=== PATIENT | female | born 1995 | race Caucasian/White ===

== ENCOUNTER 2023-09-16 08:25 | Emergency (ER) | payer SELFPAY ==
[2023-09-16] MEDS ORDERED: ONDANSETRON 4 MG/2 ML VIAL ONE (08:34)
[2023-09-16 08:48] LABS: Absolute Eosinophils 0.1 K/uL (0-0.5); Absolute Lymphocytes (CBC) 1.1 K/uL (0.7-4.9); Absolute Monocytes 0.2 K/uL (0.1-1.3); Absolute Neutrophil 4.1 K/uL (1.8-8.0); Basophils % 0.8 % (0-1.3); Eosinophils % 0.9 % (0-4.4); Hematocrit 38.6 % (36.0-45.0); Hemoglobin 13.4 g/dL (12.0-15.0); Lymphocytes % 20.6 % (15.3-44.8); MCH 29.6 pg (27.0-35.0); MCHC 34.7 g/dL (32.0-36.0); MCV 85.3 fL (80-100); MPV 9.8 fL (7.6-11.3); Monocytes % 4.1 % (3.3-12.3); Neutrophils % 73.6 % (41.7-73.7); Platelets 157 thou/uL (152-406); RBC Red Blood Cell Count 4.53 M/uL (3.86-4.86)
[2023-09-16 08:50] LABS: PT Prothrombin Time 11.9 SECONDS (9.5-12.5); PTT, Activated Partial Thromb 31.3 SECONDS (24.3-36.9); Protime INR 1.08
[2023-09-16 09:13] LABS: ALT/SGPT 19 U/L (13-56); AST/SGOT 14 U/L (15-37); Albumin 3.7 g/dL (3.4-5.0); Albumin/Globulin Ratio 0.9 (1.1-1.8); Alkaline Phosphatase 93 U/L (45-117); Anion Gap 11.9 mEq/L (5.0-15.0); BUN Blood Urea Nitrogen 14 mg/dL (7-18); Bicarbonate 21 mEq/L (21-32); Bilirubin Direct 0.2 mg/dL (0-0.2); Bilirubin Indirect, Calculated 0.6 mg/dL (0.2-0.8); Bilirubin Total 0.8 mg/dL (0.2-1.0); Globulin 4.1 g/dL (2.3-3.5); Glomerular Filtration Rate 94 ml/min (=/>90); Glucose Level 137 mg/dL (74-106); NT PRO-BNP 220 pg/mL (<125); Potassium 2.9 mEq/L (3.5-5.1); Protein, Total 7.8 g/dL (6.4-8.2); Sodium Level 140 mEq/L (136-145); Troponin High Sensitivity 6.7 pg/mL (<58.9)
--- NOTE | 2023-09-16 09:20 | EDPHYS ---
Physician Documentation [facility] Name: Yeny Kc Age: 28 yrs Sex: Female : 1995 Arrival Date: 09/16/2023 Time: 08: Bed 2 Private MD: ED Physician Lambert Jaeger HPI: 09/15 08:45 This 28 yrs old Female presents to ER via EMS with complaints of Nausea/Vomiting. sp3 08:45 28-year-old female with no stated past medical history presents via EMS for chief sp3 complaint vomiting, abdominal pain and anxiety. EMS arrived to find patient vomiting with a heart rate in the 30s. A total of two 0.5 mg doses of atropine were given to bring heart rate up into the 80s. Patient denies chest pain, prior bradycardia, syncope, near syncope, dizziness, or any other signs or symptoms on ROS at this time. When asked about she states that she "might be ". When asked about drug use, she does state that she vapes synthetic THC with delta 8. She denies any other illicit drug use. Review of systems otherwise negative for fever, URI symptoms, known sick contacts, travel history, prolonged mobilization back pain, lower abdominal pain, [employer]ER symptoms, symptoms, contusions, abuse, or any other signs or symptoms on ROS at this time.. Historical: - Allergies: 08:29 No Known Allergies; bp - Home Meds: 08:29 None [Active]; bp - PMHx: 08:29 None; bp - Immunization history:: Adult Immunizations up to date. - Infectious Disease History:: Denies. - Social history:: Smoking status: unknown. ROS: 08:47 Constitutional: Negative for fever, chills, and weight loss, Eyes: Negative for injury, sp3 pain, redness, and discharge, ENT: Negative for injury, pain, and discharge, Neck: Negative for injury, pain, and swelling, Respiratory: Negative for shortness of breath, cough, wheezing, and pleuritic chest pain, Back: Negative for injury and pain, MS/Extremity: Negative for injury and deformity, Skin: Negative for injury, rash, and discoloration, Neuro: Negative for headache, weakness, numbness, tingling, and seizure, Psych: Negative for depression, anxiety, suicide ideation, homicidal ideation, and hallucinations, Allergy/Immunology: Negative for hives, rash, and allergies, Endocrine: Negative for neck swelling, polydipsia, polyuria, polyphagia, and marked weight changes, 08:47 All other systems are negative, Exam: 08:47 Constitutional: This is a well developed, well nourished patient who is awake, alert, sp3 and in no acute distress. Head/Face: Normocephalic, atraumatic. Eyes: Pupils equal round and reactive to light, extra-ocular motions intact. Lids and lashes normal. Conjunctiva and sclera are non-icteric and not injected. Cornea within normal limits. Periorbital areas with no swelling, redness, or edema. Neck: Trachea midline, no thyromegaly or masses palpated, and no cervical lymphadenopathy. Supple, full range of motion without nuchal rigidity, or vertebral point tenderness. No Meningismus. Chest/axilla: Normal chest wall appearance and motion. Nontender with no deformity. No lesions are appreciated. Cardiovascular: Regular rate and rhythm with a normal S1 and S2. No gallops, murmurs, or rubs. Normal PMI, no JVD. No pulse deficits. Respiratory: Lungs have equal breath sounds bilaterally, clear to auscultation and percussion. No rales, rhonchi or wheezes noted. No increased work of breathing, no retractions or nasal flaring. Back: No spinal tenderness. No costovertebral tenderness. Full range of motion. Skin: Warm, dry with normal turgor. Normal color with no rashes, no lesions, and no evidence of cellulitis. MS/ Extremity: Pulses equal, no cyanosis. Neurovascular intact. Full, normal range of motion. Neuro: Awake and alert, GCS 15, oriented to person, place, time, and situation. Cranial nerves II-XII grossly intact. Motor strength 5/5 in all extremities. Sensory grossly intact. Cerebellar exam normal. Normal gait. 08:47 Abdomen/GI: Mild epigastric pain noted without peritoneal signs, rebound or guarding., 08:47 Psych: Patient with anxiety and nervousness. She denies SI, HI or psychosis.. 08:51 ECG was reviewed by the Attending Physician. EKG demonstrates normal sinus rhythm at 74 sp3 bpm with normal intervals, normal QRS normal axis nonspecific ST/changes without evidence of acute ischemia. Vital Signs: 08:26 BP 146 / 90; Pulse 85; Resp 24; Temp 97.5; Pulse Ox 100% ; bp 08:35 BP 147 / 62; Pulse 86; Resp 16; Pulse Ox 99% on R/A; db 09:20 db 09:20 PATIENT REFUSED REPEAT VITALS UPON EXITING ER db MDM: 08:26 Patient medically screened. sp3 08:48 Data reviewed: vital signs, nurses notes, EMS record, lab test result(s), EKG, sp3 radiologic studies. ED course: 28-year-old female with vomiting, epigastric pain and anxiety. Believe patient's bradycardia was likely due to vagal syndrome and not a primary cardiac etiology. However patient does look pale and we will obtain full workup including laboratory values, ABG, troponin, core temperature, EKG, CT scan of the abdomen pelvis, urine drug screen, urinalysis, hCG, talk screen, and general observation. Her vital signs are currently normal and stable. Ondansetron IV as needed for nausea. Disposition pending workup and patient course.. 09:18 ED course: Patient extremely anxious and wanting to leave AGAINST MEDICAL ADVICE. I sp3 explained to her that possibly including , disability, pain and suffering in a body of other potential challenges. I have urged her to stay however she states that she "wants to go home and take a bath because that the only thing that makes her feel better". Her heart rate remains normal and her vital signs are normal and she is alert and oriented and of sound mind. At this time we will discharge her as an AMA. I am not comfortable with an informed discharge given her presenting symptoms.. 09/15 08:27 Order name: Acetaminophen 3 09/15 08:27 Order name: Basic Metabolic Panel 09/15 08:27 Order name: CBC with Diff 09/15 08:27 Order name: ETOH Level 09/15 08:27 Order name: Hepatic Function 09/15 08:27 Order name: PT-INR 09/15 08:27 Order name: Test, Urine 09/15 08:27 Order name: Ptt, Activated 09/15 08:27 Order name: Salicylate 09/15 08:27 Order name: Urinalysis w/ reflexes sp09/15 08:27 Order name: Urine Drug Screen 09/15 08:27 Order name: BNP 3 09/15 08:27 Order name: ABG 3 09/15 08:27 Order name: Troponin High Sensitivity 3 09/15 08:28 Order name: Lactate w/ 2H reflex if indic. 3 09/15 08:27 Order name: EKG; Complete Time: 08:28 3 09/15 08:27 Order name: EKG - Nurse/Tech; Complete Time: 08:57 3 09/15 08:27 Order name: IV Saline Lock; Complete Time: 08:31 3 09/15 08:27 Order name: Labs collected and sent; Complete Time: 08:57 3 09/15 08:27 Order name: Suicide Screening ([place]); Complete Time: 08:30 3 09/15 08:27 Order name: Rectal Temp; Complete Time: 08:30 3 09/15 08:28 Order name: Monitor; Complete Time: 08:31 3 09/15 08:28 Order name: Pulse Ox Monitoring; Complete Time: 08:31 3 09/15 08:28 Order name: NPO; Complete Time: 08:31 sp3 Administered Medications: 08:35 Drug: Ondansetron IVP 4 mg IVP once; over 2 minutes Route: IVP; Site: left antecubital; db 09:20 Follow up: Response: No adverse reaction db Disposition Summary: 09/16/23 09:20 Left Against Medical Advice Notes: Location: Home sp3 Problem: new sp3 Symptoms: have worsened sp3 Condition: Stable sp3 Diagnosis - Vomiting, abdominal pain, anxiety, resolved bradycardia, AGAINST MEDICAL ADVICE sp3 Followup: sp3 - With: Private Physician - When: Upon discharge from the Emergency Department - Reason: Continuance of care Signatures: Dispatcher [employer] EDMS lA Mccullough RN RN bp Lambert Jaeger MD MD sp3 Kyara Ko RN RN db Corrections: (The following items were deleted from the chart) 08:28 08:28 ACETAMINOPHEN+C.LAB.BRZ ordered. EDMS EDMS 08:28 08:28 BASIC METABOLIC PANEL+C.LAB.BRZ ordered. EDMS EDMS 08:28 08:28 CBC+H.LAB.BRZ ordered. EDMS EDMS 08:28 08:28 ETHANOL+C.LAB.BRZ ordered. EDMS EDMS 08: 08:28 HEPATIC FUNCTION+C.LAB.BRZ ordered. EDMS EDMS 08: 08:28 PROTIME (+INR)+COAG.LAB.BRZ ordered. EDMS EDMS : 08:28 Test, Urine+UC.LAB.BRZ ordered. EDMS EDMS 08: 08:28 PTT, ACTIVATED+COAG.LAB.BRZ ordered. EDMS EDMS : 08:28 SALICYLATE+C.LAB.BRZ ordered. EDMS EDMS 08: 08:28 Urinalysis+U.LAB.BRZ ordered. EDMS EDMS 08: 08:28 URINE DRUG SCREEN+UC.LAB.BRZ ordered. EDMS EDMS : 08:28 PROBNP+C.LAB.BRZ ordered. EDMS EDMS : 08:28 Troponin High Sensitivity+C.LAB.BRZ ordered. EDMS EDMS
--- NOTE | 2023-09-16 09:20 | ER ---
Nurse's Notes [facility] Name: Yeny Kc Age: 28 yrs Sex: Female : 1995 Arrival Date: 09/16/2023 Time: 08:25 Bed 2 Private MD: Diagnosis: Vomiting, abdominal pain, anxiety, resolved bradycardia, AGAINST MEDICAL ADVICE Presentation: 09/15 08:26 Chief complaint: EMS states: EMS CALLED FOR NAUSEA AND VOMITING, EMS AOSTF PT NAKED AND bp ANXIOUS, BRADYCARDIC AND HYPERVENTILATING. PD ON SCENE. Coronavirus screen: At this time, the client does not indicate any symptoms associated with coronavirus-19. Ebola Screen: No symptoms or risks identified at this time. Initial Sepsis Screen: Does the patient meet any 2 criteria? No. Patient's initial sepsis screen is negative. Does the patient have a suspected source of infection? No. Patient's initial sepsis screen is negative. Risk Assessment: Do you want to hurt yourself or someone else? Patient reports no desire to harm self or others. Onset of symptoms was September 16, 2023 at 08:00. Care prior to arrival: Medication(s) given: 1 MG ATROPINE, 4MG ZOFRAN, 2OO ML NS IV initiated. 20 GA, in the right antecubital area. 08:26 Method Of Arrival: EMS: [facility] bp 08:26 Acuity: EDWARDO 3 bp Triage Assessment: 08:29 General: Appears distressed, unkempt, Behavior is agitated, anxious, uncooperative. bp Pain: Denies pain. GI: Reports nausea, vomiting. Historical: - Allergies: 08:29 No Known Allergies; bp - Home Meds: 08:29 None [Active]; bp - PMHx: 08:29 None; bp - Immunization history:: Adult Immunizations up to date. - Infectious Disease History:: Denies. - Social history:: Smoking status: unknown. Screenin:20 [facility] ED Fall Risk Assessment (Adult) History of falling in the last 3 months, db including since admission No falls in past 3 months (0 pts) Confusion or Disorientation No (0 pts) Intoxicated or Sedated No (0 pts) Impaired Gait No (0 pts) Mobility Assist Device Used No (0 pt) Altered Elimination No (0 pt) Score/Fall Risk Level 0 - 2 = Low Risk Oriented to surroundings, Maintained a safe environment. Abuse screen: Denies threats or abuse. Denies injuries from another. Nutritional screening: No deficits noted. Tuberculosis screening: No symptoms or risk factors identified. Assessment: 08:35 Reassessment: PT REFUSING ABG. STATES I JUST WANT TO GO HOME AND USE A HEATING PAD AND db TAKE A SHOWER. 09:15 Reassessment: PATIENT SITTING ON GROUND OUT SIDE OF ROOM STATES WANTS TO LEAVE. PT ON db PHONE WITH SPOUSE STATES SPOUSE IS GOING TO BE OUT FRONT AND WILL PICK PT UP. PATIENT REMOVED 1 IV ACCESS PER SELF. CATHETER INTACT. ASKED PT TO GET UP OFF FLOOR IN SIT IN CHAIR. NOTIFIED DR. JAEGER. 09:20 Reassessment: PATIENT SIGNED AMA FORM. NOTIFIED JYOTSNA NATHAN. PATIENT AMBULATORY WITH db STEADY GATE OUT OF ED. BILATERAL IVS REMOVED AND BANDAGE APPLIED. 09:20 Reassessment: Patient appears in no apparent distress at this time. Patient and/or db family updated on plan of care and expected duration. Pain level reassessed. Patient is alert, oriented x 3, equal unlabored respirations, skin warm/dry/pink. Vital Signs: 08:26 BP 146 / 90; Pulse 85; Resp 24; Temp 97.5; Pulse Ox 100% ; bp 08:35 BP 147 / 62; Pulse 86; Resp 16; Pulse Ox 99% on R/A; db 09:20 db 09:20 PATIENT REFUSED REPEAT VITALS UPON EXITING ER ED Course: 08:25 Patient arrived in ED. bp 08:26 Lambert Jaeger MD is Attending Physician. sp3 08:29 Triage completed. bp 08:29 Arm band placed on. bp 08:30 Al Mccullough, RN is Primary Nurse. bp 08:39 Lactate w/ 2H reflex if indic. Sent. bc6 08:39 Initial lab(s) drawn, by me, sent to lab. Inserted saline lock: 20 gauge in left bc6 antecubital area, using aseptic technique. Blood collected. 09:20 Patient has correct armband on for positive identification. Bed in low position. Call db light in reach. Side rails up X 1. Client placed on continuous cardiac and pulse oximetry monitoring. NIBP monitoring applied. electronic device monitor on. Pulse ox on. NIBP on. Warm blanket given. Pillow given. 09:20 No provider procedures requiring assistance completed. db 09:20 IV discontinued, intact, bleeding controlled, No redness/swelling at site. db Administered Medications: 08:35 Drug: Ondansetron IVP 4 mg IVP once; over 2 minutes Route: IVP; Site: left antecubital; db 09:20 Follow up: Response: No adverse reaction db Medication: 09:20 VIS not applicable for this client. db Outcome: :20 AMA AMA form signed db 09:20 Condition: stable 09:20 Instructed on AMA AND TO RETURN IF SYMPTOMS PERSIST OR WORSEN 09:26 Patient left the ED. db Signatures: Al Mccullough, RN RN bp Lambert Jaeger MD MD sp3 Kyara Ko RN RN db Vicki Hernandez bc6
[2023-09-16 09:54] VITALS: BP 147/62; TEMP 97.5; O2SAT 99
--- NOTE | 2023-09-20 13:12 | EKG ---
Test Date: 2023-09-16 Test Time: 08:47:21 Stitch Burnisher: RICHARD MEASUREMENT RESULTS: Intervals: Rate: 74 TN: 168 QRSD: 90 QT: 432 QTc: 479 Wayne: P: 39 TN: 168 QRS: -10 T: 36 INTERPRETIVE STATEMENTS: Sinus rhythm with occasional premature ventricular complexes Possible Left atrial enlargement Low voltage QRS Cannot rule out Anterior infarct, age undetermined Abnormal ECG No previous ECG available for comparison Electronically Signed On 09-20-23 13:00:21 CDT by Dmitriy James
== END 2023-09-16 09:26 | disposition left against medical advice (07) ==
LOC: ER 08:25
DX: R11.2 Nausea with vomiting, unspecified (principal); R10.30 Lower abdominal pain, unspecified; F41.9 Anxiety disorder, unspecified
CPT/HCPCS: 36415; 80048; 80076; 80143; 80179; 82077; 83605; 83880; 84484; 85025; 85610; 85730; 93005; J2405

== ENCOUNTER 2025-02-18 13:05 | Emergency (ER) | payer OTHER ==
--- OUTSIDE RECORDS SUMMARY | 2025-02-18 13:12 | XMS REPORT | Continuity of Care Document ---
Author Name Unknown Address [address] [facility]. [address] [place] [address] [facility] Address [address] [facility] [address] [place] [address] Care Team Providers Care Thermograph Operator Name Role Phone PCP, PATIENT DOES NOT HAVE A Primary Care Physic riley Unavailable KATARINA FITCH Attending Clinician Unavailable MD MARIVEL Attending Clinician GILES Cortes Attending Clinician Betty Parra Attending Clinician MARLI Fiore Attending Clinician Dung Barbosa MD, Marli Nolasco Attending Clinician Yosi Marroquin Attending Clinician UnavailStephanie Thomas Attending Clinician UnavailKristie Mott Attending Clinician Matthew Lopez RN, Melinda Attending Clinician Johnab le Only, Gal Adult Uc Test Attending Clinician Shamir Ronquillo Attending Clinician [phone] Yosi Marroquin Admitting Clinician MARLI Bernard Admitting Clinician Dung e Payers Payer Name Policy Type Policy Number Effective Date Expirati on Date Source [facility] ABY MONAHAN COPAY FOCUS 9 [id number] 2024 00:00:00 [facility] [id number] 2018 00:00:00 Problems Condition Name Condition Details Condition Category Status Onset Date Resolution Date Last Treatment Date Treating Clinician Comments Source No known active problems No known active problems Disease [facility] Allergies, Adverse Reactions, Alerts Allergy Name Allergy Type Status Severity Reaction(s) Onset Date Inactive Date Treating Clinician Comments Source No Known Allergie s DA Active U 06-12 00:00: 00 [facility] No Known Allergie s DA Active U 06-12 00:00: 00 [facility] No Known Allergie s DA Active U 2018-05 0-24 00:00: 00 [facility] No Known Allergie s DA Active U 2018-05 0-24 00:00: 00 [facility] No Known Allergie s DA Active U 2017-05 0-19 00:00: 00 [facility] No Known Allergie s DA Active U 5-29 00:00: 00 [facility] NO KNOWN ALLERGIE S Drug Class Active [facility] Social History Social Habit Start Date Stop Date Quantity Comments Source Sexual orientation Tosin Howell - External History of tobacco use Passive smoker Radha calderon - External ASSERTION Possible Radha Howell - External Tobacco use and exposure 2024-03-20 00:00:00 2024-03-20 00:00:00 User of smokeless tobacco Radha Howell - External Alcoholic beverage intake 2024-03-20 00:00:00 2024-03-20 00:00:00 Ex-drinker (finding) Radha Howell - External History of Social function 2024-03-20 00:00:00 2024-03-20 00:00:00 Radha Lynda - External Tobacco Comment 2024-03-20 00:00:00 2024-03-20 00:00:00 mason Garcia Setanyaanna - External Sex 2023-12-11 09:45:21 2023-12-11 09:45:21 Female (finding) Radha Kingsteven - External Sex assigned at 1995 00:00:00 1995 00:00:00 Radha Kingsteven - External Smoking Status Start Date Stop Date Source Tobacco smoking consumption unknown [facility] Smokes tobacco daily 2024-03-20 00:00:00 Radha Lynda - External Medications Ordered Medication Name Filled Medication Name Start Date Stop Date Current Medication? Ordering Clinician Indication Dosage Frequency Signature (SIG) Comments Components Source Omeprazole 20 MG oral Delayed Release Capsule 01-24 00:00: 00 Yes 20mg QD Take 1 capsule (20 mg total) by mouth daily. Radha Lynda - Externa l ketorolac (TORADOL) injection 30 mg 09-15 23:30: 00 09-15 23:11 :00 No 30mg 30 mg, Slow IV Push, ONCE, 1 dose, [facility] Wed09/16/23 at 1830[facility] (ISOVUE 370-500 mL) injection 85 mL 09-15 22:45: 00 09-15 22:45 :00 No [id number] 85mL 85 mL, Intravenou s, ONCE, 1 dose, On Wed09/16/23 at 1745, Routine [facility] morpHINE (4 mg/mL) injection 4 mg 09-15 21:45: 00 09-15 23:04 :00 No 4mg 4 mg, Slow IV Push, ONCE, 1 dose, On Wed09/16/23 at 1645, [facility] NaCl 0.9% (NS) bolus infusion 1,000 mL 09-15 20:45: 00 09-15 21:26 :00 No 1000mL at 999 mL/hr, 1,000 mL, IV Infusion, ONCE, 1 dose, On Opal 09/16/23 at 1545, [facility] famotidine (PEPCID (PF)) injection 20 mg 09-15 20:00: 00 09-15 20:16 :00 No 20mg 20 mg, Slow IV Push, ONCE, 1 dose, On Opal 09/16/23 at 1500, [facility] ondansetron (ZOFRAN (PF)) injection 8 mg 09-15 20:00: 00 09-15 20:15 :00 No 8mg 8 mg, Slow IV Push, ONCE, 1 dose, On Opal 09/16/23 at 1500, [facility] Sucralfate 1 g oral Tablet 09-15 00:00: 00 Yes 1g Take 1 tablet (1 g total) by mouth before meals and at bedtime. Radha turcios traMADoL 50 mg tablet 09-15 00:00: 00 Yes [id number] 50mg Take 1 tablet by mouth every 6 (six) hours as needed (pain). Indication s: acute pain [facility] ondansetron 4 mg tablet 09-15 00:00: 00 Yes [id number] 1 or 2 tablets every 8 hours as needed for nausea [facility] busPIRone 10 mg tablet 09-15 00:00: 00 09-30 04:59 :00 No [id number] 10mg Take 1 tablet by mouth in the morning and 1 tablet in the evening. Do all this for 14 days. [facility] cefdinir 300 mg capsule 09-15 00:00: 00 09-21 04:59 :00 No [id number] 300mg Take 1 capsule by mouth every 12 (twelve) hours for 5 days. [facility] traMADol 50 mg tablet 2018-05 00:00: 00 Yes [id number] 50mg Take 1 tablet by mouth every 6 (six) hours as needed for Pain (scale 4-6). [facility] Immunizations Ordered Immunization Name Filled Immunization Name Date Status Comments Source Rho (d) Immune Globulin 2023-09-16 14:49:00 Completed [facility] Rho (d) Immune Globulin 2018-07-17 00:00:00 Completed [facility] Rho (d) Immune Globulin 2018-07-17 00:00:00 Completed [facility] Vital Signs Vital Name Observation Time Observation Value Comments S ource Systolic blood pressure 2024-03-20 15:04:00 160 mm[Hg] Radha Seybo ld - External Diastolic blood pressure 2024-03-20 15:04:00 79 mm[Hg] Radha Seybo ld - External Heart rate 2024-03-20 15:04:00 64 /min Shree y Seybold - External Body temperature 2024-03-20 15:04:00 36.83 Sue Radha Seybold - External Respiratory rate 2024-03-20 15:04:00 18 /min Radha Kingybold - External Body height 2024-03-20 15:04:00 152.4 cm Mayra ey Seybold - External Body weight 2024-03-20 15:04:00 85.276 kg Mayra ey Seybold - External BMI 2024-03-20 15:04:00 36.72 kg/m2 Mayra ey Seybold - External Oxygen saturation in Arterial blood by Pulse oximetry 2024-03-20 15:04:00 99 /min Radha Kingybo ld - External Systolic blood pressure 2023-09-16 23:30:00 122 mm[Hg] [facility] Diastolic blood pressure 2023-09-16 23:30:00 58 mm[Hg] [facility] Heart rate 2023-09-16 23:30:00 39 /min [facility] Body temperature 2023-09-16 23:30:00 36.67 Sue [facility] Respiratory rate 2023-09-16 23:30:00 17 /min [facility] Oxygen saturation in Arterial blood by Pulse oximetry 2023-09-16 23:30:00 100 /min [facility] Body height 2023-09-16 19:46:00 152.4 cm [facility] Body weight 2023-09-16 19:46:00 95.255 kg [facility] BMI 2023-09-16 19:46:00 41.01 kg/m2 [facility] Procedures Procedure Date / Time Performed Performing Clinicia n Source CT ABDOMEN PELVIS W CONTRAST 2023-09-16 21:52:00 Marli Barbosa [facility] URINALYSIS 2023-09-16 21:25:00 [facility] 2023-09-16 20:09:00 Marli Barbosa [facility] TEST, SERUM 2023-09-16 20:09:00 Jalen Barbosa [facility] COMP. METABOLIC PANEL ([id number]) 2023-09-16 20:09:00 Marli Barbosa [facility] CBC WITH DIFF 2023-09-16 20:09:00 [id number] 2021-09-18 00:00:00 MAXBA [facility] [id number] 2021-09-18 00:00:00 MAXBA [facility] [id number] 2021-09-18 00:00:00 MAXBA [facility] [id number] 2021-09-17 00:00:00 [facility] [id number] 2020-06-12 00:00:00 [facility] [id number] 2020-06-12 00:00:00 [facility] Encounters Start Date/Time End Date/Time Encounter Type Admission Type Attending Clinicians Care Facility Care Department Encounter ID Source 2021-08-16 12:18:00 Outpatient [facility] [id number] [facility] 2025-03-02 13:15:00 2025-03-02 13:15:00 Outpatient KATARINA FITCH [id number] [facility] 2025-02-28 14:15:00 2025-02-28 14:15:00 Outpatient KATARINA FITCH [id number] [facility] 2025-02-16 13:15:00 2025-02-16 13:15:00 Outpatient LITTLEMAGDA VOGELChristopher GARCIA [id number] [facility] 2025-02-14 00:00:00 2025-02-14 00:00:00 Outpatient MD RADHA HUNT [id number] [facility] 2025-02-13 00:00:00 2025-02-13 00:00:00 Outpatient LITTLE, KATARINA GARCIA [id number] [facility] 2025-02-13 00:00:00 2025-02-13 00:00:00 Outpatient LITTLE, KATARINA GARCIA [id number] [facility] 2025-02-12 15:15:00 2025-02-12 15:15:00 Outpatient RADHA GARCIA [id number] [facility] 2024-12-20 14:00:00 2024-12-20 14:00:00 Outpatient GILES GALVAN [id number] [facility] 2024-04-04 11:30:00 2024-04-04 11:30:00 Outpatient RADHA GARCIA [id number] [facility] 2024-04-04 00:00:00 2024-04-04 00:00:00 Outpatient LITTLE KATARINA GARCIA [id number] [facility] 2024-03-29 14:30:00 2024-03-29 14:30:00 Outpatient RADHA GARCIA [id number] [facility] 2024-03-20 10:15:00 2024-03-20 10:15:00 Outpatient LITTLE, KATARINA GARCIA [id number] [facility] 2024-01-24 12:58:00 2024-01-24 16:43:00 Emergency EM Betty Arteaga [facility] JESSICA [id number] [facility] 2023-09-16 14:49:00 2023-09-16 18:45:00 Emergency X MARLI BARBOSA [facility] [id number] [facility] 2023-09-16 14:49:00 2023-09-16 18:45:00 Emergency Marli Barbosa [facility] [id number] [facility] 2021-09-17 20:19:00 2021-09-21 12:19:00 Inpatient EL Yosi Marroquin [facility]ACL OBPP [id number] 83 [facility] 2021-09-10 20:28:00 2021-09-10 22:50:00 Emergency EM Yosi Marroquin [facility]AC[facility] SHADI [id number] [facility] 2021-08-26 21:00:00 2021-08-27 10:50:00 Inpatient EM Yosi Marroquin [facility]AC[facility] LD [id number] [facility] 2021-08-21 19:47:00 2021-08-21 20:45:00 Outpatient EM Yosi Marroquin [facility] OBOP [id number] [facility] 2021-08-20 19:06:00 2021-08-20 22:15:00 Emergency EM Stephanie Bazzi [facility]ACL SHADI [id number] 76 [facility] 2021-08-14 21:37:00 2021-08-14 22:47:00 Emergency EM Ti PriscillaKristie wills HCACL SHADI [id number] [facility] 2021-01-20 00:00:00 2021-01-20 00:00:00 Telephone Melinda Lopez [facility] 1..[id number] [facility] 2021-01-19 14:54:40 2021-01-19 15:09:40 Laboratory Only Only, Gal Adult Uc Test Shamir Rodrigues R [facility] [place] [id number] [facility] 2020-06-12 09:06:00 2020-06-17 05:22:11 Inpatient Kristie Boston [facility]ACL SHADI [id number] [facility] 2020-06-18 06:00:00 2020-06-12 12:56:44 Inpatient Yosi Marroquin [facility]L OUTD [id number] 74 [facility] 2020-03-24 00:09:00 2020-04-23 06:20:42 Inpatient Yosi Connolly [facility]ACL IVF [id number] [facility] 2020-03-18 11:22:00 2020-03-25 22:37:34 Inpatient Yosi Connolly [facility]ACL IVF [id number] [facility] Results Test Description Test Time Test Comments Results Result Co mments Source HEPATIC FUNCTION [id number] 14:12:00* Test Item Value Reference Range Interpretation Comme nts TOTAL PROTEIN (test code = PROT) 9.0 g/dL 6.4-8.2 H ALBUMIN (test code = ALB) 4.50 g/dL 3.4-5.0 N BILIRUBIN TOTAL (test code = BILT) 0.90 mg/dL 0.0-1.0 N BILIRUBIN DIRECT (test code = BILD) 0.30 MG/DL 0.1-0.3 N BILIRUBIN INDIRECT (test cod e = BILIND) 0.60 MG/DL SGOT/AST (test code = AST) 39 IUnit/L 8-34 H SGPT/ALT (test code = ALT) 41 IUnit/L 10-49 N ALKALINE PHOSPHATASE TOTAL ( test code = ALKP) 99 IUnit/L 20-125 N [id number] 14:12:00* Test Item Value Reference Range Interpretation Comme nts LIPASE (test code = LIP) 35 U/L 13-57 N UA RFLX MICR CULT IF [id number] 14:12:00* Test Item Value Reference Range Interpretation Comme nts UA COLOR (test code = COLU) LYRIC YEL/STRAW A UA APPEARANCE (test code = APPU) SL CLOUDY CLEAR UA GLUCOSE DIPSTICK (test co de = DGLUU) NEGATIVE NEGATIVE UA BILIRUBIN DIPSTICK (test code = BILU) NEGATIVE NEGATIVE UA KETONE DIPSTICK (test cod e = KETU) 1+ NEGATIVE A UA SPECIFIC GRAVITY (test co de = SGU) 1.033 1.005-1.030 H UA BLOOD DIPSTICK (test code = SHERYL) 3+ NEGATIVE A UA PH DIPSTICK (test code = CALIN) 5.0 5.0-7.0 N UA PROTEIN DIPSTICK (test co de = PROU) 2+ NEGATIVE A UA UROBILINIOGEN DIPSTICK (t est code = URO) 0.2 mg/dL 0.2-1.0 UA NITRITE DIPSTICK (test co de = KRYSTAL) NEGATIVE NEGATIVE UA LEUKOCYTE ESTERASE DIPSTI CK (test code = LEUU) TRACE NEGATIVE A UA WBC (test code = WBCU) 10-20 WBC/HPF 0-3 A UA RBC (test code = RBCU) 21-50 RBC/HPF 0-3 UA WBC NO REFLEX (test code = WBCUCL) 10-20 WBC/HPF 0-3 A UA BACTERIA (test code = BACU) 2+ /HPF NONE SEEN A UA SQUAMOUS CELLS (test code = SQU) 0-5 /HPF NONE SEEN UA CALCIUM OXALATE CRYSTALS (test code = CAOXU) 1+ /HPF NONE SEEN A UA MUCUS (test code = MUCU) 4+ /LPF NONE SEEN A UA YEAST (BUDDING) (test cod e = YEASTUBD) 1+ /HPF NONE A Indication for culture: Suprapubic PainSpecimen Description: CLEAN CATCHHCG SERUM [id number] 14:03:00* Test Item Value Reference Range Interpretation Comme nts HCG SERUM QUAL (test code = HCGQL) SERUM NEGATIVE NEGATIVE CBC W/AUTO [id number] 13:56:00* Test Item Value Reference Range Interpretation Comme nts WHITE BLOOD CELL (test code = WBC) 9.5 x10 3/uL 4.5-11.0 RED BLOOD CELL (test code = RBC) 5.37 x10 6/uL 3.54-5.02 H HEMOGLOBIN (test code = HGB) 15.7 g/dL 11.0-15.0 H HEMATOCRIT (test code = HCT) 45.8 % 33.0-45.0 H MEAN CELL VOLUME (test code = MCV) 85.3 fL 81.0-99.0 N MEAN CELL HGB (test code = MCH) 29.2 pg 27.0-33.0 N MEAN CELL HGB CONCETRATION (test code = MCHC) 34.3 g/dL 33.0-37.0 N RED CELL DISTRIBUTION WIDTH CV (test code = RDW) 12.8 % 11.5-14.5 N RED CELL DISTRIBUTION WIDTH SD (test code = RDW-SD) 39.0 fL 37.0-54.0 N PLATELET COUNT (test code = PLT) 247 x10 3/uL 150-400 N MEAN PLATELET VOLUME (test c ode = MPV) 11.5 fL 7.0-9.0 H NEUTROPHIL % (test code = NT%) 74.7 % 56.0-77.0 N IMMATURE GRANULOCYTE % (test code = IG%) 0.2 % 0.0-2.0 N LYMPHOCYTE % (test code = LY%) 18.0 % 14.0-32.0 N MONOCYTE % (test code = MO%) 6.2 % 4.8-9.0 N EOSINOPHIL % (test code = EO%) 0.2 % 0.3-3.7 L BASOPHIL % (test code = BA%) 0.7 % 0.0-2.0 N NUCLEATED RBC % (test code = NRBC%) 0.0 % 0-0 N NEUTROPHIL # (test code = NT#) 7.09 x10 3/uL 2.0-7.6 N IMMATURE GRANULOCYTE # (test code = IG#) 0.02 x10 3/uL 0.00-0.03 N LYMPHOCYTE # (test code = LY#) 1.71 x10 3/uL 1.0-3.8 N MONOCYTE # (test code = MO#) 0.59 x10 3/uL 0.1-0.8 N EOSINOPHIL # (test code = EO#) 0.02 x10 3/uL 0.0-0.2 N BASOPHIL # (test code = BA#) 0.07 x10 3/uL 0.0-0.2 N NUCLEATED RBC # (test code = NRBC#) 0.00 x10 3/uL 0.0-0.[address] ABDOMEN PELVIS W [id number] 22:59:33Ordering Physician: MARLI BARBOSA Clinical indication: Acute nonlocalized abdominal pain. Bilateral upperabdominal pain. Comparison: None. Technique: CT abdomen and pelvis with intravenous contrast. Thisexamination was performed according to ALARA principles. Technical quality: Adequate Findings: The liver and spleen are both mildly enlarged and otherwise unremarkable.The patient is status post cholecystectomy. The pancreas and adrenal glandsare unremarkable. There is a small hiatal hernia. Evaluation of the stomachis limited due to lack of distention. However, there appears to bedisproportionate mural thickening of the gastric antrum and there is mildadjacent fat stranding, best seen onsagittal reconstructions, suspiciousfor gastritis. Small bilateral intrarenal calculi are present. No ureteralcalculi are evident and there is no hydronephrosis. An IUD appears normally positioned. The urinary bladder is decompressed andgrossly unremarkable. There is no evidence of colitis or diverticulitis. Anormal appendix is identified. There is no bowel distention. There is nofree intraperitoneal fluid or free intraperitoneal air. The included lungbases are clear. No acute bony abnormalities are evident.[facility], [id number] 21:46:01* Test Item Value Reference Range Interpretation Comme nts PREG SERUM (test code = 9763466360) Negative ANGELA (test code = ANGELA) Less than 10 IU/L. ?If low titer or ectopic is suspected, resubmit specimen in 48-72 hours. [facility]. METABOLIC PANEL ([id number])2023-09-16 20:37:03* Test Item Value Reference Range Interpretation Comme nts NA (test code = 5671335765) 138 mmol/L 135-145 K (test code = 6138307700) 3.2 mmol/L 3.5-5.0 L CL (test code = 1348337523) 107 mmol/L 98-108 CO2 TOTAL (test code = 3519885016) 21 mmol/L 23-31 L AGAP (test code = 5069261266) 10 2-16 BUN (test code = 9058571206) 13 mg/dL 7-23 GLUCOSE (test code = 4253788388) 118 mg/dL 70-110 H CREATININE (test code = 2160-0) 0.74 mg/dL 0.50-1.04 TOTAL BILI (test code = 3844760293) 0.8 mg/dL 0.1-1.1 CALCIUM (test code = 3234814122) 9.2 mg/dL 8.6-10.6 T PROTEIN (test code = 1242894039) 7.6 g/dL 6.3-8.2 ALBUMIN (test code = 6006049844) 4.5 g/dL 3.5-5.0 ALK PHOS (test code = 1535155707) 94 U/L 34-122 ALTv (test code = 1742-6) 16 U/L 5-35 AST(SGOT) (test code = 9396448470) 25 U/L 13-40 eGFR (test code = 62475-7) 111.8 mL/min/1.73m2 CKD-EPI eGFR (2020). Assuming creatinine has been stable day-to-day for at least three months, the eGFR indicates Category G1 (>= 90 mL/min/1.73 m2) Lab Interpretation (test code = 62914-3) Abnormal [facility] 20:36:42* Test Item Value Reference Range Interpretation Comme nts LIPASE (test code = 3237375566) 32 U/L 0-220 Lab Interpretation (test cod e = 47521-5) Normal [facility] WITH [id number] 20:23:21* Test Item Value Reference Range Interpretation Comme nts WBC (test code = 6690-2) 6.99 4.30-11.10 RBC (test code = 789-8) 4.31 3.93-5.25 HGB (test code = 718-7) 12.9 g/dL 11.6-15.0 HCT (test code = 4544-3) 37.0 % 35.7-45.2 MCV (test code = 787-2) 85.8 fL 80.6-95.5 MCH (test code = 785-6) 29.9 pg 25.9-32.8 MCHC (test code = 786-4) 34.9 g/dL 31.6-35.1 RDW-SD (test code = 62647-6) 39.8 fL 39.0-49.9 RDW-CV (test code = 788-0) 12.8 % 12.0-15.5 PLT (test code = 777-3) 151 166-358 L MPV (test code = 89687-7) 11.7 fL 9.5-12.9 NRBC/100 WBC (test code = 4776312177) 0.0 0.0-10.0 NRBC x10^3 (test code = 1977904581) See_Comment [Automated messa ge] The system which generated this result transmitted reference range: 10*3/?L. The reference range was not used to interpret this result as normal/abnormal. GRAN MAT (NEUT) % (test code = 770-8) 86.8 % IMM GRAN % (test code = 1654887952) 0.30 % LYMPH % (test code = 736-9) 10.2 % MONO % (test code = 5905-5) 2.4 % EOS % (test code = 713-8) 0.0 % BASO % (test code = 706-2) 0.3 % GRAN MAT x10^3(ANC) (test code = 3052791849) 6.07 10*3/uL 1.88-7.09 IMM GRAN x10^3 (test code = 9338857681) 0.00-0.06 LYMPH x10^3 (test code = 731-0) 0.71 10*3/uL 1.32-3.29 L MONO x10^3 (test code = 742-7) 0.17 10*3/uL 0.33-0.92 L EOS x10^3 (test code = 711-2) 0.03-0.39 L BASO x10^3 (test code = 704-7) 0.01-0.07 Lab Interpretation (test code = 79005-3) [facility]:10[facility]00* Test Item Value Reference Range Interpretation Comme nts SURGICAL (test code = SR) R UN DATE: 09/24/21 [place] - LAB PAGE 1 RUN TIME: 1110 Specimen Inquiry RUN USER: INTERFACE P ATIENT: YENY TEMPLETON LOC: SHANICE U #: [id number] AGE/SX: ROOM: [facility] RE09/17/21REG DR: Yosi Marroquin MD : 93 BED: 1 DIS: 09/21/21 STATUS: DIS IN TLOC: SPEC #: [id number] RECD: 09/19/21 STATUS: BRIAN SHAH #: [id number] MARIELLA: 09/18/21- SUBM DR: Yosi Marroquin MD ENTERED: 09/19/21 SP TYPE: SURGICAL OTHR DR: ORDERED: [id number], ANATOMIC SPEC PROCEDURES: 11528 (09/19/21) TISSUES: A. PLACENTA, THIRD TRIMESTER (28 + WEEKS) FINAL DIAGNOSIS Placenta, delivery:Chorionic villi of appropriate gestational age.Unremarkable three-vessel cord.No significant acute inflammation seen.Weight: 410 g, appropriate for gestational age. GROSS DESCRIPTION The specimen received in formalin in a container labeled the patient's name and designatedplacenta consists of a carver placenta that measures 14.5 x 14 x 4 cm. After removingthe membranes and umbilical cord the placenta weighs 410 g. The umbilical cordmeasures 32 cm in length and up to 1 cm in diameter. The cut surface shows 3 vessels. Thefetal membranes are slightly dusky. The placental disc is serially sectioned. No masslesions are identified. Crm Coordinator sections are submitted. Cassette A contains theumbilical cord and membranes. Cassette B and cassette C contain the placental disc. Technical component performed at [address], [place] [address] Unless gross only, the diagnosis is based upon microscopic examination.Immunohistochemistr y: This test was developed and its performance characteristicsdetermined by this laboratory. It has not been approved nor does it need approvalby the [place] FDA. Appropriate positive and negative controls are reviewed and judgedto be acceptable. This laboratory is certified under the Clinical Laboratory ImprovementAmendments (CLIA-88) as qualified to perform high complexity clinical laboratory testing. MICROSCOPIC DESCRIPTION A microscopic examination was performed. --------- Signed SIGNATURE ON FILE DeirdreReynold Pradip 09/24/21 1110 END OF REPORT CORD ARTERIAL BLOOD [id number] 09:57:00* Test Item Value Reference Range Interpretation Comme nts CORD BLOOD PH (test code = PH/C) 7.30 7.18-7.38 N CORD BLOOD PCO2 (test code = PCO2/C) 48 mmHg 32-66 N CORD BLOOD PO2 (test code = PO2/C) 22 mmHg 6-30 N CORD BLOOD HCO3 (test code = HCO3/C) 23 mmol/L 17-27 N BASE EXCESS CORD (test code = MEGHA/C) -3.0 mmol/L -8.0-0.0 N O2 SATURATION (test code = O2S/C) 31 % 72-77 L CBC W/AUTO [id number] 07:59:00* Test Item Value Reference Range Interpretation Comme nts WHITE BLOOD CELL (test code = WBC) 6.3 x10 3/uL 4.5-11.0 N RED BLOOD CELL (test code = RBC) 3.02 x10 6/uL 3.54-5.02 L HEMOGLOBIN (test code = HGB) 8.4 g/dL 11.0-15.0 L HEMATOCRIT (test code = HCT) 27.2 % 33.0-45.0 L MEAN CELL VOLUME (test code = MCV) 90.1 fL 81.0-99.0 N MEAN CELL HGB (test code = MCH) 27.8 pg 27.0-33.0 N MEAN CELL HGB CONCETRATION (test code = MCHC) 30.9 g/dL 33.0-37.0 L RED CELL DISTRIBUTION WIDTH CV (test code = RDW) 15.5 % 11.5-14.5 H RED CELL DISTRIBUTION WIDTH SD (test code = RDW-SD) 50.6 fL 37.0-54.0 N PLATELET COUNT (test code = PLT) 81 x10 3/uL 150-400 L MEAN PLATELET VOLUME (test c ode = MPV) 12.2 fL 7.0-9.0 H NEUTROPHIL % (test code = NT%) 71.5 % 56.0-77.0 N IMMATURE GRANULOCYTE % (test code = IG%) 0.5 % 0.0-2.0 N LYMPHOCYTE % (test code = LY%) 18.6 % 14.0-32.0 N MONOCYTE % (test code = MO%) 7.5 % 4.8-9.0 N EOSINOPHIL % (test code = EO%) 1.4 % 0.3-3.7 N BASOPHIL % (test code = BA%) 0.5 % 0.0-2.0 N NUCLEATED RBC % (test code = NRBC%) 0.0 % 0-0 N NEUTROPHIL # (test code = NT#) 4.50 x10 3/uL 2.0-7.6 N IMMATURE GRANULOCYTE # (test code = IG#) 0.03 x10 3/uL 0.00-0.03 N LYMPHOCYTE # (test code = LY#) 1.17 x10 3/uL 1.0-3.8 N MONOCYTE # (test code = MO#) 0.47 x10 3/uL 0.1-0.8 N EOSINOPHIL # (test code = EO#) 0.09 x10 3/uL 0.0-0.2 N BASOPHIL # (test code = BA#) 0.03 x10 3/uL 0.0-0.2 N NUCLEATED RBC # (test code = NRBC#) 0.00 x10 3/uL 0.0-0.1 N MANUAL DIFF REQUIRED (test c ode = MDIFF) NO CORD VENOUS BLOOD [id number] 19:05:00* Test Item Value Reference Range Interpretation Comme nts CORD VENOUS PH (test code = PHCV) 7.36 7.25-7.45 N CORD VENOUS PCO2 (test code = PCO2CV) 35 mmHg 27-49 N CORD VENOUS PO2 (test code = PO2CV) 38 mmHg 17-41 N CORD VENOUS HCO3 (test code = HCO3CV) 20.1 MMOL/L 12-28 N CORD VENOUS BASE EXCESS (eliana t code = BEXCV) -5.3 mmol/L -8.0-0.00 N CORD VENOUS 02 SAT (test cod e = O2SCV) 71 % CORD ARTERIAL BLOOD [id number] 19:05:00* Test Item Value Reference Range Interpretation Comme nts CORD BLOOD PH (test code = PH/C) 7.30 7.18-7.38 N CORD BLOOD PCO2 (test code = PCO2/C) 48 mmHg 32-66 N CORD BLOOD PO2 (test code = PO2/C) 22 mmHg 6-30 N CORD BLOOD HCO3 (test code = HCO3/C) 23 mmol/L 17-27 N BASE EXCESS CORD (test code = MEGHA/C) -3.0 mmol/L -8.0-0.0 N O2 SATURATION (test code = O2S/C) 31 % 72-77 L CBC W/AUTO [id number] 16:36:00* Test Item Value Reference Range Interpretation Comme nts WHITE BLOOD CELL (test code = WBC) 7.4 x10 3/uL 4.5-11.0 N RED BLOOD CELL (test code = RBC) 3.60 x10 6/uL 3.54-5.02 N HEMOGLOBIN (test code = HGB) 9.9 g/dL 11.0-15.0 L HEMATOCRIT (test code = HCT) 32.1 % 33.0-45.0 L MEAN CELL VOLUME (test code = MCV) 89.2 fL 81.0-99.0 N MEAN CELL HGB (test code = MCH) 27.5 pg 27.0-33.0 N MEAN CELL HGB CONCETRATION (test code = MCHC) 30.8 g/dL 33.0-37.0 L RED CELL DISTRIBUTION WIDTH CV (test code = RDW) 15.5 % 11.5-14.5 H RED CELL DISTRIBUTION WIDTH SD (test code = RDW-SD) 50.7 fL 37.0-54.0 N PLATELET COUNT (test code = PLT) 91 x10 3/uL 150-400 L IMMATURE PLATELET FRACTION (test code = IPF) 8.5 % 0.9-11.2 N MEAN PLATELET VOLUME (test c ode = MPV) 11.5 fL 7.0-9.0 H NEUTROPHIL % (test code = NT%) 75.8 % 56.0-77.0 N IMMATURE GRANULOCYTE % (test code = IG%) 0.4 % 0.0-2.0 N LYMPHOCYTE % (test code = LY%) 16.7 % 14.0-32.0 N MONOCYTE % (test code = MO%) 5.5 % 4.8-9.0 N EOSINOPHIL % (test code = EO%) 1.2 % 0.3-3.7 N BASOPHIL % (test code = BA%) 0.4 % 0.0-2.0 N NUCLEATED RBC % (test code = NRBC%) 0.0 % 0-0 N NEUTROPHIL # (test code = NT#) 5.63 x10 3/uL 2.0-7.6 N IMMATURE GRANULOCYTE # (test code = IG#) 0.03 x10 3/uL 0.00-0.03 N LYMPHOCYTE # (test code = LY#) 1.24 x10 3/uL 1.0-3.8 N MONOCYTE # (test code = MO#) 0.41 x10 3/uL 0.1-0.8 N EOSINOPHIL # (test code = EO#) 0.09 x10 3/uL 0.0-0.2 N BASOPHIL # (test code = BA#) 0.03 x10 3/uL 0.0-0.2 N NUCLEATED RBC # (test code = NRBC#) 0.00 x10 3/uL 0.0-0.1 N MANUAL DIFF REQUIRED (test c ode = MDIFF) NO RAPID PLASMA [id number] 10:42:00* Test Item Value Reference Range Interpretation Comme nts RAPID PLASMA REAGIN (test co de = RPR) NONREACTIVE NONREACTIVE AG HEPATITIS B [id number] 10:42:00* Test Item Value Reference Range Interpretation Comme nts AG HEPATITIS B SURFACE (test code = HBSAG) NON REACTIVE INDEX NonReactive AB HIV 1 10:42:00* Test Item Value Reference Range Interpretation Comme nts AB HIV 1 2 (test code = [id number]) Nonreactive Nonreactive CBC W/AUTO [id number] 21:44:00* Test Item Value Reference Range Interpretation Comme nts WHITE BLOOD CELL (test code = WBC) 6.7 x10 3/uL 4.5-11.0 N RED BLOOD CELL (test code = RBC) 3.56 x10 6/uL 3.54-5.02 N HEMOGLOBIN (test code = HGB) 9.8 g/dL 11.0-15.0 L HEMATOCRIT (test code = HCT) 31.4 % 33.0-45.0 L MEAN CELL VOLUME (test code = MCV) 88.2 fL 81.0-99.0 N MEAN CELL HGB (test code = MCH) 27.5 pg 27.0-33.0 N MEAN CELL HGB CONCETRATION (test code = MCHC) 31.2 g/dL 33.0-37.0 L RED CELL DISTRIBUTION WIDTH CV (test code = RDW) 15.7 % 11.5-14.5 H RED CELL DISTRIBUTION WIDTH SD (test code = RDW-SD) 50.7 fL 37.0-54.0 N PLATELET COUNT (test code = PLT) 94 x10 3/uL 150-400 L MEAN PLATELET VOLUME (test c ode = MPV) 12.1 fL 7.0-9.0 H NEUTROPHIL % (test code = NT%) 70.3 % 56.0-77.0 N IMMATURE GRANULOCYTE % (test code = IG%) 0.3 % 0.0-2.0 N LYMPHOCYTE % (test code = LY%) 20.9 % 14.0-32.0 N MONOCYTE % (test code = MO%) 5.9 % 4.8-9.0 N EOSINOPHIL % (test code = EO%) 2.1 % 0.3-3.7 N BASOPHIL % (test code = BA%) 0.5 % 0.0-2.0 N NUCLEATED RBC % (test code = NRBC%) 0.0 % 0-0 N NEUTROPHIL # (test code = NT#) 4.69 x10 3/uL 2.0-7.6 N IMMATURE GRANULOCYTE # (test code = IG#) 0.02 x10 3/uL 0.00-0.03 N LYMPHOCYTE # (test code = LY#) 1.39 x10 3/uL 1.0-3.8 N MONOCYTE # (test code = MO#) 0.39 x10 3/uL 0.1-0.8 N EOSINOPHIL # (test code = EO#) 0.14 x10 3/uL 0.0-0.2 N BASOPHIL # (test code = BA#) 0.03 x10 3/uL 0.0-0.2 N NUCLEATED RBC # (test code = NRBC#) 0.00 x10 3/uL 0.0-0.1 N MANUAL DIFF REQUIRED (test c ode = MDIFF) NO PLT [id number] 21:44:00* Test Item Value Reference Range Interpretation Comme nts PLATELET ESTIMATE (test code = PLTEST) 92-115 THOUSAND ADEQUATE COVID 19 Asymptomatic IH [id number] 21:15:00* Test Item Value Reference Range Interpretation Comme nts COVID 19 Asymptomatic IH AG (test code = COVNONPUIAG) Negative Negative A negative resul t is presumptive and should be confirmedwith an FDA authorized molecular assay, if necessary forpatient management.A positive result does not rule out co-infections withother pathogens.This test detects both viable (live) and non-viable,SARS-CoV, and SARS-CoV-2. Test performance depends on theamount of virus (antigen) in the sample.This test has not been FDA cleared or approved; the test hasbeen authorized by FDA under an Emergency Use Authorization(EUA) for use by laboratories certified under the CLIA thatmeet the requirements to perform moderate, high or waivedcomplexity tests. CBC W/AUTO [id number] 22:03:00* Test Item Value Reference Range Interpretation Comme nts WHITE BLOOD CELL (test code = WBC) 5.6 x10 3/uL 4.5-11.0 N RED BLOOD CELL (test code = RBC) 3.22 x10 6/uL 3.54-5.02 L HEMOGLOBIN (test code = HGB) 9.1 g/dL 11.0-15.0 L HEMATOCRIT (test code = HCT) 29.1 % 33.0-45.0 L MEAN CELL VOLUME (test code = MCV) 90.4 fL 81.0-99.0 N MEAN CELL HGB (test code = MCH) 28.3 pg 27.0-33.0 N MEAN CELL HGB CONCETRATION (test code = MCHC) 31.3 g/dL 33.0-37.0 L RED CELL DISTRIBUTION WIDTH CV (test code = RDW) 15.9 % 11.5-14.5 H RED CELL DISTRIBUTION WIDTH SD (test code = RDW-SD) 53.0 fL 37.0-54.0 N PLATELET COUNT (test code = PLT) 99 x10 3/uL 150-400 L MEAN PLATELET VOLUME (test c ode = MPV) 12.3 fL 7.0-9.0 H NEUTROPHIL % (test code = NT%) 69.0 % 56.0-77.0 N IMMATURE GRANULOCYTE % (test code = IG%) 0.5 % 0.0-2.0 N LYMPHOCYTE % (test code = LY%) 21.5 % 14.0-32.0 N MONOCYTE % (test code = MO%) 6.5 % 4.8-9.0 N EOSINOPHIL % (test code = EO%) 2.0 % 0.3-3.7 N BASOPHIL % (test code = BA%) 0.5 % 0.0-2.0 N NUCLEATED RBC % (test code = NRBC%) 0.0 % 0-0 N NEUTROPHIL # (test code = NT#) 3.84 x10 3/uL 2.0-7.6 N IMMATURE GRANULOCYTE # (test code = IG#) 0.03 x10 3/uL 0.00-0.03 N LYMPHOCYTE # (test code = LY#) 1.20 x10 3/uL 1.0-3.8 N MONOCYTE # (test code = MO#) 0.36 x10 3/uL 0.1-0.8 N EOSINOPHIL # (test code = EO#) 0.11 x10 3/uL 0.0-0.2 N BASOPHIL # (test code = BA#) 0.03 x10 3/uL 0.0-0.2 N NUCLEATED RBC # (test code = NRBC#) 0.00 x10 3/uL 0.0-0.1 N MANUAL DIFF REQUIRED (test c ode = MDIFF) NO PLT [id number] 22:03:00* Test Item Value Reference Range Interpretation Comme nts PLATELET ESTIMATE (test code = PLTEST) 88-110 THOUSAND ADEQUATE PLATELET MORPHOLOGY (test code = PLTMORPH) NORMAL URINALYSIS [id number] 21:47:00* Test Item Value Reference Range Interpretation Comme nts UA COLOR (test code = COLU) YELLOW YEL/STRAW UA APPEARANCE (test code = APPU) SL CLOUDY CLEAR UA GLUCOSE DIPSTICK (test co de = DGLUU) NEGATIVE NEGATIVE UA BILIRUBIN DIPSTICK (test code = BILU) NEGATIVE NEGATIVE UA KETONE DIPSTICK (test cod e = KETU) TRACE NEGATIVE A UA SPECIFIC GRAVITY (test co de = SGU) 1.027 1.005-1.030 N UA BLOOD DIPSTICK (test code = SHERYL) 3+ NEGATIVE A UA PH DIPSTICK (test code = CALIN) 5.0 5.0-7.0 N UA PROTEIN DIPSTICK (test co de = PROU) 1+ NEGATIVE A UA UROBILINIOGEN DIPSTICK (t est code = URO) 2.0 mg/dL 0.2-1.0 A UA NITRITE DIPSTICK (test co de = KRYSTAL) NEGATIVE NEGATIVE UA LEUKOCYTE ESTERASE DIPSTI CK (test code = LEUU) NEGATIVE NEGATIVE UA RBC (test code = RBCU) >50 RBC/HPF 0-3 A UA WBC NO REFLEX (test code = WBCUCL) 0-3 WBC/HPF 0-3 UA BACTERIA (test code = BACU) TRACE /HPF NONE SEEN UA SQUAMOUS CELLS (test code = SQU) 0-5 /HPF NONE SEEN UA MUCUS (test code = MUCU) 4+ /LPF NONE SEEN A CBC W/AUTO [id number] 12:40:00* Test Item Value Reference Range Interpretation Comme nts WHITE BLOOD CELL (test code = WBC) 4.8 x10 3/uL 4.5-11.0 N RED BLOOD CELL (test code = RBC) 3.23 x10 6/uL 3.54-5.02 L HEMOGLOBIN (test code = HGB) 9.2 g/dL 11.0-15.0 L HEMATOCRIT (test code = HCT) 28.5 % 33.0-45.0 L MEAN CELL VOLUME (test code = MCV) 88.2 fL 81.0-99.0 N MEAN CELL HGB (test code = MCH) 28.5 pg 27.0-33.0 N MEAN CELL HGB CONCETRATION (test code = MCHC) 32.3 g/dL 33.0-37.0 L RED CELL DISTRIBUTION WIDTH CV (test code = RDW) 15.0 % 11.5-14.5 H RED CELL DISTRIBUTION WIDTH SD (test code = RDW-SD) 48.5 fL 37.0-54.0 N PLATELET COUNT (test code = PLT) 85 x10 3/uL 150-400 L IMMATURE PLATELET FRACTION (test code = IPF) 10.3 % 0.9-11.2 N MEAN PLATELET VOLUME (test c ode = MPV) 11.5 fL 7.0-9.0 H NEUTROPHIL % (test code = NT%) 82.8 % 56.0-77.0 H IMMATURE GRANULOCYTE % (test code = IG%) 1.7 % 0.0-2.0 N LYMPHOCYTE % (test code = LY%) 6.5 % 14.0-32.0 L MONOCYTE % (test code = MO%) 8.2 % 4.8-9.0 N EOSINOPHIL % (test code = EO%) 0.4 % 0.3-3.7 N BASOPHIL % (test code = BA%) 0.4 % 0.0-2.0 N NUCLEATED RBC % (test code = NRBC%) 0.0 % 0-0 N NEUTROPHIL # (test code = NT#) 3.94 x10 3/uL 2.0-7.6 N IMMATURE GRANULOCYTE # (test code = IG#) 0.08 x10 3/uL 0.00-0.03 H LYMPHOCYTE # (test code = LY#) 0.31 x10 3/uL 1.0-3.8 L MONOCYTE # (test code = MO#) 0.39 x10 3/uL 0.1-0.8 N EOSINOPHIL # (test code = EO#) 0.02 x10 3/uL 0.0-0.2 N BASOPHIL # (test code = BA#) 0.02 x10 3/uL 0.0-0.2 N NUCLEATED RBC # (test code = NRBC#) 0.00 x10 3/uL 0.0-0.1 N MANUAL DIFF REQUIRED (test c ode = MDIFF) NO PLT [id number] 12:40:00* Test Item Value Reference Range Interpretation Comme nts PLATELET ESTIMATE (test code = PLTEST) 88-110 THOUSAND ADEQUATE COMPREHENSIVE METABOLIC [id number] 05:47:00* Test Item Value Reference Range Interpretation Comme nts SODIUM (test code = NA) 136 mEq/L 134-147 N POTASSIUM (test code = K) 3.4 mEq/L 3.4-5.0 N CHLORIDE (test code = CL) 106 mEq/L 100-108 N CARBON DIOXIDE (test code = CO2) 22 mEq/l 21-33 N ANION GAP (test code = GAP) 11 0-20 N GLUCOSE (test code = GLU) 95 mg/dL 70-110 N BLOOD UREA NITROGEN (test code = BUN) < 5 mg/dL 7-18 L GLOMERULAR FILTRATION RATE (test code = GFR) 190.1 110-120 H Units of measure = ml/min/1.73 m2 CREATININE (test code = CREAT) 0.4 mg/dL 0.6-1.3 L TOTAL PROTEIN (test code = PROT) 6.0 g/dL 6.4-8.2 L ALBUMIN (test code = ALB) 2.70 g/dL 3.4-5.0 L CALCIUM (test code = CA) 8.3 mg/dL 8.0-10.5 N BILIRUBIN TOTAL (test code = BILT) 0.60 mg/dL 0.0-1.0 SGOT/AST (test code = AST) 15 IUnit/L 15-37 N SGPT/ALT (test code = ALT) 13 IUnit/L 30-65 L ALKALINE PHOSPHATASE TOTAL (test code = ALKP) 114 IUnit/L 20-125 N [id number] 05:47:00* Test Item Value Reference Range Interpretation Comme [facility] MAGNESIUM (test code = MAG) 1.45 mg/dL 1.80-2.40 L TROP-I HIGH [id number] 22:47:00* Test Item Value Reference Range Interpretation Comme [facility] TROP-I HIGH SENSITIVITY (test code = TROPIHS) 5 ng/L 0-34 N CAUTION: Units o f the current test methodology (ng/L) differfrom the prior test methodology (ng/mL) by a factor of 1000. 99th Percentile Upper Reference Limit (URL): Females: 34 ng/LMales: 54 ng/L In order to distinguish acute elevations of high sensitivitytroponin from other clinical conditions, the FourthUniversal Definition of Myocardial Infarction stressesclinical assessment and the demonstration of a rise and/orfall in serial troponin results above the URL. These results were obtained using Siemens [employer]ell[employer]odle IM TnIHreagent. Results from different methodologies should not becompared to one another as quantitative results and URLs mayvary by method. TROP-I HIGH [id number] 20:44:00* Test Item Value Reference Range Interpretation Comme [facility] TROP-I HIGH SENSITIVITY (test code = TROPIHS) 5 ng/L 0-34 N CAUTION: Units o f the current test methodology (ng/L) differfrom the prior test methodology (ng/mL) by a factor of 1000. 99th Percentile Upper Reference Limit (URL): Females: 34 ng/LMales: 54 ng/L In order to distinguish acute elevations of high sensitivitytroponin from other clinical conditions, the FourthUniversal Definition of Myocardial Infarction stressesclinical assessment and the demonstration of a rise and/orfall in serial troponin results above the URL. These results were obtained using Siemens [employer] IM TnIHreagent. Results from different methodologies should not becompared to one another as quantitative results and URLs mayvary by method. LACTIC [id number] 18:40:00* Test Item Value Reference Range Interpretation Comme nts LACTIC ACID (test code = LACT) 0.5 mmol/L 0.4-1.9 N POC ARTERIAL BLOOD [id number] 18:29:00* Test Item Value Reference Range Interpretation Comme nts POC ARTERIAL BLOOD GAS PH (t est code = POCPHA) 7.406 7.35-7.45 N POC ARTERIAL BLOOD GAS PCO2 (test code = RVIBOO7V) 33.8 mmHg 35.0-45 L POC TCO2 ARTERIAL (test code = POCTCO2) 22.3 POC ARTERIAL BLOOD GAS PO2 ( test code = HDNDM7K) 201.2 mmHg 80-100.0 HH POC HCO3 ARTERIAL (test code = HJFPCJ3U) 21.2 MMOL/L 22.0-26.0 L POC BASE EXCESS (test code = POCBEA) -3.5 MMOL/L -4.0-4.0 N POC O2 SATURATION (test code = POCO2S) 99.7 % 90-100 N FIO2 (test code = FIO2A) 100 % PaO2/FiO2 (test code = [id number]) 201.20 mm/Hg ABG DELIVERY (test code = HERMELINDO) [facility] (test code = [facility]A) R Radial CHRYSTAL'S TEST (test code = ALLENS) Positive COVID 19 Asymptomatic IH [id number] 17:58:00* Test Item Value Reference Range Interpretation Comme nts COVID 19 Asymptomatic IH AG (test code = COVNONPUIAG) Negative Negative A negative resul t is presumptive and should be confirmedwith an FDA authorized molecular assay, if necessary forpatient management.A positive result does not rule out co-infections withother pathogens.This test detects both viable (live) and non-viable,SARS-CoV, and SARS-CoV-2. Test performance depends on theamount of virus (antigen) in the sample.This test has not been FDA cleared or approved; the test hasbeen authorized by FDA under an Emergency Use Authorization(EUA) for use by laboratories certified under the CLIA thatmeet the requirements to perform moderate, high or waivedcomplexity tests. COMPREHENSIVE METABOLIC [id number] 17:50:00* Test Item Value Reference Range Interpretation Comme nts SODIUM (test code = NA) 136 mEq/L 134-147 N POTASSIUM (test code = K) 3.5 mEq/L 3.4-5.0 N CHLORIDE (test code = CL) 106 mEq/L 100-108 N CARBON DIOXIDE (test code = CO2) 22 mEq/l 21-33 N ANION GAP (test code = GAP) 12 0-20 N GLUCOSE (test code = GLU) 93 mg/dL 70-110 N BLOOD UREA NITROGEN (test code = BUN) < 5 mg/dL 7-18 L GLOMERULAR FILTRATION RATE (test code = GFR) 190.1 110-120 H Units of measure = ml/min/1.73 m2 CREATININE (test code = CREAT) 0.4 mg/dL 0.6-1.3 L TOTAL PROTEIN (test code = PROT) 6.1 g/dL 6.4-8.2 L ALBUMIN (test code = ALB) 2.70 g/dL 3.4-5.0 L CALCIUM (test code = CA) 8.0 mg/dL 8.0-10.5 N BILIRUBIN TOTAL (test code = BILT) 0.90 mg/dL 0.0-1.0 N SGOT/AST (test code = AST) 10 IUnit/L 15-37 L SGPT/ALT (test code = ALT) 9 IUnit/L 30-65 L ALKALINE PHOSPHATASE TOTAL (test code = ALKP) 113 IUnit/L 20-125 N [id number] 17:50:00* Test Item Value Reference Range Interpretation Comme nts LIPASE (test code = LIP) 21 U/L 13-57 N TROP-I HIGH [id number] 17:50:00* Test Item Value Reference Range Interpretation Comme nts TROP-I HIGH SENSITIVITY (test code = TROPIHS) 6 ng/L 0-34 N CAUTION: Units o f the current test methodology (ng/L) differfrom the prior test methodology (ng/mL) by a factor of 1000. 99th Percentile Upper Reference Limit (URL): Females: 34 ng/LMales: 54 ng/L In order to distinguish acute elevations of high sensitivitytroponin from other clinical conditions, the FourthUniversal Definition of Myocardial Infarction stressesclinical assessment and the demonstration of a rise and/orfall in serial troponin results above the URL. These results were obtained using [employer] IM TnIHreagent. Results from different methodologies should not becompared to one another as quantitative results and URLs mayvary by method. PROTHROMBIN [id number] 17:41:00* Test Item Value Reference Range Interpretation Comme nts PROTHROMBIN TIME PATIENT (test code = PTP) 12.3 SECONDS 9.3-12.9 N INTERNATIONAL NORMAL RATIO (test code = INR) 1.1 0.8-1.2 N TARGET INR BY INDICATION Indication INR1. Prophylaxis of venous thrombosis 2.0 - 3.0 (orthopedic surgery), Prophylaxis of venous thrombosis (other than high-risk surgery), Treatment of Deep Vein Thrombosis/Pulmonary Embolism, Prevention of systemic embolism - Tissue heart valves, Acute Myocardial Infarction (to prevent systemic embolism), Valvular heart disease, Atrial Fibrillation, Bileaflet mechanical valve in aortic position.2. Mechanical prosthetic valves (high risk), 2.5 - 3.5 Presence of Lupus Anticoagulant or Antiphospholipid Antibodies, Prevention of systemic embolism - Acute Myocardial Infarction (to prevent recurrent infarct). THROMBOPLASTIN TIME [id number] 17:41:00* Test Item Value Reference Range Interpretation Comme nts THROMBOPLASTIN TIME PARTIAL (test code = PTT) 27.0 Seconds 25.0-39.5 N Therapeutic Rang e: 50.4 - 88.3 Seconds Effective 09/06/2018 CBC W/AUTO [id number] 17:32:00* Test Item Value Reference Range Interpretation Comme nts WHITE BLOOD CELL (test code = WBC) 8.0 x10 3/uL 4.5-11.0 N RED BLOOD CELL (test code = RBC) 3.37 x10 6/uL 3.54-5.02 L HEMOGLOBIN (test code = HGB) 9.5 g/dL 11.0-15.0 L HEMATOCRIT (test code = HCT) 30.2 % 33.0-45.0 L MEAN CELL VOLUME (test code = MCV) 89.6 fL 81.0-99.0 N MEAN CELL HGB (test code = MCH) 28.2 pg 27.0-33.0 N MEAN CELL HGB CONCETRATION (test code = MCHC) 31.5 g/dL 33.0-37.0 L RED CELL DISTRIBUTION WIDTH CV (test code = RDW) 14.9 % 11.5-14.5 H RED CELL DISTRIBUTION WIDTH SD (test code = RDW-SD) 48.6 fL 37.0-54.0 N PLATELET COUNT (test code = PLT) 92 x10 3/uL 150-400 L IMMATURE PLATELET FRACTION (test code = IPF) 10.3 % 0.9-11.2 N MEAN PLATELET VOLUME (test c ode = MPV) 12.1 fL 7.0-9.0 H NEUTROPHIL % (test code = NT%) 88.2 % 56.0-77.0 H IMMATURE GRANULOCYTE % (test code = IG%) 0.9 % 0.0-2.0 N LYMPHOCYTE % (test code = LY%) 4.3 % 14.0-32.0 L MONOCYTE % (test code = MO%) 5.8 % 4.8-9.0 N EOSINOPHIL % (test code = EO%) 0.5 % 0.3-3.7 N BASOPHIL % (test code = BA%) 0.3 % 0.0-2.0 N NUCLEATED RBC % (test code = NRBC%) 0.0 % 0-0 N NEUTROPHIL # (test code = NT#) 7.07 x10 3/uL 2.0-7.6 N IMMATURE GRANULOCYTE # (test code = IG#) 0.07 x10 3/uL 0.00-0.03 H LYMPHOCYTE # (test code = LY#) 0.34 x10 3/uL 1.0-3.8 L MONOCYTE # (test code = MO#) 0.46 x10 3/uL 0.1-0.8 N EOSINOPHIL # (test code = EO#) 0.04 x10 3/uL 0.0-0.2 N BASOPHIL # (test code = BA#) 0.02 x10 3/uL 0.0-0.2 N NUCLEATED RBC # (test code = NRBC#) 0.00 x10 3/uL 0.0-0.1 N MANUAL DIFF REQUIRED (test c ode = MDIFF) NO COMPREHENSIVE METABOLIC [id number] 15:30:00* Test Item Value Reference Range Interpretation Comme nts SODIUM (test code = NA) 137 mEq/L 134-147 N POTASSIUM (test code = K) 3.6 mEq/L 3.4-5.0 N CHLORIDE (test code = CL) 107 mEq/L 100-108 N CARBON DIOXIDE (test code = CO2) 21 mEq/l 21-33 N ANION GAP (test code = GAP) 13 0-20 N GLUCOSE (test code = GLU) 85 mg/dL 70-110 N BLOOD UREA NITROGEN (test code = BUN) < 5 mg/dL 7-18 L GLOMERULAR FILTRATION RATE (test code = GFR) 190.1 110-120 H Units of measure = ml/min/1.73 m2 CREATININE (test code = CREAT) 0.4 mg/dL 0.6-1.3 L TOTAL PROTEIN (test code = PROT) 6.5 g/dL 6.4-8.2 N ALBUMIN (test code = ALB) 2.90 g/dL 3.4-5.0 L CALCIUM (test code = CA) 8.1 mg/dL 8.0-10.5 N BILIRUBIN TOTAL (test code = BILT) 0.90 mg/dL 0.0-1.0 N SGOT/AST (test code = AST) 11 IUnit/L 15-37 L SGPT/ALT (test code = ALT) 9 IUnit/L 30-65 L ALKALINE PHOSPHATASE TOTAL (test code = ALKP) 119 IUnit/L 20-125 N URIC [id number] 15:30:00* Test Item Value Reference Range Interpretation Comme nts URIC ACID (test code = URIC) 2.9 mg/dL 2.6-7.2 N LACTIC DEHYDROGENASE(LDH)2021-08-26 15:30:00* Test Item Value Reference Range Interpretation Comme nts LACTIC DEHYDROGENASE(LDH) (t est code = LDH) 163 IUnits/L 84-246 N [id number] 15:30:00* Test Item Value Reference Range Interpretation Comme nts FIBRONECTIN (test code = FFN) NEGATIVE NEGATIVE URINALYSIS [id number] 15:11:00* Test Item Value Reference Range Interpretation Comme nts UA COLOR (test code = COLU) YELLOW YEL/STRAW UA APPEARANCE (test code = APPU) CLEAR CLEAR UA GLUCOSE DIPSTICK (test co de = DGLUU) NEGATIVE NEGATIVE UA BILIRUBIN DIPSTICK (test code = BILU) NEGATIVE NEGATIVE UA KETONE DIPSTICK (test cod e = KETU) 2+ NEGATIVE A UA SPECIFIC GRAVITY (test co de = SGU) 1.021 1.005-1.030 N UA BLOOD DIPSTICK (test code = SHERYL) 1+ NEGATIVE A UA PH DIPSTICK (test code = CALIN) 7.0 5.0-7.0 N UA PROTEIN DIPSTICK (test co de = PROU) NEGATIVE NEGATIVE UA UROBILINIOGEN DIPSTICK (test code = URO) 2.0 mg/dL 0.2-1.0 A UA NITRITE DIPSTICK (test co de = KRYSTAL) NEGATIVE NEGATIVE UA LEUKOCYTE ESTERASE DIPSTI CK (test code = LEUU) NEGATIVE NEGATIVE UA RBC (test code = RBCU) >50 RBC/HPF 0-3 A UA WBC NO REFLEX (test code = WBCUCL) 0-3 WBC/HPF 0-3 UA BACTERIA (test code = BACU) NONE SEEN /HPF NONE SEEN UA SQUAMOUS CELLS (test code = SQU) 0-5 /HPF NONE SEEN UA MUCUS (test code = MUCU) TRACE /LPF NONE SEEN UR PROTEIN/CREATININE [id number] 15:11:00* Test Item Value Reference Range Interpretation Comme nts UR PROTEIN RANDOM (test code = PROTU) 30 mg/dL UR CREATININE RANDOM (test code = CREATU) 97.1 mg/dL The Reference Ra nge and Method Performance specificationshave not been established for this fluid. The test resultshould be correlated into the clinical context forinterpretation. PROTEIN/CREATININE RATIO (test code = P/CRATIO) 0.31 CBC W/AUTO [id number] 15:09:00* Test Item Value Reference Range Interpretation Comme nts WHITE BLOOD CELL (test code = WBC) 7.6 x10 3/uL 4.5-11.0 N RED BLOOD CELL (test code = RBC) 3.51 x10 6/uL 3.54-5.02 L HEMOGLOBIN (test code = HGB) 10.1 g/dL 11.0-15.0 L HEMATOCRIT (test code = HCT) 31.1 % 33.0-45.0 L MEAN CELL VOLUME (test code = MCV) 88.6 fL 81.0-99.0 N MEAN CELL HGB (test code = MCH) 28.8 pg 27.0-33.0 N MEAN CELL HGB CONCETRATION (test code = MCHC) 32.5 g/dL 33.0-37.0 L RED CELL DISTRIBUTION WIDTH CV (test code = RDW) 14.6 % 11.5-14.5 H RED CELL DISTRIBUTION WIDTH SD (test code = RDW-SD) 47.0 fL 37.0-54.0 N PLATELET COUNT (test code = PLT) 82 x10 3/uL 150-400 L MEAN PLATELET VOLUME (test c ode = MPV) 11.8 fL 7.0-9.0 H NEUTROPHIL % (test code = NT%) 88.0 % 56.0-77.0 H IMMATURE GRANULOCYTE % (test code = IG%) 0.8 % 0.0-2.0 N LYMPHOCYTE % (test code = LY%) 4.7 % 14.0-32.0 L MONOCYTE % (test code = MO%) 5.4 % 4.8-9.0 N EOSINOPHIL % (test code = EO%) 0.7 % 0.3-3.7 N BASOPHIL % (test code = BA%) 0.4 % 0.0-2.0 N NUCLEATED RBC % (test code = NRBC%) 0.0 % 0-0 N NEUTROPHIL # (test code = NT#) 6.71 x10 3/uL 2.0-7.6 N IMMATURE GRANULOCYTE # (test code = IG#) 0.06 x10 3/uL 0.00-0.03 H LYMPHOCYTE # (test code = LY#) 0.36 x10 3/uL 1.0-3.8 L MONOCYTE # (test code = MO#) 0.41 x10 3/uL 0.1-0.8 N EOSINOPHIL # (test code = EO#) 0.05 x10 3/uL 0.0-0.2 N BASOPHIL # (test code = BA#) 0.03 x10 3/uL 0.0-0.2 N NUCLEATED RBC # (test code = NRBC#) 0.00 x10 3/uL 0.0-0.1 N MANUAL DIFF REQUIRED (test c ode = MDIFF) NO - CTA CHEST FOR [id number] 00:00:00 [facility] : 1995 Sex: F Name: YENY TEMPLETON [facility] : 1995 Age/S: 26 / F [address] [place] [address] BlvdUnit #: [id number] Loc: [place] [address] Phys: Kristie Boston MD Acct: [id number] Dis Date: Status: REG ER PHONE #: [phone] Exam Date: 08/26/2021 173 FAX #: [phone] Reason: SOB fever EXAMS: CPT CODE: [id number] [place] [id number] PROCEDURE INFORMATION: Exam: CTA Chest With Contrast Exam date and time: 08/26/2021 5:41 PM Age: 26 years old Clinical indication: Other: SOB fever TECHNIQUE: Imaging protocol: Computed tomographic angiography of the chest with contrast. 3D rendering (Not supervised by radiologist): MIP and/or 3D reconstructed images were created by the technol ogist. Radiation optimization: All CT scans at this facility use at least one of these dose optimization techniques: automated exposure control; mA and/or kV adjustment per patient size (includes targeted exams where dose is matched to clinical indication); or iterative reconstruction. Contrast material: ISOVUE 300; Contrast volume: 100 ml; Contrast route: INTRAVENOUS (IV) COMPARISON: CR XR [id number] 08/26/2021 4:36 PM FINDINGS: PULMONARY ARTERIES: The pulmonary arteries appear to enhance normally. No pulmonary artery filling defects are detected to suggest acute pulmonary embolism. MEDIASTINUM: The thoracic aorta enhances normally without evidence of aneurysm or dissection. There is no CT evidence of a mediastinal mass or enlarged mediastinal lymph nodes. The soft tissue in the anterior superior mediastinum has the appearance of thymus. Subcentimeter lymph nodes are present in the mediastinum and both kemi. A small hiatal hernia is present in the lower mediastinum. The heart is enlarged. PLEURAL SPACES: No acute pleural space abnormalities are detected. It is noted that the posterior costophrenic angles are excluded. LUNGS: Tree in bud opacities are identified in the left lower lobe. The right lung appears clear. Noncalcified nodules with diameters of 6 mm (series 9, image 72) and 3-4 mm (series 9, image 63) are identified in the left lower lobe. UPPER ABDOMEN: The spleen is incompletely imaged however is enlarged with an AP diameter of 17 cm. ADDITIONAL FINDINGS: None. IMPRESSION: 1. No CT evidence of acute pulmonary embolism. 2. A tree in bud pattern is identified in theleft lower lobe that is likely infectious/inflammatory in etiology and could indicate bronchopneumonia or bronchiolitis. 3. Splenomegaly. PAGE 1 Signed Report (CONTINUED) Name: YENY TEMPLETON [facility] : 1995 Age/S: 26 / F [address] [place] [address] Unit #: [id number] Loc: [place] [address] Phys: Kristie Boston MD Acct: [id number] Dis Date: Status: REG ER PHONE #: [phone] Exam Date: 08/26/2021 1737 FAX #: [phone] Reason: SOB fever EXAMS: CPT CODE: [id number] [id number] (Continued) 4. Two small noncalcified nodules are incidentally detected in the left lower lobe. If the patient does not have known cancer, follow up should be based on clinical information because of the low risk of cancer in this age group. (Reference: Ron) References:Ron Morel, et al. Guidelines for Management of Incidental Pulmonary Nodules Detected on CT Images:From the Fleischner Society 2017. Radiology. 2017;284(1):228-243. SL:131 at 1831 Reported and signed by: Noe Hardy M.D. CC: Technologist:Josiah Marshall, RT(R)(CT) CTDI: DLP: Trnscb Date/Time: 08/26/2021 (1830) Marli Orig Print D/T: S: 08/26/2021 (1831) PAGE 2 Signed Report- XR CHEST 1 [id number] 00:00:00 [facility] : 1995 Sex: F [place]: St: REG -- Name: YENY TEMPLETON [facility] : 1995 Age/S: 26/F [address] [place] [address] Unit#: [id number] Loc: [place] [address] Phys: Kristie Boston MD Acct: [id number] Dis Date: Status: REG ER PHONE #: [phone] Exam Date: 08/26/2021 1700 FAX #: [phone] Reason: SOB, cough EXAMS: CPT CODE: [id number] XR CHEST 1 V 30731 PROCEDURE INFORMATION: Exam: XR Chest Exam date and time: 08/26/2021 4:36 PM Age: 26 years old Clinical indication: Other: SOB, cough TECHNIQUE: Imaging protocol: XR of the chest. Views: 1 view. COMPARISON: RF XR ERCP 03/14/2018 7:41 AM FINDINGS:Lungs: Moderate decreased lung volumes. No consolidation. Pleural spaces: Unremarkable. No pleural effusion. No pneumothorax. Heart/Mediastinum: Cardiac silhouette size shows enlargement. Vasculatureis unremarkable. Bones/joints: Unremarkable. IMPRESSION: No acute cardiopulmonary findings. at 7507 Reported and signed by: Ever Nielson M.D. CC: Technologist: RT Jessie(Lexy) Trnscrd Date/Time/By: 08/26/2021 (591) : By: [email or web address] Orig Print D/T: S: 08/26/2021 (9274) PAGE 1 Signed Report CBC W/AUTO [id number] 21:24:00* Test Item Value Reference Range Interpretation Comme nts WHITE BLOOD CELL (test code = WBC) 7.0 x10 3/uL 4.5-11.0 RED BLOOD CELL (test code = RBC) 3.43 x10 6/uL 3.54-5.02 L HEMOGLOBIN (test code = HGB) 9.8 g/dL 11.0-15.0 L HEMATOCRIT (test code = HCT) 30.8 % 33.0-45.0 L MEAN CELL VOLUME (test code = MCV) 89.8 fL 81.0-99.0 N MEAN CELL HGB (test code = MCH) 28.6 pg 27.0-33.0 N MEAN CELL HGB CONCETRATION (test code = MCHC) 31.8 g/dL 33.0-37.0 L RED CELL DISTRIBUTION WIDTH CV (test code = RDW) 14.6 % 11.5-14.5 H RED CELL DISTRIBUTION WIDTH SD (test code = RDW-SD) 47.7 fL 37.0-54.0 N PLATELET COUNT (test code = PLT) 88 x10 3/uL 150-400 L MEAN PLATELET VOLUME (test c ode = MPV) 12.2 fL 7.0-9.0 H NEUTROPHIL % (test code = NT%) 71.0 % 56.0-77.0 N IMMATURE GRANULOCYTE % (test code = IG%) 0.4 % 0.0-2.0 N LYMPHOCYTE % (test code = LY%) 18.5 % 14.0-32.0 N MONOCYTE % (test code = MO%) 6.2 % 4.8-9.0 N EOSINOPHIL % (test code = EO%) 3.6 % 0.3-3.7 N BASOPHIL % (test code = BA%) 0.3 % 0.0-2.0 N NUCLEATED RBC % (test code = NRBC%) 0.0 % 0-0 N NEUTROPHIL # (test code = NT#) 4.97 x10 3/uL 2.0-7.6 N IMMATURE GRANULOCYTE # (test code = IG#) 0.03 x10 3/uL 0.00-0.03 N LYMPHOCYTE # (test code = LY#) 1.29 x10 3/uL 1.0-3.8 N MONOCYTE # (test code = MO#) 0.43 x10 3/uL 0.1-0.8 N EOSINOPHIL # (test code = EO#) 0.25 x10 3/uL 0.0-0.2 H BASOPHIL # (test code = BA#) 0.02 x10 3/uL 0.0-0.2 N NUCLEATED RBC # (test code = NRBC#) 0.00 x10 3/uL 0.0-0.1 N MANUAL DIFF REQUIRED (test c ode = MDIFF) NO PLT [id number] 21:24:00* Test Item Value Reference Range Interpretation Comme nts PLATELET ESTIMATE (test code = PLTEST) 116-145 THOUSAND ADEQUATE PLATELET MORPHOLOGY (test code = PLTMORPH) LARGE PLATELETS SOME LARGE AND FEW GIANT PLTS SEEN [id number] 21:23:00* Test Item Value Reference Range Interpretation Comme nts FIBRONECTIN (test code = FFN) NEGATIVE NEGATIVE URINALYSIS [id number] 21:17:00* Test Item Value Reference Range Interpretation Comme nts UA COLOR (test code = COLU) YELLOW YEL/STRAW UA APPEARANCE (test code = APPU) SL CLOUDY CLEAR UA GLUCOSE DIPSTICK (test co de = DGLUU) NEGATIVE NEGATIVE UA BILIRUBIN DIPSTICK (test code = BILU) NEGATIVE NEGATIVE UA KETONE DIPSTICK (test cod e = KETU) NEGATIVE NEGATIVE UA SPECIFIC GRAVITY (test co de = SGU) 1.020 1.005-1.030 N UA BLOOD DIPSTICK (test code = SHERYL) 1+ NEGATIVE A UA PH DIPSTICK (test code = CALIN) 6.0 5.0-7.0 N UA PROTEIN DIPSTICK (test co de = PROU) NEGATIVE NEGATIVE UA UROBILINIOGEN DIPSTICK (t est code = URO) 0.2 mg/dL 0.2-1.0 UA NITRITE DIPSTICK (test co de = KRYSTAL) NEGATIVE NEGATIVE UA LEUKOCYTE ESTERASE DIPSTI CK (test code = LEUU) NEGATIVE NEGATIVE UA RBC (test code = RBCU) 21-50 RBC/HPF 0-3 UA WBC NO REFLEX (test code = WBCUCL) 0-3 WBC/HPF 0-3 UA BACTERIA (test code = BACU) TRACE /HPF NONE SEEN UA SQUAMOUS CELLS (test code = SQU) 0-5 /HPF NONE SEEN UA TRANSITIONAL CELLS (test code = TRANU) 1+ /HPF NONE SEEN A UA CALCIUM OXALATE CRYSTALS (test code = CAOXU) 2+ /HPF NONE SEEN A UA HYALINE CAST (test code = HYALU) 0-2 /LPF NONE SEEN UA MUCUS (test code = MUCU) 2+ /LPF NONE SEEN A COMPREHENSIVE METABOLIC [id number] 21:14:00* Test Item Value Reference Range Interpretation Comme nts SODIUM (test code = NA) 139 mEq/L 134-147 N POTASSIUM (test code = K) 3.3 mEq/L 3.4-5.0 L CHLORIDE (test code = CL) 110 mEq/L 100-108 H CARBON DIOXIDE (test code = CO2) 22 mEq/l 21-33 N ANION GAP (test code = GAP) 10 0-20 N GLUCOSE (test code = GLU) 80 mg/dL 70-110 N BLOOD UREA NITROGEN (test code = BUN) < 5 mg/dL 7-18 L GLOMERULAR FILTRATION RATE (test code = GFR) 190.1 110-120 H Units of measure = ml/min/1.73 m2 CREATININE (test code = CREAT) 0.4 mg/dL 0.6-1.3 L TOTAL PROTEIN (test code = PROT) 6.2 g/dL 6.4-8.2 L ALBUMIN (test code = ALB) 2.70 g/dL 3.4-5.0 L CALCIUM (test code = CA) 8.6 mg/dL 8.0-10.5 N BILIRUBIN TOTAL (test code = BILT) 0.30 mg/dL 0.0-1.0 N SGOT/AST (test code = AST) 9 IUnit/L 15-37 L SGPT/ALT (test code = ALT) < 7 IUnit/L 30-65 L ALKALINE PHOSPHATASE TOTAL (test code = ALKP) 105 IUnit/L 20-125 N [id number] 22:35:00* Test Item Value Reference Range Interpretation Comme nts FIBRONECTIN (test code = FFN) NEGATIVE NEGATIVE AMNISURE (ROM) [id number] 22:35:00* Test Item Value Reference Range Interpretation Comme nts AMNISURE (ROM) TEST (test co de = AMNI) NEGATIVE NEGATIVE URINALYSIS [id number] 22:27:00* Test Item Value Reference Range Interpretation Comme nts UA COLOR (test code = COLU) LYRIC YEL/STRAW A UA APPEARANCE (test code = APPU) SL CLOUDY CLEAR UA GLUCOSE DIPSTICK (test co de = DGLUU) NEGATIVE NEGATIVE UA BILIRUBIN DIPSTICK (test code = BILU) NEGATIVE NEGATIVE UA KETONE DIPSTICK (test cod e = KETU) TRACE NEGATIVE A UA SPECIFIC GRAVITY (test co de = SGU) 1.027 1.005-1.030 N UA BLOOD DIPSTICK (test code = SHERYL) 1+ NEGATIVE A UA PH DIPSTICK (test code = CALIN) 5.0 5.0-7.0 N UA PROTEIN DIPSTICK (test co de = PROU) 1+ NEGATIVE A UA UROBILINIOGEN DIPSTICK (test code = URO) 2.0 mg/dL 0.2-1.0 A UA NITRITE DIPSTICK (test co de = KRYSTAL) NEGATIVE NEGATIVE UA LEUKOCYTE ESTERASE DIPSTI CK (test code = LEUU) NEGATIVE NEGATIVE UA RBC (test code = RBCU) 21-50 RBC/HPF 0-3 UA WBC NO REFLEX (test code = WBCUCL) 4-9 WBC/HPF 0-3 A UA BACTERIA (test code = BACU) NONE SEEN /HPF NONE SEEN UA SQUAMOUS CELLS (test code = SQU) 0-5 /HPF NONE SEEN UA MUCUS (test code = MUCU) 4+ /LPF NONE SEEN A SURGICAL PATH [id number] 08:43:00* Test Item Value Reference Range Interpretation Comme nts SURGICAL PATH SPECIMENS (test code = SURG) RUN DATE: 06/17/20 [facility] *LIVE* PAGE 1 RUN TIME: 0843 Specimen Inquiry RUN USER: INTERFACE PATIENT: YENY TEMPLETON LOC: [place] U #: [id number] AGE/SX: 24/F ROOM: [facility] RE06/12/20[facility] DR: Yosi Marroquin MD : [birth year] BED: 1 DIS: 06/15/20 STATUS: DIS IN TLOC: SPEC #: [id number] RECD: 01 STATUS: BRIAN SHAH #: [id number] MARIELLA: 06/13/[address]: Yosi Marroquin MD ENTERED: 06/14/20 SP TYPE: SURG SPEC OTHR DR: Kristie Botson MD ORDERED: GROSS AND MICRO CODES: [id number] - PLACENTA, NOS COPIES TO: Yosi Marroquin MD [address] [facility], [address] [place] [address] Kristie Boston MD [address] [address] PROCEDURES: GROSS AND MICRO (Incomplete) TISSUES: 1. PLACENTA, NOS - Placenta, 3rd trimester FINAL DIAGNOSIS Placenta, 3rd trimester: Histologically mature carver placenta (419 g, 40th percentile for gestational age), phlebitis of umbilical cord. GROSS AND MICROSCOPIC GROSS EXAMINATION: Received in formalin labeled placenta is a fragmented 419 g 15 x 14 x 3.3 cm placenta. The surface is bluegray. The maternal surface is partially fragmented with some hemorrhage. The detached three-vessel umbilical cord measures 35 cm in length 1 cm diameter. The membranes are thin and translucent. The parenchyma is beefy red without identified lesions. SECTION CODE: (A) Membranes (B) umbilical cord (C)-(E) placental parenchyma. MICROSCOPIC EXAMINATION: Sections of the umbilical cord reveal three vessels with inflammation of the vein ( inflammatory response stage 1 grade 1). The membranes are unremarkable. The surface of the placenta does not show a significant inflammatory infiltrate. Maturation is appropriate for gestational age. The underlying maternal decidua beneath the placenta contains a mixed inflammatory infiltrate. CONTINUED ON NEXT PAGE RUN DATE: 06/17/20 [facility] *LIVE* PAGE 2 RUN TIME: 43 Specimen Inquiry RUN USER: INTERFACE SPEC #: [id number] PATIENT: YENY TEMPLETON #[id number] (Continued) --- POST-OP DIAGNOSIS G3, P3, 37.1, delivered PRE-OP DIAGNOSIS G3, P3, 37.1 REVIEWED BY: JOSHUA Signed SIGNATURE ON FILE Johnny Timmons DO 06/17/20 0843 END OF REPORT RAPID PLASMA [id number] 11:05:00* Test Item Value Reference Range Interpretation Comme [facility] RAPID PLASMA REAGIN (test co de = RPR) NONREACTIVE NONREACTIVE AG HEPATITIS B [id number] 11:05:00* Test Item Value Reference Range Interpretation Comme nts AG HEPATITIS B SURFACE (test code = HBSAG) NON REACTIVE INDEX NonReactive AB HIV 1 11:05:00* Test Item Value Reference Range Interpretation Comme nts AB HIV 1 2 (test code = [id number]) NONREACTIVE INDEX NONREACTIVE CBC W/AUTO [id number] 08:18:00* Test Item Value Reference Range Interpretation Comme nts WHITE BLOOD CELL (test code = WBC) 12.1 x10 3/uL 4.5-11.0 H RED BLOOD CELL (test code = RBC) 3.41 x10 6/uL 3.54-5.02 L HEMOGLOBIN (test code = HGB) 9.3 g/dL 11.0-15.0 L HEMATOCRIT (test code = HCT) 30.3 % 33.0-45.0 L MEAN CELL VOLUME (test code = MCV) 88.9 fL 81.0-99.0 N MEAN CELL HGB (test code = MCH) 27.3 pg 27.0-33.0 N MEAN CELL HGB CONCETRATION (test code = MCHC) 30.7 g/dL 33.0-37.0 L RED CELL DISTRIBUTION WIDTH CV (test code = RDW) 14.5 % 11.5-14.5 N RED CELL DISTRIBUTION WIDTH SD (test code = RDW-SD) 46.5 fL 37.0-54.0 N PLATELET COUNT (test code = PLT) 118 x10 3/uL 150-400 L MEAN PLATELET VOLUME (test c ode = MPV) 12.7 fL 7.0-9.0 H NEUTROPHIL % (test code = NT%) 82.0 % 56.0-77.0 H IMMATURE GRANULOCYTE % (test code = IG%) 0.7 % 0.0-2.0 N LYMPHOCYTE % (test code = LY%) 10.6 % 14.0-32.0 L MONOCYTE % (test code = MO%) 6.4 % 4.8-9.0 N EOSINOPHIL % (test code = EO%) 0.1 % 0.3-3.7 L BASOPHIL % (test code = BA%) 0.2 % 0.0-2.0 N NUCLEATED RBC % (test code = NRBC%) 0.0 % 0-0 N NEUTROPHIL # (test code = NT#) 9.95 x10 3/uL 2.0-7.6 H IMMATURE GRANULOCYTE # (test code = IG#) 0.09 x10 3/uL 0.00-0.03 H LYMPHOCYTE # (test code = LY#) 1.28 x10 3/uL 1.0-3.8 N MONOCYTE # (test code = MO#) 0.77 x10 3/uL 0.1-0.8 N EOSINOPHIL # (test code = EO#) 0.01 x10 3/uL 0.0-0.2 N BASOPHIL # (test code = BA#) 0.02 x10 3/uL 0.0-0.2 N NUCLEATED RBC # (test code = NRBC#) 0.00 x10 3/uL 0.0-0.1 N MANUAL DIFF REQUIRED (test c ode = MDIFF) NO CORD ARTERIAL BLOOD [id number] 00:22:00* Test Item Value Reference Range Interpretation Comme [facility] CORD BLOOD PH (test code = PH/C) 7.33 7.18-7.38 N CORD BLOOD PCO2 (test code = PCO2/C) 40 mmHg 32-66 N CORD BLOOD PO2 (test code = PO2/C) 29 mmHg 6-30 N CORD BLOOD HCO3 (test code = HCO3/C) 21 mmol/L 17-27 N BASE EXCESS CORD (test code = MEGHA/C) -4.6 mmol/L -8.0-0.0 N O2 SATURATION (test code = O2S/C) 51 % 72-77 L CORD ARTERIAL BLOOD [id number] 21:53:00* Test Item Value Reference Range Interpretation Comme [facility] CORD BLOOD PH (test code = PH/C) 7.31 7.18-7.38 N CORD BLOOD PCO2 (test code = PCO2/C) 46 mmHg 32-66 N CORD BLOOD PO2 (test code = PO2/C) 13 mmHg 6-30 N CORD BLOOD HCO3 (test code = HCO3/C) 23 mmol/L 17-27 N BASE EXCESS CORD (test code = MEGHA/C) -2.8 mmol/L -8.0-0.0 N O2 SATURATION (test code = O2S/C) 13 % 72-77 L CORD VENOUS BLOOD [id number] 21:50:00* Test Item Value Reference Range Interpretation Comme [facility] CORD VENOUS PH (test code = PHCV) 7.33 7.25-7.45 N CORD VENOUS PCO2 (test code = PCO2CV) 40 mmHg 27-49 N CORD VENOUS PO2 (test code = PO2CV) 29 mmHg 17-41 N CORD VENOUS HCO3 (test code = HCO3CV) 21.3 MMOL/L 12-28 N CORD VENOUS BASE EXCESS (eliana t code = BEXCV) -4.6 mmol/L -8.0-0.00 N CORD VENOUS 02 SAT (test cod e = O2SCV) 51 % CORD ARTERIAL BLOOD [id number] 21:49:00* Test Item Value Reference Range Interpretation Comme nts CORD BLOOD PH (test code = PH/C) 7.31 7.18-7.38 N CORD BLOOD PCO2 (test code = PCO2/C) 46 mmHg 32-66 N CORD BLOOD PO2 (test code = PO2/C) 13 mmHg 6-30 N CORD BLOOD HCO3 (test code = HCO3/C) 23 mmol/L 17-27 N BASE EXCESS CORD (test code = MEGHA/C) -2.8 mmol/L -8.0-0.0 N O2 SATURATION (test code = O2S/C) 13 % 72-77 L CBC W/AUTO [id number] 15:34:00* Test Item Value Reference Range Interpretation Comme nts WHITE BLOOD CELL (test code = WBC) 11.2 x10 3/uL 4.5-11.0 H RED BLOOD CELL (test code = RBC) 3.75 x10 6/uL 3.54-5.02 N HEMOGLOBIN (test code = HGB) 10.0 g/dL 11.0-15.0 L HEMATOCRIT (test code = HCT) 32.3 % 33.0-45.0 L MEAN CELL VOLUME (test code = MCV) 86.1 fL 81.0-99.0 N MEAN CELL HGB (test code = MCH) 26.7 pg 27.0-33.0 L MEAN CELL HGB CONCETRATION (test code = MCHC) 31.0 g/dL 33.0-37.0 L RED CELL DISTRIBUTION WIDTH CV (test code = RDW) 14.6 % 11.5-14.5 H RED CELL DISTRIBUTION WIDTH SD (test code = RDW-SD) 46.4 fL 37.0-54.0 N PLATELET COUNT (test code = PLT) 110 x10 3/uL 150-400 L MEAN PLATELET VOLUME (test c ode = MPV) 12.0 fL 7.0-9.0 H NEUTROPHIL % (test code = NT%) 88.5 % 56.0-77.0 H IMMATURE GRANULOCYTE % (test code = IG%) 0.9 % 0.0-2.0 N LYMPHOCYTE % (test code = LY%) 8.1 % 14.0-32.0 L MONOCYTE % (test code = MO%) 2.2 % 4.8-9.0 L EOSINOPHIL % (test code = EO%) 0.1 % 0.3-3.7 L BASOPHIL % (test code = BA%) 0.2 % 0.0-2.0 N NUCLEATED RBC % (test code = NRBC%) 0.0 % 0-0 N NEUTROPHIL # (test code = NT#) 9.89 x10 3/uL 2.0-7.6 H IMMATURE GRANULOCYTE # (test code = IG#) 0.10 x10 3/uL 0.00-0.03 H LYMPHOCYTE # (test code = LY#) 0.91 x10 3/uL 1.0-3.8 L MONOCYTE # (test code = MO#) 0.25 x10 3/uL 0.1-0.8 N EOSINOPHIL # (test code = EO#) 0.01 x10 3/uL 0.0-0.2 N BASOPHIL # (test code = BA#) 0.02 x10 3/uL 0.0-0.2 N NUCLEATED RBC # (test code = NRBC#) 0.00 x10 3/uL 0.0-0.1 N MANUAL DIFF REQUIRED (test c ode = MDIFF) NO PLT [id number] 15:34:00* Test Item Value Reference Range Interpretation Comme nts PLATELET ESTIMATE (test code = PLTEST) 120-150 THOUSAND ADEQUATE PLATELET MORPHOLOGY (test code = PLTMORPH) LARGE PLATELETS CBC W/AUTO [id number] 14:51:00* Test Item Value Reference Range Interpretation Comme nts WHITE BLOOD CELL (test code = WBC) 11.2 x10 3/uL 4.5-11.0 H RED BLOOD CELL (test code = RBC) 3.75 x10 6/uL 3.54-5.02 N HEMOGLOBIN (test code = HGB) 10.0 g/dL 11.0-15.0 L HEMATOCRIT (test code = HCT) 32.3 % 33.0-45.0 L MEAN CELL VOLUME (test code = MCV) 86.1 fL 81.0-99.0 N MEAN CELL HGB (test code = MCH) 26.7 pg 27.0-33.0 L MEAN CELL HGB CONCETRATION (test code = MCHC) 31.0 g/dL 33.0-37.0 L RED CELL DISTRIBUTION WIDTH CV (test code = RDW) 14.6 % 11.5-14.5 H RED CELL DISTRIBUTION WIDTH SD (test code = RDW-SD) 46.4 fL 37.0-54.0 N PLATELET COUNT (test code = PLT) 110 x10 3/uL 150-400 L MEAN PLATELET VOLUME (test c ode = MPV) 12.0 fL 7.0-9.0 H NEUTROPHIL % (test code = NT%) 88.5 % 56.0-77.0 H IMMATURE GRANULOCYTE % (test code = IG%) 0.9 % 0.0-2.0 N LYMPHOCYTE % (test code = LY%) 8.1 % 14.0-32.0 L MONOCYTE % (test code = MO%) 2.2 % 4.8-9.0 L EOSINOPHIL % (test code = EO%) 0.1 % 0.3-3.7 L BASOPHIL % (test code = BA%) 0.2 % 0.0-2.0 N NUCLEATED RBC % (test code = NRBC%) 0.0 % 0-0 N NEUTROPHIL # (test code = NT#) 9.89 x10 3/uL 2.0-7.6 H IMMATURE GRANULOCYTE # (test code = IG#) 0.10 x10 3/uL 0.00-0.03 H LYMPHOCYTE # (test code = LY#) 0.91 x10 3/uL 1.0-3.8 L MONOCYTE # (test code = MO#) 0.25 x10 3/uL 0.1-0.8 N EOSINOPHIL # (test code = EO#) 0.01 x10 3/uL 0.0-0.2 N BASOPHIL # (test code = BA#) 0.02 x10 3/uL 0.0-0.2 N NUCLEATED RBC # (test code = NRBC#) 0.00 x10 3/uL 0.0-0.1 N MANUAL DIFF REQUIRED (test c ode = MDIFF) NO PLT [id number] 14:51:00* Test Item Value Reference Range Interpretation Comme nts PLATELET ESTIMATE (test code = PLTEST) THOUSAND ADEQUATE CBC W/AUTO [id number] 14:51:00* Test Item Value Reference Range Interpretation Comme nts WHITE BLOOD CELL (test code = WBC) 11.2 x10 3/uL 4.5-11.0 H RED BLOOD CELL (test code = RBC) 3.75 x10 6/uL 3.54-5.02 N HEMOGLOBIN (test code = HGB) 10.0 g/dL 11.0-15.0 L HEMATOCRIT (test code = HCT) 32.3 % 33.0-45.0 L MEAN CELL VOLUME (test code = MCV) 86.1 fL 81.0-99.0 N MEAN CELL HGB (test code = MCH) 26.7 pg 27.0-33.0 L MEAN CELL HGB CONCETRATION (test code = MCHC) 31.0 g/dL 33.0-37.0 L RED CELL DISTRIBUTION WIDTH CV (test code = RDW) 14.6 % 11.5-14.5 H RED CELL DISTRIBUTION WIDTH SD (test code = RDW-SD) 46.4 fL 37.0-54.0 N PLATELET COUNT (test code = PLT) 110 x10 3/uL 150-400 L MEAN PLATELET VOLUME (test c ode = MPV) 12.0 fL 7.0-9.0 H NEUTROPHIL % (test code = NT%) 88.5 % 56.0-77.0 H IMMATURE GRANULOCYTE % (test code = IG%) 0.9 % 0.0-2.0 N LYMPHOCYTE % (test code = LY%) 8.1 % 14.0-32.0 L MONOCYTE % (test code = MO%) 2.2 % 4.8-9.0 L EOSINOPHIL % (test code = EO%) 0.1 % 0.3-3.7 L BASOPHIL % (test code = BA%) 0.2 % 0.0-2.0 N NUCLEATED RBC % (test code = NRBC%) 0.0 % 0-0 N NEUTROPHIL # (test code = NT#) 9.89 x10 3/uL 2.0-7.6 H IMMATURE GRANULOCYTE # (test code = IG#) 0.10 x10 3/uL 0.00-0.03 H LYMPHOCYTE # (test code = LY#) 0.91 x10 3/uL 1.0-3.8 L MONOCYTE # (test code = MO#) 0.25 x10 3/uL 0.1-0.8 N EOSINOPHIL # (test code = EO#) 0.01 x10 3/uL 0.0-0.2 N BASOPHIL # (test code = BA#) 0.02 x10 3/uL 0.0-0.2 N NUCLEATED RBC # (test code = NRBC#) 0.00 x10 3/uL 0.0-0.1 N MANUAL DIFF REQUIRED (test c ode = MDIFF) NO PLT [id number] 14:51:00* Test Item Value Reference Range Interpretation Comme nts PLATELET ESTIMATE (test code = PLTEST) THOUSAND ADEQUATE RAPID PLASMA [id number] 14:39:00* Test Item Value Reference Range Interpretation Comme nts RAPID PLASMA REAGIN (test code = RPR) NONREACTI VE AG HEPATITIS B [id number] 14:39:00* Test Item Value Reference Range Interpretation Comme nts AG HEPATITIS B SURFACE (test code = HBSAG) NON REACTIVE INDEX NonReactive AB HIV 1 14:39:00* Test Item Value Reference Range Interpretation Comme nts AB HIV 1 2 (test code = [id number]) NONREACTIVE INDEX NONREACTIVE COVID 19 Asymptomatic IH [id number] 14:15:00* Test Item Value Reference Range Interpretation Comme nts COVID 19 Asymptomatic IH AG (test code = COVNONPUIAG) Negative Negative A negative resul t is presumptive and should be confirmedwith an FDA authorized molecular assay, if necessary forpatient management.A positive result does not rule out co-infections withother pathogens.This test detects both viable (live) and non-viable,SARS-CoV, and SARS-CoV-2. Test performance depends on theamount of virus (antigen) in the sample.This test has not been FDA cleared or approved; the test hasbeen authorized by FDA under an Emergency Use Authorization(EUA) for use by laboratories certified under the CLIA thatmeet the requirements to perform moderate, high or waivedcomplexity tests. COMMENTS: If not done this admissionAMNISURE (ROM) [id number] 10:25:00* Test Item Value Reference Range Interpretation Comme nts AMNISURE (ROM) TEST (test code = AMNI) NEGATIVE NEGATIVE OPENED:06-08-2020 CBC W/AUTO [id number] 07:12:00* Test Item Value Reference Range Interpretation Comme nts WHITE BLOOD CELL (test code = WBC) 6.49 x10 3/uL 4.5-11.0 N RED BLOOD CELL (test code = RBC) 3.36 x10 6/uL 3.54-5.02 L HEMOGLOBIN (test code = HGB) 9.4 g/dL 11.0-15.0 L HEMATOCRIT (test code = HCT) 30.4 % 33.0-45.0 L MEAN CELL VOLUME (test code = MCV) 90.5 fL 81.0-99.0 N MEAN CELL HGB (test code = MCH) 28.0 pg 27.0-33.0 N MEAN CELL HGB CONCETRATION (test code = MCHC) 30.9 g/dL 33.0-37.0 L RED CELL DISTRIBUTION WIDTH CV (test code = RDW) 14.1 % 11.5-14.5 N RED CELL DISTRIBUTION WIDTH SD (test code = RDW-SD) 46.4 fL 37.0-54.0 N PLATELET COUNT (test code = PLT) 101 x10 3/uL 150-400 L MEAN PLATELET VOLUME (test c ode = MPV) 12.3 fL 7.0-9.0 H NEUTROPHIL % (test code = NT%) 65.0 % 56.0-77.0 N IMMATURE GRANULOCYTE % (test code = IG%) 0.3 % 0.0-2.0 N LYMPHOCYTE % (test code = LY%) 24.3 % 14.0-32.0 N MONOCYTE % (test code = MO%) 7.2 % 4.8-9.0 N EOSINOPHIL % (test code = EO%) 2.9 % 0.3-3.7 N BASOPHIL % (test code = BA%) 0.3 % 0.0-2.0 N NUCLEATED RBC % (test code = NRBC%) 0.0 % 0-0 N NEUTROPHIL # (test code = NT#) 4.21 x10 3/uL 2.0-7.6 N IMMATURE GRANULOCYTE # (test code = IG#) 0.02 x10 3/uL 0.00-0.03 N LYMPHOCYTE # (test code = LY#) 1.58 x10 3/uL 1.0-3.8 N MONOCYTE # (test code = MO#) 0.47 x10 3/uL 0.1-0.8 N EOSINOPHIL # (test code = EO#) 0.19 x10 3/uL 0.0-0.2 N BASOPHIL # (test code = BA#) 0.02 x10 3/uL 0.0-0.2 N NUCLEATED RBC # (test code = NRBC#) 0.00 x10 3/uL 0.0-0.1 N MANUAL DIFF REQUIRED (test c ode = MDIFF) NO CORD VENOUS BLOOD [id number] 10:52:00* Test Item Value Reference Range Interpretation Comme [facility] CORD VENOUS PH (test code = PHCV) 7.38 7.25-7.45 N CORD VENOUS PCO2 (test code = PCO2CV) 36 mmHg 27-49 N CORD VENOUS PO2 (test code = PO2CV) 27 mmHg 17-41 N CORD VENOUS HCO3 (test code = HCO3CV) 21.2 MMOL/L 12-28 N CORD VENOUS BASE EXCESS (eliana t code = BEXCV) -4.0 mmol/L -8.0-0.00 N CORD VENOUS 02 SAT (test cod e = O2SCV) 50 % CORD ARTERIAL BLOOD [id number] 10:52:00* Test Item Value Reference Range Interpretation Comme nts CORD BLOOD PH (test code = PH/C) 7.23 7.18-7.38 N CORD BLOOD PCO2 (test code = PCO2/C) 57 mmHg 32-66 N CORD BLOOD PO2 (test code = PO2/C) 21 mmHg 6-30 N CORD BLOOD HCO3 (test code = HCO3/C) 24 mmol/L 17-27 N BASE EXCESS CORD (test code = MEGHA/C) -3.0 mmol/L -8.0-0.0 N O2 SATURATION (test code = O2S/C) 26 % 72-77 L RAPID PLASMA [id number] 10:37:00* Test Item Value Reference Range Interpretation Comme nts RAPID PLASMA REAGIN (test co de = RPR) NONREACTIVE NONREACTIVE AG HEPATITIS B [id number] 04:44:00* Test Item Value Reference Range Interpretation Comme nts AG HEPATITIS B SURFACE (test code = HBSAG) NON REACTIVE INDEX NonReactive AB HIV 1 04:44:00* Test Item Value Reference Range Interpretation Comme nts AB HIV 1 2 (test code = [id number]) NONREACTIVE INDEX NONREACTIVE AG HEPATITIS B [id number] 03:54:00* Test Item Value Reference Range Interpretation Comme nts AG HEPATITIS B SURFACE (test code = HBSAG) NON REACTIVE INDEX NonReactive AB HIV 1 03:54:00* Test Item Value Reference Range Interpretation Comme nts AB HIV 1 2 (test code = [id number]) INDEX NONREACTIVE CBC W/AUTO [id number] 02:55:00* Test Item Value Reference Range Interpretation Comme nts WHITE BLOOD CELL (test code = WBC) 7.84 x10 3/uL 4.5-11.0 RED BLOOD CELL (test code = RBC) 3.58 x10 6/uL 3.54-5.02 N HEMOGLOBIN (test code = HGB) 10.1 g/dL 11.0-15.0 L HEMATOCRIT (test code = HCT) 32.2 % 33.0-45.0 L MEAN CELL VOLUME (test code = MCV) 89.9 fL 81.0-99.0 N MEAN CELL HGB (test code = MCH) 28.2 pg 27.0-33.0 N MEAN CELL HGB CONCETRATION (test code = MCHC) 31.4 g/dL 33.0-37.0 L RED CELL DISTRIBUTION WIDTH CV (test code = RDW) 14.1 % 11.5-14.5 N RED CELL DISTRIBUTION WIDTH SD (test code = RDW-SD) 46.4 fL 37.0-54.0 N PLATELET COUNT (test code = PLT) 121 x10 3/uL 150-400 L MEAN PLATELET VOLUME (test c ode = MPV) 12.1 fL 7.0-9.0 H NEUTROPHIL % (test code = NT%) 69.4 % 56.0-77.0 N IMMATURE GRANULOCYTE % (test code = IG%) 0.4 % 0.0-2.0 N LYMPHOCYTE % (test code = LY%) 20.2 % 14.0-32.0 N MONOCYTE % (test code = MO%) 7.1 % 4.8-9.0 N EOSINOPHIL % (test code = EO%) 2.6 % 0.3-3.7 N BASOPHIL % (test code = BA%) 0.3 % 0.0-2.0 N NUCLEATED RBC % (test code = NRBC%) 0.0 % 0-0 N NEUTROPHIL # (test code = NT#) 5.45 x10 3/uL 2.0-7.6 N IMMATURE GRANULOCYTE # (test code = IG#) 0.03 x10 3/uL 0.00-0.03 N LYMPHOCYTE # (test code = LY#) 1.58 x10 3/uL 1.0-3.8 N MONOCYTE # (test code = MO#) 0.56 x10 3/uL 0.1-0.8 N EOSINOPHIL # (test code = EO#) 0.20 x10 3/uL 0.0-0.2 N BASOPHIL # (test code = BA#) 0.02 x10 3/uL 0.0-0.2 N NUCLEATED RBC # (test code = NRBC#) 0.00 x10 3/uL 0.0-0.1 N MANUAL DIFF REQUIRED (test c ode = MDIFF) NO - US [id number] 23:32:00Name: YOKASTATIMOTHY HURTASHWINI KEVIN [facility] : 1995 Age/S: 23 / F [address] [place] [address] Unit #: [id number] Loc: [place] [address] Phys: Princess Trivedi MD Acct: [id number] Dis Date: Statu s: REG ER PHONE #: [phone] Exam Date: 02/15/2019 1479 FAX #: [phone] Reason: CARMENCITA EXAMS: CPT CODE: [id number] [place] LTD 68194 LIMITED OB ULTRASOUND FOR AMNIOTIC FLUID INDEX HISTORY: Possible amniotic fluid leak. Estimated gestational age based on last menstrual period 35 weeks 3 days. COMPARISON: No relevant priors available. FINDINGS: A single intrauterine fetus in cephalic presentation is noted. CARMENCITA 13.83 cm cardiac activity 138 BPM Placenta posterior, Grade 1 IMPRESSION: Living intrauterine as described. CARMENCITA 13.83 END REPORT SL: [id number]-H at 2332 Reported and signed by: Marli Beckford M.D. CC: Princess Trivedi MD Technologist: Connie Hall RDMS(A)(OB) Trnscb Date/Time: 02/15/2019 (2331) CornelioRTB Orig Print D/T: S: 02/15/2019 (1053) Probe: PAGE 1 Signed ReportAMNISURE (ROM) [id number] 22:57:00* Test Item Value Reference Range Interpretation Comme nts AMNISURE (ROM) TEST (test co de = AMNI) NEGATIVE NEGATIVE URINALYSIS [id number] 18:07:00* Test Item Value Reference Range Interpretation Comme nts UA COLOR (test code = COLU) YELLOW YEL/STRAW UA APPEARANCE (test code = APPU) CLOUDY CLEAR A UA GLUCOSE DIPSTICK (test co de = DGLUU) NEGATIVE NEGATIVE UA BILIRUBIN DIPSTICK (test code = BILU) NEGATIVE NEGATIVE UA KETONE DIPSTICK (test cod e = KETU) 1+ NEGATIVE A UA SPECIFIC GRAVITY (test co de = SGU) 1.020 1.005-1.030 N UA BLOOD DIPSTICK (test code = SHERYL) NEGATIVE NEGATIVE UA PH DIPSTICK (test code = CALIN) 7.0 5.0-7.0 N UA PROTEIN DIPSTICK (test co de = PROU) NEGATIVE NEGATIVE UA UROBILINIOGEN DIPSTICK (t est code = URO) 0.2 mg/dL 0.2-1.0 UA NITRITE DIPSTICK (test co de = KRYSTAL) NEGATIVE NEGATIVE UA LEUKOCYTE ESTERASE DIPSTI CK (test code = LEUU) NEGATIVE NEGATIVE UA WBC (test code = WBCU) 4-9 WBC/HPF 0-3 A UA RBC (test code = RBCU) 4-10 RBC/HPF 0-3 UA BACTERIA (test code = BACU) TRACE /HPF NONE SEEN UA SQUAMOUS CELLS (test code = SQU) 0-5 /HPF NONE SEEN UA MUCUS (test code = MUCU) 3+ /LPF NONE SEEN A SURGICAL [id number] 08:47:00 RUN DATE: 03/23/18 [facility] *LIVE* PAGE 1 RUN TIME: 846 Specimen Inquiry RUN USER: INTERFACE ------- -----PATIENT: YENY TEMPLETON LOC: MannieEXP U #: [id number] AGE/SX: ROOM: RE10/19/17REG DR: Laureano Chandra MD : 89 BED: DIS: STATUS: ASIM ER TLOC: SPEC #: [id number] RECD: 03/15/18 STATUS: BRIAN REQ #: [id number] MARIELLA: 03/15/[address]: Laureano Chandra MD ENTERED: 03/22/18 SPTYPE: SURG SPEC OTHR DR: No Primary or Family Physician Self ReferredORDERED: LEVEL 4 CODES: [id number] - GALLBLADDER FOS COPIES TO: No Primary or Family Physician Self Referred Laureano Chandra MD [address] [address] PROCEDURES: GM LEVEL 4 (Incomplete) TISSUES: 1.GALLBLADDER FOSSA OF LIVER - Gallbladder FINAL DIAGNOSIS Gallbladder, cholecystectomy: Chronic cholecystitis with cholelithiasis. GROSS AND MICROSCOPIC GROSS DESCRIPTION: Received in formalin and labeled "Gallbladder" is a 5.8 x 2.7 cm gallbladder. The serosa has no evidence of perforation or exudate. The wall is 0.3 cm thick. The mucosa has no ulcers or abnormal masses. The lumen contains multiple mixed stones measuring up to 0.9 cm in diameter. Crm Coordinator sections. MICROSCOPIC EXAMINATION: The gallbladder mucosa focally herniates into the muscle layer forming Rokitansky-Aschoff sinuses. The submucosa contains a chronic inflammatory cell infiltrate. POST-OP DIAGNOSIS Choledocholithiasis CONTINUED ON NEXT PAGE RUN DATE: 03/23/18 [facility] *LIVE* PAGE 2 RUN TIME: 0847 Specimen Inquiry RUN USER: INTERFACE SPEC #: [id number] PATIENT: YOKASTATIMOTHYASHWINI BROWN #[id number] (Continued)--------- --- PRE-OP DIAGNOSIS Choledocholithiasis Signed SIGNATURE ON FILE Mireille Garcia MD 03/23/18 0847 END OF REPORT Notes Date/Time Note Provider Source 2024-03-20 10:04:27 Chief Complaint Patient presents with Kidney Problem Kidney Stones Minog Aranda CMA II [facility] 2024-01-24 13:19:00 [facility] ([facility]) EMERGENCY PROVIDER REPORT REPORT#:[id number] REPORT STATUS: Signed DATE:01/24/24 TIME: 131 PATIENT: YENY TEMPLETON UNIT #: [id number] ROOM/BED: : 93 AGE: 28 SEX:F PCP PHYS: Yosi Marroquin MD SERVICE AUTHOR: Vivian Bro APRNNP REP SRV REP SRV TM: 1319 * ALL edits or amendments must be made on the electronic/computer document * Vivian Bro 01/24/24 1319: HPI-Abd Pain F Under 40 Free Text HPI Notes Free Text HPI Notes 28-year-old female presents with nausea vomiting x 3 days. She states it started after she drank coffee. She has been taking Dramamine and omeprazole at home. States some relief after the omeprazole. States she had similar episode in August in which she was diagnosed with gastritis and a hiatal hernia. Has not been able to see a information systems technician because she does not have insurance. Denies fever chills chest pain shortness of breath dysuria hematuria. Denies recent travel or ill contacts. History cholecystectomy General Initial Greet Date/Time 01/24/24 1307 Presentation Chief Complaint Nausea, Vomiting moderate Sudden in Onset? No Review of Systems Free Text ROS Notes Free Text ROS Notes see HPI Past Medical History - Adult Stated Complaint N V,ABD PAIN Allergies Coded Allergies: No Known Allergies (06/12/20) Home Medications Reported Medications PNV WITH FE FUMARATE/FA () 1 TAB PO DAILY FERROUS SULFATE (FEOSOL) 325 MG PO DAILY Physical Exam Vital Signs Vital Signs First Documented: Result Date Time Pulse Ox 100 01/23 1320 B/P 150/92 01/23 1320 B/P Mean 111 / 1320 O2 Delivery Room air / 1320 Temp 37.0 09/ 1320 Pulse 59 09/ 1320 Resp 16 / 1320 Last Documented: Result Date Time Pulse Ox 100 01/23 1330 Pulse 42 09/ 1330 B/P 150/92 / 1320 B/P Mean 111 09/02 1320 O2 Delivery Room air / 1320 Temp 37.0 09/ 1320 Resp 16 01/23 1320 Review of Vital Signs Reviewed Basic Physical Exam Basic PE HEAD: Atraumatic/NC, EYES: PERRL, conj clear, ENT: Membranes moist, NECK: Supple, EXT: No gross abnormality, SKIN: No rashes, warm/dry, NEURO: alert oriented, NEURO: gross movement NL, PSYCH: NL thought content Focused PE General/Const General/Const Awake, Alert, No acute distress, Well appearing, Well developed , Well hydrated, Well nourished, Cooperative, Not toxic appearing Resp/Chest Respiratory/Chest Breath sounds NL, Breath sounds = bilat, No respiratory distress Cardiovascular Cardiovascular Heart sounds NL, No murmurs Abdomen/GI Abdomen/GI Soft, No guarding, No rebound, No distention Text/Dict Notes tender epigastric region. negative Rovsing McBurney's MS Back Back No CVA tenderness Interpretation Diagnostics Lab Results Interpretation Results Laboratory Tests 01/24/24 1330: [Embedded Image Not Available] Laboratory Tests: 01/23 01/23 1330 1329 Chemistry Sodium (134 - 147 mEq/L) 140 Potassium (3.4 - 5.0 mEq/L) 3.4 Chloride (100 - 108 mEq/L) 105 Carbon Dioxide (21 - 33 mEq/l) 20 L Anion Gap (0 - 20) 18 BUN (7 - 25 mg/dL) 21 Creatinine (0.6 - 1.3 mg/dL) 0.9 Glomerular Filtr Rate (105 - 110) 88.2 L Glucose (77 - 141 mg/dL) 117 Calcium (8.0 - 10.5 mg/dL) 9.9 Total Bilirubin (0.0 - 1.0 mg/dL) 0.90 Direct Bilirubin (0.1 - 0.3 MG/DL) 0.30 Indirect Bilirubin (MG/DL) 0.60 AST (8 - 34 IUnit/L) 39 H ALT (10 - 49 IUnit/L) 41 Total Alk Phosphatase (20 - 125 IUnit/L) 99 Total Protein (6.4 - 8.2 g/dL) 9.0 H Albumin (3.4 - 5.0 g/dL) 4.50 Lipase (13 - 57 U/L) 35 Serum , Qual (NEGATIVE) SERUM NEGATIVE Hematology WBC (4.5 - 11.0 x10 3/uL) 9.5 RBC (3.54 - 5.02 x10 6/uL) 5.37 H Hgb (11.0 - 15.0 g/dL) 15.7 H Hct (33.0 - 45.0 %) 45.8 H MCV (81.0 - 99.0 fL) 85.3 MCH (27.0 - 33.0 pg) 29.2 MCHC (33.0 - 37.0 g/dL) 34.3 RDW (11.5 - 14.5 %) 12.8 Plt Count (150 - 400 x10 3/uL) 247 MPV (7.0 - 9.0 fL) 11.5 H Neut % (Auto) (56.0 - 77.0 %) 74.7 Lymph % (Auto) (14.0 - 32.0 %) 18.0 Sumner % (Auto) (4.8 - 9.0 %) 6.2 Eos % (Auto) (0.3 - 3.7 %) 0.2 L Baso % (Auto) (0.0 - 2.0 %) 0.7 Neut # (Auto) (2.0 - 7.6 x10 3/uL) 7.09 Lymph # (Auto) (1.0 - 3.8 x10 3/uL) 1.71 Sumner # (Auto) (0.1 - 0.8 x10 3/uL) 0.59 Eos # (Auto) (0.0 - 0.2 x10 3/uL) 0.02 Baso # (Auto) (0.0 - 0.2 x10 3/uL) 0.07 Abs Immat Gran (auto) (0.00 - 0.03 x10 3/uL) 0.02 Immature Gran % (0.0 - 2.0 %) 0.2 Nucleated RBC % (0 - 0 %) 0.0 Nucleated RBCs # (Man) (0.0 - 0.1 x10 3/uL) 0.00 Urines Urine Color (YEL/STRAW) LYRIC H Urine Appearance (CLEAR) SL CLOUDY Urine pH (5.0 - 7.0) 5.0 Ur Specific Ute (1.005 - 1.030) 1.033 H Urine Protein (NEGATIVE) 2+ H Urine Glucose (UA) (NEGATIVE) NEGATIVE Urine Ketones (NEGATIVE) 1+ H Urine Blood (NEGATIVE) 3+ H Urine Nitrite (NEGATIVE) NEGATIVE Urine Bilirubin (NEGATIVE) NEGATIVE Urine Urobilinogen (0.2 - 1.0 mg/dL) 0.2 Ur Leukocyte Esterase (NEGATIVE) TRACE H Urine RBC (0 - 3 RBC/HPF) 21-50 Urine WBC (0 - 3 WBC/HPF) 10-20 H Ur Squamous Epith Cells (NONE SEEN /HPF) 0-5 Calcium Oxalate Crystal (NONE SEEN /HPF) 1+ H Urine Bacteria (NONE SEEN /HPF) 2+ H Urine Mucus (NONE SEEN /LPF) 4+ H Urine Yeast (NONE /HPF) 1+ H Microbiology: Date/Time Procedure - Status Source Growth 01/23 1330 Urine Culture - RECD Urine Recent Impressions: ULTRASOUND - US ABDOMEN LTD 01/23 1403 Report Impression - Status: SIGNED Entered: 01/24/2024 1435 IMPRESSION: 1. Mild right hydronephrosis, recommend CT stone protocol to evaluate for obstructing ureteral stone not seen sonographically. Additional stone in the lower calyceal group of the right kidney is noted. 2. Enlarged slightly fatty liver. 3. Gallbladder removed without biliary obstruction. Impression By: Kim Salazar M.D. CAT SCAN - CT ABD PELVIS W/O CONT 01/23 1517 Report Impression - Status: SIGNED Entered: 01/24/2024 1546 IMPRESSION: 7 mm calculus in the right renal pelvis with minimal hydronephrosis. Incidental nonspecific splenomegaly. Impression By: [email or web address] Leanna Vasquez M.D. Lab Imaging Statement Laboratory radiographic studies reviewed and considered in the medical decision-making. Re-Evaluation MDM Free Text MDM Notes Free Text MDM Notes DDx: Gastritis PUD GERD, pancreatitis choledocholithiasis GE UTI 28-year-old female presents with nausea and vomiting over the last 3 days Overall does not appear ill, afebrile, normotensive, no SIRS criteria. No leukocytosis, labs nonactionable UA 2+ protein 1+ ketones 3+ blood trace leukocytes 10-20 WBCs no squamous, Rocephin 1 g given while in ER along with Zofran IV fluids 1454-Ultrasound shows right hydronephrosis recommended correlate with stone, additional CT added to rule out stone. Enlarged fatty liver. Gallbladder removed no bili obstruction CT shows 7 mm stone in right renal pelvis with minimal hydronephrosis Will treat for UTI on outpatient basis given Rocephin prior to discharge. Follow-up with urology Rx cefdinir zofran omeprazole ED Course Medication(s) Ordered Medication(s) Ordered: Anti-Infective Agents Sig/Shaun Start time Last Medication Dose Route Stop Time Status Admin Ceftriaxone Sodium 1,000 MG X1ED STA 01/23 1454 DC 01/23 Sodium Chloride 10 ML IV 01/23 1456 1523 Cardiovascular Drugs Sig/Shaun Start time Last Medication Dose Route Stop Time Status Admin Lidocaine HCl 10 ML X1ED STA 01/23 1316 DC PO 01/23 1317 Electrolytic, Caloric, And Bassem Sig/Shaun Start time Last Medication Dose Route Stop Time Status Admin Sodium Chloride 1,000 ML X1ED STA 01/23 1316 DC 01/23 IV 01/23 1415 1426 Gastrointestinal Drugs Sig/Shaun Start time Last Medication Dose Route Stop Time Status Admin Ondansetron HCl 4 MG X1ED PRN PRN 01/23 1330 DC 01/23 IV 01/24 1329 1424 Al Hydrox/Mg Hydrox/ 30 ML X1ED STA 01/23 1316 DC Simethicone PO 01/23 1317 Famotidine 20 MG X1ED STA 01/23 1316 DC 01/23 IV 01/23 1317 1424 Patient Discharge Departure Vital Signs/Condition Vital Signs First Documented: Result Date Time Pulse Ox 100 01/23 1320 B/P 150/92 01/23 1320 B/P Mean 111 / 1320 O2 Delivery Room air 01/23 1320 Temp 37.0 / 1320 Pulse 59 / 1320 Resp 16 01/23 1320 Last Documented: Result Date Time Pulse Ox 100 01/23 1330 Pulse 42 / 1330 B/P 150/92 / 1320 B/P Mean 111 / 1320 O2 Delivery Room air 01/23 1320 Temp 37.0 / 1320 Resp 16 01/23 1320 All vital signs available at the time of this entry have been reviewed. Condition Stable Clinical Impression Clinical Impression Primary Impression: Nausea vomiting Secondary Impressions: Right nephrolithiasis, UTI (urinary tract infection) Time of Impression 1617 Disposition Decision Discharge )( Discharged to Home Yes )( Time 1617 )( Date 01/24/24 Discharge/Care Plan Counseled Regarding Diagnosis, Lab results, Imaging studies, Prescriptions, Need for follow-up, When to return to ED (Auto) Prescriptions Current Visit Scripts OMEPRAZOLE ER 20 MG PO DAILY OMEPRAZOLE ER 20 MG PO DAILY #30 CAPS ONDANSETRON ODT (ZOFRAN ODT) 4 MG PO Q6H PRN PRN NAUSEA/VOMITING ONDANSETRON ODT (ZOFRAN ODT) 4 MG PO Q6H PRN PRN NAUSEA/VOMITING #15 TABS CEFDINIR (OMNICEF) 300 MG PO Q12H CEFDINIR (OMNICEF) 300 MG PO Q12H #14 CAPS Patient Instructions ED Kidney Stone with Pain, Urinary Tract Infections in Women Additional Instructions You are being treated for urinary tract infection. Received first dose of Rocephin while in ER. Cefdinir antibiotic filled and begin taking as prescribed He also have a 7 mm kidney stone in the right kidney, do not suspect this is where your pain is coming from at this time. However you will need to follow-up with urology Prescription given for omeprazole for gastritis Zofran prescribed for nausea vomiting Worsening symptoms such as increased pain fever vomiting unable to keep fluids down return to ER otherwise call urology for follow-up appointment 1. The examination and treatment that you have received has been on an emergency basis only and is not intended as an effort to provide complete medical care. It is impossible to recognize and treat all elements of an illness or injury in a single ER visit. 2. Thank you for allowing us to provide emergent medical care to you or your family member. We consider it a privilege to have served you during your illness or injury. 3. If you have received a prescription, please fill it TODAY and follow the instructions carefully. 4. Please seek medical attention or return to the ER immediately if your symptoms persist despite treatment (as applicable), if new symptoms develop, if your symptoms worsen or for any other concerns. Discharge Note I have spoken with the patient and/or caregivers. I have explained the patient's condition, diagnoses and treatment plan based on the information available to me at this time. I have answered the patient's and/or caregiver's questions and addressed any concerns. The patient and/or caregivers have as good an understanding of the patient's diagnosis, condition and treatment plan as can be expected at this point. The vital signs have been stable. The patient's condition is stable and appropriate for discharge from the emergency department. The patient will pursue further outpatient evaluation with the primary care physician or other designated or consulting physician as outlined in the discharge instructions. The patient and/or caregivers are agreeable to this plan of care and follow-up instructions have been explained in detail. The patient and/or caregivers have received these instructions in written format and have expressed an understanding of the discharge instructions. The patient and/or caregivers are aware that any significant change in condition or worsening of symptoms should prompt an immediate return to this or the closest emergency department or a call to 911. Betty Arteaga 01/24/242053: Patient Discharge Departure Discharge/Care Plan Referrals Provider Referral: Alicia Tran MD Address: [address] [place] [address], [place] [address] Provider Referral: Mike Nolasco MD Address: [address] [place] [address] [address] [place] [address] Supervising Physician Note MidLv Saw Pt Alone I have reviewed the PA/CRUSHER PLANT OPERATOR's note and plan of care. I was available for consultation as needed at all times during the patient's visit in the emergency department. I agree with the clinical impression, plan and disposition. at [address] [facility] [facility] #:[id number] END OF REPORT [facility]ACL 2023-09-16 18:42:08 Pt given printed and verbal discharge instructions regarding N/V, gastritis, encouraged hydration. 5 Prescriptions sent to pharmacy. Discussed ibuprofen and to take with food to avoid GI distress. Discussed antibiotic therapy and to take until all completed unless adverse reaction occurs - if occurs, discontinue medication and follow up with pcp/seek medical attention. Discussed tramadol affects and to avoid driving/operating machinery/or engaging in activities requiring alertness while taking. Pt verbalized understanding of instructions, pt awake alert oriented, resp reg unlabored, skin w/d, color appropriate for race, moves all ext well,pt encouraged to follow up with pcp. Advised to seek medical attention for new/prolonged/worsening of symptoms, Symptoms improved. No adverse reaction to meds given in ER noted upon discharge. PIV d'cd, dressing to site, catheter in tact. Awake, alert oriented, resp reg unlabored, skin w/d, pt leaving via wheelchair, in no apparent distress. Guerda Kelly RN [facility] 2023-09-16 16:55:21 Okay for patient to have ice per provider. Lucy George RN [facility] 2023-09-16 14:45:01 Patient arrived c/o of vomiting and abdominal pain since last night. Rand Schneider RN [facility] 2023-09-16 14:39:00 [facility] Emergency Department Note Patient Name: Yeny Templeton Date of : 1995 28 year old female Treatment Room: Room/bed info not found Primary Care Physician: PATIENT DOES NOT HAVE A PCP Patient Escorted by: Family [5] Mode of Arrival: Personal means [1] EMS Treatment Prior to ED Arrival: CERTIFIED ADAPTED PHYSICAL EDUCATOR treatment: None Travel and Exposure Screening: Symptoms Does patient have any of these symptoms?: (not recorded) Exposure Screening Has patient had contact with someone with a communicable disease in the last month?: (not recorded) Diseases exposed to:: (not recorded) Is Patient ?: (not recorded) Exposure Date: (not recorded) Chief Complaint: Chief Complaint Patient presents with Abdominal Pain History of Present Illness: Couple days of nausea. Today has nausea with vomiting. Multiple episodes. (+) diarrhea. All non-bloody. Concurrent BUQ abdominal pain, constant, no definitive aggravating or relieving factors. No fever. No dysuria, frequency. No rash. No fall or injury. Recent encounters: 1. Today, Just before [facility] ED Encounter. Similar symptoms. PLUS sounds like Atrial Fibrillation with RVR. They report she was given two doses of cardiac medication to slow her heart rate. Sounds like she eloped AMA. History provided by: Patient and spouse Past Medical History/Immunizations: Past Medical History: Diagnosis Date Atrial fibrillation Tetanus received in last 5 years: Yes Childhood immunizations: Up-to-date Allergies: No Known Allergies Past Social History: Substance & Sexual Activity No substance use or sexual activity history on file. Past Surgical History: Past Surgical History: Procedure Laterality Date LAPAROSCOPIC CHOLECYSTECTOMY Review of Systems: Review of Systems Constitutional: Negative. HENT: Negative. Eyes: Negative. Respiratory: Negative. Cardiovascular: Negative. Gastrointestinal: Positive for abdominal pain, diarrhea, nausea and vomiting. Negative for blood in stool. Genitourinary: Negative. Musculoskeletal: Negative. Skin: Negative. Neurological: Negative. Psychiatric/Behavioral: Negative. Physical Exam: ED Triage Vitals [09/16/23 1446] Weight 95.3 kg (210 lb) Actual or estimated Estimated by patient/family report Height 1.524 m (5') BP 134/81 Pulse (!) 40 Resp 22 Temp 36.9 ?C (98.4 ?F) Temp source Oral SpO2 100 % Measured on Room air Physical Exam Vitals and nursing note reviewed. Constitutional: General: She is not in acute distress. Appearance: Normal appearance. She is not ill-appearing, toxic-appearing or diaphoretic. HENT: Head: Normocephalic and atraumatic. Right Ear: External ear normal. Left Ear: External ear normal. Nose: Nose normal. Mouth/Throat: Mouth: Mucous membranes are moist. Eyes: Extraocular Movements: Extraocular movements intact. Conjunctiva/sclera: Conjunctivae normal. Cardiovascular: Rate and Rhythm: Regular rhythm. Bradycardia present. Pulmonary: Effort: Pulmonary effort is normal. No respiratory distress. Breath sounds: Normal breath sounds. No wheezing, rhonchi or rales. Abdominal: General: There is no distension. Palpations: Abdomen is soft. Tenderness: There is abdominal tenderness (BUQ). Musculoskeletal: General: Normal range of motion. Cervical back: Normal range of motion. Skin: General: Skin is warm and dry. Neurological: General: No focal deficit present. Mental Status: She is alert. Psychiatric: Mood and Affect: Mood normal. Behavior: Behavior normal. Thought Content: Thought content normal. Judgment: Judgment normal. Radiology: CT ABDOMEN PELVIS W CONTRAST Final Result Ordering Physician: MARLI BARBOSA Clinical indication: Acute nonlocalized abdominal pain. Bilateral upper abdominal pain. Comparison: None. Technique: CT abdomen and pelvis with intravenous contrast. This examination was performed according to ALARA principles. Technical quality: Adequate Findings: The liver and spleen are both mildly enlarged and otherwise unremarkable. The patient is status post cholecystectomy. The pancreas and adrenal glands are unremarkable. There is a small hiatal hernia. Evaluation of the stomach is limited due to lack of distention. However, there appears to be disproportionate mural thickening of the gastric antrum and there is mild adjacent fat stranding, best seen on sagittal reconstructions, suspicious for gastritis. Small bilateral intrarenal calculi are present. No ureteral calculi are evident and there is no hydronephrosis. An IUD appears normally positioned. The urinary bladder is decompressed and grossly unremarkable. There is no evidence of colitis or diverticulitis. A normal appendix is identified. There is no bowel distention. There is no free intraperitoneal fluid or free intraperitoneal air. The included lung bases are clear. No acute bony abnormalities are evident. IMPRESSION Impression: 1. Small hiatal hernia and findings suspicious for gastritis. 2. Cholecystectomy. 3. Hepatosplenomegaly. 4. Bilateral nephrolithiasis, without obstructive uropathy. 5. IUD. RL: [id number] End of Report Lab Results: Lab Results CBC WITH DIFF - Abnormal Result Value Ref Range WBC 6.99 4.30 - 11.10 10*3/?L RBC 4.31 3.93 - 5.25 10*6/?L HGB 12.9 11.6 - 15.0 g/dL HCT 37.0 35.7 - 45.2 % MCV 85.8 80.6 - 95.5 fL MCH 29.9 25.9 - 32.8 pg MCHC 34.9 31.6 - 35.1 g/dL RDW-SD 39.8 39.0 - 49.9 fL RDW-CV 12.8 12.0 - 15.5 % PLT 151 (*) 166 - 358 10*3/?L MPV 11.7 9.5 - 12.9 fL NRBC/100 WBC 0.0 0.0 - 10.0 /100 WBCs NRBC x10 3 <0.01 10*3/?L GRAN MAT (NEUT) % 86.8 % IMM GRAN % 0.30 % LYMPH % 10.2 % MONO % 2.4 % EOS % 0.0 % BASO % 0.3 % GRAN MAT x10 3 (ANC) 6.07 1.88 - 7.09 10*3/uL IMM GRAN x10 3 <0.03 0.00 - 0.06 10*3/uL LYMPH x10 3 0.71 (*) 1.32 - 3.29 10*3/uL MONO x10 3 0.17 (*) 0.33 - 0.92 10*3/uL EOS x10 3 <0.03 (*) 0.03 - 0.39 10*3/uL BASO x10 3 <0.03 0.01 - 0.07 10*3/uL COMP. METABOLIC PANEL (25528) - Abnormal NA 138 135 - 145 mmol/L K 3.2 (*) 3.5 - 5.0 mmol/L CL 107 98 - 108 mmol/L CO2 TOTAL 21 (*) 23 - 31 mmol/L AGAP 10 2 - 16 BUN 13 7 - 23 mg/dL GLUCOSE 118 (*) 70 - 110 mg/dL CREATININE 0.74 0.50 - 1.04 mg/dL TOTAL BILI 0.8 0.1 - 1.1 mg/dL CALCIUM 9.2 8.6 - 10.6 mg/dL T PROTEIN 7.6 6.3 - 8.2 g/dL ALBUMIN 4.5 3.5 - 5.0 g/dL ALK PHOS 94 34 - 122 U/L ALTv 16 5 - 35 U/L AST(SGOT) 25 13 - 40 U/L eGFR 111.8 mL/min/1.73m2 URINALYSIS - Abnormal APPEARANCE Hazy (*) Clear COLOR Yellow Yellow PH 6.0 4.8 - 8.0 SP GRAVITY 1.030 1.003 - 1.030 GLU U QUAL Normal Normal BLOOD 2+ (*) Negative KETONES 80 mg/dL (*) Negative PROTEIN 30 mg/dL (*) Negative UROBILIN Normal Normal BILIRUBIN Negative Negative NITRITE Negative Negative LEUK KAI Negative Negative RBC/HPF >182 (*) 0 - 3 HPF WBC/HPF 6 (*) 0 - 5 HPF BACTERIA Few (*) Negative MUCOUS Moderate (*) Negative LPF SQ EPITH 4 HPF LIPASE - Normal LIPASE 32 0 - 220 U/L TEST, SERUM PREG SERUM Negative EKG: If EKG completed, see Procedure Note. Orders and Treatments: Orders Placed This Encounter Procedures CT ABDOMEN PELVIS W CONTRAST CBC WITH DIFF COMP. METABOLIC PANEL (10607) LIPASE URINALYSIS TEST, SERUM Orders Placed This Encounter Medications NaCl 0.9% (NS) bolus infusion 1,000 mL ondansetron (ZOFRAN (PF)) injection 8 mg famotidine (PEPCID (PF)) injection 20 mg morpHINE (4 mg/mL) injection 4 mg iopamidol (ISOVUE 370-500 mL) injection 85 mL ketorolac (TORADOL) injection 30 mg busPIRone (BUSPAR) tablet 10 mg traMADoL 50 mg tablet ondansetron 4 mg tablet cefdinir 300 mg capsule busPIRone 10 mg tablet sucralfate 1 gram tablet First Provider Eval: ED Events Date/Time Event User Comments 09/16/23 144 Medical Screening Begins MARLI BARBOSA MD -- 09/16/231443 First Provider Evaluation MARLI BARBOSA MD -- ED COURSE Diagnosis/Impression as of 09/16/231826 Nausea and vomiting, unspecified vomiting type Abdominal pain, unspecified abdominal location Asymptomatic bradycardia Gastritis without bleeding, unspecified chronicity, unspecified gastritis type Acute cystitis with hematuria Anxiety Procedures: Procedures MDM: Medical Decision Making Primary impression: nausea with vomiting Secondary impression: gastritis, small hiatal hernia, nephrolithiasis, urinary tract infection, anxiety, asymptomatic bradycardia Differential Diagnoses, including but not limited to: electrolyte / glucose abnl, anemia, pancreatitis, gastritis, cystitis Problems Addressed: Abdominal pain, unspecified abdominal location: acute illness or injury Acute cystitis with hematuria: acute illness or injury Details: Equivocal UA. Not on menses. Possible recently passed kidney stone. Anxiety: acute illness or injury Asymptomatic bradycardia: self-limited or minor problem Details: Sounds like she was given a calcium channel orlando or beta-orlando for A-Fib RVR at [facility] just prior to [facility] ED encounter. Gastritis without bleeding, unspecified chronicity, unspecified gastritis type: acute illness or injury Nausea and vomiting, unspecified vomiting type: acute illness or injury Amount and/or Complexity of Data Reviewed Independent Historian: spouse Details: Self, spouse Labs: ordered. Decision-making details documented in ED Course. Radiology: ordered. Decision-making details documented in ED Course. Discussion of management or test interpretation with external provider(s): N/a Risk Prescription drug management. Parenteral controlled substances. Risk Details: Unremarkable OBS in ED. Findings and plan discussed with patient. Asymptomatic bradycardia throughout. HD stable. Request help for anxiety disorder. Symptomatic mgmt of findings. No findings that require acute hospitalization today. Flowsheet Documentation: Scoring Tools: No data recorded Disposition/Condition: ED Disposition ED Disposition Disch - Home Condition Stable Comment -- Discharge Medications: Patient's Medications START taking these medications BUSPIRONE 10 MG TABLET Take 1 tablet by mouth in the morning and 1 tablet in the evening. Do all this for 14 days. CEFDINIR 300 MG CAPSULE Take 1 capsule by mouth every 12 (twelve) hours for 5 days. ONDANSETRON 4 MG TABLET 1 or 2 tablets every 8 hours as needed for nausea SUCRALFATE 1 GRAM TABLET Take 1 tablet by mouth before meals and at bedtime. TRAMADOL 50 MG TABLET Take 1 tablet by mouth every 6 (six) hours as needed (pain). Indications: acute pain CONTINUE taking these medications which have NOT CHANGED TRAMADOL 50 MG TABLET Take 1 tablet by mouth every 6 (six) hours as needed for Pain (scale 4-6). START taking Modified Medications as Prescribed No medications on file STOP taking these medications No medications on file Follow-up: PCP Electronically signed by: Marli Barbosa MD 09/16/231826 [facility] 2021-09-21 12:02:00 [facility] OB Disch REPORT#:[id number] REPORT STATUS: Signed DATE:09/21/21 TIME: 1202 PATIENT: YENY TEMPLETON UNIT #: [id number] ROOM/BED: [place] [id number] : 93 AGE: 26 SEX: F ATTEND: Yosi Marroquin MD ADM AUTHOR: Yosi Marroquin MD * ALL edits or amendments must be made on the electronic/computer document * Subjective Subjective Admission EGA: Weeks: 37 Days: 0 EGA at delivery (wks/days): 37 weeks (1d) Discharge Summary General Assessment: nml progress Hospital course: induction of labor Discharge condition: stable Discharge to: Home/Self Care Baby A: Vaginal delivery: spontaneous status: live born Gender: female 1 minute: 8 5 minutes: 9 Nursing data: The data set between the solid lines has been imported from nursing documentation. Any exceptions have been noted below under Provider comments. Delivery date A: 09/18/21 Delivery time infant A: 1831 Birthweight (gm) A: 2420 Feeding preference: Gender infant A: Female 1 minute infant A: 8 5 minutes A: 9 10 minutes infant A: Provider comments on imported nursing data: [] Plan: routine care, discharge today Discharge Instructions Instructions: routine instr sheet given Diet: Resume Home Diet/Feeds Activity: Resume Normal Activity Additional discharge routines: None Discharge meds: Continue taking these medications: PNV WITH FE FUMARATE/FA () 1 EACH TAB 1 TABLET ORAL DAILY. FERROUS SULFATE (FEOSOL) 325 MG TAB 325 MILLIGRAM ORAL DAILY. at 1203 RPT #:[id number] END OF REPORT [facility] 2021-09-21 12:01:00 [facility] ([facility]) OB Postpart Progr Note REPORT#:[id number] REPORT STATUS: Signed DATE:09/21/21 TIME: 1201 PATIENT: YENY TEMPLETON [place] UNIT #: [id number] ROOM/BED: [place] [id number] : 93 AGE: 26 SEX: F ATTEND: Yosi Marroquin MD ADM AUTHOR: Yosi Marroquin MD * ALL edits or amendments must be made on the electronic/computer document * Subjective Subjective Admission EGA: Weeks: 37 Days: 0 EGA at delivery (wks/days): 37 weeks (1d) Status/Day: post (d3) Patient reports: Patient reports: Yes no complaints, Yes normal lochia, Yes pain management effective, Yes tolerating po well, Yes voiding well, Yes voiding without pain, Yes tolerating ambulation, Yes flatus Objective Nursing Documentation Review Nursing Data: The data set between the solid lines has been imported from nursing documentation. Any exceptions have been noted below under Provider comments. Feeding preference: Post hemorrhage risk score: Medium Risk for Hemorrhage. Provider comments on imported nursing data: [] General VS: Vital Signs: Date Time Temp Pulse Resp B/P B/P Pulse O2 O2 Flow FiO2 Mean Ox Delivery Rate 09/20 2034 36.7 64 16 130/82 99 PATIENT WEIGHT: Weight (lb): 197 Weight (oz): 5.02 Weight (kg): 89.500 Physical Exam Abdomen: soft, no abnormal tenderness, no guarding Uterus: involution appropriate, non-tender Fundus: firm, below the umbilicus Lochia: normal Lacerations: Perineal laceration(s): None Lower extremities: Edema: none Matthew's sign: negative Calf tenderness: negative Diagnosis, Assessment Plan Diagnosis, Assessment Plan Assessment: nml progress Plan: routine care, discharge today at 1202 RPT #:[id number] END OF REPORT [facility] 2021-09-20 14:27:00 [facility] ([facility]) OB Postpart Progr Note REPORT#:[id number] REPORT STATUS: Signed DATE:09/20/21 TIME: 1427 PATIENT: YENY TEMPLETON UNIT #: [id number] ROOM/BED: [place] [id number] : 93 AGE: 26 SEX: F ATTEND: Yosi Marroquin MD ADM AUTHOR: Yosi Marroquin MD * ALL edits or amendments must be made on the electronic/computer document * Subjective Subjective Admission EGA: Weeks: 37 Days: 0 EGA at delivery (wks/days): 37 weeks (1d) Status/Day: post (d2) Objective Nursing Documentation Review Nursing Data: The data set between the solid lines has been imported from nursing documentation. Any exceptions have been noted below under Provider comments. Feeding preference: Post hemorrhage risk score: Medium Risk for Hemorrhage. Provider comments on imported nursing data: [] General VS: Vital Signs: Date Time Temp Pulse Resp B/P B/P Pulse O2 O2 Flow FiO2 Mean Ox Delivery Rate 09/20 0814 36.6 72 16 133/87 100 09/19 2330 36.7 66 16 122/75 98 09/19 1930 36.8 68 16 128/81 97 09/19 1600 36.6 71 18 127/82 99 PATIENT WEIGHT: Weight (lb): 197 Weight (oz): 5.02 Weight (kg): 89.500 Physical Exam Abdomen: soft, no abnormal tenderness, no guarding Uterus: involution appropriate, non-tender Fundus: firm, below the umbilicus Lochia: normal Lacerations: Perineal laceration(s): None Lower extremities: Edema: none Matthew's sign: negative Calf tenderness: negative Diagnosis, Assessment Plan Diagnosis, Assessment Plan Assessment: nml progress Plan: routine care at 1428 RPT #:[id number] END OF REPORT [facility] 2021-09-19 08:36:00 [facility] ([facility]) OB Postpart Progr Note REPORT#:[id number] REPORT STATUS: Signed DATE:09/19/21 TIME: 0836 PATIENT: YENY TEMPLETON UNIT #: [id number] ROOM/BED: [place] [id number] : 93 AGE: 26 SEX: F ATTEND: Yosi Marroquin MD ADM AUTHOR: Yosi Marroquin MD * ALL edits or amendments must be made on the electronic/computer document * Subjective Subjective Admission EGA: Weeks: 37 Days: 0 EGA at delivery (wks/days): 37 weeks (1d) Status/Day: post (d1) Patient reports: Patient reports: Yes no complaints, Yes normal lochia, Yes pain management effective, Yes tolerating po well, Yes voiding well, Yes voiding without pain, Yes tolerating ambulation, Yes flatus Objective Nursing Documentation Review Nursing Data: The data set between the solid lines has been imported from nursing documentation. Any exceptions have been noted below under Provider comments. Feeding preference: Post hemorrhage risk score: Medium Risk for Hemorrhage. Provider comments on imported nursing data: [] General VS: Vital Signs: Date Time Temp Pulse Resp B/P B/P Pulse O2 O2 Flow FiO2 Mean Ox Delivery Rate 09/19 0415 36.6 66 16 126/75 98 09/19 0010 36.8 89 16 142/80 98 09/18 2044 36.8 79 18 117/58 98 09/18 2020 81.0 09/18 2020 81 114/58 09/18 2006 76.0 09/18 2006 67 109/53 09/18 1951 82.0 09/18 1951 61 119/59 09/18 1936 87.0 09/18 1936 71 125/63 09/18 1922 81.0 09/18 1922 68 113/61 09/18 1907 96.0 09/18 1907 72 17 127/83 100 09/18 1852 75.0 09/18 1852 76 111/52 09/18 1835 37.2 16 09/18 1835 89.0 09/18 1835 94 127/63 09/18 1833 102 100 09/18 1832 74.0 09/18 1832 126 131/57 09/18 1828 112 100 09/18 1825 85.0 09/18 1825 64 119/59 09/18 1823 97 100 09/18 1821 93.0 09/18 1821 88 123/76 09/18 1818 90 100 09/18 1815 75.0 09/18 1815 63 102/52 09/18 1813 70 100 09/18 1808 85 100 09/18 1805 78.0 09/18 1805 82 133/55 09/18 1803 99 100 09/18 1800 18 09/18 1758 81 99 09/18 1755 16 09/18 1753 76 100 09/18 1751 89.0 09/18 1751 76 120/68 0428 1750 16 09/18 1748 72 100 09/18 1745 16 09/18 1745 76.0 09/18 1745 68 104/54 09/18 1743 69 99 09/18 1740 16 09/18 1740 75.0 09/18 1740 70 100/55 09/18 1738 64 100 09/18 1735 16 09/18 1735 74.0 09/18 1735 65 104/51 09/18 1733 74 98 09/18 1730 18 09/18 1730 92.0 09/18 1730 67 129/66 09/18 1728 72 99 09/18 1723 71 99 09/18 1718 83 100 09/18 1707 76 99 09/18 1702 70 98 09/18 1649 79 92 09/18 1631 105.0 09/18 1631 65 139/78 09/18 1601 101.0 09/18 1601 64 141/74 95 09/18 1556 66 95 09/18 1551 66 100 09/18 1546 67 100 09/18 1541 68 96 09/18 1536 74 100 09/18 1531 84.0 09/18 1531 64 116/59 95 09/18 1526 66 97 09/18 1511 70 97 09/18 1506 79 99 09/18 1504 68 88 09/18 1501 99.0 09/18 1501 68 135/74 96 09/18 1456 66 96 09/18 1451 72 99 09/18 1446 69 96 09/18 1441 65 98 09/18 1436 71 98 09/18 1432 104.0 09/18 1432 36.6 73 18 147/72 09/18 1431 72 95 09/18 1426 73 95 09/18 1422 68 93 09/18 1421 73 93 09/18 1404 98.0 09/18 1404 79 132/76 09/18 1343 83 100 09/18 1338 76 99 09/18 1333 75 98 09/18 1331 89.0 09/18 1331 83 117/70 09/18 1328 79 99 09/18 1323 78 99 09/18 1302 79.0 09/18 1302 69 113/57 09/18 1232 100.0 09/18 1232 75 131/78 09/18 1201 99.0 09/18 1201 79 139/76 09/18 1131 85.0 09/18 1131 36.7 74 18 124/59 09/18 1131 98 09/18 1101 100.0 09/18 1101 76 136/74 09/18 1031 103.0 09/18 1031 82 131/84 09/18 0957 111.0 09/18 0957 82 139/93 PATIENT WEIGHT: Weight (lb): 197 Weight (oz): 5.02 Weight (kg): 89.500 Physical Exam Abdomen: soft, no abnormal tenderness, no guarding Uterus: involution appropriate, non-tender Fundus: firm, below the umbilicus Lochia: normal Lacerations: Perineal laceration(s): None Lower extremities: Edema: none Matthew's sign: negative Calf tenderness: negative Result Findings/Data: Laboratory Tests: 09/19 09/18 0415 1625 Hematology WBC (4.5 - 11.0 x10 3/uL) 6.3 7.4 RBC (3.54 - 5.02 x10 6/uL) 3.02 L 3.60 Hgb (11.0 - 15.0 g/dL) 8.4 L 9.9 L Hct (33.0 - 45.0 %) 27.2 L 32.1 L MCV (81.0 - 99.0 fL) 90.1 89.2 MCH (27.0 - 33.0 pg) 27.8 27.5 MCHC (33.0 - 37.0 g/dL) 30.9 L 30.8 L RDW (11.5 - 14.5 %) 15.5 H 15.5 H Plt Count (150 - 400 x10 3/uL) 81 L 91 L MPV (7.0 - 9.0 fL) 12.2 H 11.5 H Neut % (Auto) (56.0 - 77.0 %) 71.5 75.8 Lymph % (Auto) (14.0 - 32.0 %) 18.6 16.7 Sumner % (Auto) (4.8 - 9.0 %) 7.5 5.5 Eos % (Auto) (0.3 - 3.7 %) 1.4 1.2 Baso % (Auto) (0.0 - 2.0 %) 0.5 0.4 Neut # (Auto) (2.0 - 7.6 x10 3/uL) 4.50 5.63 Lymph # (Auto) (1.0 - 3.8 x10 3/uL) 1.17 1.24 Sumner # (Auto) (0.1 - 0.8 x10 3/uL) 0.47 0.41 Eos # (Auto) (0.0 - 0.2 x10 3/uL) 0.09 0.09 Baso # (Auto) (0.0 - 0.2 x10 3/uL) 0.03 0.03 Abs Immat Gran (auto) (0.00 - 0.03 x10 3/uL) 0.03 0.03 Add Manual Diff NO NO Immature Gran % (0.0 - 2.0 %) 0.5 0.4 Nucleated RBC % (0 - 0 %) 0.0 0.0 Nucleated RBCs # (Man) (0.0 - 0.1 x10 3/uL) 0.00 0.00 Immature Plt Fraction (0.9 - 11.2 %) 8.5 Diagnosis, Assessment Plan Diagnosis, Assessment Plan Assessment: nml progress Plan: routine care at 0838 RPT #:[id number] END OF REPORT [facility] 2021-09-18 20:32:00 [facility] ([facility] DT History Physical REPORT#:[id number] REPORT STATUS: Signed DATE:09/18/21 TIME: 2031 PATIENT: YENY TEMPLETON UNIT #: [id number] ROOM/BED: [place] [id number] : [birth year] AGE: 26 SEX: F ATTEND: Yosi Marroquin MD ADM AUTHOR: Yosi Marroquin MD * ALL edits or amendments must be made on the electronic/computer document * History Physical History Physical She is seen and examined and care records reviewed with the following updates; Laboratory Tests 09/18/21 1625: [Embedded Image Not Available] 09/17/212034: [Embedded Image Not Available] Laboratory Tests 09/18 09/18 UNK UNK Blood Gas Cord Blood pH (7.18 - 7.38) 7.30 Cord Blood PCO2 (32 - 66 mmHg) 48 Cord Blood PO2 (6 - 30 mmHg) 22 Cord Blood HCO3 (17 - 27 mmol/L) 23 Cord Base Excess (-8.0 - 0.0 mmol/L) -3.0 Cord O2 Saturation (72 - 77 %) 31 L Cord VBG pH (7.25 - 7.45) 7.36 Cord VBG pCO2 (27 - 49 mmHg) 35 Cord VBG pO2 (17 - 41 mmHg) 38 Cord VBG HCO3 (12 - 28 MMOL/L) 20.1 Cord VBG Base Excess (-8.0 - 0.00 mmol/L) -5.3 Cord VBG O2 Sat (%) 71 Laboratory Tests 09/18 09/17 1625 2035 Hematology WBC (4.5 - 11.0 x10 3/uL) 7.4 6.7 RBC (3.54 - 5.02 x10 6/uL) 3.60 3.56 Hgb (11.0 - 15.0 g/dL) 9.9 L 9.8 L Hct (33.0 - 45.0 %) 32.1 L 31.4 L MCV (81.0 - 99.0 fL) 89.2 88.2 MCH (27.0 - 33.0 pg) 27.5 27.5 MCHC (33.0 - 37.0 g/dL) 30.8 L 31.2 L RDW (11.5 - 14.5 %) 15.5 H 15.7 H Plt Count (150 - 400 x10 3/uL) 91 L 94 L MPV (7.0 - 9.0 fL) 11.5 H 12.1 H Neut % (Auto) (56.0 - 77.0 %) 75.8 70.3 Lymph % (Auto) (14.0 - 32.0 %) 16.7 20.9 Sumner % (Auto) (4.8 - 9.0 %) 5.5 5.9 Eos % (Auto) (0.3 - 3.7 %) 1.2 2.1 Baso % (Auto) (0.0 - 2.0 %) 0.4 0.5 Neut # (Auto) (2.0 - 7.6 x10 3/uL) 5.63 4.69 Lymph # (Auto) (1.0 - 3.8 x10 3/uL) 1.24 1.39 Sumner # (Auto) (0.1 - 0.8 x10 3/uL) 0.41 0.39 Eos # (Auto) (0.0 - 0.2 x10 3/uL) 0.09 0.14 Baso # (Auto) (0.0 - 0.2 x10 3/uL) 0.03 0.03 Abs Immat Gran (auto) (0.00 - 0.03 x10 3/uL) 0.03 0.02 Add Manual Diff NO NO Immature Gran % (0.0 - 2.0 %) 0.4 0.3 Nucleated RBC % (0 - 0 %) 0.0 0.0 Nucleated RBCs # (Man) (0.0 - 0.1 x10 3/uL) 0.00 0.00 Platelet Estimate (ADEQUATE THOUSAND) 92-115 Immature Plt Fraction (0.9 - 11.2 %) 8.5 Laboratory Tests 09/17 Serology RPR (NONREACTIVE) NONREACTIVE Hep Bs Antigen (NonReactive INDEX) NON REACTIVE HIV 1 2 Antibody Screen (Nonreactive) Nonreactive SARS-CoV-2 Ag (Rapid) (Negative) Negative Laboratory Tests Test Result Date Time Blood Gas Cord Blood pH (7.18 - 7.38) 7.30 09/18 UNK Cord Blood PCO2 (32 - 66 mmHg) 48 09/18 UNK Cord Blood PO2 (6 - 30 mmHg) 22 09/18 UNK Cord Blood HCO3 (17 - 27 mmol/L) 23 09/18 UNK Cord Base Excess (-8.0 - 0.0 mmol/L) -3.0 09/18 UNK Cord O2 Saturation (72 - 77 %) 31 L 09/18 UNK Cord VBG pH (7.25 - 7.45) 7.36 09/18 UNK Cord VBG pCO2 (27 - 49 mmHg) 35 09/18 UNK Cord VBG pO2 (17 - 41 mmHg) 38 09/18 UNK Cord VBG HCO3 (12 - 28 MMOL/L) 20.1 09/18 UNK Cord VBG Base Excess (-8.0 - 0.00 mmol/L) -5.3 09/18 UNK Cord VBG O2 Sat (%) 71 09/18 UNK Hematology WBC (4.5 - 11.0 x10 3/uL) 7.4 09/18 1625 RBC (3.54 - 5.02 x10 6/uL) 3.60 09/18 162 Hgb (11.0 - 15.0 g/dL) 9.9 L 09/18 162 Hct (33.0 - 45.0 %) 32.1 L 09/18 1624 MCV (81.0 - 99.0 fL) 89.2 09/18 162 MCH (27.0 - 33.0 pg) 27.5 09/18 162 MCHC (33.0 - 37.0 g/dL) 30.8 L 09/18 162 RDW (11.5 - 14.5 %) 15.5 H 09/18 1624 Plt Count (150 - 400 x10 3/uL) 91 L 09/18 1624 MPV (7.0 - 9.0 fL) 11.5 H 09/18 1624 Neut % (Auto) (56.0 - 77.0 %) 75.8 09/18 1624 Lymph % (Auto) (14.0 - 32.0 %) 16.7 09/18 1624 Sumner % (Auto) (4.8 - 9.0 %) 5.5 09/18 1624 Eos % (Auto) (0.3 - 3.7 %) 1.2 09/18 1624 Baso % (Auto) (0.0 - 2.0 %) 0.4 09/18 1624 Neut # (Auto) (2.0 - 7.6 x10 3/uL) 5.63 09/18 1624 Lymph # (Auto) (1.0 - 3.8 x10 3/uL) 1.24 09/18 1624 Sumner # (Auto) (0.1 - 0.8 x10 3/uL) 0.41 09/18 1624 Eos # (Auto) (0.0 - 0.2 x10 3/uL) 0.09 09/18 1624 Baso # (Auto) (0.0 - 0.2 x10 3/uL) 0.03 09/18 1624 Abs Immat Gran (auto) (0.00 - 0.03 x10 3/uL) 0.03 09/18 1624 Add Manual Diff NO 09/18 1624 Immature Gran % (0.0 - 2.0 %) 0.4 09/18 1624 Nucleated RBC % (0 - 0 %) 0.0 09/18 1624 Nucleated RBCs # (Man) (0.0 - 0.1 x10 3/uL) 0.00 09/18 1624 Platelet Estimate (ADEQUATE THOUSAND) 92-115 09/17 2034 Immature Plt Fraction (0.9 - 11.2 %) 8.5 09/18 1624 Serology RPR (NONREACTIVE) NONREACTIVE 09/17 2034 Hep Bs Antigen (NonReactive INDEX) NON REACTIVE 09/17 2034 HIV 1 2 Antibody Screen (Nonreactive) Nonreactive 09/17 2034 SARS-CoV-2 Ag (Rapid) (Negative) Negative 09/17 2036 Home Medications: PNV WITH FE FUMARATE/FA () 1 TAB PO DAILY FERROUS SULFATE (FEOSOL) 325 MG PO DAILY Home Medications: Medication Dose/Rte/Freq Days Qty Entered Last Max Daily Dose Reviewed PNV WITH FE 1 TAB PO DAILY 10/30/18 FUMARATE/FA 1700 () Strength: 1 EACH TAB FERROUS SULFATE 325 MG PO DAILY 08/26/21 (FEOSOL) 1411 Strength: 325 MG TAB Current Hospital Medications: Antihistamine Drugs Sig/Shaun Start time Last Medication Dose Route Stop Time Status Admin Diphenhydramine HCl 25 MG Q6H PRN PRN 09/18 2030 AC (BENADRYL) PO 10/18 2028 Diphenhydramine HCl 25 MG Q6H PRN PRN 09/18 2030 AC (BENADRYL) PO 10/18 2028 Diphenhydramine HCl 12.5 MG Q6H PRN PRN 09/17 2144 DC (BENADRYL) IV 10/18 2143 Autonomic Drugs Sig/Shaun Start time Last Medication Dose Route Stop Time Status Admin Ephedrine Sulfate 10 MG ONCE PRN 09/17 2144 DC (ePHEDrine sulfate) IV 10/18 2143 Ephedrine Sulfate 25 MG ONCE PRN 09/17 2144 DC (ePHEDrine sulfate) IM 10/18 2143 Ephedrine Sulfate 10 MG ASDIR PRN 09/17 529 DC (ePHEDrine sulfate) IV 10/10 145 Ephedrine Sulfate 25 MG ASDIR PRN 09/17 529 DC (ePHEDrine sulfate) IM 10/10 1459 Blood Formation,Coagulation Sig/Shaun Start time Last Medication Dose Route Stop Time Status Admin Ferrous Sulfate 325 MG DAILY 09/19 899 AC (FERROUS SULFATE) PO 10/19 858 Ferrous Sulfate 325 MG DAILY 09/19 899 AC (FERROUS SULFATE) PO 10/19 0859 Cardiovascular Drugs Sig/Shaun Start time Last Medication Dose Route Stop Time Status Admin Hydralazine HCl 10 MG ASDIR PRN 09/18 2029 AC (APRESOLINE) IV 10/18 2028 Hydralazine HCl 10 MG ASDIR PRN 09/18 2029 AC (APRESOLINE) IV 10/18 2028 Labetalol HCl 20 MG ASDIR PRN 09/18 2029 AC (LABETALOL HCL) IV 10/18 2028 Labetalol HCl 40 MG ASDIR PRN 09/18 2029 AC (LABETALOL HCL) IV 10/18 2028 Labetalol HCl 80 MG ASDIR PRN 09/18 2029 AC (LABETALOL HCL) IV 10/18 2028 Labetalol HCl 20 MG ASDIR PRN 09/18 2029 AC (LABETALOL HCL) IV 10/18 2028 Labetalol HCl 40 MG ASDIR PRN 09/18 2029 AC (LABETALOL HCL) IV 10/18 2028 Labetalol HCl 80 MG ASDIR PRN 09/18 2029 AC (LABETALOL HCL) IV 10/18 2028 Lidocaine HCl 30 ML ASDIR PRN 09/17 0530 DC (LIDOCAINE HCL/PF) LOCAL 10/10 145 Central Nervous System Agents Sig/Shaun Start time Last Medication Dose Route Stop Time Status Admin Acetaminophen 650 MG Q4H PRN PRN 09/18 2029 UNV (TYLENOL) PO 10/18 2028 Acetaminophen 650 MG Q6H PRN PRN 09/18 2029 UNV (TYLENOL) PO 10/18 2028 Acetaminophen 650 MG Q4H PRN PRN 09/18 2029 UNV (TYLENOL) PO 10/18 2028 Acetaminophen 650 MG Q6H PRN PRN 09/18 2029 UNV (TYLENOL) PO 10/18 2028 Hydrocodone Bitart/ 1 TAB Q4H PRN PRN 09/18 2029 AC Acetaminophen PO 09/23 2028 (NORCO 5/325) Hydrocodone Bitart/ 2 TAB Q6H PRN PRN 09/18 2029 AC Acetaminophen PO 09/23 2028 (NORCO 5/325) Hydrocodone Bitart/ 1 TAB Q4H PRN PRN 09/18 2029 AC Acetaminophen PO 09/23 2028 (NORCO 5/325) Hydrocodone Bitart/ 2 TAB Q6H PRN PRN 09/18 2029 AC Acetaminophen PO 09/23 2028 (NORCO 5/325) Ibuprofen 800 MG Q8H PRN PRN 09/18 2029 AC (IBUPROFEN) PO 10/18 2028 Ibuprofen 800 MG Q8H PRN PRN 09/18 2029 AC (IBUPROFEN) PO 10/18 2028 Naloxone HCl 0.1 MG ASDIR PRN 09/17 2144 DC (NARCAN) IV 10/18 2143 Ropivacaine/Fentanyl/ 0 ASDIR 09/17 2144 DC 09/18 NS EPIDURAL 10/18 2143 1730 (fentaNYL/ROP 200 MCG/0.125% 100ML CASSETTE) Butorphanol Tartrate 1 MG Q3H PRN PRN 09/17 2129 DC 09/18 (STADOL) IV 10/17 2128 1413 Ropivacaine/Fentanyl/ 0 ASDIR PRN 09/17 05 DC NS EPIDURAL 10/10 145 (fentaNYL/ROP 200 MCG/0.125% 100ML CASSETTE) Electrolytic, Caloric, And Bassem Sig/Shaun Start time Last Medication Dose Route Stop Time Status Admin Sodium Chloride 5 ML ASDIR PRN 09/18 2029 AC (SODIUM CHLORIDE) IV 10/18 2028 Sodium Chloride 10 ML ASDIR PRN 09/18 2029 AC (SODIUM CHLORIDE) IV 10/18 2028 Sodium Chloride 250 ML ASDIR PRN 09/18 2029 UNV (SODIUM CHLORIDE IV 10/18 2028 0.9%) Sodium Chloride 5 ML ASDIR PRN 09/18 2029 AC (SODIUM CHLORIDE) IV 10/18 2028 Sodium Chloride 10 ML ASDIR PRN 09/18 2029 AC (SODIUM CHLORIDE) IV 10/18 2028 Sodium Chloride 250 ML ASDIR PRN 09/18 2029 UNV (SODIUM CHLORIDE IV 10/18 2028 0.9%) Calcium Carbonate 500 MG ONCE ONE 09/18 0030 DC 09/18 (TUMS CHEW TAB) PO 09/18 0031 0042 Citric Acid/Sodium 30 ML ONCE PRN 09/17 0530 DC 09/18 Citrate PO 10/10 1459 1631 (BICITRA ADULT DOSE) Lactated Ringer's 1,000 ML BOLUS PRN 09/17 529 DC (LACTATED RINGERS) IV 10/10 145 Lactated Ringer's 1,000 ML .Q8H 09/17 529 DC 09/18 (LACTATED RINGERS) IV 10/10 1459 1420 Eye, Ear, Nose And Throat (Een Sig/Shaun Start time Last Medication Dose Route Stop Time Status Admin Benzocaine 1 APPLIC Q6H PRN PRN 09/18 2029 CKD ([place]) TOPICAL 10/18 2028 Benzocaine 1 APPLIC Q6H PRN PRN 09/18 2029 CKD ([place]INE) TOPICAL 10/18 2028 Gastrointestinal Drugs Sig/Shaun Start time Last Medication Dose Route Stop Time Status Admin Docusate Sodium 100 MG BID 09/18 2099 AC (COLACE) PO 10/18 2058 Docusate Sodium 100 MG BID 09/18 2099 AC (COLACE) PO 10/18 2058 Al Hydrox/Mg Hydrox/ 30 ML Q4H PRN PRN 09/18 2029 AC Simethicone PO 10/18 2028 (MYLANTA) Al Hydrox/Mg Hydrox/ 30 ML Q4H PRN PRN 09/18 2029 AC Simethicone PO 10/18 2028 (MYLANTA) Ondansetron HCl 4 MG Q4H PRN PRN 09/18 2029 UNV (ZOFRAN) IV 10/18 2028 Ondansetron HCl 4 MG Q8H PRN PRN 09/18 2030 UNV (ZOFRAN ODT) PO 10/18 2028 Ondansetron HCl 4 MG Q4H PRN PRN 09/18 2029 UNV (ZOFRAN) IV 10/18 2028 Ondansetron HCl 4 MG Q8H PRN PRN 09/18 2030 UNV (ZOFRAN ODT) PO 10/18 2028 Simethicone 80 MG Q2H PRN PRN 09/18 2029 AC (MYLANTA GAS) PO 10/18 2028 Simethicone 80 MG Q2H PRN PRN 09/18 2029 AC (MYLANTA GAS) PO 10/18 2028 Famotidine 20 MG ONCE PRN 09/17 05 DC 09/18 (PEPCID) IV 10/10 1459 1630 Metoclopramide HCl 10 MG ONCE PRN 09/17 529 DC 09/18 (REGLAN) IV 10/10 1459 1630 Mineral Oil 30 ML ASDIR PRN 09/17 05 DC (MINERAL OIL) TOPICAL 10/10 1459 Misoprostol 800 MCG ONCE PRN 09/17 05 DC (miSOPROStoL) RECTAL 10/10 1459 Ondansetron HCl 4 MG Q4H PRN PRN 09/17 0530 DC 09/18 (ZOFRAN) IV 10/10 1459 1556 Local Anesthetics (Parenteral) Sig/Shaun Start time Last Medication Dose Route Stop Time Status Admin Bupivacaine HCl 10 ML ONCE PRN 09/17 2144 DC (MARCAINE) EPIDURAL 10/18 2143 Bupivacaine HCl 10 ML ASDIR PRN 09/17 2144 DC (MARCAINE) EPIDURAL 10/18 2143 Bupivacaine HCl 30 ML ASDIR PRN 09/17 2144 DC (MARCAINE 0.5%) EPIDURAL 10/18 2143 Lidocaine/Epinephrine 5 ML ASDIR PRN 09/17 2144 DC (LIDOCAINE 1.5% W/ LOCAL 10/18 2143 EPINEPHrine) Bupivacaine HCl 0 ASDIR PRN 09/17 529 DC (MARCAINE) EPIDURAL 10/10 145 Oxytocics Sig/Shaun Start time Last Medication Dose Route Stop Time Status Admin Oxytocin 168 ML .Q4H 09/18 2030 AC (OXYTOCIN 30 UNITS/ IV 09/19 0019 NS 500ML) Oxytocin 168 ML .Q4H 09/18 2030 AC (OXYTOCIN 30 UNITS/ IV 09/19 0025 NS 500ML) Oxytocin 500 ML ASDIR 09/18 1015 DC 09/18 (OXYTOCIN 30 UNITS/ IV 10/18 1014 1024 NS 500ML) Dinoprostone 10 MG ONCE ONE 09/17 2129 DC 09/17 (CERVIDIL) VAGINAL 09/17 213 2205 Carboprost 250 MCG ONCE PRN 09/17 529 DC Tromethamine IM 10/10 1459 (HEMABATE) Methylergonovine 0.2 MG ONCE PRN 09/17 529 DC Maleate IM 10/10 145 (METHERGINE) Oxytocin 333.33 ML BOLUS PRN 09/17 529 DC (OXYTOCIN 30 UNITS/ IV 10/10 1459 NS 500ML) Pharmaceutical Aids Sig/Shaun Start time Last Medication Dose Route Stop Time Status Admin Sterile Water 10 ML ASDIR PRN 09/17 2144 DC (WATER FOR INJECTION) EPIDURAL 10/18 2143 Serums, Toxoids, And Vaccines Sig/Shaun Start time Last Medication Dose Route Stop Time Status Admin Diphtheria/Tetanus/ 0.5 ML ASDIR 09/18 2029 AC Acell Pertussis IM 10/18 2028 (ADACEL SYRINGE) Diphtheria/Tetanus/ 0.5 ML ASDIR 09/18 2029 AC Acell Pertussis IM 10/18 2028 (ADACEL SYRINGE) Measles/Mumps/ 1 VIAL ASDIR 09/18 2029 AC Rubella Vaccine Live SUBQ 10/18 2028 (M-M-R II VACCINE) Measles/Mumps/ 1 VIAL ASDIR 09/18 2029 AC Rubella Vaccine Live SUBQ 10/18 2028 (M-M-R II VACCINE) Vitamins Sig/Shaun Start time Last Medication Dose Route Stop Time Status Admin Vit/Iron/ 1 CAP DAILY 09/19 0900 AC Folic Ac/DSS/DHA PO 10/19 08 (/FE/FA/OM3/ DHA/EPA) Vit/Iron/ 1 CAP DAILY 09/19 0900 AC Folic Ac/DSS/DHA PO 10/19 0859 (/FE/FA/OM3/ DHA/EPA) Vital Signs: Date Time Temp Pulse Resp B/P B/P Pulse O2 O2 Flow FiO2 Mean Ox Delivery Rate 09/18 1950 82.0 09/18 195 61 119/59 09/18 1936 87.0 09/18 1936 71 125/63 09/18 1922 81.0 09/18 192 68 113/61 09/18 1907 96.0 09/18 1907 72 17 127/83 100 09/18 1852 75.0 09/18 1852 76 111/52 09/18 1835 37.2 16 09/18 1835 89.0 09/18 1835 94 127/63 09/18 1833 102 100 09/18 1832 74.0 09/18 1832 126 131/57 09/18 1828 112 100 09/18 1825 85.0 09/18 1825 64 119/59 09/18 1823 97 100 09/18 1821 93.0 09/18 1821 88 123/76 09/18 1818 90 100 09/18 1815 75.0 09/18 1815 63 102/52 09/18 1813 70 100 09/18 1808 85 100 09/18 1805 78.0 09/18 1805 82 133/55 09/18 1803 99 100 09/18 1800 18 09/18 1758 81 99 09/18 1755 16 09/18 1753 76 100 09/18 1751 89.0 09/18 1751 76 120/68 09/18 1750 16 09/18 1748 72 100 09/18 1745 16 09/18 1745 76.0 09/18 1745 68 104/54 09/18 1743 69 99 09/18 1740 16 09/18 1740 75.0 09/18 1740 70 100/55 09/18 1738 64 100 09/18 1735 16 09/18 1735 74.0 09/18 1735 65 104/51 09/18 1733 74 98 09/18 1730 18 09/18 1730 92.0 09/18 1730 67 129/66 09/18 1728 72 99 09/18 1723 71 99 09/18 1718 83 100 09/18 1707 76 99 09/18 1702 70 98 09/18 1649 79 92 09/18 1631 105.0 09/18 1631 65 139/78 09/18 1601 101.0 09/18 1601 64 141/74 95 09/18 1556 66 95 09/18 1551 66 100 09/18 1546 67 100 09/18 1541 68 96 09/18 1536 74 100 09/18 1531 84.0 09/18 1531 64 116/59 95 09/18 1526 66 97 09/18 1511 70 97 09/18 1506 79 99 09/18 1504 68 88 09/18 1501 99.0 09/18 1501 68 135/74 96 09/18 1456 66 96 09/18 1451 72 99 09/18 1446 69 96 09/18 1441 65 98 09/18 1436 71 98 09/18 1432 104.0 09/18 1432 36.6 73 18 147/72 09/18 1431 72 95 09/18 1426 73 95 09/18 1422 68 93 09/18 1421 73 93 09/18 1404 98.0 09/18 1404 79 132/76 09/18 1343 83 100 09/18 1338 76 99 09/18 1333 75 98 09/18 1331 89.0 09/18 1331 83 117/70 09/18 1328 79 99 09/18 1323 78 99 09/18 1302 79.0 09/18 1302 69 113/57 09/18 1232 100.0 09/18 1232 75 131/78 09/18 1201 99.0 09/18 1201 79 139/76 09/18 1131 85.0 09/18 1131 36.7 74 18 124/59 09/18 1131 98 09/18 1101 100.0 09/18 1101 76 136/74 09/18 1031 103.0 09/18 1031 82 131/84 09/18 0957 111.0 09/18 0957 82 139/93 09/18 0657 106.0 09/18 0657 73 141/82 09/18 0438 95.0 09/18 0438 36.8 77 16 125/75 100 09/18 0014 87.0 09/18 0014 36.7 86 16 125/60 100 Laboratory Tests 09/17 UNK Blood Gas Cord Blood pH (7.18 - 7.38) 7.30 Cord Blood PCO2 (32 - 66 mmHg) 48 Cord Blood PO2 (6 - 30 mmHg) 22 Cord Blood HCO3 (17 - 27 mmol/L) 23 Cord Base Excess (-8.0 - 0.0 mmol/L) -3.0 Cord O2 Saturation (72 - 77 %) 31 Hematology WBC (4.5 - 11.0 x10 3/uL) 6.7 RBC (3.54 - 5.02 x10 6/uL) 3.56 Hgb (11.0 - 15.0 g/dL) 9.8 Hct (33.0 - 45.0 %) 31.4 MCV (81.0 - 99.0 fL) 88.2 MCH (27.0 - 33.0 pg) 27.5 MCHC (33.0 - 37.0 g/dL) 31.2 RDW (11.5 - 14.5 %) 15.7 Plt Count (150 - 400 x10 3/uL) 94 MPV (7.0 - 9.0 fL) 12.1 Neut % (Auto) (56.0 - 77.0 %) 70.3 Lymph % (Auto) (14.0 - 32.0 %) 20.9 [place] % (Auto) (4.8 - 9.0 %) 5.9 Eos % (Auto) (0.3 - 3.7 %) 2.1 Baso % (Auto) (0.0 - 2.0 %) 0.5 Neut # (Auto) (2.0 - 7.6 x10 3/uL) 4.69 Lymph # (Auto) (1.0 - 3.8 x10 3/uL) 1.39 [place] # (Auto) (0.1 - 0.8 x10 3/uL) 0.39 Eos # (Auto) (0.0 - 0.2 x10 3/uL) 0.14 Baso # (Auto) (0.0 - 0.2 x10 3/uL) 0.03 Abs Immat Gran (auto) (0.00 - 0.03 x10 3/uL) 0.02 Add Manual Diff NO Immature Gran % (0.0 - 2.0 %) 0.3 Nucleated RBC % (0 - 0 %) 0.0 Nucleated RBCs # (Man) (0.0 - 0.1 x10 3/uL) 0.00 Platelet Estimate (ADEQUATE THOUSAND) 92-115 Serology RPR (NONREACTIVE) NONREACTIVE Hep Bs Antigen (NonReactive INDEX) NON REACTIVE HIV 1 2 Antibody Screen (Nonreactive) Nonreactive SARS-CoV-2 Ag (Rapid) (Negative) Negative 09/18 09/18 UNK 1625 Blood Gas Cord VBG pH (7.25 - 7.45) 7.36 Cord VBG pCO2 (27 - 49 mmHg) 35 Cord VBG pO2 (17 - 41 mmHg) 38 Cord VBG HCO3 (12 - 28 MMOL/L) 20.1 Cord VBG Base Excess (-8.0 - 0.00 mmol/L) -5.3 Cord VBG O2 Sat (%) 71 Hematology WBC (4.5 - 11.0 x10 3/uL) 7.4 RBC (3.54 - 5.02 x10 6/uL) 3.60 Hgb (11.0 - 15.0 g/dL) 9.9 Hct (33.0 - 45.0 %) 32.1 MCV (81.0 - 99.0 fL) 89.2 MCH (27.0 - 33.0 pg) 27.5 MCHC (33.0 - 37.0 g/dL) 30.8 RDW (11.5 - 14.5 %) 15.5 Plt Count (150 - 400 x10 3/uL) 91 MPV (7.0 - 9.0 fL) 11.5 Neut % (Auto) (56.0 - 77.0 %) 75.8 Lymph % (Auto) (14.0 - 32.0 %) 16.7 [place] % (Auto) (4.8 - 9.0 %) 5.5 Eos % (Auto) (0.3 - 3.7 %) 1.2 Baso % (Auto) (0.0 - 2.0 %) 0.4 Neut # (Auto) (2.0 - 7.6 x10 3/uL) 5.63 Lymph # (Auto) (1.0 - 3.8 x10 3/uL) 1.24 [place]ner # (Auto) (0.1 - 0.8 x10 3/uL) 0.41 Eos # (Auto) (0.0 - 0.2 x10 3/uL) 0.09 Baso # (Auto) (0.0 - 0.2 x10 3/uL) 0.03 Abs Immat Gran (auto) (0.00 - 0.03 x10 3/uL) 0.03 Add Manual Diff NO Immature Gran % (0.0 - 2.0 %) 0.4 Nucleated RBC % (0 - 0 %) 0.0 Nucleated RBCs # (Man) (0.0 - 0.1 x10 3/uL) 0.00 Immature Plt Fraction (0.9 - 11.2 %) 8.5 Current Medications Sig/Shaun Start time Last Medication Dose Route Stop Time Status Admin Ferrous Sulfate 325 MG DAILY 09/19 899 AC PO 10/19 858 Ferrous Sulfate 325 MG DAILY 09/19 09 AC PO 10/19 0859 Vit/Iron/ 1 CAP DAILY 09/19 899 AC Folic Ac/DSS/DHA PO 10/19 858 Vit/Iron/ 1 CAP DAILY 09/19 899 AC Folic Ac/DSS/DHA PO 10/19 858 Docusate Sodium 100 MG BID 09/18 2099 AC PO 10/18 2058 Docusate Sodium 100 MG BID 09/18 2099 AC PO 10/18 2058 Acetaminophen 650 MG Q4H PRN PRN 09/18 2029 UNV PO 10/18 2028 Acetaminophen 650 MG Q6H PRN PRN 09/18 2029 UNV PO 10/18 2028 Acetaminophen 650 MG Q4H PRN PRN 09/18 2029 UNV PO 10/18 2028 Acetaminophen 650 MG Q6H PRN PRN 09/18 2029 UNV PO 10/18 2028 Al Hydrox/Mg Hydrox/ 30 ML Q4H PRN PRN 09/18 2029 AC Simethicone PO 10/18 2028 Al Hydrox/Mg Hydrox/ 30 ML Q4H PRN PRN 09/18 2029 AC Simethicone PO 10/18 2028 Benzocaine 1 APPLIC Q6H PRN PRN 09/18 2029 CKD TOPICAL 10/18 2028 Benzocaine 1 APPLIC Q6H PRN PRN 09/18 2029 CKD TOPICAL 10/18 2028 Diphenhydramine HCl 25 MG Q6H PRN PRN 09/18 2029 AC PO 10/18 2028 Diphenhydramine HCl 25 MG Q6H PRN PRN 09/18 2029 AC PO 10/18 2028 Diphtheria/Tetanus/ 0.5 ML ASDIR 09/18 2029 AC Acell Pertussis IM 10/18 2028 Diphtheria/Tetanus/ 0.5 ML ASDIR 09/18 2029 AC Acell Pertussis IM 10/18 2028 Hydralazine HCl 10 MG ASDIR PRN 09/18 2029 AC IV 10/18 2028 Hydralazine HCl 10 MG ASDIR PRN 09/18 2029 AC IV 10/18 2028 Hydrocodone Bitart/ 1 TAB Q4H PRN PRN 09/18 2029 AC Acetaminophen PO 09/23 2028 Hydrocodone Bitart/ 2 TAB Q6H PRN PRN 09/18 2029 AC Acetaminophen PO 09/23 2028 Hydrocodone Bitart/ 1 TAB Q4H PRN PRN 09/18 2029 AC Acetaminophen PO 09/23 2028 Hydrocodone Bitart/ 2 TAB Q6H PRN PRN 09/18 2029 AC Acetaminophen PO 09/23 2028 Ibuprofen 800 MG Q8H PRN PRN 09/18 2029 AC PO 10/18 2028 Ibuprofen 800 MG Q8H PRN PRN 09/18 2029 AC PO 10/18 2028 Labetalol HCl 20 MG ASDIR PRN 09/18 2029 AC IV 10/18 2028 Labetalol HCl 40 MG ASDIR PRN 09/18 2029 AC IV 10/18 2028 Labetalol HCl 80 MG ASDIR PRN 09/18 2029 AC IV 10/18 2028 Labetalol HCl 20 MG ASDIR PRN 09/18 2029 AC IV 10/18 2028 Labetalol HCl 40 MG ASDIR PRN 09/18 2029 AC IV 10/18 2028 Labetalol HCl 80 MG ASDIR PRN 09/18 2029 AC IV 10/18 2028 Measles/Mumps/ 1 VIAL ASDIR 09/18 2029 AC Rubella Vaccine Live SUBQ 10/18 2028 Measles/Mumps/ 1 VIAL ASDIR 09/18 2029 AC Rubella Vaccine Live SUBQ 10/18 2028 Ondansetron HCl 4 MG Q4H PRN PRN 09/18 2029 UNV IV 10/18 2028 Ondansetron HCl 4 MG Q8H PRN PRN 09/18 2029 UNV PO 10/18 2028 Ondansetron HCl 4 MG Q4H PRN PRN 09/18 2029 UNV IV 10/18 2028 Ondansetron HCl 4 MG Q8H PRN PRN 09/18 2029 UNV PO 10/18 2028 Oxytocin 168 ML .Q4H 09/18 2029 AC IV 09/19 0019 Oxytocin 168 ML .Q4H 09/18 2029 AC IV 09/19 0025 Simethicone 80 MG Q2H PRN PRN 09/18 2029 AC PO 10/18 2028 Simethicone 80 MG Q2H PRN PRN 09/18 2029 AC PO 10/18 2028 Sodium Chloride 5 ML ASDIR PRN 09/18 2029 AC IV 10/18 2028 Sodium Chloride 10 ML ASDIR PRN 09/18 2029 AC IV 10/18 2028 Sodium Chloride 250 ML ASDIR PRN 09/18 2029 UNV IV 10/18 2028 Sodium Chloride 5 ML ASDIR PRN 09/18 2029 AC IV 10/18 2028 Sodium Chloride 10 ML ASDIR PRN 09/18 2029 AC IV 10/18 2028 Sodium Chloride 250 ML ASDIR PRN 09/18 2029 UNV IV 10/18 2028 Oxytocin 500 ML ASDIR 09/18 1015 DC 09/18 IV 10/18 1014 1024 Calcium Carbonate 500 MG ONCE ONE 09/18 0030 DC 09/18 PO 09/18 0031 0042 Bupivacaine HCl 10 ML ONCE PRN 09/17 2145 DC EPIDURAL 10/18 2143 Bupivacaine HCl 10 ML ASDIR PRN 09/17 2144 DC EPIDURAL 10/18 2143 Bupivacaine HCl 30 ML ASDIR PRN 09/17 2144 DC EPIDURAL 10/18 2143 Diphenhydramine HCl 12.5 MG Q6H PRN PRN 09/17 2144 DC IV 10/18 2143 Ephedrine Sulfate 10 MG ONCE PRN 09/17 2144 DC IV 10/18 2143 Ephedrine Sulfate 25 MG ONCE PRN 09/17 2144 DC IM 10/18 2143 Lidocaine/Epinephrine 5 ML ASDIR PRN 09/17 2144 DC LOCAL 10/18 2143 Naloxone HCl 0.1 MG ASDIR PRN 09/17 214 DC IV 10/18 2143 Ropivacaine/Fentanyl/ 0 ASDIR 09/17 2144 DC 09/18 NS EPIDURAL 10/18 2143 1730 Sterile Water 10 ML ASDIR PRN 09/17 2144 DC EPIDURAL 10/18 2143 Butorphanol Tartrate 1 MG Q3H PRN PRN 09/17 213 DC 09/18 IV 10/17 2128 1413 Dinoprostone 10 MG ONCE ONE 09/17 2129 DC 09/17 VAGINAL 09/17 213 2205 Bupivacaine HCl 0 ASDIR PRN 09/17 05 DC EPIDURAL 10/10 1459 Carboprost 250 MCG ONCE PRN 09/17 05 DC Tromethamine IM 10/10 1459 Citric Acid/Sodium 30 ML ONCE PRN 09/17 05 DC 09/18 Citrate PO 10/10 1459 1631 Ephedrine Sulfate 10 MG ASDIR PRN 09/17 05 DC IV 10/10 1459 Ephedrine Sulfate 25 MG ASDIR PRN 09/17 0530 DC IM 10/10 1459 Famotidine 20 MG ONCE PRN 09/17 0530 DC 09/18 IV 10/10 1459 1630 Lactated Ringer's 1,000 ML BOLUS PRN 09/17 05 DC IV 10/10 1459 Lactated Ringer's 1,000 ML .Q8H 09/17 05 DC 09/18 IV 10/10 1459 1420 Lidocaine HCl 30 ML ASDIR PRN 09/17 0530 DC LOCAL 10/10 1459 Methylergonovine 0.2 MG ONCE PRN 09/17 0530 DC Maleate IM 10/10 1459 Metoclopramide HCl 10 MG ONCE PRN 09/17 529 DC 09/18 IV 10/10 1459 1630 Mineral Oil 30 ML ASDIR PRN 09/17 529 DC TOPICAL 10/10 145 Misoprostol 800 MCG ONCE PRN 09/17 529 DC RECTAL 10/10 145 Ondansetron HCl 4 MG Q4H PRN PRN 09/17 529 DC 09/18 IV 10/10 1459 1556 Oxytocin 333.33 ML BOLUS PRN 09/17 529 DC IV 10/10 145 Ropivacaine/Fentanyl/ 0 ASDIR PRN 09/17 529 DC NS EPIDURAL 10/10 145 at 203 RPT #:[id number] END OF REPORT [facility] 2021-09-18 20:27:00 [facility] ([facility]) OB Delivery Note REPORT#:[id number] REPORT STATUS: Signed DATE:09/18/21 TIME: 2026 PATIENT: YENY TEMPLETON UNIT #: [id number] ROOM/BED: [place] [id number] : 93 AGE: 26 SEX: F ATTEND: Yosi Marroquin MD ADM AUTHOR: Yosi Marroquin MD * ALL edits or amendments must be made on the electronic/computer document * OB Delivery Nursing Documentation Review Nursing data: The data set between the solid lines has been imported from nursing documentation. Any exceptions have been noted below under Provider comments. _ ROM date: 09/18/21 ROM time: 0859 Membranes rupture method: AROM Amniotic fluid color: Clear Amniotic fluid amount: Steroids prior to arrival: Antibiotic prophylaxis given: Post hemorrhage risk score: Delivery date A: 09/18/21 Delivery time infant A: 1831 Birthweight (gm) infant A: 2420 Weight (lb) A: Weight (oz) infant A: Gender A: Female 1 minute infant A: 5 minutes infant A: 10 minutes A: Cord pH obtained A: Vacuum time A: Vacuum # pulls A: Vacuum # popoffs A: QBL at delivery: 67 __ Provider comments on imported nursing data: [] Pre-delivery Admission EGA: Weeks: 37 Days: 0 EGA at delivery (wks/days): 37 weeks (1d) Baby A Information Baby A information Delivery date: 09/18/21 status: live born Gender: female 1 minute: 8 5 minutes: 9 Presentation: vertex ABG details Baby A Cord blood gases: collected Nuchal cord Baby A Nuchal cord: no Vaginal Delivery Vaginal delivery: Labor: induced Medications/Devices used: oxytocin, cervidil Vaginal delivery: spontaneous Amniotic fluid: clear Anesthesia type: epidural anesthesia Episiotomy: none Placenta: spontaneous Post delivery meds used: oxytocin Count: correct Mother's condition: mother stable Infant's condition: stable in room Lacerations: Perineal laceration(s): None Blood Loss/Details Blood loss at delivery: 67 at 2032 RPT #:[id number] END OF REPORT [facility] 2021-09-10 22:33:00 [facility] ([facility]) SHADI Evaluation Note REPORT#:[id number] REPORT STATUS: Signed DATE:09/10/21 TIME: 2232 PATIENT: YENY TEMPLETON UNIT #: [id number] ROOM/BED: [place] [id number] : 93 AGE: 26 SEX: F ATTEND: Yosi Marroquin MD ADM AUTHOR: Stephanie Bazzi DO * ALL edits or amendments must be made on the electronic/computer document * SHADI History Nursing Documentation Review Nursing data: The data set between the solid lines has been imported from nursing documentation. Any exceptions have been noted below under Provider comments. Current data Steroids prior to arrival: ROM date: ROM time: EDC date: 10/08/21 Gestational age (labor triage): Post hemorrhage risk score: Low Risk for Hemorrhage. Prior history : 4 Para: 3 Term: : Abortions spontaneous: Abortions induced: Living children: Ectopic: Stillbirths: Live births: deaths: Number of previous C/S: Reported maternal labs/data Blood type: Rh type: Rubella: Hepatitis B: HIV exposure test: Unknown VDRL: Group B beta strep: Done, result unknown Rho(D) immune globulin this preg: Monitor mode - UA: Feeding preference: Provider comments on imported nursing data: [] Chief complaint: uterine contractions HPI: 26 y/o EDC 10/08/21 at 36 week c/o cxn since 1500 today every 3-4 minutes. Denies leaking, bleeding, and baby is moving well. Scheduled for IOL on Wednesday. PNC with Dr. Marroquin. Pt see's Dr. Darby as well for poly with CARMENCITA 23 cm last month. history: : 4 Term: 1 : 2 Abortus: 0 Living children: 3 Complications (prev preg): labor Previous : none Current : EDC: 10/08/21 EGA (weeks/days): 36 weeks Conditions of : anemia, thrombocytopenia at 95, polyhydramnios Labs: Blood type: unknown Past medical history: denies PMH Past surgical history: cholecystectomy Social history: single, no alcohol use, no drug use, smoker Family history Relation not specified for: Family History: Unremarkable Medications: Home Medications: Denies on [place]. s/p BMZ. Medication Dose/Rte/Freq Days Qty Entered Last Max Daily Dose Reviewed PNV WITH FE 1 TAB PO DAILY 10/30/18 FUMARATE/FA 1700 () Strength: 1 EACH TAB FERROUS SULFATE 325 MG PO DAILY 08/26/21 (FEOSOL) 1411 Strength: 325 MG TAB OSELTAMIVIR (TAMIFLU) 75 MG PO BID 9 08/27/21 Strength: 75 MG CAP 1132 Current Hospital Medications: Electrolytic, Caloric, And Bassem Sig/Shaun Start time Last Medication Dose Route Stop Time Status Admin Lactated Ringer's 1,000 ML X1ED STA 09/10 2048 DC (LACTATED RINGERS) IV 09/10 2049 Allergies Coded Allergies: No Known Allergies (06/12/20) Review of Systems Constitutional: Denies: fever. ENT: Denies: sore throat. Respiratory: Denies: non productive cough. GI: Denies: nausea, vomiting. : Reports: . Denies: vaginal bleeding. Neuro: Denies: headache. Objective General VS: Last Documented: Result Date Time Pulse Ox 98 09/10 2044 Pulse 101 09/10 2044 B/P Mean 102.0 09/11 2035 B/P 136/82 09/11 2035 Temp 98.7 09/11 2035 Resp 16 09/11 2035 Vital Signs Date Temp Pulse Resp B/P B/P Mean Pulse Ox FiO2 09/10 98.7 100-105 16 136/82 102.0 98 PATIENT WEIGHT: Weight (lb): Weight (oz): Weight (kg): Physical Exam HEENT: normocephalic w/o injury, no scleral icterus Lungs: unlabored breathing Neuro: Exam: alert, oriented x3, normal speech, normal gait Abdomen: gravid, soft, no abnormal tenderness, no guarding, no rebound tenderness Uterine activity: Monitor: toco Frequency (description): regular Frequency (minutes): 3 Intensity: mild Pelvic exam: Pelvis clinically adequate: yes, inlet appears appropriate, pubic bone config appropr, no midpelvic contraction Vulvar lesions: none, no evidence herpetic les, no evidence of other STD Vagina: normal, non-septated, w/o apparent lesions Cervical/ exam: Dilatation (cm): external 2 cm, internal 1 cm Effacement (%): 50 station: - 4 FHR evaluation: Baseline: 120 bpm Variability: moderate 6-25 bpm Accelerations: 15 X 15 Decelerations: none FHR category: category 1 Membranes: Membranes: Intact Results Findings/Data: Laboratory Tests: 09/11 2103 Hematology WBC (4.5 - 11.0 x10 3/uL) 5.6 RBC (3.54 - 5.02 x10 6/uL) 3.22 L Hgb (11.0 - 15.0 g/dL) 9.1 L Hct (33.0 - 45.0 %) 29.1 L MCV (81.0 - 99.0 fL) 90.4 MCH (27.0 - 33.0 pg) 28.3 MCHC (33.0 - 37.0 g/dL) 31.3 L RDW (11.5 - 14.5 %) 15.9 H Plt Count (150 - 400 x10 3/uL) 99 L MPV (7.0 - 9.0 fL) 12.3 H Neut % (Auto) (56.0 - 77.0 %) 69.0 Lymph % (Auto) (14.0 - 32.0 %) 21.5 Sumner % (Auto) (4.8 - 9.0 %) 6.5 Eos % (Auto) (0.3 - 3.7 %) 2.0 Baso % (Auto) (0.0 - 2.0 %) 0.5 Neut # (Auto) (2.0 - 7.6 x10 3/uL) 3.84 Lymph # (Auto) (1.0 - 3.8 x10 3/uL) 1.20 Sumner # (Auto) (0.1 - 0.8 x10 3/uL) 0.36 Eos # (Auto) (0.0 - 0.2 x10 3/uL) 0.11 Baso # (Auto) (0.0 - 0.2 x10 3/uL) 0.03 Abs Immat Gran (auto) (0.00 - 0.03 x10 3/uL) 0.03 Add Manual Diff NO Immature Gran % (0.0 - 2.0 %) 0.5 Nucleated RBC % (0 - 0 %) 0.0 Nucleated RBCs # (Man) (0.0 - 0.1 x10 3/uL) 0.00 Platelet Estimate (ADEQUATE THOUSAND) 88-110 Plt Morphology Comment NORMAL Urines Urine Color (YEL/STRAW) YELLOW Urine Appearance (CLEAR) SL CLOUDY Urine pH (5.0 - 7.0) 5.0 Ur Specific Ute (1.005 - 1.030) 1.027 Urine Protein (NEGATIVE) 1+ H Urine Glucose (UA) (NEGATIVE) NEGATIVE Urine Ketones (NEGATIVE) TRACE H Urine Blood (NEGATIVE) 3+ H Urine Nitrite (NEGATIVE) NEGATIVE Urine Bilirubin (NEGATIVE) NEGATIVE Urine Urobilinogen (0.2 - 1.0 mg/dL) 2.0 H Ur Leukocyte Esterase (NEGATIVE) NEGATIVE Urine RBC (0 - 3 RBC/HPF) >50 H Urine WBC (0 - 3 WBC/HPF) 0-3 Ur Squamous Epith Cells (NONE SEEN /HPF) 0-5 Urine Bacteria (NONE SEEN /HPF) TRACE Urine Mucus (NONE SEEN /LPF) 4+ H Microbiology: Date/Time Procedure - Status Source Growth 09/10 2232 Urine Culture - ORD URINE Diagnosis, Assessment Plan Diagnosis, Assessment Plan Free Text A P: 26 y/o P1203 at 36 week c/o contractions, not in labor hematuria h/o thrombocytopenia h/o anemia poly , will f/u w Dr. Darby Wednesday IOL for Wednesday smoker VE same Precautions given u cxl ordered at 2240 RPT #:[id number] END OF REPORT [facility] 2021-09-10 20:50:00 [facility] OB Medical Screening Exam REPORT#:[id number] REPORT STATUS: Signed DATE:09/10/21 TIME: 2049 PATIENT: YENY TEMPLETON UNIT #: [id number] ROOM/BED: : 93 AGE: 26 SEX: F ATTEND: Yosi Marroquin MD ADM AUTHOR: Stephanie Bazzi DO * ALL edits or amendments must be made on the electronic/computer document * Medical Screening Exam Nursing Documentation Review Nursing data: The data set between the solid lines has been imported from nursing documentation. Any exceptions have been noted below under Provider comments. : Para: Term: : Abortions spontaneous: Abortions induced: Living children: EDC: Gestational age (labor triage): SHADI monitor fetus and uterus: Part A The following exist: Medical screening part A score: Medical screening part A recommendation: Part B Headaches: Vomiting: Visual disturbances: Epigastric pain: Proteinuria: Edema: Medical screening part B score: Medical screening part B recommendation: Part C Vaginal exam deferred: Other reason MSE vaginal exam deferred: Dilation: Cervical effacement: Station: Presentation: Contraction pattern: Contraction strength: Membranes: heart rate: Duration of previous labor(s): Medical screening part C score: Medical screening part C recommendation: RN YANNA signature: Provider comments on imported nursing data: [] Provider Attestation Attestation: The QMP MSE reviewed. Comments: Notified at 2043. Orders placed. OE with pt long chart review from prior visit. Provider at bedside at 2051. at 2051 RPT #:[id number] END OF REPORT [facility] 2021-08-27 11:34:00 [facility] ([facility]) Hospitalist Progress Note REPORT#:[id number] REPORT STATUS: Signed DATE:08/27/21 TIME: 1134 PATIENT: YENY TEMPLETON UNIT #: [id number] ROOM/BED: [place] [address] : 93 AGE: 26 SEX: F ATTEND: Yosi Marroquin MD ADM AUTHOR: Raza Garcia DO * ALL edits or amendments must be made on the electronic/computer document * Subjective Comments: Patient seen and examined, reports she is feeling better and weaned down from nonrebreather to 2 L via nasal cannula. Per RN, patient still desats to 88% on room air. Seen with RN at bedside, discussed case with OB hospitalist. Objective General VS/I O: Vital Signs: Date Time Temp Pulse Resp B/P B/P Pulse O2 O2 Flow FiO2 Mean Ox Delivery Rate / 1035 103 97 04/06 1030 118 96 04/06 1025 117 96 04/06 1014 112 96 04/06 1009 109 95 04/06 1004 115 95 04/06 0959 112 95 04/06 0954 117 96 04/06 0949 118 96 04/06 0944 102 93 04/06 0939 94 94 04/06 0934 103 94 04/06 0929 92 94 04/06 0925 97 94 04/06 0924 87 94 04/06 0919 100 93 04/06 0912 89 96 04/06 0907 83 96 04/06 0902 96 96 04/06 0857 102 95 04/06 0852 89 96 04/06 0847 81 95 04/06 0842 96 95 04/06 0837 94 95 04/06 0832 101 94 04/06 0827 102 95 04/06 0822 84 98 04/06 0817 116 99 04/06 0815 96 94 04/06 0812 103 95 04/06 0807 83 96 04/06 0802 77 95 04/06 0658 90 94 04/06 0657 101 95 04/06 0653 87 93 04/06 0652 87 94 04/06 0648 84 94 04/06 0647 93 94 04/06 0642 87 94 04/06 0641 93 94 04/06 0637 86 96 04/06 0632 91 95 04/06 0627 88 96 04/06 0622 112 96 04/06 0617 98 96 04/06 0612 79 95 04/06 0607 79 95 04/06 0602 115 97 04/06 0557 83 96 04/06 0552 110 99 04/06 0547 111 96 04/06 0545 101 94 04/06 0542 107 96 04/06 0537 114 97 04/06 0534 96 94 04/06 0532 96 95 04/06 0529 112 94 04/06 0527 105 95 04/06 0523 110 94 04/06 0522 108 97 04/06 0517 101 98 04/06 0512 99 99 04/06 0507 93 100 04/06 0502 102 99 04/06 0457 97 99 04/06 0452 108 100 04/06 0447 100 99 04/06 0442 85 94 04/06 0431 96 99 04/06 0426 100 99 04/06 0421 82 90 04/06 0416 96 90 04/06 0411 89 93 04/06 0410 86 93 04/06 0406 78 97 04/06 0401 89 97 04/06 0356 79 96 04/06 0351 85 97 04/06 0346 91 97 04/06 0341 83 96 04/06 0336 90 96 04/06 0331 95 96 04/06 0330 99.5 04/06 0326 83 94 04/06 0321 94 97 04/06 0316 85 97 04/06 0311 99 96 04/06 0306 103 96 04/06 0301 103 96 04/06 0256 109 97 04/06 0251 111 98 04/06 0249 93.0 04/06 0249 100.1 107 20 137/65 04/06 0246 109 98 04/06 0241 117 97 04/06 0232 114 97 04/06 0229 95 94 04/06 0227 107 95 04/06 0222 109 95 04/06 0217 98 95 04/06 0212 106 95 04/06 0207 108 96 04/06 0202 84 95 04/06 0157 96 95 04/06 0152 98 96 04/06 0147 103 96 04/06 0142 104 95 04/06 0137 103 96 04/06 0132 107 97 04/06 0127 97 98 04/06 0122 113 99 04/06 0117 116 98 04/06 0112 92 95 04/06 0107 109 96 04/06 0102 97 96 04/06 0057 93 96 04/06 0052 101 96 04/06 0047 109 96 04/06 0042 89 97 04/06 0037 110 97 04/06 0032 99 96 04/06 0027 95 96 04/06 0022 100 97 04/06 0017 117 99 04/06 0012 116 98 04/06 0007 113 99 04/06 0002 115 94 04/06 0000 97 Nasal 5 40 cannula 04/05 2351 107 98 04/05 2346 106 97 04/05 2341 109 97 04/05 2339 115 94 04/05 2336 112 95 04/05 2331 116 100 04/05 2326 105 99 04/05 2321 105 98 04/05 2316 106 98 04/05 2311 87 98 04/05 2306 110 95 04/05 2301 95 99 04/05 2256 107 99 04/05 2251 107 99 04/05 2246 114 99 04/05 2241 113 98 04/05 2236 109 99 04/05 2231 106 99 04/05 2226 104 99 04/05 2221 106 98 04/05 2219 99.7 04/05 2219 96.0 04/05 2219 102 131/73 04/05 2216 104 97 04/05 2211 105 99 04/05 2206 110 96 04/05 2154 108 98 04/05 2148 113 99 04/05 2143 109 99 04/05 2141 99 High flow 5 nasal cannula 04/05 2138 106 100 04/05 2133 107 99 04/05 2128 105 99 04/05 2123 107 99 04/05 2118 106 100 04/05 2113 102 100 04/05 2108 109 100 04/05 2103 107 100 04/05 2058 97 100 04/05 2053 100 100 04/05 2048 82 99 04/05 2043 90 100 04/05 2038 98 100 04/05 2034 98 100 04/05 2028 95 94 04/05 2027 83 94 04/05 2022 77 100 04/05 2017 82 100 04/05 2012 79 100 04/05 2007 89 100 04/05 2002 89 100 04/05 1957 90 100 04/05 1952 85 100 04/05 1947 90 100 04/05 1942 83 100 04/05 1937 85 99 04/05 1932 91 100 04/05 0 99 Non 15 rebreather mask 04/05 192 87 100 04/05 1925 97.7 18 04/05 1925 83.0 04/05 1925 90 121/58 04/05 1923 75 100 04/05 1919 104 93 04/05 1918 98 94 04/05 1909 92 100 04/05 1904 92 100 04/05 1759 95 100 04/05 1754 84 100 04/05 1749 97 100 04/05 1717 93 100 04/05 1714 99.3 22 04/05 1712 95 98 04/05 1707 95 98 04/05 1702 93 98 04/05 1657 102 99 04/05 1656 110 89 04/05 1652 95 100 04/05 1647 100 100 04/05 1633 108 100 04/05 1628 205 97 04/05 1623 202 97 04/05 1618 128 89 04/05 1615 101.2 04/05 1547 93.0 04/05 1547 114 135/73 04/05 1533 103.0 04/05 1533 60 139/80 04/05 1517 105.0 04/05 1517 118 136/86 04/05 1502 106.0 04/05 1502 113 140/83 04/05 1447 94.0 04/05 1447 112 137/65 04/05 1431 101.0 04/05 1431 113 148/76 04/05 1420 119 94 04/05 1416 102.0 04/05 1416 97.9 115 16 141/77 99 04/05 1415 118 92 PATIENT WEIGHT: Weight (lb): Weight (oz): Weight (kg): Medications: Active Meds + DC'd Last 24 Hrs Guaifenesin/Dextromethorphan (ROBITUSSIN-DM) 5 ML Q4H PO (DCD) Nifedipine (Procardia) 10 MG Q6HR PO (DCD) Fentanyl Citrate (SUBLIMAZE) 50 MCG Q2H PRN PRN IV (DCD) Oseltamivir Phosphate (TAMIFLU) 75 MG Q12HR PO (DCD) Cefazolin Sodium (KEFZOL OR ANCEF) 2 GM Q8H IV (DC) Iopamidol (ISOVUE-300 100ML) 100 ML ONCE PRN IV (DC) Acetaminophen (TYLENOL) 650 MG Q4H PRN PRN PO (DCD) Cefazolin Sodium (KEFZOL OR ANCEF) 1 GM Q8H IV (DC) Sodium Chloride (SODIUM CHLORIDE 0.9% 100 ML) 100 ML Hydralazine HCl (APRESOLINE) 10 MG ASDIR PRN IV (DCD) Labetalol HCl (LABETALOL HCL) 20 MG ASDIR PRN IV (DCD) Labetalol HCl (LABETALOL HCL) 40 MG ASDIR PRN IV (DCD) Labetalol HCl (LABETALOL HCL) 80 MG ASDIR PRN IV (DCD) Lactated Ringer's (LACTATED RINGERS) 1,000 ML .[id number] IV (DCD) Nifedipine (Procardia) 10 MG ONCE ONE PO (DC) Butorphanol Tartrate (STADOL) 1 MG X1ED STA IV (DC) Lactated Ringer's (LACTATED RINGERS) 1,000 ML X1ED STA IV (DC) Ondansetron HCl (ZOFRAN) 4 MG X1ED STA IV (DC) Physical Exam General appearance: alert, awake, oriented Head/Eyes: clear cornea, EOMI ENT: dry mucosal membrane Neck: non-tender, supple/no meningismus Cardiovascular: normal heart sounds, regular rate rhythm Respiratory: aerating well, clear to auscultation, symmetric expansion Abdomen: non-tender, normal bowel sounds, soft Extremities: moves all, no edema Musculoskeletal: normal inspection, painless range of motion Neuro/CAR HOSTLER: alert, oriented X 3, normal speech, no motor deficits, no sensory deficits Skin: dry, intact Results Findings/Data: Laboratory Tests 08/26 1825 Blood Gas Puncture Site R Radial O2 Saturation (90 - 100 %) 99.7 ABG pH (7.35 - 7.45) 7.406 ABG pCO2 (35.0 - 45 mmHg) 33.8 L ABG pO2 (80 - 100.0 mmHg) 201.2 *H ABG PO2/FiO2 Ratio (mm/Hg) 201.20 ABG HCO3 (22.0 - 26.0 MMOL/L) 21.2 L ABG Total CO2 22.3 ABG Base Excess (-4.0 - 4.0 MMOL/L) -3.5 Chrystal Test Positive O2 Delivery Device [id number] FiO2 (%) 100 Laboratory Tests 08/27 08/26 08/26 08/26 08/26 0508 2210 1999 1803 1714 Chemistry Sodium (134 - 147 mEq/L) 136 Potassium (3.4 - 5.0 mEq/L) 3.4 Chloride (100 - 108 mEq/L) 106 Carbon Dioxide (21 - 33 mEq/l) 22 Anion Gap (0 - 20) 11 BUN (7 - 18 mg/dL) < 5 L Creatinine (0.6 - 1.3 mg/dL) 0.4 L Glomerular Filtr Rate (110 - 120) 190.1 H Glucose (70 - 110 mg/dL) 95 Lactic Acid (0.4 - 1.9 mmol/L) 0.5 Calcium (8.0 - 10.5 mg/dL) 8.3 Magnesium (1.80 - 2.40 mg/dL) 1.45 L Total Bilirubin (0.0 - 1.0 mg/dL) 0.60 AST (15 - 37 IUnit/L) 15 ALT (30 - 65 IUnit/L) 13 L Total Alk Phosphatase (20 - 125 IUnit/L) 114 Troponin I High Sens (0 - 34 ng/L) 5 5 6 Total Protein (6.4 - 8.2 g/dL) 6.0 L Albumin (3.4 - 5.0 g/dL) 2.70 L 08/26 08/26 1714 1410 Chemistry Sodium (134 - 147 mEq/L) 136 137 Potassium (3.4 - 5.0 mEq/L) 3.5 3.6 Chloride (100 - 108 mEq/L) 106 107 Carbon Dioxide (21 - 33 mEq/l) 22 21 Anion Gap (0 - 20) 12 13 BUN (7 - 18 mg/dL) < 5 L < 5 L Creatinine (0.6 - 1.3 mg/dL) 0.4 L 0.4 L Glomerular Filtr Rate (110 - 120) 190.1 H 190.1 H Glucose (70 - 110 mg/dL) 93 85 Uric Acid (2.6 - 7.2 mg/dL) 2.9 Calcium (8.0 - 10.5 mg/dL) 8.0 8.1 Total Bilirubin (0.0 - 1.0 mg/dL) 0.90 0.90 AST (15 - 37 IUnit/L) 10 L 11 L ALT (30 - 65 IUnit/L) 9 L 9 L Total Alk Phosphatase (20 - 125 IUnit/L) 113 119 Lactate Dehydrogenase (84 - 246 IUnits/L) 163 Total Protein (6.4 - 8.2 g/dL) 6.1 L 6.5 Albumin (3.4 - 5.0 g/dL) 2.70 L 2.90 L Lipase (13 - 57 U/L) 21 Laboratory Tests 08/26 1714 Coagulation INR (0.8 - 1.2) 1.1 PTT (Melissa) (25.0 - 39.5 Seconds) 27.0 PT Patient/Control Mix (9.3 - 12.9 SECONDS) 12.3 Laboratory Tests 08/27 08/26 08/26 0508 1714 1410 Hematology WBC (4.5 - 11.0 x10 3/uL) 4.8 8.0 7.6 RBC (3.54 - 5.02 x10 6/uL) 3.23 L 3.37 L 3.51 L Hgb (11.0 - 15.0 g/dL) 9.2 L 9.5 L 10.1 L Hct (33.0 - 45.0 %) 28.5 L 30.2 L 31.1 L MCV (81.0 - 99.0 fL) 88.2 89.6 88.6 MCH (27.0 - 33.0 pg) 28.5 28.2 28.8 MCHC (33.0 - 37.0 g/dL) 32.3 L 31.5 L 32.5 L RDW (11.5 - 14.5 %) 15.0 H 14.9 H 14.6 H Plt Count (150 - 400 x10 3/uL) 85 L 92 L 82 L MPV (7.0 - 9.0 fL) 11.5 H 12.1 H 11.8 H Neut % (Auto) (56.0 - 77.0 %) 82.8 H 88.2 H 88.0 H Lymph % (Auto) (14.0 - 32.0 %) 6.5 L 4.3 L 4.7 L Sumner % (Auto) (4.8 - 9.0 %) 8.2 5.8 5.4 Eos % (Auto) (0.3 - 3.7 %) 0.4 0.5 0.7 Baso % (Auto) (0.0 - 2.0 %) 0.4 0.3 0.4 Neut # (Auto) (2.0 - 7.6 x10 3/uL) 3.94 7.07 6.71 Lymph # (Auto) (1.0 - 3.8 x10 3/uL) 0.31 L 0.34 L 0.36 L Sumner # (Auto) (0.1 - 0.8 x10 3/uL) 0.39 0.46 0.41 Eos # (Auto) (0.0 - 0.2 x10 3/uL) 0.02 0.04 0.05 Baso # (Auto) (0.0 - 0.2 x10 3/uL) 0.02 0.02 0.03 Abs Immat Gran (auto) (0.00 - 0.03 x10 3/uL) 0.08 H 0.07 H 0.06 H Add Manual Diff NO NO NO Immature Gran % (0.0 - 2.0 %) 1.7 0.9 0.8 Nucleated RBC % (0 - 0 %) 0.0 0.0 0.0 Nucleated RBCs # (Man) (0.0 - 0.1 x10 3/uL) 0.00 0.00 0.00 Immature Plt Fraction (0.9 - 11.2 %) 10.3 10.3 Laboratory Tests 08/26 141 Miscellaneous Fibronectin (NEGATIVE) NEGATIVE Laboratory Tests 08/26 165 Serology SARS-CoV-2 Ag (Rapid) (Negative) Negative Laboratory Tests 08/26 141 Urines Urine Color (YEL/STRAW) YELLOW Urine Appearance (CLEAR) CLEAR Urine pH (5.0 - 7.0) 7.0 Ur Specific Ute (1.005 - 1.030) 1.021 Urine Protein (NEGATIVE) NEGATIVE Urine Glucose (UA) (NEGATIVE) NEGATIVE Urine Ketones (NEGATIVE) 2+ H Urine Blood (NEGATIVE) 1+ H Urine Nitrite (NEGATIVE) NEGATIVE Urine Bilirubin (NEGATIVE) NEGATIVE Urine Urobilinogen (0.2 - 1.0 mg/dL) 2.0 H Ur Leukocyte Esterase (NEGATIVE) NEGATIVE Urine RBC (0 - 3 RBC/HPF) >50 H Urine WBC (0 - 3 WBC/HPF) 0-3 Ur Squamous Epith Cells (NONE SEEN /HPF) 0-5 Urine Bacteria (NONE SEEN /HPF) NONE SEEN Urine Mucus (NONE SEEN /LPF) TRACE Ur Random Creatinine (mg/dL) 97.1 U Random Total Protein (mg/dL) 30 Protein/Creatinin Ratio 0.31 Microbiology Date/Time Procedure - Status Source Growth 08/26 1802 Influenza Virus Type B Antigen - COMP NASAL 08/26 180 Influenza Virus Type A Antigen - COMP NASAL 08/26 173 Legionella Urinary Antigen - COMP URINE 08/26 173 Streptococcus pneumoniae Ag Screen - COMP URINE Radiology data: Recent Impressions: RADIOLOGY - XR CHEST 1 V 08/26 1700 Report Impression - Status: SIGNED Entered: 08/26/2021 1758 IMPRESSION: No acute cardiopulmonary findings. Impression By: Charla Nielson M.D. CAT SCAN - CTA CHEST FOR PE 08/26 1737 Report Impression - Status: SIGNED Entered: 08/26/2021 1832 IMPRESSION: 1. No CT evidence of acute pulmonary embolism. 2. A tree in bud pattern is identified in the left lower lobe that is likely infectious/inflammatory in etiology and could indicate bronchopneumonia or bronchiolitis. 3. Splenomegaly. 4. Two small noncalcified nodules are incidentally detected in the left lower lobe. If the patient does not have known cancer, follow up should be based on clinical information because of the low risk of cancer in this age group. (Reference: Ron) References: Romainhochristopher H, et al. Guidelines for Management of Incidental Pulmonary Nodules Detected on CT Images: From the Fleischner Society 2017. Radiology. 2017;284(1):228-243. SL:131 Impression By: Marli Hardy M.D. Diagnosis, Assessment Plan Free Text DxA P Notes Free text DxA P notes: Viral pneumonia * Likely secondary to influenza A, oseltamivir started * CTA of the chest reviewed * No leukocytosis, bilirubin as well as LFTs within normal limits, patient reports a history of cholecystectomy * No overt meningeal signs, denies any urinary complaints * Continue to wean down O2 as tolerated, 6-minute walk test today * Follow-up cultures Dyspnea * Secondary to viral pneumonia/influenza A * Titrate down O2 as tolerated * 6-minute walk test today Sinus tachycardia * Possibly from reactive from influenza A +/- * Monitor on telemetry * EKG reviewed, denies any chest pain Nausea/vomitting * Recent hospital evaluation for nausea and vomiting per OB, possibly related to * Will continue to monitor * bilirubin as well as LFTs within normal limits, patient reports a history of cholecystectomy Thrombocytopenia * Reports good outpatient follow-up with Dr. Nagy * States happens during , will monitor, no active bleeding noted Intrauterine * Per [employer] DVT prophylaxis: SCDs, monitor platelets Disposition: Patient feels better and wants to leave the hospital, the patient is still on O2 via nasal cannula and was desatting when weaned to room air, the patient was subsequently weaned to room air however became significantly more sinus tachycardic on exertion. Risk of leaving AGAINST MEDICAL ADVICE reviewed with the patient including to but not limited to . The patient was alert and oriented x4. The patient subsequently decided to sign herself out AGAINST MEDICAL ADVICE. Oseltamivir was sent to the patient's pharmacy and the patient was encouraged to complete course of medication given high risk of clinical decompensation and follow up with her outpatient PCP/OBGYN. Quality: [facility] Crit Care VTE Prophylaxis VTE prophylaxis initiated: yes (mechanical comp device) at 1242 RPT #:[id number] END OF REPORT [facility] 2021-08-27 07:57:00 [facility] ([facility]) DT History Physical REPORT#:[id number] REPORT STATUS: Signed DATE:08/27/21 TIME: 0757 PATIENT: YENY TEMPLETON UNIT #: [id number] ROOM/BED: [facility] : 93 AGE: 26 SEX: F ATTEND: Yosi Marrqouin MD ADM AUTHOR: Yosi Marroquin MD * ALL edits or amendments must be made on the electronic/computer document * History Physical History Physical Reason for Admission: Fever, SOB, Elevated HR HPI: Patient is a 26-year-old female with past medical history of thrombocytopenia in who is currently 33 weeks and 6 days well known to me for a high 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 She presented to the OB ED with complaints of nausea, vomiting, and diarrhea and contractions. While in the obstetrics examination area, the patient reports sudden onset shortness of breath as well as palpitations. The patient's temperature at admission was 101.2 F as well as a sat of 89% on room air. Patient also has been tachycardic in the 120s and higher. She denies any sick contacts. Patient has never had Covid before but also is unvaccinated. She denies any congestion. She reports a mild cough. Patient also reports headache but denies any photophobia or neck stiffness. The patient's temperature has improved to 99.3 F prior to Tylenol being received. She denies any urinary complaints. States she had diarrhea x2 this morning around 1030a but none since then. She denies any chest pain, abdominal pain. Reports nausea has improved. History - Adult longitudinal Past medical history: Reports: Asthma (as a child>resolved). Additional medical history: Denies Additional surgical history: adenoid and bilateral PE tubes Family history: Reports: Diabetes, Heart disease, Hypertension. 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 Review of Systems Free Text ROS Notes Free Text ROS Notes: 14 point review of systems reviewed and negative unless otherwise noted in HPI Objective VS/I O Last Documented: Result Date Time Pulse Ox 99 08/26 1657 Pulse 102 08/26 1657 Temp 101.2 08/26 1615 B/P Mean 93.0 08/26 1547 B/P 135/73 / 1547 Resp 16 08/26 1416 General appearance: alert, awake, oriented Head/Eyes: clear cornea, EOMI ENT: dry mucosal membrane Neck: non-tender, supple/no meningismus Cardiovascular: normal heart sounds, regular rate rhythm Respiratory: aerating well, clear to auscultation, symmetric expansion Abdomen: non-tender, normal bowel sounds, soft Extremities: moves all, no edema Musculoskeletal: normal inspection, painless range of motion Neuro/CAR HOSTLER: alert, oriented X 3, normal speech, no motor deficits, no sensory deficits Skin: dry, intact Results Findings/Data: Laboratory Tests: 08/26 08/26 08/26 1714 1714 1410 Chemistry Sodium (134 - 147 mEq/L) 136 137 Potassium (3.4 - 5.0 mEq/L) 3.5 3.6 Chloride (100 - 108 mEq/L) 106 107 Carbon Dioxide (21 - 33 mEq/l) 22 21 Anion Gap (0 - 20) 12 13 BUN (7 - 18 mg/dL) < 5 L < 5 L Creatinine (0.6 - 1.3 mg/dL) 0.4 L 0.4 L Glomerular Filtr Rate (110 - 120) 190.1 H 190.1 H Glucose (70 - 110 mg/dL) 93 85 Uric Acid (2.6 - 7.2 mg/dL) 2.9 Calcium (8.0 - 10.5 mg/dL) 8.0 8.1 Total Bilirubin (0.0 - 1.0 mg/dL) 0.90 0.90 AST (15 - 37 IUnit/L) 10 L 11 L ALT (30 - 65 IUnit/L) 9 L 9 L Total Alk Phosphatase (20 - 125 IUnit/L) 113 119 Lactate Dehydrogenase (84 - 246 IUnits/L) 163 Troponin I High Sens (0 - 34 ng/L) 6 Total Protein (6.4 - 8.2 g/dL) 6.1 L 6.5 Albumin (3.4 - 5.0 g/dL) 2.70 L 2.90 L Lipase (13 - 57 U/L) 21 Coagulation INR (0.8 - 1.2) 1.1 PTT (Melissa) (25.0 - 39.5 Seconds) 27.0 PT Patient/Control Mix (9.3 - 12.9 SECONDS) 12.3 Hematology WBC (4.5 - 11.0 x10 3/uL) 8.0 7.6 RBC (3.54 - 5.02 x10 6/uL) 3.37 L 3.51 L Hgb (11.0 - 15.0 g/dL) 9.5 L 10.1 L Hct (33.0 - 45.0 %) 30.2 L 31.1 L MCV (81.0 - 99.0 fL) 89.6 88.6 MCH (27.0 - 33.0 pg) 28.2 28.8 MCHC (33.0 - 37.0 g/dL) 31.5 L 32.5 L RDW (11.5 - 14.5 %) 14.9 H 14.6 H Plt Count (150 - 400 x10 3/uL) 92 L 82 L MPV (7.0 - 9.0 fL) 12.1 H 11.8 H Neut % (Auto) (56.0 - 77.0 %) 88.2 H 88.0 H Lymph % (Auto) (14.0 - 32.0 %) 4.3 L 4.7 L Sumner % (Auto) (4.8 - 9.0 %) 5.8 5.4 Eos % (Auto) (0.3 - 3.7 %) 0.5 0.7 Baso % (Auto) (0.0 - 2.0 %) 0.3 0.4 Neut # (Auto) (2.0 - 7.6 x10 3/uL) 7.07 6.71 Lymph # (Auto) (1.0 - 3.8 x10 3/uL) 0.34 L 0.36 L Sumner # (Auto) (0.1 - 0.8 x10 3/uL) 0.46 0.41 Eos # (Auto) (0.0 - 0.2 x10 3/uL) 0.04 0.05 Baso # (Auto) (0.0 - 0.2 x10 3/uL) 0.02 0.03 Abs Immat Gran (auto) (0.00 - 0.03 x10 3/uL) 0.07 H 0.06 H Add Manual Diff NO NO Immature Gran % (0.0 - 2.0 %) 0.9 0.8 Nucleated RBC % (0 - 0 %) 0.0 0.0 Nucleated RBCs # (Man) (0.0 - 0.1 x10 3/uL) 0.00 0.00 Immature Plt Fraction (0.9 - 11.2 %) 10.3 Miscellaneous Fibronectin (NEGATIVE) NEGATIVE Urines Urine Color (YEL/STRAW) YELLOW Urine Appearance (CLEAR) CLEAR Urine pH (5.0 - 7.0) 7.0 Ur Specific Ute (1.005 - 1.030) 1.021 Urine Protein (NEGATIVE) NEGATIVE Urine Glucose (UA) (NEGATIVE) NEGATIVE Urine Ketones (NEGATIVE) 2+ H Urine Blood (NEGATIVE) 1+ H Urine Nitrite (NEGATIVE) NEGATIVE Urine Bilirubin (NEGATIVE) NEGATIVE Urine Urobilinogen (0.2 - 1.0 mg/dL) 2.0 H Ur Leukocyte Esterase (NEGATIVE) NEGATIVE Urine RBC (0 - 3 RBC/HPF) >50 H Urine WBC (0 - 3 WBC/HPF) 0-3 Ur Squamous Epith Cells (NONE SEEN /HPF) 0-5 Urine Bacteria (NONE SEEN /HPF) NONE SEEN Urine Mucus (NONE SEEN /LPF) TRACE Ur Random Creatinine (mg/dL) 97.1 U Random Total Protein (mg/dL) 30 Protein/Creatinin Ratio 0.31 Diagnosis, Assessment Plan Free Text DxA P Notes Free Text DxA P Notes: Suspected Sepsis * Meets SIRS criteria with unclear source however possibly pulmonary given symptoms +/- less likely intra-abdominal source * Empiric Ancef ordered by OB, continue for now * CTA of the chest pending * No leukocytosis, bilirubin as well as LFTs within normal limits, patient reports a history of cholecystectomy * No overt meningeal signs, denies any urinary complaints * Check Covid as well as influenza screen, check urinary antigens for pneumonia * Follow-up cultures, lactic acid, IV fluids ordered Dyspnea * Unclear etiology, CTA of the chest ordered by OB and pending to rule out PE * Check STAT ABG * Titrate down O2 as tolerated * Chest x-ray without any acute abnormalities Sinus tachycardia * Possibly from reactive from sepsis +/-dyspnea +/- * Monitor on telemetry * EKG reviewed, denies any chest pain however will trend cardiac enzymes for completeness Nausea/vomitting * Recent hospital evaluation for nausea and vomiting per OB, possibly related to * Will continue to monitor * bilirubin as well as LFTs within normal limits, patient reports a history of cholecystectomy Thrombocytopenia * Reports good outpatient follow-up with Dr. Nagy * States happens during , will monitor, no active bleeding noted Intrauterine * She has persistent contractions mild to moderate in intensity but resolved with hydration. Will continue to monitor for signs of labor. Fetus status reassurring DVT prophylaxis: SCDs, monitor platelets, may need full dose anticoagulation pending CT angiogram of the chest Internal medicine consult appreciated at 0806 RPT #:[id number] END OF REPORT [facility] 2021-08-26 17:40:00 [facility] ([facility]) Hospitalist Consultation REPORT#:[id number] REPORT STATUS: Signed DATE:08/26/21 TIME: 1740 PATIENT: YENY TEMPLETON KEVIN UNIT #: [id number] ROOM/BED: : 93 AGE: 26 SEX: F ATTEND: Kristie Boston MD ADM DT: AUTHOR: Raza Garcia DO * ALL edits or amendments must be made on the electronic/computer document * History of Present Illness Requesting Clinician: Dr Marroquin Reason for consult: Fever, SOB, Elevated HR HPI: Yeny is a 26-year-old female with past medical history of thrombocytopenia in who is currently 33 weeks and [address] and follows with Dr. Marroquin as an outpatient presented to the OB ED with concerns of nausea , vomiting, as well as diarrhea and contractions. While in the obstetrics examination area, the patient reports sudden onset shortness of breath as well as palpitations. The patient's temperature was checked and was notable for fever of 101.2 F as well as a sat of 89% on room air. Patient also has been tachycardic in the 120s and higher. She denies any sick contacts. Patient has never had Covid before but also is unvaccinated. She denies any congestion but does report a cough. Patient also reports headache but denies any photophobia or neck stiffness. The patient's temperature has improved to 99.3 F prior to Tylenol being received. She denies any urinary complaints. States she had diarrhea x2 this morning around 1030a but none since then. She denies any chest pain, abdominal pain. Reports nausea has improved. OB hospitalist/Dr. Luke present during examination and plans for CT angiogram for the chest are pending. History - Adult longitudinal Past medical history: Reports: Asthma (as a child>resolved). Additional medical history: Denies Additional surgical history: adenoid and bilateral PE tubes Family history: Reports: Diabetes, Heart disease, Hypertension. 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 Review of Systems Free Text ROS Notes Free Text ROS Notes: 14 point review of systems reviewed and negative unless otherwise noted in HPI Objective VS/I O Last Documented: Result Date Time Pulse Ox 99 08/26 165 Pulse 102 08/26 1657 Temp 101.2 08/26 1615 B/P Mean 93.0 08/26 1547 B/P 135/73 08/26 1547 Resp 16 08/26 1416 General appearance: alert, awake, oriented Head/Eyes: clear cornea, EOMI ENT: dry mucosal membrane Neck: non-tender, supple/no meningismus Cardiovascular: normal heart sounds, regular rate rhythm Respiratory: aerating well, clear to auscultation, symmetric expansion Abdomen: non-tender, normal bowel sounds, soft Extremities: moves all, no edema Musculoskeletal: normal inspection, painless range of motion Neuro/CAR HOSTLER: alert, oriented X 3, normal speech, no motor deficits, no sensory deficits Skin: dry, intact Results Findings/Data: Laboratory Tests: 08/26 08/26 08/26 1714 1714 1410 Chemistry Sodium (134 - 147 mEq/L) 136 137 Potassium (3.4 - 5.0 mEq/L) 3.5 3.6 Chloride (100 - 108 mEq/L) 106 107 Carbon Dioxide (21 - 33 mEq/l) 22 21 Anion Gap (0 - 20) 12 13 BUN (7 - 18 mg/dL) < 5 L < 5 L Creatinine (0.6 - 1.3 mg/dL) 0.4 L 0.4 L Glomerular Filtr Rate (110 - 120) 190.1 H 190.1 H Glucose (70 - 110 mg/dL) 93 85 Uric Acid (2.6 - 7.2 mg/dL) 2.9 Calcium (8.0 - 10.5 mg/dL) 8.0 8.1 Total Bilirubin (0.0 - 1.0 mg/dL) 0.90 0.90 AST (15 - 37 IUnit/L) 10 L 11 L ALT (30 - 65 IUnit/L) 9 L 9 L Total Alk Phosphatase (20 - 125 IUnit/L) 113 119 Lactate Dehydrogenase (84 - 246 IUnits/L) 163 Troponin I High Sens (0 - 34 ng/L) 6 Total Protein (6.4 - 8.2 g/dL) 6.1 L 6.5 Albumin (3.4 - 5.0 g/dL) 2.70 L 2.90 L Lipase (13 - 57 U/L) 21 Coagulation INR (0.8 - 1.2) 1.1 PTT (Melissa) (25.0 - 39.5 Seconds) 27.0 PT Patient/Control Mix (9.3 - 12.9 SECONDS) 12.3 Hematology WBC (4.5 - 11.0 x10 3/uL) 8.0 7.6 RBC (3.54 - 5.02 x10 6/uL) 3.37 L 3.51 L Hgb (11.0 - 15.0 g/dL) 9.5 L 10.1 L Hct (33.0 - 45.0 %) 30.2 L 31.1 L MCV (81.0 - 99.0 fL) 89.6 88.6 MCH (27.0 - 33.0 pg) 28.2 28.8 MCHC (33.0 - 37.0 g/dL) 31.5 L 32.5 L RDW (11.5 - 14.5 %) 14.9 H 14.6 H Plt Count (150 - 400 x10 3/uL) 92 L 82 L MPV (7.0 - 9.0 fL) 12.1 H 11.8 H Neut % (Auto) (56.0 - 77.0 %) 88.2 H 88.0 H Lymph % (Auto) (14.0 - 32.0 %) 4.3 L 4.7 L Sumner % (Auto) (4.8 - 9.0 %) 5.8 5.4 Eos % (Auto) (0.3 - 3.7 %) 0.5 0.7 Baso % (Auto) (0.0 - 2.0 %) 0.3 0.4 Neut # (Auto) (2.0 - 7.6 x10 3/uL) 7.07 6.71 Lymph # (Auto) (1.0 - 3.8 x10 3/uL) 0.34 L 0.36 L Sumner # (Auto) (0.1 - 0.8 x10 3/uL) 0.46 0.41 Eos # (Auto) (0.0 - 0.2 x10 3/uL) 0.04 0.05 Baso # (Auto) (0.0 - 0.2 x10 3/uL) 0.02 0.03 Abs Immat Gran (auto) (0.00 - 0.03 x10 3/uL) 0.07 H 0.06 H Add Manual Diff NO NO Immature Gran % (0.0 - 2.0 %) 0.9 0.8 Nucleated RBC % (0 - 0 %) 0.0 0.0 Nucleated RBCs # (Man) (0.0 - 0.1 x10 3/uL) 0.00 0.00 Immature Plt Fraction (0.9 - 11.2 %) 10.3 Miscellaneous Fibronectin (NEGATIVE) NEGATIVE Urines Urine Color (YEL/STRAW) YELLOW Urine Appearance (CLEAR) CLEAR Urine pH (5.0 - 7.0) 7.0 Ur Specific Ute (1.005 - 1.030) 1.021 Urine Protein (NEGATIVE) NEGATIVE Urine Glucose (UA) (NEGATIVE) NEGATIVE Urine Ketones (NEGATIVE) 2+ H Urine Blood (NEGATIVE) 1+ H Urine Nitrite (NEGATIVE) NEGATIVE Urine Bilirubin (NEGATIVE) NEGATIVE Urine Urobilinogen (0.2 - 1.0 mg/dL) 2.0 H Ur Leukocyte Esterase (NEGATIVE) NEGATIVE Urine RBC (0 - 3 RBC/HPF) >50 H Urine WBC (0 - 3 WBC/HPF) 0-3 Ur Squamous Epith Cells (NONE SEEN /HPF) 0-5 Urine Bacteria (NONE SEEN /HPF) NONE SEEN Urine Mucus (NONE SEEN /LPF) TRACE Ur Random Creatinine (mg/dL) 97.1 U Random Total Protein (mg/dL) 30 Protein/Creatinin Ratio 0.31 Diagnosis, Assessment Plan Free Text DxA P Notes Free Text DxA P Notes: Suspected Sepsis * Meets SIRS criteria with unclear source however possibly pulmonary given symptoms +/- less likely intra-abdominal source * Empiric Ancef ordered by OB, continue for now * CTA of the chest pending * No leukocytosis, bilirubin as well as LFTs within normal limits, patient reports a history of cholecystectomy * No overt meningeal signs, denies any urinary complaints * Check Covid as well as influenza screen, check urinary antigens for pneumonia * Follow-up cultures, lactic acid, IV fluids ordered Dyspnea * Unclear etiology, CTA of the chest ordered by OB and pending to rule out PE * Check STAT ABG * Titrate down O2 as tolerated * Chest x-ray without any acute abnormalities Sinus tachycardia * Possibly from reactive from sepsis +/-dyspnea +/- * Monitor on telemetry * EKG reviewed, denies any chest pain however will trend cardiac enzymes for completeness Nausea/vomitting * Recent hospital evaluation for nausea and vomiting per OB, possibly related to * Will continue to monitor * bilirubin as well as LFTs within normal limits, patient reports a history of cholecystectomy Thrombocytopenia * Reports good outpatient follow-up with Dr. Nagy * States happens during , will monitor, no active bleeding noted Intrauterine * Per FRUIT OR [employer]UT FARM[employer]ER DVT prophylaxis: SCDs, monitor platelets, may need full dose anticoagulation pending CT angiogram of the chest Quality: [facility] VTE Prophylaxis VTE prophylaxis initiated: yes (mechanical comp device) at 1904 RPT #:[id number] END OF REPORT [facility] 2021-08-26 17:00:00 [id number] [address] PATIENT NAME: YENY TEMPLETON ADMIT DATE: 08/26/21 ACCOUNT NO: [id number] ROOM NO: [facility] AGE: 26 REPORT TYPE: eELECTROCARDIOGRAM REPORT SEX: F ADMITTING PHYSICIAN:Yosi Marroquin MD ATTENDING PHYSICIAN:Yosi aMrroquin MD Order: [id number] Test Reason : Sepsis Test Date/Time Stamp: WedAug 26 2021 17:00:15 Blood Pressure : / mmHG Vent. Rate : 106 BPM Atrial Rate : 106 BPM P-R Int : 148 ms QRS Dur : 080 ms QT Int : 344 ms P-R-T Axes : 030 -05 034 degrees QTc Int : 456 ms Sinus tachycardia with premature atrial complexes with aberrant conduction Right atrial enlargement Borderline ECG When compared with ECG of 17-MAR-2018 18:57, Significant changes have occurred Confirmed by JYOTSNA ALVAREZ, XAVIER ([id number]) on 09/03/2021 6:59:45 PM Referred By: No Physician Confirmed by:LUIS JAEGER MD at 1859 PATIENT NAME: YENY TEMPLETON [facility] 2021-08-26 14:23:00 [facility]) OB Medical Screening Exam REPORT#:[id number] REPORT STATUS: Signed DATE:08/26/21 TIME: 142 PATIENT: YENY TEMPLETON UNIT #: [id number] ROOM/BED: : 93 AGE: 26 SEX: F ATTEND: Kristie Boston MD ADM DT: AUTHOR: Kristie Boston MD * ALL edits or amendments must be made on the electronic/computer document * Medical Screening Exam Provider Attestation Attestation: The QMP MSE reviewed. Provider at bedside at 1355 Comments: 26 y/o IUP 33 6/7 presents due to nausea, vomiting, diarrhea and contractions. at 1743 RPT #:[id number] END OF REPORT [facility] 2021-08-26 14:23:00 [facility] ([facility]) SHADI Evaluation Note REPORT#:[id number] REPORT STATUS: Signed DATE:08/26/21 TIME: 142 PATIENT: YENY TEMPLETON UNIT #: [id number] ROOM/BED: : 93 AGE: 26 SEX: F ATTEND: Kristie Boston MD ADM DT: AUTHOR: Kristie Boston MD * ALL edits or amendments must be made on the electronic/computer document * SHADI History Chief complaint: uterine contractions, nausea and vomiting HPI: 26 y/o IUP 33 6/7 presents due to nausea, vomiting, diarrhea and contractions. She also complains of slight cough. She refers good movements and denies any gush of vaginal fluids, or vaginal bleeding. Verbal consent obtained from patient to discuss history, lab results, treatment, plan and any other pertinent information in front of patient's companions. history: : 4 Term: 3 Living children: 3 Current : EDC: 10/08/21 EGA (weeks/days): 33 weeks Past medical history: Anemia Thrombocytopenia Past surgical history: cholecystectomy Social history: no alcohol use, no tobacco use, no drug use Family history Relation not specified for: Family History: Unremarkable Medications: Home Medications: Medication Dose/Rte/Freq Days Qty Entered Last Max Daily Dose Reviewed PNV WITH FE 1 TAB PO DAILY 10/30/18 08/26/21 FUMARATE/FA 1700 1411 () Strength: 1 EACH TAB FERROUS SULFATE 325 MG PO DAILY 08/26/21 08/26/21 (FEOSOL) 1411 1411 Strength: 325 MG TAB Allergies Coded Allergies: No Known Allergies (06/12/20) Review of Systems Additional notes: Constitutional: Denies: chills, fatigue, fever, generalized weakness, lethargy, malaise. Respiratory: Refers: mild cough. Denies: SOB. GI: Refers: nausea, vomiting, diarrhea Denies: abdominal pain, constipation : Refers: contractions Denies: urgency, vaginal bleeding. Neuro: Refers: headache Objective General VS: Last Documented: Result Date Time Pulse Ox 99 / 1657 Pulse 102 / 1657 Temp 101.2 / 1615 B/P Mean 93.0 08/26 1547 B/P 135/73 04/ 1547 Resp 16 08/26 1416 Vital Signs Date Temp Pulse Resp B/P B/P Mean Pulse Ox FiO2 04/05 97.9-101.2 60-205 16 135-148/65-86 93.0-106.0 89-100 PATIENT WEIGHT: Weight (lb): Weight (oz): Weight (kg): Physical Exam Additional comments: Gen: AAOx3 Lungs: normal respiratory effort Neuro: Exam: alert, oriented x3 Abdomen: gravid, soft Uterine activity: Monitor: toco Frequency (description): regular Frequency (minutes): 5 MEDICAL MASSAGE THERAPIST: Normal exteral genitalia Cervical/ exam: Speculum exam: no discharge Dilatation (cm): FT Effacement (%): thick station: high Presentation: VX Membrane status:IM FHR evaluation: FHR category: category I Results Findings/Data: Laboratory Tests: 08/26 08/26 08/26 08/26 1826 1803 1714 1714 Blood Gas Puncture Site R Radial O2 Saturation (90 - 100 %) 99.7 ABG pH (7.35 - 7.45) 7.406 ABG pCO2 (35.0 - 45 mmHg) 33.8 L ABG pO2 (80 - 100.0 mmHg) 201.2 *H ABG PO2/FiO2 Ratio (mm/Hg) 201.20 ABG HCO3 (22.0 - 26.0 MMOL/L) 21.2 L ABG Total CO2 22.3 ABG Base Excess (-4.0 - 4.0 MMOL/L) -3.5 Chrystal Test Positive O2 Delivery Device [id number] FiO2 (%) 100 Chemistry Sodium (134 - 147 mEq/L) 136 Potassium (3.4 - 5.0 mEq/L) 3.5 Chloride (100 - 108 mEq/L) 106 Carbon Dioxide (21 - 33 mEq/l) 22 Anion Gap (0 - 20) 12 BUN (7 - 18 mg/dL) < 5 L Creatinine (0.6 - 1.3 mg/dL) 0.4 L Glomerular Filtr Rate (110 - 120) 190.1 H Glucose (70 - 110 mg/dL) 93 Lactic Acid (0.4 - 1.9 mmol/L) 0.5 Calcium (8.0 - 10.5 mg/dL) 8.0 Total Bilirubin (0.0 - 1.0 mg/dL) 0.90 AST (15 - 37 IUnit/L) 10 L ALT (30 - 65 IUnit/L) 9 L Total Alk Phosphatase (20 - 125 IUnit/L) 113 Troponin I High Sens (0 - 34 ng/L) 6 Total Protein (6.4 - 8.2 g/dL) 6.1 L Albumin (3.4 - 5.0 g/dL) 2.70 L Lipase (13 - 57 U/L) 21 Coagulation INR (0.8 - 1.2) 1.1 PTT (Melissa) (25.0 - 39.5 Seconds) 27.0 PT Patient/Control Mix (9.3 - 12.9 SECONDS) 12.3 Hematology WBC (4.5 - 11.0 x10 3/uL) 8.0 RBC (3.54 - 5.02 x10 6/uL) 3.37 L Hgb (11.0 - 15.0 g/dL) 9.5 L Hct (33.0 - 45.0 %) 30.2 L MCV (81.0 - 99.0 fL) 89.6 MCH (27.0 - 33.0 pg) 28.2 MCHC (33.0 - 37.0 g/dL) 31.5 L RDW (11.5 - 14.5 %) 14.9 H Plt Count (150 - 400 x10 3/uL) 92 L MPV (7.0 - 9.0 fL) 12.1 H Neut % (Auto) (56.0 - 77.0 %) 88.2 H Lymph % (Auto) (14.0 - 32.0 %) 4.3 L Sumner % (Auto) (4.8 - 9.0 %) 5.8 Eos % (Auto) (0.3 - 3.7 %) 0.5 Baso % (Auto) (0.0 - 2.0 %) 0.3 Neut # (Auto) (2.0 - 7.6 x10 3/uL) 7.07 Lymph # (Auto) (1.0 - 3.8 x10 3/uL) 0.34 L Sumner # (Auto) (0.1 - 0.8 x10 3/uL) 0.46 Eos # (Auto) (0.0 - 0.2 x10 3/uL) 0.04 Baso # (Auto) (0.0 - 0.2 x10 3/uL) 0.02 Abs Immat Gran (auto) (0.00 - 0.03 x10 3/uL) 0.07 H Add Manual Diff NO Immature Gran % (0.0 - 2.0 %) 0.9 Nucleated RBC % (0 - 0 %) 0.0 Nucleated RBCs # (Man) (0.0 - 0.1 x10 3/uL) 0.00 Immature Plt Fraction (0.9 - 11.2 %) 10.3 04/05 04/05 1650 1410 Chemistry Sodium (134 - 147 mEq/L) 137 Potassium (3.4 - 5.0 mEq/L) 3.6 Chloride (100 - 108 mEq/L) 107 Carbon Dioxide (21 - 33 mEq/l) 21 Anion Gap (0 - 20) 13 BUN (7 - 18 mg/dL) < 5 L Creatinine (0.6 - 1.3 mg/dL) 0.4 L Glomerular Filtr Rate (110 - 120) 190.1 H Glucose (70 - 110 mg/dL) 85 Uric Acid (2.6 - 7.2 mg/dL) 2.9 Calcium (8.0 - 10.5 mg/dL) 8.1 Total Bilirubin (0.0 - 1.0 mg/dL) 0.90 AST (15 - 37 IUnit/L) 11 L ALT (30 - 65 IUnit/L) 9 L Total Alk Phosphatase (20 - 125 IUnit/L) 119 Lactate Dehydrogenase (84 - 246 IUnits/L) 163 Total Protein (6.4 - 8.2 g/dL) 6.5 Albumin (3.4 - 5.0 g/dL) 2.90 L Hematology WBC (4.5 - 11.0 x10 3/uL) 7.6 RBC (3.54 - 5.02 x10 6/uL) 3.51 L Hgb (11.0 - 15.0 g/dL) 10.1 L Hct (33.0 - 45.0 %) 31.1 L MCV (81.0 - 99.0 fL) 88.6 MCH (27.0 - 33.0 pg) 28.8 MCHC (33.0 - 37.0 g/dL) 32.5 L RDW (11.5 - 14.5 %) 14.6 H Plt Count (150 - 400 x10 3/uL) 82 L MPV (7.0 - 9.0 fL) 11.8 H Neut % (Auto) (56.0 - 77.0 %) 88.0 H Lymph % (Auto) (14.0 - 32.0 %) 4.7 L Sumner % (Auto) (4.8 - 9.0 %) 5.4 Eos % (Auto) (0.3 - 3.7 %) 0.7 Baso % (Auto) (0.0 - 2.0 %) 0.4 Neut # (Auto) (2.0 - 7.6 x10 3/uL) 6.71 Lymph # (Auto) (1.0 - 3.8 x10 3/uL) 0.36 L Sumner # (Auto) (0.1 - 0.8 x10 3/uL) 0.41 Eos # (Auto) (0.0 - 0.2 x10 3/uL) 0.05 Baso # (Auto) (0.0 - 0.2 x10 3/uL) 0.03 Abs Immat Gran (auto) (0.00 - 0.03 x10 3/uL) 0.06 H Add Manual Diff NO Immature Gran % (0.0 - 2.0 %) 0.8 Nucleated RBC % (0 - 0 %) 0.0 Nucleated RBCs # (Man) (0.0 - 0.1 x10 3/uL) 0.00 Miscellaneous Fibronectin (NEGATIVE) NEGATIVE Serology SARS-CoV-2 Ag (Rapid) (Negative) Negative Urines Urine Color (YEL/STRAW) YELLOW Urine Appearance (CLEAR) CLEAR Urine pH (5.0 - 7.0) 7.0 Ur Specific Ute (1.005 - 1.030) 1.021 Urine Protein (NEGATIVE) NEGATIVE Urine Glucose (UA) (NEGATIVE) NEGATIVE Urine Ketones (NEGATIVE) 2+ H Urine Blood (NEGATIVE) 1+ H Urine Nitrite (NEGATIVE) NEGATIVE Urine Bilirubin (NEGATIVE) NEGATIVE Urine Urobilinogen (0.2 - 1.0 mg/dL) 2.0 H Ur Leukocyte Esterase (NEGATIVE) NEGATIVE Urine RBC (0 - 3 RBC/HPF) >50 H Urine WBC (0 - 3 WBC/HPF) 0-3 Ur Squamous Epith Cells (NONE SEEN /HPF) 0-5 Urine Bacteria (NONE SEEN /HPF) NONE SEEN Urine Mucus (NONE SEEN /LPF) TRACE Ur Random Creatinine (mg/dL) 97.1 U Random Total Protein (mg/dL) 30 Protein/Creatinin Ratio 0.31 Microbiology: Date/Time Procedure - Status Source Growth 08/26 180 Influenza Virus Type B Antigen - COMP NASAL 08/26 180 Influenza Virus Type A Antigen - COMP NASAL 08/26 1739 Legionella Urinary Antigen - RECD URINE 08/26 1739 Streptococcus pneumoniae Ag Screen - RECD URINE 08/26 1712 Blood Culture - RECD BLOOD 08/26 1711 Blood Culture - RECD BLOOD 08/26 1631 Urine Culture - RECD URINE Recent Impressions: RADIOLOGY - XR CHEST 1 V 08/26 1700 Report Impression - Status: SIGNED Entered: 08/26/2021 1758 IMPRESSION: No acute cardiopulmonary findings. Impression By: Charla Nielson M.D. CAT SCAN - CTA CHEST FOR PE 08/26 1737 Report Impression - Status: SIGNED Entered: 08/26/2021 1832 IMPRESSION: 1. No CT evidence of acute pulmonary embolism. 2. A tree in bud pattern is identified in the left lower lobe that is likely infectious/inflammatory in etiology and could indicate bronchopneumonia or bronchiolitis. 3. Splenomegaly. 4. Two small noncalcified nodules are incidentally detected in the left lower lobe. If the patient does not have known cancer, follow up should be based on clinical information because of the low risk of cancer in this age group. (Reference: Ron) References: Ron Morel, et al. Guidelines for Management of Incidental Pulmonary Nodules Detected on CT Images: From the Fleischner Society 2017. Radiology. 2017;284(1):228-243. SL:131 Impression By: Marli Hardy M.D. Diagnosis, Assessment Plan Diagnosis, Assessment Plan Problem List/A P: 1. 33 weeks gestation of Free Text A P: Initial exam 1355 Patient presents due to nausea, vomiting, diarrhea and contractions. Will IV hydrate, order labs and zofran Re-evaluation 1618 Patient found to have a fever of 101.2 and began complaining of SOB. Her O2 sat was noted to be 89 and she became tachycardic. Ordered sepsis work up and O2. 26 y/o IUP 33 6/7 presented due to nausea, vomiting, diarrhea and contractions. FFN was negative but had regular contractions after IV hydration and requested IV pain medication. She was given procardia and stadol. A short while after she was given medication she complained to her nurse that she was feeling hot. Her temperature then was found to be 101.2. Some minutes later she began to complain of sudden onset SOB and her O2 sat was found to be 89%. She was started on O2 and sepsis work up was ordered. Discussed case with Dr Marroquin, he agreed on admission and to assume care of the patient. He also agreed to IM hospitalist consult. Discussed case with Dr Garcia, he came to the patient's bedside right away and agreed to consult. He ordered PE work up and agreed with sepsis work up. Patient and family member oriented on findings and plan. Plan: admit to inpatient Plan discussed with: patient, family, nurse, DR Lopez Garcia at 1853 RPT #:[id number] END OF REPORT [facility] 2021-08-20 19:43:00 [facility] ([facility]) SHADI Evaluation Note REPORT#:[id number] REPORT STATUS: Signed DATE:08/20/21 TIME: 1942 PATIENT: YENY TEMPLETON UNIT #: [id number] ROOM/BED: [place] [id number] : 93 AGE: 26 SEX: F ATTEND: Stephanie Bazzi DO ADM DT: AUTHOR: Stephanie Bazzi DO * ALL edits or amendments must be made on the electronic/computer document * See Addendum SHADI History Nursing Documentation Review Nursing data: The data set between the solid lines has been imported from nursing documentation. Any exceptions have been noted below under Provider comments. Current data Steroids prior to arrival: ROM date: ROM time: EDC date: 10/08/21 Gestational age (labor triage): Post hemorrhage risk score: Prior history : 4 Para: 3 Term: : Abortions spontaneous: Abortions induced: Living children: Ectopic: Stillbirths: Live births: deaths: Number of previous C/S: Reported maternal labs/data Blood type: Rh type: Rubella: Hepatitis B: HIV exposure test: VDRL: Group B beta strep: Not done Rho(D) immune globulin this preg: Monitor mode - UA: Feeding preference: Provider comments on imported nursing data: [] Chief complaint: uterine contractions, nausea and vomiting HPI: 26 y/o EDC 10/08/2021 at 33 week c/o cxn rated 5/10 as well as N/V today , vomiting twice. She did not take anything for this, and declines medication for pain or N/V. No leaking or bleeding, baby is moving just fine. PNC w Dr. Marroquin She also saw Dr. Darby for poly, last CARMENCITA went from 29 cm to 23 cm. She states she passed her 1 hour glucola. history: : 4 Term: 1 : 2 Abortus: 0 Living children: 3 Complications (prev preg): labor Previous : none Current : EDC: 10/08/21 EGA (weeks/days): 33 week Conditions of : anemia, polyhydramnios Labs: Blood type: unknown Past medical history: denies PMH Past surgical history: cholecystectomy Social history: no alcohol use, no drug use, smoker, says she smokes only on occasion Family history Relation not specified for: Family History: Unremarkable Medications: Home Medications: Medication Dose/Rte/Freq Days Qty Entered Last Max Daily Dose Reviewed PNV WITH FE 1 TAB PO DAILY 10/30/18 08/20/21 FUMARATE/FA 3709 5693 () Strength: 1 EACH TAB Current Hospital Medications: Antihistamine Drugs Sig/Shaun Start time Last Medication Dose Route Stop Time Status Admin Promethazine HCl 25 MG X1ED STA 08/20 1920 CAN (PHENERGAN) IM 08/20 1921 Electrolytic, Caloric, And Bassem Sig/Shaun Start time Last Medication Dose Route Stop Time Status Admin Lactated Ringer's 1,000 ML X1ED STA 08/20 1920 DC (LACTATED RINGERS) IV 08/20 1921 Allergies Coded Allergies: No Known Allergies (06/12/20) Review of Systems Constitutional: Denies: fever. ENT: Denies: sore throat. Respiratory: Denies: non productive cough. GI: Reports: nausea, vomiting. Denies: constipation, diarrhea. : Reports: . Denies: vaginal bleeding. Neuro: Denies: headache. Objective General VS: PATIENT WEIGHT: Weight (lb): 197 Weight (oz): 5.02 Weight (kg): 89.500 Notes: 138/75 pulse 100 Physical Exam HEENT: normocephalic w/o injury, no scleral icterus Lungs: unlabored breathing Neuro: Exam: alert, oriented x3, normal speech, normal gait Abdomen: gravid, soft, no abnormal tenderness, no guarding Uterine activity: Monitor: toco Frequency (description): regular Intensity: mild Pelvic exam: Pelvis clinically adequate: yes, inlet appears appropriate, pubic bone config appropr, no midpelvic contraction Vulvar lesions: none, no evidence herpetic les, no evidence of other STD Vagina: normal, non-septated, w/o apparent lesions Sterile speculum exam: physiological discharge, no pooling, no bleeding Cervical/ exam: Dilatation (cm): 1 Effacement (%): 0 station: - 5 FHR evaluation: Baseline: 130 bpm Variability: moderate 6-25 bpm Decelerations: none Notes: need a bit more NST to verify if reactive Membranes: Membranes: Intact Diagnosis, Assessment Plan Diagnosis, Assessment Plan Free Text A P: 26 y/o P1203 at 33 weeks here for N/V, and contractions h/o anemia polyhydramnios smoker h/o 2 prior del for labor, at 36 then 34 weeks IV FFN Labs and urine Will f/u. Pt declines any medication for pain or N/v. Additionally I presume she declined [place] during the . Dr. Marroquin would like to administer celestone today. at 1952 Addendum 1: 08/20/212125 by Stephanie Bazzi DO FFN negative UA 1+ blood and 2+ calcium oxylate 7>9.8/30.8<88 K = 3.3 rest CMP ok Pt did get first BMZ shot Pt apparently aware of the thrombocytopenia [place] Cxn have settled and spaced out quite a bit EFM 120's CAt 1 Pt requested being checked again, VE unchanged and posterior. Awaiting a few more BP reads OK to d/c after if BP ok. at 2137 Addendum 2: 08/20/212157 by Stephanie Bazzi DO 133/77 OK to d/c home as discussed w Dr. Marroquin, but return for Celestone #[address] Marroquin aware of lab results too. at 2200 RPT #:[id number] END OF REPORT [facility] 2021-08-20 19:21:00 [facility] ([facility]) OB Medical Screening Exam REPORT#:[id number] REPORT STATUS: Signed DATE:08/20/21 TIME: 1920 PATIENT: YENY TEMPLETON UNIT #: [id number] ROOM/BED: : 93 AGE: 26 SEX: F ATTEND: Stephanie Bazzi DO ADM DT: AUTHOR: Stephanie Bazzi DO * ALL edits or amendments must be made on the electronic/computer document * Medical Screening Exam Nursing Documentation Review Nursing data: The data set between the solid lines has been imported from nursing documentation. Any exceptions have been noted below under Provider comments. : Para: Term: : Abortions spontaneous: Abortions induced: Living children: EDC: Gestational age (labor triage): SHADI monitor fetus and uterus: Part A The following exist: Medical screening part A score: Medical screening part A recommendation: Part B Headaches: Vomiting: Visual disturbances: Epigastric pain: Proteinuria: Edema: Medical screening part B score: Medical screening part B recommendation: Part C Vaginal exam deferred: Other reason MSE vaginal exam deferred: Dilation: Cervical effacement: Station: Presentation: Contraction pattern: Contraction strength: Membranes: heart rate: Duration of previous labor(s): Medical screening part C score: Medical screening part C recommendation: RN YANNA signature: Provider comments on imported nursing data: [] Provider Attestation Attestation: The QMP MSE reviewed. Comments: Pt triaged at 1921. at 1921 RPT #:[id number] END OF REPORT [facility] 2021-08-14 21:46:00 [facility] ([facility]) OB Medical Screening Exam REPORT#:[id number] REPORT STATUS: Signed DATE:08/14/21 TIME: 2145 PATIENT: YENY TEMPLETON UNIT #: [id number] ROOM/BED: : 93 AGE: 26 SEX: F ATTEND: Kristie Boston MD ADM DT: AUTHOR: Kristie Boston MD * ALL edits or amendments must be made on the electronic/computer document * Medical Screening Exam Provider Attestation Attestation: The QMP MSE reviewed. Provider at bedside at 2131 Comments: 26 y/o IUP 32 1/7 presents due to contractions and possible leaking of fluids. at 2147 RPT #:[id number] END OF REPORT [facility] 2021-08-14 21:46:00 [facility] ([facility]) SHADI Evaluation Note REPORT#:[id number] REPORT STATUS: Signed DATE:08/14/21 TIME: 2145 PATIENT: YENY TEMPLETON UNIT #: [id number] ROOM/BED: : 93 AGE: 26 SEX: F ATTEND: Kristie Boston MD ADM DT: AUTHOR: Kristie Boston MD * ALL edits or amendments must be made on the electronic/computer document * SHADI History Chief complaint: uterine contractions, suspected ruptured memb HPI: 26 y/o IUP 32 05/30 presents due to contractions and possible leaking of fluids. She refers good movements and denies any vaginal bleeding or recent exposure to COVID, fever or SOB. Verbal consent obtained from patient to discuss history, lab results, treatment, plan and any other pertinent information in front of patient's companions. history: : 4 Term: 3 Living children: 3 Current : EDC: 09/08/21 EGA (weeks/days): 32 weeks Past medical history: denies PMH Past surgical history: cholecystectomy Social history: no alcohol use, no drug use, Current smoker 05/31 ppd Family history Relation not specified for: Family History: Unremarkable Medications: Home Medications: Medication Dose/Rte/Freq Days Qty Entered Last Max Daily Dose Reviewed PNV WITH FE 1 TAB PO DAILY 10/30/18 FUMARATE/FA 1700 () Strength: 1 EACH TAB prednisoLONE 10 MG PO BID 06/12/20 Strength: 5 MG TAB 0909 Allergies Coded Allergies: No Known Allergies (06/12/20) Review of Systems Additional notes: Constitutional: Denies: chills, fatigue, fever, generalized weakness, lethargy, malaise. Respiratory: Denies: productive cough (sputum), SOB. GI: Denies: abdominal pain, constipation, diarrhea, nausea, vomiting. : Refers: gush of vaginal fluids and contractions Denies: urgency, vaginal bleeding. Neuro: Denies: headache Objective General VS: PATIENT WEIGHT: Weight (lb): Weight (oz): Weight (kg): Physical Exam Additional comments: Gen: AAOx3 Lungs: normal respiratory effort Neuro: Exam: alert, oriented x3 Abdomen: gravid, soft Uterine activity: Monitor: toco Frequency (description): none Frequency (minutes): MEDICAL MASSAGE THERAPIST: Normal external genitalia Cervical/ exam: Speculum exam:No pooling of amniotic fluid Dilatation (cm): FT (outer os 1 but inner os closed) Effacement (%):thick station: high Membrane status: IM, amnisure negative FHR evaluation: FHR category: category I Results Findings/Data: Laboratory Tests: 08/14 08/14 2200 2145 Miscellaneous Fibronectin (NEGATIVE) NEGATIVE Other Body Source Membrane Rupture (NEGATIVE) NEGATIVE Urines Urine Color (YEL/STRAW) LYRIC H Urine Appearance (CLEAR) SL CLOUDY Urine pH (5.0 - 7.0) 5.0 Ur Specific Ute (1.005 - 1.030) 1.027 Urine Protein (NEGATIVE) 1+ H Urine Glucose (UA) (NEGATIVE) NEGATIVE Urine Ketones (NEGATIVE) TRACE H Urine Blood (NEGATIVE) 1+ H Urine Nitrite (NEGATIVE) NEGATIVE Urine Bilirubin (NEGATIVE) NEGATIVE Urine Urobilinogen (0.2 - 1.0 mg/dL) 2.0 H Ur Leukocyte Esterase (NEGATIVE) NEGATIVE Urine RBC (0 - 3 RBC/HPF) 21-50 Urine WBC (0 - 3 WBC/HPF) 4-9 H Ur Squamous Epith Cells (NONE SEEN /HPF) 0-5 Urine Bacteria (NONE SEEN /HPF) NONE SEEN Urine Mucus (NONE SEEN /LPF) 4+ H Diagnosis, Assessment Plan Diagnosis, Assessment Plan Problem List/A P: 1. 32 weeks gestation of Free Text A P: Initial exam 2122 Patient present due to uterine contractions and leaking of fluids. Will send UA , FFN and amnisure. Re-evaluation 2239 FFN, amnisure negative. UA 1+pro 26 y/o IUP 32 1/ presented due to contractions and possible leaking of fluids. FFN and amnisure negative. Patent found to be hemodynamically stable with normal vital signs, category I strip and found not to be in labor. Oriented on discharge and labor precautions as well as kick counts and she voiced understanding will have her follow-up with her [employer]. Assessment: no evidence labor Impression: reactive NST Plan: discharge home Plan discussed with: patient, nurse at 2253 RPT #:[id number] END OF REPORT [facility] 2020-06-15 10:34:00 [facility] ([facility]) OB Disch REPORT#:[id number] REPORT STATUS: Signed DATE:06/15/20 TIME: 1034 PATIENT: YENY TEMPLETON UNIT #: [id number] ROOM/BED: [place] [address] : 93 AGE: 24 SEX: F ATTEND: Yosi Marroquin MD ADM AUTHOR: Yosi Marroquin MD * ALL edits or amendments must be made on the electronic/computer document * Subjective Subjective Admission EGA: Weeks: 37 Days: 1 Status/day: post Discharge Summary General Problem List/A P: 1. Active labor at term 2. 37 weeks gestation of 3. Idiopathic maternal thrombocytopenia 4. Polyhydramnios, third trimester, fetus 1 Hospital course: augmentation of labor, spontaneous vag delivery, nml postop/ postpart care Discharge condition: stable Discharge to: Home/Self Care Discharge diagnosis: full-term uncomp delivery Discharge management: less than 30 mins Baby A: Vaginal delivery: spontaneous status: live born Gender: male 1 minute: 8 5 minutes: 9 Nursing data: The data set between the solid lines has been imported from nursing documentation. Any exceptions have been noted below under Provider comments. Delivery date A: 06/12/20 Delivery time A: 2059 Birthweight (gm) infant A: 2820 Feeding preference: Gender A: Male 1 minute infant A: 8 5 minutes A: 9 10 minutes infant A: Provider comments on imported nursing data: [] Plan: routine care, discharge today Vaginal packing at delivery: No Discharge Instructions Instructions: routine instr sheet given Diet: Resume Home Diet/Feeds Activity: Resume Normal Activity Additional discharge routines: None at 1036 RPT #:[id number] END OF REPORT [facility] 2020-06-15 10:32:00 [facility] ([facility]) OB Postpart Progr Note REPORT#:[id number] REPORT STATUS: Signed DATE:06/15/20 TIME: 1032 PATIENT: YENY TEMPLETON UNIT #: [id number] ROOM/BED: [place] [address] : 93 AGE: 24 SEX: F ATTEND: Yosi Marroquin MD ADM AUTHOR: Yosi Marroquin MD * ALL edits or amendments must be made on the electronic/computer document * Subjective Subjective Admission EGA: Weeks: 37 Days: 1 Status/Day: post (d3) Patient reports: Patient reports: Yes no complaints, Yes normal lochia, Yes pain management effective, Yes tolerating po well, Yes voiding well, Yes voiding without pain, Yes tolerating ambulation, Yes flatus Objective Nursing Documentation Review Nursing Data: The data set between the solid lines has been imported from nursing documentation. Any exceptions have been noted below under Provider comments. Feeding preference: Provider comments on imported nursing data: [] General VS: Vital Signs: Date Time Temp Pulse Resp B/P B/P Pulse O2 O2 Flow FiO2 Mean Ox Delivery Rate 06/15 0900 36.6 76 16 127/85 98 06/15 0000 36.7 76 17 122/80 98 06/14 2045 36.8 83 17 128/70 97 06/14 1547 36.9 82 18 126/82 99 PATIENT WEIGHT: Weight (lb): 199 Weight (oz): Weight (kg): 90.265 Physical Exam Abdomen: soft, no abnormal tenderness, no guarding Uterus: involution appropriate, non-tender Fundus: firm, below the umbilicus Lochia: normal Lacerations: Perineal laceration(s): None Lower extremities: Edema: none Matthew's sign: negative Calf tenderness: negative Diagnosis, Assessment Plan Diagnosis, Assessment Plan Problem List/A P: 1. Active labor at term 2. 37 weeks gestation of 3. Idiopathic maternal thrombocytopenia 4. Polyhydramnios, third trimester, fetus 1 Assessment: nml progress Plan: routine care, discharge today at 1034 RPT #:[id number] END OF REPORT [facility] 2020-06-14 13:08:00 [facility] ([facility]) OB Postpart Progr Note REPORT#:[id number] REPORT STATUS: Signed DATE:06/14/20 TIME: 1308 PATIENT: YENY TEMPLETON UNIT #: [id number] ROOM/BED: [place] [address] : 93 AGE: 24 SEX: F ATTEND: Yosi Marroquin MD ADM AUTHOR: Yosi Marroquin MD * ALL edits or amendments must be made on the electronic/computer document * Subjective Subjective Admission EGA: Weeks: 37 Days: 1 Status/Day: post (d2) Patient reports: Patient reports: Yes no complaints, Yes normal lochia, Yes pain management effective, Yes tolerating po well, Yes voiding well, Yes voiding without pain, Yes tolerating ambulation, Yes flatus Objective Nursing Documentation Review Nursing Data: The data set between the solid lines has been imported from nursing documentation. Any exceptions have been noted below under Provider comments. Feeding preference: Provider comments on imported nursing data: [] General VS: Vital Signs: Date Time Temp Pulse Resp B/P B/P Pulse O2 O2 Flow FiO2 Mean Ox Delivery Rate 06/14 0755 36.7 77 18 120/79 98 06/14 0027 36.8 84 16 123/83 99 06/13 2025 36.6 85 16 127/83 98 06/13 1600 37.1 94 18 140/83 PATIENT WEIGHT: Weight (lb): 199 Weight (oz): Weight (kg): 90.265 Physical Exam Abdomen: soft, no abnormal tenderness, no guarding Uterus: involution appropriate, non-tender Fundus: firm, below the umbilicus Lochia: normal Lacerations: Perineal laceration(s): None Lower extremities: Edema: none Matthew's sign: negative Calf tenderness: negative Diagnosis, Assessment Plan Diagnosis, Assessment Plan Problem List/A P: 1. Active labor at term 2. 37 weeks gestation of 3. Idiopathic maternal thrombocytopenia 4. Polyhydramnios, third trimester, fetus 1 Assessment: nml progress Plan: routine care at 1310 RPT #:[id number] END OF REPORT [facility] 2020-06-13 20:57:00 [facility] ([facility]) OB Postpart Progr Note REPORT#:[id number] REPORT STATUS: Signed DATE:06/13/20 TIME: 2056 PATIENT: YENY TEMPLETON UNIT #: [id number] ROOM/BED: [place] [address] : 93 AGE: 24 SEX: F ATTEND: Yosi Marroquin MD ADM AUTHOR: Yosi Marroquin MD * ALL edits or amendments must be made on the electronic/computer document * Subjective Subjective Admission EGA: Weeks: 37 Days: 1 Status/Day: post (d1) Patient reports: Patient reports: Yes no complaints, Yes normal lochia, Yes pain management effective, Yes tolerating po well, Yes voiding well, Yes voiding without pain, Yes tolerating ambulation, Yes flatus Objective Nursing Documentation Review Nursing Data: The data set between the solid lines has been imported from nursing documentation. Any exceptions have been noted below under Provider comments. Feeding preference: Provider comments on imported nursing data: [] General VS: Vital Signs: Date Time Temp Pulse Resp B/P B/P Pulse O2 O2 Flow FiO2 Mean Ox Delivery Rate 06/13 1600 37.1 94 18 140/83 06/13 0800 36.6 99 18 123/73 06/13 0410 36.8 99 18 128/50 06/13 0005 37.1 95 18 120/64 98 06/12 2336 83.0 06/12 2336 111 119/61 06/12 2321 88.0 06/12 232 103 123/67 06/12 2314 103 96 06/12 2306 83.0 06/12 2306 90 122/58 93 06/12 2251 37.5 15 06/12 2251 84.0 06/12 2251 111 126/58 06/12 2244 116 97 06/12 2236 86.0 06/12 2236 110 125/60 06/12 2221 88.0 06/12 222 109 131/62 06/12 2207 83.0 06/12 2207 103 127/60 06/12 2151 91.0 06/12 215 105 127/70 06/12 2136 87.0 06/12 2135 107 120/67 06/12 212 93 98 06/12 2121 83.0 06/12 2121 106 110/70 PATIENT WEIGHT: Weight (lb): 199 Weight (oz): Weight (kg): 90.265 Physical Exam Abdomen: soft, no abnormal tenderness, no guarding Uterus: involution appropriate, non-tender Fundus: firm, below the umbilicus Lochia: normal Lacerations: Perineal laceration(s): None Lower extremities: Edema: none Matthew's sign: negative Calf tenderness: negative Result Findings/Data: Laboratory Tests: 06/13 06/13 06/12 06/12 UNK 0400 2133 2132 Blood Gas Cord Blood pH (7.18 - 7.38) 7.33 7.31 Cord Blood PCO2 (32 - 66 mmHg) 40 46 Cord Blood PO2 (6 - 30 mmHg) 29 13 Cord Blood HCO3 (17 - 27 mmol/L) 21 23 Cord Base Excess (-8.0 - 0.0 mmol/L) -4.6 -2.8 Cord O2 Saturation (72 - 77 %) 51 L 13 L Cord VBG pH (7.25 - 7.45) 7.33 Cord VBG pCO2 (27 - 49 mmHg) 40 Cord VBG pO2 (17 - 41 mmHg) 29 Cord VBG HCO3 (12 - 28 MMOL/L) 21.3 Cord VBG Base Excess (-8.0 - 0.00 mmol/L) -4.6 Cord VBG O2 Sat (%) 51 Hematology WBC (4.5 - 11.0 x10 3/uL) 12.1 H RBC (3.54 - 5.02 x10 6/uL) 3.41 L Hgb (11.0 - 15.0 g/dL) 9.3 L Hct (33.0 - 45.0 %) 30.3 L MCV (81.0 - 99.0 fL) 88.9 MCH (27.0 - 33.0 pg) 27.3 MCHC (33.0 - 37.0 g/dL) 30.7 L RDW (11.5 - 14.5 %) 14.5 Plt Count (150 - 400 x10 3/uL) 118 L MPV (7.0 - 9.0 fL) 12.7 H Neut % (Auto) (56.0 - 77.0 %) 82.0 H Lymph % (Auto) (14.0 - 32.0 %) 10.6 L Sumner % (Auto) (4.8 - 9.0 %) 6.4 Eos % (Auto) (0.3 - 3.7 %) 0.1 L Baso % (Auto) (0.0 - 2.0 %) 0.2 Neut # (Auto) (2.0 - 7.6 x10 3/uL) 9.95 H Lymph # (Auto) (1.0 - 3.8 x10 3/uL) 1.28 Sumner # (Auto) (0.1 - 0.8 x10 3/uL) 0.77 Eos # (Auto) (0.0 - 0.2 x10 3/uL) 0.01 Baso # (Auto) (0.0 - 0.2 x10 3/uL) 0.02 Abs Immat Gran (auto) (0.00 - 0.03 x10 3/uL) 0.09 H Add Manual Diff NO Immature Gran % (0.0 - 2.0 %) 0.7 Nucleated RBC % (0 - 0 %) 0.0 Nucleated RBCs # (Man) (0.0 - 0.1 x10 3/uL) 0.00 Diagnosis, Assessment Plan Diagnosis, Assessment Plan Problem List/A P: 1. Active labor at term 2. 37 weeks gestation of 3. Idiopathic maternal thrombocytopenia 4. Polyhydramnios, third trimester, fetus 1 Assessment: ncl progress Plan: routine care at 2056 RPT #:[id number] END OF REPORT [facility] 2020-06-12 21:13:00 [facility] ([facility]) OB Delivery Note REPORT#:[id number] REPORT STATUS: Signed DATE:06/12/20 TIME: 2112 PATIENT: YENY TEMPLETON UNIT #: [id number] ROOM/BED: [place] [id number] : 93 AGE: 24 SEX: F ATTEND: Yosi Marroquin MD ADM AUTHOR: Yosi Marroquin MD * ALL edits or amendments must be made on the electronic/computer document * OB Delivery Nursing Documentation Review Nursing data: The data set between the solid lines has been imported from nursing documentation. Any exceptions have been noted below under Provider comments. _ ROM date: 06/12/20 ROM time: 1334 Membranes rupture method: AROM Amniotic fluid color: Clear Amniotic fluid amount: Steroids prior to arrival: Antibiotic prophylaxis given: evaluation at delivery: Delivery date infant A: Delivery time infant A: Birthweight (gm) A: Weight (lb) A: Weight (oz) A: Gender infant A: 1 minute A: 5 minutes infant A: 10 minutes A: Cord pH obtained infant A: Vacuum time infant A: Vacuum # pulls A: Vacuum # popoffs infant A: QBL at delivery: __ Provider comments on imported nursing data: [] Pre-delivery Admission EGA: Weeks: 37 Days: 1 Baby A Information Baby A information Delivery date: 06/12/20 status: live born Gender: male 1 minute: 8 5 minutes: 9 Presentation: vertex Nuchal cord Baby A Nuchal cord: yes (loose and reduced) Vaginal Delivery Vaginal delivery: Labor: spontaneous Medications/Devices used: oxytocin Vaginal delivery: spontaneous Amniotic fluid: clear Episiotomy: none Placenta: expressed, intact, sent to pathology Post delivery meds used: oxytocin Count: correct Vaginal packing: No Mother's condition: mother stable Infant's condition: infant stable in room Lacerations: Perineal laceration(s): None Blood Loss/Details Blood loss at delivery: 52 at 2115 RPT #:[id number] END OF REPORT [facility] 2020-06-12 15:40:00 [facility] ([facility]) DT History Physical REPORT#:[id number] REPORT STATUS: Signed DATE:06/12/20 TIME: 1540 PATIENT: YENY TEMPLETON UNIT #: [id number] ROOM/BED: [place] [id number] : 93 AGE: 24 SEX: F ATTEND: Yosi Marroquin MD ADM AUTHOR: Yosi Marroquin MD * ALL edits or amendments must be made on the electronic/computer document * History Physical Problem List/A P: 1. Active labor at term 2. 37 weeks gestation of 3. Idiopathic maternal thrombocytopenia 4. Polyhydramnios, third trimester, fetus 1 History Physical Presenting complaint: Contractions History of Present Illness New symptom(s): Pt here for 37 weeks GA with contractions every 2-5 minutes admitted by hospitalist in active labor Current Medications Taking l PredniSONE l Medication List reviewed and reconciled with the patient Past Medical History : yes. Surgical History gallbladder removal 2017 Family History She denies any family history. Social History Tobacco Use: Tobacco Use/Smoking Are you a current some day smoker Tobacco use other than smoking Are you an other tobacco user? 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 Sexual activity currently sexually active. Last pap smear date 2018. Date of Last Period 08/29/2019. Sexually Transmitted Diseases (STDs) none. control none. OB History Total pregnancies 3. Total living children 2. # 1: 2016, normal spontaneous vaginal delivery (), Female, Weight: 6.12. # 2: 2019, normal spontaneous vaginal delivery (), Male, weight: 7.7. Allergies N.K.D.A. Hospitalization/Major Diagnostic Procedure childbirth x's 2 Review of Systems General/Constitutional: Denies Change in appetite. Denies Chills. Denies Fatigue. Denies Fever. Denies Headache. Denies Lightheadedness. Allergy/Immunology: Denies Congestion. Denies Cough. Denies Itching. Denies Rash. Denies Sneezing. Ophthalmologic: Denies Blurred vision. Denies Diminished visual acuity. Denies Discharge. Denies Dry eye. Denies Itching and redness. ENT: Denies Blocked ear. Denies Decreased hearing. Denies Decreased sense of smell. Denies Difficulty swallowing. Denies Dry mouth. Denies Ear pain. Denies Hearing screen. Endocrine: Denies Cold intolerance. Denies Difficulty sleeping. Denies Dizziness. Denies Excessive sweating. Denies Excessive thirst. Denies Frequent urination. Denies Heat intolerance. Respiratory: Denies Chest pain. Denies Cough. Denies Hemoptysis. Denies Pain with inspiration. Denies Shortness of breath at rest. Denies Shortness of breath with exertion. Denies Sputum production. Denies Wheezing. Breast: Denies Bloody nipple discharge. Denies Breast lump. Denies Breast pain. Denies Breast swelling. Denies Fever. Denies Gland swelling. Denies Nipple discharge. Cardiovascular: Denies Chest pain at rest. Denies Chest pain with exertion. Denies Claudication. Denies Cyanosis. Denies Difficulty laying flat. Denies Dizziness. Denies Dyspnea on exertion. Gastrointestinal: Denies Abdominal pain. Denies Blood in stool. Denies Change in bowel habits. Denies Constipation. Denies Decreased appetite. Denies Diarrhea. Denies Difficulty swallowing. Hematology: Denies Breast lump. Denies Dizziness. Denies Easy bruising. Denies Fever. Denies Groin mass. Denies Prolonged bleeding. Denies Recent transfusion. Women Only: Denies Breast lump. Denies Breast pain. Denies Discharge from the breast. Denies Heavy bleeding during menses. Denies Hot flashes. Denies Irregular menses. Denies Missed periods. Genitourinary: Denies Abdominal pain/swelling. Denies Blood in urine. Denies Difficulty urinating. Denies Frequent urination. Denies Pain in lower back. Denies Painful urination. Musculoskeletal: Denies Carpal tunnel. Denies Joint stiffness. Denies Leg cramps. Denies Muscle aches. Denies Pain in shoulder(s). Denies Painful joints. Denies Sciatica. Skin: Denies Acne. Denies Discoloration. Denies Dry skin. Denies Eczema. Neurologic: Denies Balance difficulty. Denies Difficulty speaking. Denies Dizziness. Denies Fainting. Denies Headache. Psychiatric: Denies Eating disorder. Denies Mental or Physical abuse. Vital Signs: Date Time Temp Pulse Resp B/P B/P Pulse O2 O2 Flow FiO2 Mean Ox Delivery Rate 06/12 1221 98.0 06/12 1221 94 145/70 99 06/12 0939 85 98 06/12 0834 88 99 06/12 928 88 99 06/12 924 100.0 06/12 924 36.8 82 18 130/82 99 06/12 923 100.0 06/12 923 86 130/82 97 Temp 96.5 F, Ht 5 ft 4 in, Wt 199 lbs, BMI 34.15 Index, Ht-cm 162.56 cm, Wt-kg 90.27 kg. Examination General Examination: GENERAL APPEARANCE: in no acute distress, well developed, well nourished. HEAD: normocephalic, atraumatic. EYES: pupils equal, round, reactive to light and accommodation. NECK/THYROID: neck supple, full range of motion, no cervical lymphadenopathy. ABDOMEN: normal, no guarding or rigidity, soft, nontender, nondistended.. EXTREMITIES: no clubbing, cyanosis, or edema. Laboratory Tests 06/12/20 1430: [Embedded Image Not Available] Laboratory Tests 06/12 1430 Hematology WBC (4.5 - 11.0 x10 3/uL) 11.2 H RBC (3.54 - 5.02 x10 6/uL) 3.75 Hgb (11.0 - 15.0 g/dL) 10.0 L Hct (33.0 - 45.0 %) 32.3 L MCV (81.0 - 99.0 fL) 86.1 MCH (27.0 - 33.0 pg) 26.7 L MCHC (33.0 - 37.0 g/dL) 31.0 L RDW (11.5 - 14.5 %) 14.6 H Plt Count (150 - 400 x10 3/uL) 110 L MPV (7.0 - 9.0 fL) 12.0 H Neut % (Auto) (56.0 - 77.0 %) 88.5 H Lymph % (Auto) (14.0 - 32.0 %) 8.1 L Sumner % (Auto) (4.8 - 9.0 %) 2.2 L Eos % (Auto) (0.3 - 3.7 %) 0.1 L Baso % (Auto) (0.0 - 2.0 %) 0.2 Neut # (Auto) (2.0 - 7.6 x10 3/uL) 9.89 H Lymph # (Auto) (1.0 - 3.8 x10 3/uL) 0.91 L Sumner # (Auto) (0.1 - 0.8 x10 3/uL) 0.25 Eos # (Auto) (0.0 - 0.2 x10 3/uL) 0.01 Baso # (Auto) (0.0 - 0.2 x10 3/uL) 0.02 Abs Immat Gran (auto) (0.00 - 0.03 x10 3/uL) 0.10 H Add Manual Diff NO Immature Gran % (0.0 - 2.0 %) 0.9 Nucleated RBC % (0 - 0 %) 0.0 Nucleated RBCs # (Man) (0.0 - 0.1 x10 3/uL) 0.00 Platelet Estimate (ADEQUATE THOUSAND) 120-150 Plt Morphology Comment LARGE PLATELETS Laboratory Tests 06/12 0949 Other Body Source Membrane Rupture (NEGATIVE) NEGATIVE Laboratory Tests 06/12 06/12 1346 1330 Serology Hep Bs Antigen (NonReactive INDEX) NON REACTIVE HIV 1 2 Antibody (NONREACTIVE INDEX) NONREACTIVE SARS-CoV-2 Ag (Rapid) (Negative) Negative Assessments/Plan 1. Encounter for supervision of other normal , third trimester - Z34.83 (Primary) in active labor admited to L D for delivery 2. Thrombocytopenia, unspecified - D69.6 stable on Prednisone, will start on IV Hydrocortisone 100mg q8 hours till delivery 3. Polyhydramnios, third trimester, fetus 1 - O40.3XX1 stable followed by Dr Darby. at 1551 RPT #:[id number] END OF REPORT [facility] 2020-06-12 09:43:00 [facility] ([facility] OB Medical Screening Exam REPORT#:[id number] REPORT STATUS: Signed DATE:06/12/20 TIME: 942 PATIENT: YENY TEMPLETON UNIT #: [id number] ROOM/BED: [place] [id number] : 93 AGE: 24 SEX: F ATTEND: Yosi Marroquin MD ADM AUTHOR: Kristie Boston MD * ALL edits or amendments must be made on the electronic/computer document * Medical Screening Exam Provider Attestation Attestation: The P MSE reviewed. Provider at bedside at 0938 Comments: 24 y/o IUP 37 1/7 presents due to regular uterine contractions and possible leaking of fluid. at 1343 RPT #:[id number] END OF REPORT [facility] 2020-06-12 09:43:00 [facility] ([facility]) SHADI Evaluation Note REPORT#:[id number] REPORT STATUS: Signed DATE:06/12/20 TIME: 09 PATIENT: YENY TEMPLETON UNIT #: [id number] ROOM/BED: [place] [id number] : [birth year] AGE: 24 SEX: F ATTEND: Yosi Marroquin MD ADM AUTHOR: Kristie Boston MD * ALL edits or amendments must be made on the electronic/computer document * SHADI History Chief complaint: uterine contractions, suspected ruptured memb HPI: 24 y/o IUP 37 05/30 presents due to regular uterine contractions and possible leaking of fluid. She refers good movements and denies any gush of vaginal fluids, vaginal bleeding or recent exposure to COVID, fever or SOB. Verbal consent obtained from patient to discuss history, lab results, treatment, plan and any other pertinent information in front of patient's companions. history: : 3 Term: 2 Living children: 2 Current : EDC: 07/02/20 EGA (weeks/days): 37 weeks Past medical history: asthma Past surgical history: cholecystectomy Social history: no alcohol use, no drug use, smoker (05/31 ppd) Family history Relation not specified for: Family History: Unremarkable Allergies Coded Allergies: No Known Allergies (06/12/20) Review of Systems Additional notes: Constitutional: Denies: chills, fatigue, fever, generalized weakness, lethargy, malaise. Respiratory: Denies: productive cough (sputum), SOB. GI: refers: one episode of vomiting Denies: abdominal pain, constipation, diarrhea, nausea. : Refers: gush of vaginal fluids and contractions Denies: urgency, vaginal bleeding. Neuro: Denies: headache Objective General VS: Last Documented: Result Date Time B/P Mean 98.0 06/12 1221 Pulse Ox 99 06/12 1221 B/P 145/70 06/12 1221 Pulse 94 06/12 1221 Temp 98.3 06/12 0925 Resp 18 06/12 0925 Vital Signs Date Temp Pulse Resp B/P B/P Mean Pulse Ox FiO2 01/20 98.3 82-94 18 130-145/70-82 98.0-100.0 97-99 PATIENT WEIGHT: Weight (lb): 199 Weight (oz): Weight (kg): 90.265 Physical Exam Additional comments: Gen: AAOx3 Lungs: normal respiratory effort Neuro: Exam: alert, oriented x3 Abdomen: gravid, soft Uterine activity: Monitor: toco Frequency (description): regular Frequency (minutes): 3 MEDICAL MASSAGE THERAPIST: Normal exteral genitalia Cervical/ exam: Speculum exam: No pooling of amniotic fluid Dilatation (cm): 3 Effacement (%): 50 station: -4 Presentation: VX Membrane status:IM, amnisure negative FHR evaluation: FHR category: category I Diagnosis, Assessment Plan Diagnosis, Assessment Plan Problem List/A P: 1. Active labor at term 2. 37 weeks gestation of Free Text A P: initial exam 0938 Patient presents due to leaking of fluids and contractions will keep for labor check. Re-evaluation 1200 Patient now 4 cm 24 y/o IUP 37 05/30 presented due to regular uterine contractions and possible leaking of fluid. Amnisure negative but she was found to be in early labor. Discussed case with Dr. Marroquin, he agreed on admission and will assume care of patient from this point on. Will admit patient to L D. Patient oriented on findings and plan. Assessment: reassuring status Impression: spontaneous active labor Plan: Admit to L D Plan discussed with: patient, nurse, Dr. Marroquin at 1353 RPT #:[id number] END OF REPORT [facility] 2019-03-17 09:17:00 [facility] ([facility]) OB Postpart Progr Note REPORT#:[id number] REPORT STATUS: Signed DATE:03/17/19 TIME: 916 PATIENT: YENY TEMPLETON UNIT #: [id number] ROOM/BED: [place] [id number] : 93 AGE: 23 SEX: F ATTEND: Eleanor Abraham MD ADM AUTHOR: Yosi Marroquin MD * ALL edits or amendments must be made on the electronic/computer document * Subjective Subjective Status/Day: post (d1) Patient reports: Patient reports: Yes no complaints, Yes normal lochia, Yes pain management effective, Yes tolerating po well, Yes voiding well, Yes voiding without pain, Yes tolerating ambulation, Yes flatus Objective Nursing Documentation Review Nursing Data: The data set between the solid lines has been imported from nursing documentation. Any exceptions have been noted below under Provider comments. Feeding preference: Provider comments on imported nursing data: [] General VS: Vital Signs: Date Time Temp Pulse Resp B/P B/P Pulse O2 O2 Flow FiO2 Mean Ox Delivery Rate 03/17 0705 36.4 70 16 121/67 03/17 0500 36.6 72 18 133/74 03/16 2045 36.9 94 129/76 03/16 1345 37.1 90 18 122/69 03/16 1324 85.0 03/16 1324 57 123/59 03/16 1309 88.0 03/16 1309 100 133/61 03/16 1254 99.0 03/16 1254 81 144/69 03/16 1239 96.0 03/16 1239 77 126/74 03/16 1224 91.0 03/16 1224 81 121/71 03/16 1209 93.0 03/16 1209 76 122/73 03/16 1154 92.0 03/16 1154 83 118/72 03/16 1139 88.0 03/16 1139 83 130/61 03/16 1124 90.0 03/16 1124 76 129/65 03/16 1109 94.0 03/16 1109 76 131/69 03/16 1054 36.8 03/16 1054 90.0 03/16 1054 94 133/63 03/16 1051 90 96 03/16 1047 94 94 03/16 1046 105 93 03/16 1042 95 93 03/16 1041 95 97 03/16 1036 123 81 03/16 1031 78 84 03/16 1026 87.0 03/16 1026 82 118/67 98 03/16 1024 84 85 03/16 1021 96 99 03/16 1017 86 91 03/16 1016 82 100 03/16 1011 97.0 03/16 1011 79 112/87 100 03/16 1006 80 98 03/16 1001 75 100 03/16 0956 88.0 03/16 0956 77 129/64 99 03/16 0951 78 100 03/16 0946 67 100 03/16 0941 72 91 03/16 0939 92.0 03/16 0939 72 121/74 03/16 0936 76 100 03/16 0931 70 100 03/16 0926 69 100 03/16 0925 93.0 03/16 0925 69 132/65 03/16 0923 76 90 03/16 0921 73 99 Patient Weight Weight (lb): Weight (oz): Weight (kg): Physical Exam Abdomen: soft, no abnormal tenderness, no guarding Uterus: involution appropriate, non-tender Fundus: firm, below the umbilicus Lochia: normal Lower extremities: Edema: none Matthew's sign: negative Calf tenderness: negative Result Findings/Data: Laboratory Tests: 03/17 03/16 03/16 0515 1050 1050 Blood Gas Cord Blood pH (7.18 - 7.38) 7.23 Cord Blood PCO2 (32 - 66 mmHg) 57 Cord Blood PO2 (6 - 30 mmHg) 21 Cord Blood HCO3 (17 - 27 mmol/L) 24 Cord Base Excess (-8.0 - 0.0 mmol/L) -3.0 Cord O2 Saturation (72 - 77 %) 26 L Cord VBG pH (7.25 - 7.45) 7.38 Cord VBG pCO2 (27 - 49 mmHg) 36 Cord VBG pO2 (17 - 41 mmHg) 27 Cord VBG HCO3 (12 - 28 MMOL/L) 21.2 Cord VBG Base Excess (-8.0 - 0.00 mmol/L) -4.0 Cord VBG O2 Sat (%) 50 Hematology WBC (4.5 - 11.0 x10 3/uL) 6.49 RBC (3.54 - 5.02 x10 6/uL) 3.36 L Hgb (11.0 - 15.0 g/dL) 9.4 L Hct (33.0 - 45.0 %) 30.4 L MCV (81.0 - 99.0 fL) 90.5 MCH (27.0 - 33.0 pg) 28.0 MCHC (33.0 - 37.0 g/dL) 30.9 L RDW (11.5 - 14.5 %) 14.1 Plt Count (150 - 400 x10 3/uL) 101 L MPV (7.0 - 9.0 fL) 12.3 H Neut % (Auto) (56.0 - 77.0 %) 65.0 Lymph % (Auto) (14.0 - 32.0 %) 24.3 Sumner % (Auto) (4.8 - 9.0 %) 7.2 Eos % (Auto) (0.3 - 3.7 %) 2.9 Baso % (Auto) (0.0 - 2.0 %) 0.3 Neut # (Auto) (2.0 - 7.6 x10 3/uL) 4.21 Lymph # (Auto) (1.0 - 3.8 x10 3/uL) 1.58 Sumner # (Auto) (0.1 - 0.8 x10 3/uL) 0.47 Eos # (Auto) (0.0 - 0.2 x10 3/uL) 0.19 Baso # (Auto) (0.0 - 0.2 x10 3/uL) 0.02 Abs Immat Gran (auto) (0.00 - 0.03 x10 3/uL) 0.02 Add Manual Diff NO Immature Gran % (0.0 - 2.0 %) 0.3 Nucleated RBC % (0 - 0 %) 0.0 Nucleated RBCs # (Man) (0.0 - 0.1 x10 3/uL) 0.00 Diagnosis, Assessment Plan Diagnosis, Assessment Plan Assessment: nml progress Plan: routine care at 0917 RPT #:[id number] END OF REPORT [facility] 2019-03-17 09:17:00 [facility] ([facility]) OB Disch REPORT#:[id number] REPORT STATUS: Signed DATE:03/17/19 TIME: 916 PATIENT: YENY TEMPLETON UNIT #: [id number] ROOM/BED: [place] [id number] : 93 AGE: 23 SEX: F ATTEND: Eleanor Abraham MD ADM AUTHOR: Yosi Marroquin MD * ALL edits or amendments must be made on the electronic/computer document * Subjective Subjective Admission EGA (wks/days): 39 weeks EGA at delivery (wks/days): 39 weeks Status/day: post (d1) Objective Physical Exam Lungs: UNLABORED Neuro: Exam: alert, oriented x3, normal gait Lower extremities: Edema: none Discharge Summary Discharge Summary Hospital course: spontaneous labor, spontaneous vag delivery, nml postop/ postpart care Baby A: Vaginal delivery: spontaneous status: live born Gender: male Instructions: routine instr sheet given Diet: regular Activity and restrictions: up ad marquise, may shower, pelvic rest, no intercourse for 6 wks, no driving Contraception discussed: abstinence for 4-6 weeks, will discuss at PP visit Prescriptions: none Discharge condition: stable Discharge to: home Follow up in: 1 week Discharge diagnosis: full-term uncomp delivery Discharge management: less than 30 mins at 0918 RPT #:[id number] END OF REPORT [facility] 2019-03-16 12:29:00 [facility] ([facility]) Post Anesthesia Evaluation REPORT#:[id number] REPORT STATUS: Signed DATE:03/16/19 TIME: 1228 PATIENT: YENY TEMPLETON UNIT #: [id number] ROOM/BED: [place] [id number] : 93 AGE: 23 SEX: F ATTEND: Eleanor Abraham MD ADM AUTHOR: Johnny Landin MD * ALL edits or amendments must be made on the electronic/computer document * Post Anesthesia Evaluation Anes. changes from pre-op eval Level of consciousness: patient awake Vital signs: Last Documented: Result Date Time B/P Mean 92.0 03/16 1154 B/P 118/72 03/16 1154 Pulse 83 03/16 1154 Temp 36.8 03/16 1054 Pulse Ox 96 03/16 1051 Respiratory/Airway: respiratory system stable Pain: adequately controlled Hydration: adequate Presence of N/V: no Anesthesia complications: no at 1231 RPT #:[id number] END OF REPORT [facility] 2019-03-16 10:45:00 [facility]) OB Delivery Note REPORT#:[id number] REPORT STATUS: Signed DATE:03/16/19 TIME: 1045 PATIENT: YENY TEMPLETON UNIT #: [id number] ROOM/BED: [place] [id number] : 93 AGE: 23 SEX: F ATTEND: Eleanor Abraham MD ADM AUTHOR: Yosi Marroquin MD * ALL edits or amendments must be made on the electronic/computer document * OB Delivery Nursing Documentation Review Nursing data: The data set between the solid lines has been imported from nursing documentation. Any exceptions have been noted below under Provider comments. _ ROM date: 03/16/19 ROM time: 0545 Membranes rupture method: AROM Amniotic fluid color: Clear Amniotic fluid amount: EGA (weeks/days): 39.3 EGA at admit (weeks): EGA at delivery (weeks): 39 Steroids prior to arrival: Antibiotic prophylaxis given: [place] evaluation at delivery: Delivery date A: Delivery time A: Birthweight (gm) A: Weight (lb) infant A: Weight (oz) A: Gender infant A: 1 minute infant A: 5 minutes infant A: 10 minutes infant A: Cord pH obtained A: Vacuum time infant A: Vacuum # pulls A: Vacuum # popoffs infant A: __ Provider comments on imported nursing data: [] Pre-delivery [place] evaluation at delivery: NRP certified personnel Admission EGA (wks/days): 39 weeks EGA at delivery (wks/days): 39 weeks General VS: Last Documented: Result Date Time B/P Mean 88.0 03/16 956 Pulse Ox 99 03/16 956 B/P 129/64 03/16 956 Pulse 77 03/16 956 Temp 36.7 03/16 0854 Membranes: AROM ROM date: 03/16/19 Amniotic fluid: clear Baby A Information Baby A information Delivery date: 03/16/19 status: live born Gender: male Presentation: vertex ABG details Baby A Cord blood gases: collected Nuchal cord Baby A Nuchal cord: no Vaginal Delivery Vaginal delivery Labor: spontaneous Medications/Devices used: oxytocin Vaginal delivery: spontaneous Amniotic fluid: clear Anesthesia type: epidural anesthesia Episiotomy: none Laceration repair: yes Episiotomy/laceration suture: 2-0 (vicryl) Placenta: spontaneous, intact, sent to pathology Post delivery meds used: oxytocin Count: correct Mother's condition: mother stable Infant's condition: stable in room Lacerations: Perineal laceration(s): 1st Degree w/vagina Blood Loss/Details EBL (ml's): 250 at 1047 RPT #:[id number] END OF REPORT [facility] 2019-03-16 06:01:00 [facility]) OB-MEDICAL MASSAGE THERAPIST Progress Note REPORT#:[id number] REPORT STATUS: Signed DATE:03/16/19 TIME: 600 PATIENT: YENY TEMPLETON UNIT #: [id number] ROOM/BED: [place] [address] : 93 AGE: 23 SEX: F ATTEND: Eleanor Abraham MD ADM AUTHOR: Eleanor Abraham MD * ALL edits or amendments must be made on the electronic/computer document * Subjective Chief Complaint: PATIENT REQUESTING FOR EPIDURAL. NOTED THE HEART RATE BASELINE CHANGE TO 110. CERVICAL CHECK AND AROM DONE @ 545AM. 5 CMS/40/-1. CLEAR AMNIOTIC FLUID NOTED. SCALP STIMULATION WITH GOOD ACCELERATIONS. WILL CONTINUE OBSERVATION. at 0604 RPT #:[id number] END OF REPORT [facility] 2019-03-16 01:59:00 [facility]) OB Admission / H P REPORT#:[id number] REPORT STATUS: Signed DATE:03/16/19 TIME: 158 PATIENT: YENY TEMPLETON UNIT #: [id number] ROOM/BED: [place] [address] : 93 AGE: 23 SEX: F ATTEND: Eleanor Abraham MD ADM DT: AUTHOR: Eleanor Abraham MD * ALL edits or amendments must be made on the electronic/computer document * OB Admission H P Hx Chief complaint: elevated blood pressure HPI: 23 YEARS OLD, F, , X1, 39 4/7 WEEKS AOG, JULIENNE-03/19/19, FOLLOWING DR. MARROQUIN COMPLAINS OF CONTRACTIONS FOR THE LAST 3-4 HOURS. HAD BECOME STRONGER AND Q2-3 MINS X1 HOUR PRIOR TO PRESENTATION. FEELS THE BABY MOVING, NO LOSS OF FLUID, NO VAGINAL BLEEDING NOR DYSURIA. COURSE: DEPRESSION ON ZOLOFT. GBS ? history: : 2 Term: 1 Living children: 1 Comments: 41 WEEKS IOL, 6#12OZ Past medical history: depression Past surgical history: cholecystectomy Family history Relation not specified for: Family History: Unremarkable Medications: Home Medications: PNV WITH FE FUMARATE/FA () 1 TAB PO DAILY SERTRALINE (ZOLOFT) 25 MG PO DAILY Allergies Coded Allergies: No Known Allergies (03/11/18) Review of Systems Constitutional: Denies: chills, fever, malaise. Eyes: Denies: visual loss/blurred, photophobia. Respiratory: Denies: ESPINOZA (dyspnea on exertion), SOB. Cardiovascular: Denies: chest pain, palpitations. GI: Denies: constipation, diarrhea, nausea, vomiting. : Denies: dysuria, urgency. Musculoskeletal: Denies: extremity pain, extremity swelling. Neuro: Denies: dizziness, numbness. Psych: Denies: homicidal ideation, suicidal ideation. Objective General VS: Patient Weight Weight (lb): Weight (oz): Weight (kg): Physical Exam HEENT: no scleral icterus Lungs: UNLABORED Neuro: Exam: alert, oriented x3, normal gait Abdomen: gravid, soft, no abnormal tenderness, no guarding, no rebound tenderness Uterine activity: Monitor: toco Frequency (description): regular Frequency (minutes): 4 Duration (seconds): 60 Intensity: moderate Pelvic exam: Pelvis clinically adequate: yes Cervical/ exam: Dilatation (cm): 4 Effacement (%): 40 Est wt (gms): 3000 station: - 3 presentation: cephalic Membranes: Membranes: Intact Lower extremities: Edema: none Diagnosis, Assessment Plan Diagnosis, Assessment Plan Assessment/Impression: spont.active labor>39 wks, normal FHR pattern Comments: WILL ADMIT PATIENT. GBS PROPHYLAXIS FOR GBS UNKNOWN. PAIN MANAGEMENT. POSSIBLE AUGMENTATION IF NEEDED. HOSPITALIST COVERING FOR DR MARROQUIN at 0212 RPT #:[id number] END OF REPORT [facility] 2019-02-15 22:28:00 [facility] ([facility]) OB Triage Visit REPORT#:[id number] REPORT STATUS: Signed DATE:02/15/19 TIME: 2227 PATIENT: YENY TEMPLETON UNIT #: [id number] ROOM/BED: [facility] : 93 AGE: 23 SEX: F ATTEND: Princess Trivedi MD ADM DT: AUTHOR: Princess Trivedi MD * ALL edits or amendments must be made on the electronic/computer document * Subjective Subjective Patient reports: leaking fluid History Chief complaint Chief complaint: evaluate for PPROM HPI: 23 yo at 35.3 weeks. She noticed LOF at work today at 4:35pm which went through her pants. Has felt a small amount of leakage since then. Rare contraction. No vb. Good fm. history: : 2 Term: 1 Living children: 1 Current Current : EGA (weeks/days): 35.3 weeks Conditions of : none Past history Past medical history: asthma (childhood) Past surgical history: cholecystectomy Social history: no alcohol use, no drug use, about 1 cig occassionally Family history Relation not specified for: Family History: Unremarkable Medications: Home Medications: Medication Dose/Rte/Freq Days Qty Entered Last Max Daily Dose Reviewed PNV WITH FE 1 TAB PO DAILY 10/30/18 FUMARATE/FA 1700 () Strength: 1 EACH TAB Allergies Coded Allergies: No Known Allergies (03/11/18) Review of Systems Constitutional: Denies: chills, fever. Respiratory: Denies: SOB, wheezing. Cardiovascular: Denies: chest pain. GI: Denies: nausea, vomiting. : Reports: , vaginal discharge. Denies: pelvic pain, vaginal bleeding. Musculoskeletal: Denies: extremity pain, extremity swelling. Neuro: Denies: headache. Objective General VS: Patient Weight Weight (lb): Weight (oz): Weight (kg): Notes: Gen: well appearing gravid female in NAD Pulm: nl respiratory effort CV: no JVD/edema Abd: NT gravid soft Ext: -C/C/E Physical Exam: External genitalia: normal Cervical/ exam: Dilatation (cm): 0 - closed Effacement (%): 10 station: - 5 Uterine activity: Monitor: toco Frequency (description): irregular heart rate pattern: category I Diagnosis, Assessment Plan Diagnosis, Assessment Plan Free text A P: A/P Possible PPROM at 35.3 weeks Amnisure negative and [place]MEN[place]A 13 Will send home with labor precautions at 5877 RPT #:[id number] END OF REPORT [facility] 2018-10-30 17:52:00 [facility] ([facility]) OB Triage Visit REPORT#:[id number] REPORT STATUS: Signed DATE:10/30/18 TIME: 1752 PATIENT: YENY TEMPLETON UNIT #: [id number] ROOM/BED: [place] [address] : 93 AGE: 23 SEX: F ATTEND: Yosi Marroquin MD ADM DT: AUTHOR: Marcial Escobedo MD * ALL edits or amendments must be made on the electronic/computer document * Subjective Subjective Patient reports: PELVIC PAIN. History Nursing Documentation Review Nursing data: The data set between the solid lines has been imported from nursing documentation. Any exceptions have been noted below under Provider comments. Current data Steroids prior to arrival: ROM date: ROM time: EGA (weeks/days): EGA at admit (weeks): EDC date: Prior history : Para: Term: : Abortions spontaneous: Abortions induced: Living children: Ectopic: Stillbirths: Live births: deaths: Number of previous C/S: Reported maternal labs/data Blood type: Rh type: Rubella: Hepatitis B: HIV+ exposure test: VDRL: Group B beta strep: Rho(D) immune globulin this preg: Monitor mode - UA: Feeding preference: Provider comments on imported nursing data: [] Chief complaint HPI: 23YO , , 20WKS. C/O SHOOTING PELVIC THAT SHE STATES GETTING BETTER. BUT NOW C/O OLMSTEAD. SHE DENIES DYSURIA, VB . history: : 2 Term: 1 Past history Past medical history: denies PMH Past surgical history: cholecystectomy Social history: no alcohol use, no tobacco use, no drug use Family history Relation not specified for: Family History: Unremarkable Medications: Home Medications: Medication Dose/Rte/Freq Days Qty Entered Last Max Daily Dose Reviewed PNV WITH FE 1 TAB PO DAILY 10/30/18 10/30/18 FUMARATE/FA 1700 1700 () Strength: 1 EACH TAB Current Hospital Medications: Central Nervous System Agents Sig/Shaun Start time Last Medication Dose Route Stop Time Status Admin Acetaminophen 650 MG ONCE ONE 10/30 1800 AC (TYLENOL) PO 10/30 1801 Allergies Coded Allergies: No Known Allergies (03/11/18) Objective Physical Exam: heart rate pattern: DOPPLER HEART TONE Diagnosis, Assessment Plan Diagnosis, Assessment Plan Assessment: R/O UTI OLMSTEAD. Plan: UA, AND TYLENOL FOR OLMSTEAD. IF UA NEG WILL D/C HOME AND PT TO F/U DR MARROQUIN. at 1802 RPT #:[id number] END OF REPORT [facility]
[2025-02-18] MEDS ORDERED: NA CHLORIDE 0.9% 1,000 ML ONE (13:25)
[2025-02-18] MEDS ORDERED: MORPHINE 4 MG/ML SYR ONE (13:25)
[2025-02-18] MEDS ORDERED: ONDANSETRON 4 MG/2 ML VIAL ONE (13:25)
[2025-02-18 13:48] LABS: Absolute Lymphocytes (CBC) 1.2 K/uL (0.7-4.9); Hematocrit 42.6 % (36.0-45.0); Hemoglobin 14.9 g/dL (12.0-15.0); MCH 30.7 pg (27.0-35.0); MCHC 34.9 g/dL (32.0-36.0); MCV 87.8 fL (80-100); MPV 9.9 fL (7.6-11.3); Nucleated RBC Absolute Count 0.0 (0-0); Nucleated Red Blood Cells % 0.1 % (0-0); RBC Red Blood Cell Count 4.85 M/uL (3.86-4.86); White Blood Count 6.50 thou/uL (4.3-10.9)
[2025-02-18 14:00] LABS: ALT/SGPT 31.0 U/L (13-56); AST/SGOT 67.0 U/L (15-37); Albumin 3.8 g/dL (3.4-5.0); Albumin/Globulin Ratio 0.9 (1.1-1.8); Alkaline Phosphatase 81.0 U/L (45-117); Anion Gap 11.1 mEq/L (5.0-15.0); BUN Blood Urea Nitrogen 8.0 mg/dL (7-18); Globulin 4.1 g/dL (2.3-3.5); Glucose Level 100.0 mg/dL (74-106); Lipase 17.0 U/L (13-75); Potassium 3.1 mEq/L (3.5-5.1)
[2025-02-18 15:07] LABS: Calcium Oxalate Crystals- Ur Few /HPF (None Seen); Sqamous Epithelial <5 /HPF (None Seen); Urine Culture Reflex Order NOT NEEDED; Urine Microscopic Reflex YN ORDER UMIC
--- NOTE | 2025-02-18 15:43 | RAD REPORT ---
EXAMINATION: CT Stone Protocol CLINICAL INDICATION: Female, 29 years old. ABD PAIN TECHNIQUE: CT abdomen and pelvis was performed, without IV contrast, as per department protocol. Axia l, sagittal and coronal reconstructions were obtained. One or more of the following dose reduction techniques were used: Automated exposure control, adjustment of the mA and kV according to the patien t size, and iterative reconstruction. Unless otherwise specified, incidental findings do not require dedicated imaging follow-up. COMPARISON: No prior exam. FINDINGS: The lack of intravenous contrast limits the sensitivity of this exam for evaluation of solid visceral organs, vascular structures, and retroperitoneum. LOWER CHEST: The visualized lung bases are clear. LIVER: Normal in size and contour. No focal lesion. BILIARY SYSTEM: Status post cholecystectomy. SPLEEN: Stable splenomegaly measuring 14.6 cm in AP dimension. No focal lesion. PANCREAS: No mass, ductal dilation, or kortney-pancreatic fluid. ADRENALS: Normal; no mass. KIDNEYS AND URETERS: Normal size and contour. 1.1 cm calculus within the right lower calyx. No hydron ephrosis. URINARY BLADDER: Decompressed limiting evaluation. GASTROINTESTINAL TRACT: No evidence of bowel obstruction, significant free fluid, free air or abscess . APPENDIX: Normal appendix. LYMPH NODES: No lymphadenopathy. MUSCULOSKELETAL: No acute or suspicious osseous abnormality. ADDITIONAL FINDINGS: IUD in place. IMPRESSION: Right lower renal pole 0.1 cm calculus. No evidence of obstruction. Stable splenomegaly.
--- NOTE | 2025-02-18 15:59 | EDPHYS ---
Physician Documentation [facility] Name: Yeny Kc Age: 29 yrs Sex: Female : 1995 Arrival Date: 02/18/2025 Time: 13:05 Bed 2 Private MD: ED Physician Lambert Jaeger HPI: 02/18 15:00 This 29 yrs old Female presents to ER via Ambulatory with complaints of dr5 Abdominal Pain, Dizziness, Vomiting. 15:00 The patient presents with abdominal pain. Onset: The symptoms/episode began/occurred dr5 acutely. Patient is a 29-year-old female with history of gastroparesis and kidney stones coming in with nausea and vomiting for the past 3 days and generalized lower abdominal pain. Patient reports that she has had kidney stones in the past and this feels like. Patient denies fever patient reports she has a urologist in [place] that she is seeing for her nephrolithiasis... BEREAVEMENT PROGRAM COORDINATOR: 14:54 LMP N/A - control method, Not nh2 Historical: - Allergies: 13:17 No Known Allergies; jb4 - PMHx: 13:17 Gastroparesis; Kidney stone; jb4 - PSHx: 13:17 Cholecystectomy; jb4 - Immunization history:: Adult Immunizations up to date. - Infectious Disease History:: Denies. - Social history:: Smoking status: Reported history of juuling and/or vaping. ROS: 15:00 Constitutional: as per hpi dr5 Exam: 15:00 Constitutional: This is a well developed, well nourished patient who is awake, alert, dr5 and in no acute distress. Head/Face: Normocephalic, atraumatic. Eyes: Pupils equal round and reactive to light, extra-ocular motions intact. Lids and lashes normal. Conjunctiva and sclera are non-icteric and not injected. Cornea within normal limits. Periorbital areas with no swelling, redness, or edema. Neck: Trachea midline, no thyromegaly or masses palpated, and no cervical lymphadenopathy. Supple, full range of motion without nuchal rigidity, or vertebral point tenderness. No Meningismus. Chest/axilla: Normal chest wall appearance and motion. Nontender with no deformity. No lesions are appreciated. Cardiovascular: Regular rate and rhythm with a normal S1 and S2. Normal PMI, no JVD. No pulse deficits. Respiratory: Lungs have equal breath sounds bilaterally, clear to auscultation. No rales, rhonchi or wheezes noted. No increased work of breathing, no retractions or nasal flaring. Abdomen/GI: Soft, non-tender, non-distended Back: No spinal tenderness. No costovertebral tenderness. Full range of motion. Skin: Warm, dry with normal turgor. Normal color with no rashes, no lesions, and no evidence of cellulitis. MS/ Extremity: Pulses equal, no cyanosis. Neurovascular intact. Full, normal range of motion. Neuro: Awake and alert, GCS 15, oriented to person, place, time, and situation. Cranial nerves II-XII grossly intact. Motor strength 5/5 in all extremities. Sensory grossly intact. Cerebellar exam normal. Normal gait. Vital Signs: 13:23 BP 147 / 98; Pulse 82; Resp 18; Temp 98.3; Pulse Ox 98% on R/A; Weight 84.82 kg; Height rk3 5 ft. 0 in. ; 14:30 BP 138 / 84; Pulse 68; Resp 18; Pulse Ox 98% on R/A; nh2 15:30 BP 132 / 91; Pulse 57; Resp 18; Pulse Ox 98% on R/A; nh2 13:23 Body Mass Index 36.52 (84.82 kg, 152.4 cm) rk3 MDM: 13:11 Medical Screening Exam initiated dr5 16:12 Differential diagnosis: urinary tract infection, Nephrolithiasis, pancreatitis, urinary dr5 tract infection, acute kidney injury. Data reviewed: vital signs, nurses notes, lab test result(s), amylase and lipase, CBC, white blood cell count, hemoglobin, hematocrit, platelets, electrolytes, sodium, potassium, chloride, serum bicarbonate, BUN, creatinine, serum glucose. Data reviewed: vital signs, nurses notes, lab test result(s), amylase and lipase, CBC, white blood cell count, hemoglobin, hematocrit, platelets, electrolytes, sodium, potassium, chloride, serum bicarbonate, BUN, creatinine, serum glucose, radiologic studies, CT scan. 16:12 Consideration of Admission/Observation Escalation of care including dr5 admission/observation considered. Escalation considered if patient found to have hydronephrosis and obstructing stone.. I considered the following discharge prescriptions or medication management in the emergency department I discussed and recommended Over The Counter medications, Medications were administered in the Emergency Department. See MAR. Care significantly affected by the following chronic conditions: Gastroparesis, kidney stones. Care significantly affected by the following Social Determinants of Health: Poor access to healthcare and/or lack of insurance, Poor access to transportation, Problems related to employment. Counseling: I had a detailed discussion with the patient and/or guardian regarding the historical points, exam findings, and any diagnostic results supporting the discharge/admit diagnosis, the presence of at least one elevated blood pressure reading (>120/80) during this emergency department visit, lab results, radiology results, the need for outpatient follow up, for definitive care, a family practitioner, a urologist, to return to the emergency department if symptoms worsen or persist or if there are any questions or concerns that arise at home. Medication response: Morphine, Zofran, normal saline. Response to treatment: the patient's symptoms have markedly improved after treatment. Special discussion: I discussed with the patient/guardian in detail that at this point there is no indication for admission to the hospital. It is understood, however, that if the symptoms persist or worsen the patient needs to return immediately for re-evaluation. Based on the history and exam findings, there is no indication for further emergent testing or inpatient evaluation. I discussed with the patient/guardian the need to see the urologist for further evaluation of the symptoms. ED course: Will have patient follow-up with urologist in [place]. CT scan printed on CD and report printed for her as well as labs to take with her. Will prescribe Keflex for possible urinary tract infection as well as Flomax and Toradol help with pain and passage of stone. All questions answered. Strict ER precautions given.. 16:15 Independent interpretation of the following test(s) in the Emergency Department CT dr5 Scan: My interpretation is Independent termination of CT scan reveals punctuate stone in ureter likely kidney stone.. 02/18 13:31 Order name: CBC with Diff; Complete Time: 14:15 dr5 02/18 13:31 Order name: CMP; Complete Time: 14:15 dr5 02/18 13:31 Order name: Lipase; Complete Time: 14:15 02/18 13:31 Order name: UA Rfx Avi Cult if indicated; Complete Time: 15:20 02/18 13:31 Order name: Test, Urine; Complete Time: 15:07 02/18 13:31 Order name: Stone Protocol CT; Complete Time: 15:51 dr5 02/18 13:31 Order name: IV Saline Lock; Complete Time: 13:32 dr5 02/18 13:31 Order name: Labs collected and sent; Complete Time: 13:32 dr5 Administered Medications: 13:43 Drug: NS 0.9% IV 1000 ml IV at 1 bolus Per protocol; to be given as a bolus over 60 nh2 minutes Route: IV; Rate: 1 bolus; Site: right antecubital; 15:43 Follow up: IV Status: Completed infusion; IV Intake: 1000ml nh2 13:44 Drug: Ondansetron IVP 4 mg IVP once; over 2 minutes Route: IVP; Site: right antecubital;nh2 14:00 Follow up: Response: No adverse reaction nh2 13:44 Drug: morphine IVP or IV 4 mg IVP once over 4 mins Route: IVP; Infused Over: 4 mins; nh2 Site: right antecubital; 15:43 Follow up: Response: No adverse reaction; Pain is decreased nh2 Disposition Summary: 02/18/25 15:58 Discharge Ordered Notes: Location: Home dr5 Condition: Stable dr5 Diagnosis - Kidney Stone/ Calculus in urethra - ureter dr5 Followup: dr5 - With: Emergency Department - When: As needed - Reason: Worsening of condition Followup: dr5 - With: Private Physician - When: [facility] - Reason: Discharge Instructions: - Discharge Summary Sheet dr5 - Kidney Stones dr5 - Dietary Guidelines to Help Prevent Kidney Stones dr5 Forms: - Medication Reconciliation Form dr5 - Antibiotic Education dr5 - Prescription Opioid Use dr5 - Patient Portal Instructions dr5 - Leadership Thank You Letter dr5 Prescriptions: - Flomax 0.4 mg Oral capsule - take 1 capsule ORAL route daily; 30 capsule; Refills: 0, Product Selection dr5 Permitted - ketorolac 10 mg Oral tablet - take 1 tablet ORAL route every 6 hours As needed; 30 tablet; Refills: 0, dr5 Product Selection Permitted - Cephalexin 500 mg Oral Capsule - take 1 capsule ORAL route every 12 hours for 10 days; 20 capsule; Refills: 0, dr5 Product Selection Permitted - Tramadol 50 mg Oral Tablet - take 1 tablet ORAL route every 8 hours as needed; 12 tablet; Refills: 0, dr5 Product Selection Permitted Signatures: Dispatcher [employer] EDLaureano Hoffman RN RN jb4 Dagoberto rAanda Jr RN RN nh2 Dudley Colón, [employer]-Cdr5 Corrections: (The following items were deleted from the chart) 16:16 16:12 I considered the following discharge prescriptions or medication management in dr5 the emergency department I discussed and recommended Over The Counter medications, Medications were administered in the Emergency Department. See MAR dr5
--- NOTE | 2025-02-18 15:59 | ER ---
Nurse's Notes [facility] Name: Yeny Kc Age: 29 yrs Sex: Female : 1995 Arrival Date: 02/18/2025 Time: 13:05 Bed 2 Private MD: Diagnosis: Kidney Stone/ Calculus in urethra-ureter Presentation: 02/18 13:17 Chief complaint: Patient states: I have been lightheaded, having N/V, and decreased jb4 appetite for the past 3-4 days. Coronavirus screen: At this time, the client does not indicate any symptoms associated with coronavirus-19. Ebola Screen: No symptoms or risks identified at this time. Risk Assessment: Do you want to hurt yourself or someone else? Patient reports no desire to harm self or others. Onset of symptoms was February 14, 2025. Transition of care: patient was not received from another setting of care. 13:17 Method Of Arrival: Ambulatory jb4 13:17 Acuity: EDWARDO 3 jb4 13:30 Initial Sepsis Screen: Does the patient meet any 2 criteria? No. Patient's initial nh2 sepsis screen is negative. Does the patient have a suspected source of infection? No. Patient's initial sepsis screen is negative. ROPE TIER: 14:54 LMP N/A - control method, Not nh2 Historical: - Allergies: 13:17 No Known Allergies; jb4 - PMHx: 13:17 Gastroparesis; Kidney stone; jb4 - PSHx: 13:17 Cholecystectomy; jb4 - Immunization history:: Adult Immunizations up to date. - Infectious Disease History:: Denies. - Social history:: Smoking status: Reported history of juuling and/or vaping. Screenin:30 [facility] ED Fall Risk Assessment (Adult) History of falling in the last 3 months, nh2 including since admission No falls in past 3 months (0 pts) Confusion or Disorientation No (0 pts) Intoxicated or Sedated No (0 pts) Impaired Gait No (0 pts) Mobility Assist Device Used No (0 pt) Altered Elimination No (0 pt) Score/Fall Risk Level 0 - 2 = Low Risk Oriented to surroundings, Maintained a safe environment, Educated pt \T\ family on fall prevention, incl call for assistance when getting out of bed, Assessed \T\ reinforced patient's understanding of fall precautions. Abuse screen: Denies threats or abuse. Denies injuries from another. Nutritional screening: No deficits noted. Tuberculosis screening: No symptoms or risk factors identified. Assessment: 13:35 General: Appears uncomfortable, Behavior is calm, cooperative, appropriate for age. nh2 Pain: Complains of pain in right lower quadrant and left lower quadrant Pain does not radiate. Pain currently is 8 out of 10 on a pain scale. Quality of pain is described as aching, Pain began 2-3 days ago. Is intermittent. Neuro: Level of Consciousness is awake, alert, obeys commands, Oriented to person, place, time, situation, Appropriate for age Reports dizziness. Cardiovascular: Denies chest pain, Patient's skin is warm and dry. Respiratory: Airway is patent Trachea midline Respiratory effort is even, unlabored, Respiratory pattern is regular, symmetrical, Denies shortness of breath. GI: Abdomen is round non-distended, Bowel sounds present X 4 quads. Abd is soft Abdomen is tender to palpation in right lower quadrant and left lower quadrant Reports nausea. : No signs and/or symptoms were reported regarding the genitourinary system. Reports inability to void. EENT: No signs and/or symptoms were reported regarding the EENT system. Derm: Skin is pink, warm \T\ dry. Musculoskeletal: Range of motion: intact in all extremities. 14:35 Reassessment: Patient and/or family updated on plan of care and expected duration. Pain nh2 level reassessed. Patient is alert, oriented x 3, equal unlabored respirations, skin warm/dry/pink. Patient states feeling better. 15:35 Reassessment: Patient and/or family updated on plan of care and expected duration. Pain nh2 level reassessed. Patient is alert, oriented x 3, equal unlabored respirations, skin warm/dry/pink. Vital Signs: 13:23 BP 147 / 98; Pulse 82; Resp 18; Temp 98.3; Pulse Ox 98% on R/A; Weight 84.82 kg; Height rk3 5 ft. 0 in. ; 14:30 BP 138 / 84; Pulse 68; Resp 18; Pulse Ox 98% on R/A; nh2 15:30 BP 132 / 91; Pulse 57; Resp 18; Pulse Ox 98% on R/A; nh2 13:23 Body Mass Index 36.52 (84.82 kg, 152.4 cm) rk3 ED Course: 13:09 Patient arrived in ED. al6 13:10 Dudley Colón F[facility]-C [facility]. dr5 13:10 Lambert Jaeger MD is Attending Physician. dr5 13:14 Al Mccullough, KYLER is Primary Nurse. bp 13:17 Triage completed. jb4 13:17 Arm band placed on right wrist. jb4 13:24 Inserted saline lock: 20 gauge in right antecubital area, using aseptic technique. rk3 Blood collected. Flushed with 10 mL NS. 13:30 Patient has correct armband on for positive identification. Bed in low position. Call nh2 light in reach. Side rails up X 1. Provided Education on: using call light for assistance. 13:30 No provider procedures requiring assistance completed. nh2 14:18 Radiology exam delayed due to test not completed at this time. sm9 14:30 Urine collected: clean catch specimen, colleen colored, blood tinged, Amount Voided: nh2 100mL sent to lab. 15:[address] via wheelchair. nh2 15:[address] In Process Unspecified. EDMS 16:14 IV discontinued, intact, bleeding controlled, No redness/swelling at site. Pressure nh2 dressing applied. Administered Medications: 13:43 Drug: NS 0.9% IV 1000 ml IV at 1 bolus Per protocol; to be given as a bolus over 60 nh2 minutes Route: IV; Rate: 1 bolus; Site: right antecubital; 15:43 Follow up: IV Status: Completed infusion; IV Intake: 1000ml nh2 13:44 Drug: Ondansetron IVP 4 mg IVP once; over 2 minutes Route: IVP; Site: right antecubital;nh2 14:00 Follow up: Response: No adverse reaction nh2 13:44 Drug: morphine IVP or IV 4 mg IVP once over 4 mins Route: IVP; Infused Over: 4 mins; nh2 Site: right antecubital; 15:43 Follow up: Response: No adverse reaction; Pain is decreased nh2 Medication: 14:54 VIS not applicable for this client. nh2 Intake: 15:43 IV: 1000ml; Total: 1000ml. nh2 Outcome: 15:58 Discharge ordered by . dr5 16:15 Discharged to home ambulatory, nh2 16:15 Condition: stable 16:15 Discharge instructions given to patient, Instructed on discharge instructions, follow up and referral plans. no drinking with medication, medication usage, Demonstrated understanding of instructions, follow-up care, medications, Prescriptions given X 4, 16:15 Patient left the ED. nh2 Signatures: Dispatcher [employer] EDMS Laureano Gonzalez, RN RN jb4 Al Mccullough RN RN Dawna Spencer 9 Manoj Lynch, KYLER Arenas RN nh2 Dudley Colón, FOUN[employer]IPMENT MECH[employer]IC-C [employer]MENT [employer]CH[employer]IC-[facility]5 Alla Abraham6 Davina Fields rk3 Corrections: (The following items were deleted from the chart) 14:53 13:35 Pain: Complains of pain in right lower quadrant and left lower quadrant Pain does nh2 not radiate. Pain currently is 8 out of 10 on a pain scale. Quality of pain is described as aching, Pain began gradually, Is intermittent, nh2 14:53 13:35 GI: Abdomen is round non-distended, Reports nausea, nh2 nh2
[2025-02-18 16:20] VITALS: TEMP 98.3; O2SAT 98
[2025-02-18 16:23] VITALS: BP 132/91
== END 2025-02-18 16:15 | disposition home or self-care (01) ==
LOC: ER 13:05
DX: N20.0 Calculus of kidney (principal); N21.1 Calculus in urethra; Z87.442 Personal history of urinary calculi
CPT/HCPCS: 96361; 85025; 81001; 36415; 81025; 83690; 80053; 76377; 74176; 96375; 96374; 99285; J2405; J7030

== ENCOUNTER 2025-03-10 16:15 | Emergency (ER) | payer OTHER ==
--- OUTSIDE RECORDS SUMMARY | 2025-03-10 16:22 | XMS REPORT | Continuity of Care Document ---
Author Name Unknown Address [address] [place] [address] [facility] Address [address] [facility] [address] [place] [address] Care Team Providers Care Lab Courier Name Role Phone PCP, PATIENT DOES NOT [...] Attending Clinician Shamir Ronquillo Attending Clinician [phone] Yosi Marroquin Admitting Clinician MARLI Bernard Admitting Clinician uDng e Payers Payer Name Policy Type Policy Number Effective Date Expirati on Date Source [facility] ABY MONAHAN COPAY FOCUS 9 [id number] 2024 00:00:00 [facility] [id number] 2018 00:00:00 Problems Condition Name Condition Details Condition Category Status Onset Date Resolution Date Last Treatment Date Treating Clinician Comments Source No known active problems No known active problems Disease [facility] Allergies, Adverse Reactions, Alerts Allergy Name Allergy Type Status Severity Reaction(s) Onset Date Inactive Date Treating Clinician Comments Source No Known Allergie s DA Active U 06-12 00:00: 00 [facility] No Known Allergie s DA Active U 06-12 00:00: 00 [facility] No Known Allergie s DA Active U 2018-05 0-24 00:00: 00 [facility] No Known Allergie s DA Active U 2018-05 0-24 00:00: 00 [facility] No Known Allergie s DA Active U 2017-05 0-19 00:00: 00 [facility] No Known Allergie s DA Active U 5-29 00:00: 00 [facility] NO KNOWN ALLERGIE S Drug Class Active [facility] Social History Social Habit Start Date Stop Date Quantity Comments Source Sexual orientation Tosin Howell - External History of tobacco use Passive smoker Radha calderon - External Gender identity Mayra Howell - External ASSERTION Possible Radha Howell - External History of Social function 2024-03-20 00:00:00 2024-03-20 00:00:00 Radha Howell - External Tobacco Comment 2024-03-20 00:00:00 2024-03-20 00:00:00 vape Radha Howell - External Tobacco use and exposure 2024-03-20 00:00:00 2024-03-20 00:00:00 User of smokeless tobacco Radha Kingtanyaanna - Gi Alcoholic beverage intake 2024-03-20 00:00:00 2024-03-20 00:00:00 Ex-drinker (finding) Radha Kingtanyaanna - External Sex 2023-12-11 09:45:21 2023-12-11 09:45:21 Female (finding) Radha Howell - External Sex assigned at 1995 00:00:00 1995 00[birth year]:00 Radha Sesteven Ram Gi Smoking Status Start Date Stop Date Source Tobacco smoking consumption unknown [facility] Smokes tobacco daily 2024-03-20 00:00:00 Radha Sesteven Ram External Medications Ordered Medication Name Filled Medication Name Start Date Stop Date Current Medication? Ordering Clinician Indication Dosage Frequency Signature (SIG) Comments Components Source Potassium Citrate 10 MEQ (1080 MG) oral Tab CR Potassium Citrate 10 MEQ (1080 MG) oral Tab CR 2024-05 14:10: 10 Yes 10meq Q.5D Take 1 tablet (10 mEq total) by mouth 2 times daily. Radha turcios Cephalexin 500 MG oral Capsule Cephalexin 500 MG oral Capsule 02-18 00:00: 00 Yes take 1 capsule by mouth every 12 hours for 10 days Radha turcios Ketorolac Tromethamin e 10 MG oral Tablet Ketorolac Tromethamin e 10 MG oral Tablet 02-18 00:00: 00 Yes 10mg Q.25D Take 1 tablet (10 mg total) by mouth every 6 hours as needed FOR PAIN. Radha turcios Tamsulosin HCl 0.4 MG oral Capsule Tamsulosin HCl 0.4 MG oral Capsule 02-18 00:00: 00 Yes .4mg QD Take 1 capsule (0.4 mg total) by mouth daily. Radha turcios Tramadol HCl (ULTRAM) 50 MG oral Tablet Tramadol HCl (ULTRAM) 50 MG oral Tablet 02-18 00:00: 00 Yes 50mg Q.[id number] 3D Take 1 tablet (50 mg total) by mouth every 8 hours as needed. Radha turcios Ondansetron (ZOFRAN) 4 MG oral TABLET DISPERSIBLE Ondansetron (ZOFRAN) 4 MG oral TABLET DISPERSIBLE 02-08 00:00: 00 Yes 4mg Q.[id number] 3D Take 1 tablet (4 mg total) by mouth every 8 hours as needed. Radha turcios Omeprazole 20 MG oral Delayed Release Capsule Omeprazole 20 MG oral Delayed Release Capsule 01-24 00:00: 00 Yes 20mg QD Take 1 capsule (20 mg total) by mouth daily. Radha turcios ketorolac (TORADOL) injection 30 mg 09-15 23:30: 00 09-15 23:11 :00 No 30mg 30 mg, Slow IV Push, ONCE, 1 dose, On Opal 09/16/23 at 1830, [facility] iopamidol (ISOVUE 370-500 mL) injection 85 mL 09-15 22:45: 00 09-15 22:45 :00 No [id number] 85mL 85 mL, Intravenou s, ONCE, 1 dose, On Opal 09/16/23 at 1745, Routine [facility] morpHINE (4 mg/mL) injection 4 mg 09-15 21:45: 00 09-15 23:04 :00 No 4mg 4 mg, Slow IV Push, ONCE, 1 dose, On Opal 09/16/23 at 1645, [facility] NaCl 0.9% (NS) bolus infusion 1,000 mL 09-15 20:45: 00 09-15 21:26 :00 No 1000mL at 999 mL/hr, 1,000 mL, IV Infusion, ONCE, 1 dose, On Opal 09/16/23 at 1545, [facility] famotidine (PEPCID (PF)) injection 20 mg 09-15 20:00: 00 09-15 20:16 :00 No 20mg 20 mg, Slow IV Push, ONCE, 1 dose, On Opal 09/16/23 at 1500, SHARI [facility] ondansetron (ZOFRAN (PF)) injection 8 mg 09-15 20:00: 00 09-15 20:15 :00 No 8mg 8 mg, Slow IV Push, ONCE, 1 dose, On Opal 09/16/23 at 1500, SHARI [facility] traMADoL 50 mg tablet 09-15 00:00: 00 Yes [id number] 50mg Take 1 tablet by mouth every 6 (six) hours as needed (pain). Indication s: acute pain [facility] ondansetron 4 mg tablet 09-15 00:00: 00 Yes [id number] 1 or 2 tablets every 8 hours as needed for nausea [facility] Sucralfate 1 g oral Tablet Sucralfate 1 g oral Tablet 09-15 00:00: 00 02-28 00:00 :00 No 1g Take 1 tablet (1 g total) by mouth before meals and at bedtime. Radha turcios busPIRone 10 mg tablet 09-15 00:00: 00 09-30 04:59 :00 No [id number] 10mg Take 1 tablet by mouth in the morning and 1 tablet in the evening. Do all this for 14 days. [facility] cefdinir 300 mg capsule 09-15 00:00: 00 09-21 04:59 :00 No [id number] 300mg Take 1 capsule by mouth every 12 (twelve) hours for 5 days. [facility] traMADol 50 mg tablet 2018-05 00:00: 00 Yes [id number] 50mg Take 1 tablet by mouth every 6 (six) hours as needed for Pain (scale 4-6). [facility] Immunizations Ordered Immunization Name Filled Immunization Name Date Status Comments Source Rho (d) Immune Globulin 2023-09-16 14:49:00 Completed [facility] Rho (d) Immune Globulin 2018-07-17 00:00:00 Completed [facility] Rho (d) Immune Globulin 2018-07-17 00:00:00 Completed [facility] Vital Signs Vital Name Observation Time Observation Value Comments S angel Systolic blood pressure 2025-02-28 14:09:00 112 mm[Hg] Radha Seybo ld - External Diastolic blood pressure 2025-02-28 14:09:00 72 mm[Hg] Radha Seybo ld - External Heart rate 2025-02-28 14:09:00 84 /min Kelse y Seybold - External Respiratory rate 2025-02-28 14:09:00 16 /min Radha Seybold - External Body height 2025-02-28 14:09:00 152.4 cm Mayra ey Seybold - External Body weight 2025-02-28 14:09:00 85.73 kg Mayra ey Seybold - External BMI 2025-02-28 14:09:00 36.91 kg/m2 Mayra ey Seybold - External Oxygen saturation in Arterial blood by Pulse oximetry 2025-02-28 14:09:00 99 /min Radha Seybo ld - External Systolic blood pressure 2024-03-20 15:04:00 160 mm[Hg] Radha Seybo ld - External Diastolic blood pressure 2024-03-20 15:04:00 79 mm[Hg] Radha Seybo ld - External Heart rate 2024-03-20 15:04:00 64 /min Kelse y Seybold - External Body temperature 2024-03-20 15:04:00 36.83 Sue Radha Seybold - External Respiratory rate 2024-03-20 15:04:00 18 /min Radha Seybold - External Body height 2024-03-20 15:04:00 152.4 cm Mayra ey Seybold - External Body weight 2024-03-20 15:04:00 85.276 kg Mayra ey Seybold - External BMI 2024-03-20 15:04:00 36.72 kg/m2 Mayra ey Seybold - External Oxygen saturation in Arterial blood by Pulse oximetry 2024-03-20 15:04:00 99 /min Radha Seybo ld - External Systolic blood pressure 2023-09-16 23:30:00 122 mm[Hg] [facility] Diastolic blood pressure 2023-09-16 23:30:00 58 mm[Hg] [facility] Heart rate 2023-09-16 23:30:00 39 /min [facility] Body temperature 2023-09-16 23:30:00 36.67 Sue [facility] Respiratory rate 2023-09-16 23:30:00 17 /min [facility] Oxygen saturation in Arterial blood by Pulse oximetry 2023-09-16 23:30:00 100 /min [place] [facility] Body height 2023-09-16 19:46:00 152.4 cm [facility] Body weight 2023-09-16 19:46:00 95.255 kg [facility] BMI 2023-09-16 19:46:00 41.01 kg/m2 [facility] Procedures Procedure Date / Time Performed Performing Clinicia n Source CT ABDOMEN PELVIS W CONTRAST 2023-09-16 21:52:00 Marli Barbosa [facility] URINALYSIS 2023-09-16 21:25:00 Marli Barbosa [facility] LIPASE 2023-09-16 20:09:00 Marli Barbosa [facility] TEST, SERUM 2023-09-16 20:09:00 Jalen Barbosa [facility] COMP. METABOLIC PANEL ([id number]) 2023-09-16 20:09:00 Marli Barbosa [facility] CBC WITH DIFF 2023-09-16 20:09:00 [id number] 2021-09-18 00:00:00 MAXBA [facility] [id number] 2021-09-18 00:00:00 MAXBA [facility] [id number] 2021-09-18 00:00:00 MAXBA [facility] [id number] 2021-09-17 00:00:00 HOUSTONBA [facility] [id number] 2020-06-12 00:00:00 MAXBA [facility] [id number] 2020-06-12 00:00:00 [facility] Plan of Care Planned Activity Planned Date Details Comments Source Procedure 2025-06-01 00:00:00 KIDNEYS, URETERS,BLADDER (KUB) Radha Howell - External Encounters Start Date/Time End Date/Time Encounter Type Admission Type Attending [facility] Care Department Encounter ID Source 2021-08-16 12:18:00 [place]patient [place] [id number] [facility] 2025-08-29 11:45:00 2025-08-29 11:45:00 Outpatient KATARINA FITCH [id number] Radha [facility] 2025-03-09 00:00:00 2025-03-09 00:00:00 Outpatient KATARINA FITCH [id number] Radha anna 2025-03-08 16:00:00 2025-03-08 16:00:00 Outpatient RADHA LENNON [id number] Radha [facility] 2025-03-06 12:00:00 2025-03-06 12:00:00 Outpatient RADHA LENNON [id number] Radha [facility] 2025-03-06 00:00:00 2025-03-06 00:00:00 Outpatient KATARINA FITCH [id number] Radha [facility] 2025-03-02 13:15:00 2025-03-02 13:15:00 Outpatient KATARINA FITCH [id number] Radha [facility] 2025-02-28 14:15:00 2025-02-28 14:15:00 Outpatient KATARINA FITCH [id number] Radha [facility] 2025-02-16 13:15:00 2025-02-16 13:15:00 Outpatient KATARINA FITCH [id number] Radha [facility] 2025-02-14 00:00:00 2025-02-14 00:00:00 Outpatient MD RADHA HUNT [id number] [facility] 2025-02-13 00:00:00 2025-02-13 00:00:00 Outpatient KATARINA FITCH [id number] Radha [facility] 2025-02-13 00:00:00 2025-02-13 00:00:00 Outpatient KATARINA FITCH RADHA LENNON [id number] [facility] 2025-02-12 15:15:00 2025-02-12 15:15:00 Outpatient RADHA LENNON [id number] Radha [facility] 2024-12-20 14:00:00 2024-12-20 14:00:00 Outpatient TONOGILES DOZIER RADHA LENNON [id number] [facility] 2024-04-04 11:30:00 2024-04-04 11:30:00 Outpatient RADHA LENNON [id number] [facility] 2024-04-04 00:00:00 2024-04-04 00:00:00 Outpatient KATARINA FITCH RADHA LENNON [id number] [facility] 2024-03-29 14:30:00 2024-03-29 14:30:00 Outpatient RADHA LENNON [id number] [facility] 2024-03-20 10:15:00 2024-03-20 10:15:00 Outpatient KATARINA FITCH RADHA LENNON [id number] [facility] 2024-01-24 12:58:00 2024-01-24 16:43:00 Emergency EM Betty Arteaga HCACL JESSICA [id number] [facility] 2023-09-16 14:49:00 2023-09-16 18:45:00 Emergency X MARLI BARBOSA [facility] ERT [id number] [facility] 2023-09-16 14:49:00 2023-09-16 18:45:00 Emergency Marli Barbosa [facility] [id number] [facility] 2021-09-17 20:19:00 2021-09-21 12:19:00 Inpatient Yosi Connolly HCACL OBPP [id number] [facility] 2021-09-10 20:28:00 2021-09-10 22:50:00 Emergency EM Yosi Marroquin [facility]ACL SHADI [id number] [facility] 2021-08-26 21:00:00 2021-08-27 10:50:00 Inpatient EM Yosi Marroquin HCACL LD [id number] [facility] 2021-08-21 19:47:00 2021-08-21 20:45:00 Outpatient EM Yosi Marroquin [facility]ACL OBOP [id number] [facility] 2021-08-20 19:06:00 2021-08-20 22:15:00 Emergency EM Stephanie Bazzi [facility]ACL SHADI [id number] [facility] 2021-08-14 21:37:00 2021-08-14 22:47:00 Emergency EM Kristie Boston [facility]ACL SHADI [id number] [facility] 2021-01-20 00:00:00 2021-01-20 00:00:00 Telephone Melinda Lopez [facility] 1..840.114 [id number] [facility] 2021-01-19 14:54:40 2021-01-19 15:09:40 Laboratory Only Only, Gal Adult Uc Test Shamir Rodrigues [facility] 1..840.114 [id number] [facility] 2020-06-12 09:06:00 2020-06-17 05:22:11 Inpatient Ti GiftyKellieKristie HCACL SHADI [id number] [facility] 2020-06-18 06:00:00 2020-06-12 12:56:44 [facility] [id number] 2020-03-24 00:09:00 2020-04-23 06:20:42 Inpatient EL Yosi Marroquin HCACL IVF [id number] [facility] 2020-03-18 11:22:00 2020-03-25 22:37:34 Inpatient Yosi Connolly HCACL IVF [id number] [facility] Results Test Description Test Time Test Comments Results Result Co mments Source HEPATIC FUNCTION [id number] 14:12:00* Test Item Value Reference Range Interpretation [...] code = ALKP) 99 IUnit/L 20-125 N [id number] 14:12:00* Test Item Value Reference Range Interpretation Comme nts LIPASE (test code = LIP) 35 U/L 13-57 N UA RFLX MICR CULT IF [id number] 14:12:00* Test Item Value Reference Range Interpretation [...] culture: Suprapubic PainSpecimen Description: CLEAN CATCHHCG SERUM [id number] 14:03:00* Test Item Value Reference Range Interpretation Comme nts HCG SERUM QUAL (test code = HCGQL) SERUM NEGATIVE NEGATIVE CBC W/AUTO [id number] 13:56:00* Test Item Value Reference Range Interpretation [...] 3/uL 0.0-0.[address] ABDOMEN PELVIS W [id number] 22:59:33Ordering Physician: MARLI BARBOSA Clinical indication: Acute [...] are clear. No acute bony abnormalities are evident.[facility], [id number] 21:46:01* Test Item Value Reference Range Interpretation Comme nts PREG SERUM (test code = 5415602132) Negative ANGELA (test code = ANGELA) Less than 10 IU/L. ?If low titer or ectopic is suspected, resubmit specimen in 48-72 hours. [facility]. METABOLIC PANEL (03359)2023-09-16 20:37:03* Test Item Value Reference Range Interpretation Comme nts NA (test code = 4288512771) 138 mmol/L 135-145 K (test code = 8999979074) 3.2 mmol/L 3.5-5.0 L CL (test code = 9669969927) 107 mmol/L 98-108 CO2 TOTAL (test code = 2422712589) 21 mmol/L 23-31 L AGAP (test code = 4744714924) 10 2-16 BUN (test code = 6479648288) 13 mg/dL 7-23 GLUCOSE (test code = 8140401934) 118 mg/dL 70-110 H CREATININE (test code = 2160-0) 0.74 mg/dL 0.50-1.04 TOTAL BILI (test code = 7340657483) 0.8 mg/dL 0.1-1.1 CALCIUM (test code = 9457730267) 9.2 mg/dL 8.6-10.6 T PROTEIN (test code = 4338454608) 7.6 g/dL 6.3-8.2 ALBUMIN (test code = 4405982025) 4.5 g/dL 3.5-5.0 ALK PHOS (test code = 3189772816) 94 U/L 34-122 ALTv (test code = 1742-6) 16 U/L 5-35 AST(SGOT) (test code = 5938224275) 25 U/L 13-40 eGFR (test code = 40819-7) 111.8 mL/min/1.73m2 CKD-EPI eGFR (2020). Assuming creatinine has been stable day-to-day for at least three months, the eGFR indicates Category G1 (>= 90 mL/min/1.73 m2) Lab Interpretation (test code = 69851-6) Abnormal [facility] 20:36:42* Test Item Value Reference Range Interpretation Comme nts LIPASE (test code = 9237133653) 32 U/L 0-220 Lab Interpretation (test cod e = 31349-5) Normal [facility] WITH [id number] 20:23:21* Test Item Value Reference Range Interpretation [...] 34.9 g/dL 31.6-35.1 RDW-SD (test code = 97572-9) 39.8 fL 39.0-49.9 RDW-CV (test code = 788-0) 12.8 % 12.0-15.5 PLT (test code = 777-3) 151 166-358 L MPV (test code = 98176-2) 11.7 fL 9.5-12.9 NRBC/100 WBC (test code = 9502981643) 0.0 0.0-10.0 NRBC x10^3 (test code = 7963435929) See_Comment [Automated messa ge] The system which generated this result transmitted reference range: 10*3/?L. The reference range was not used to interpret this result as normal/abnormal. GRAN MAT (NEUT) % (test code = 770-8) 86.8 % IMM GRAN % (test code = 5668795738) 0.30 % LYMPH % (test code = 736-9) 10.2 % MONO % (test code = 5905-5) 2.4 % EOS % (test code = 713-8) 0.0 % BASO % (test code = 706-2) 0.3 % GRAN MAT x10^3(ANC) (test code = 3591423241) 6.07 10*3/uL 1.88-7.09 IMM GRAN x10^3 (test code = 1896808082) 0.00-0.06 LYMPH x10^3 (test code = 731-0) 0.71 10*3/uL 1.32-3.29 L MONO x10^3 (test code = 742-7) 0.17 10*3/uL 0.33-0.92 L EOS x10^3 (test code = 711-2) 0.03-0.39 L BASO x10^3 (test code = 704-7) 0.01-0.07 Lab Interpretation (test code = 05121-0) [facility]* Test Item Value Reference Range Interpretation Comme nts SURGICAL (test code = SR) R UN DATE: 09/24/21 [place] - LAB PAGE 1 RUN TIME: 1110 Specimen Inquiry RUN USER: INTERFACE P ATIENT: YENY TEMPLETON LOC: SHANICE U #: [id number] AGE/SX: ROOM: [facility] RE09/17/21REG DR: Yosi Marroquin MD : 93 BED: 1 DIS: 09/21/21 STATUS: DIS IN TLOC: SPEC #: [id number] RECD: 09/19/21 STATUS: BRIAN RE #: [id number] MARIELLA: 09/18/21- SUBM DR: Yosi Marroquin MD ENTERED: 09/19/21 SP TYPE: SURGICAL OTHR DR: ORDERED: [id number], ANATOMIC SPEC PROCEDURES: [id number] (09/19/21) TISSUES: A. PLACENTA, THIRD TRIMESTER (28 [...] is serially sectioned. No masslesions are identified. [employer] sections are submitted. Cassette A contains theumbilical cord and membranes. Cassette B and cassette C contain the placental disc. Technical component performed at [facility],[address] [place] [address], [place] [address] Unless gross only, the diagnosis is based [...] was performed. --------- Signed SIGNATURE ON FILE Reynold iGlmore 09/24/21 1110 END OF REPORT CORD ARTERIAL BLOOD [id number] 09:57:00* Test Item Value Reference Range Interpretation [...] O2S/C) 31 % 72-77 L CBC W/AUTO [id number] 07:59:00* Test Item Value Reference Range Interpretation [...] ode = MDIFF) NO CORD VENOUS BLOOD [id number] 19:05:00* Test Item Value Reference Range Interpretation [...] = O2SCV) 71 % CORD ARTERIAL BLOOD [id number] 19:05:00* Test Item Value Reference Range Interpretation [...] O2S/C) 31 % 72-77 L CBC W/AUTO [id number] 16:36:00* Test Item Value Reference Range Interpretation [...] c ode = MDIFF) NO RAPID PLASMA [id number] 10:42:00* Test Item Value Reference Range Interpretation Comme nts RAPID PLASMA REAGIN (test co de = RPR) NONREACTIVE NONREACTIVE AG HEPATITIS B [id number] 10:42:00* Test Item Value Reference Range Interpretation Comme nts AG HEPATITIS B SURFACE (test code = HBSAG) NON REACTIVE INDEX NonReactive AB HIV 1 10:42:00* Test Item Value Reference Range Interpretation Comme nts AB HIV 1 2 (test code = HUQ78HB) Nonreactive Nonreactive CBC W/AUTO [id number] 21:44:00* Test Item Value Reference Range Interpretation [...] (test c ode = MDIFF) NO PLT [id number] 21:44:00* Test Item Value Reference Range Interpretation Comme nts PLATELET ESTIMATE (test code = PLTEST) 92-115 THOUSAND ADEQUATE COVID 19 Asymptomatic IH [id number] 21:15:00* Test Item Value Reference Range Interpretation [...] moderate, high or waivedcomplexity tests. CBC W/AUTO [id number] 22:03:00* Test Item Value Reference Range Interpretation [...] (test c ode = MDIFF) NO PLT [id number] 22:03:00* Test Item Value Reference Range Interpretation Comme nts PLATELET ESTIMATE (test code = PLTEST) 88-110 THOUSAND ADEQUATE PLATELET MORPHOLOGY (test code = PLTMORPH) NORMAL URINALYSIS [id number] 21:47:00* Test Item Value Reference Range Interpretation [...] 4+ /LPF NONE SEEN A CBC W/AUTO [id number] 12:40:00* Test Item Value Reference Range Interpretation [...] (test c ode = MDIFF) NO PLT [id number] 12:40:00* Test Item Value Reference Range Interpretation Comme nts PLATELET ESTIMATE (test code = PLTEST) 88-110 THOUSAND ADEQUATE COMPREHENSIVE METABOLIC [id number] 05:47:00* Test Item Value Reference Range Interpretation [...] code = ALKP) 114 IUnit/L 20-125 N [id number] 05:47:00* Test Item Value Reference Range Interpretation Comme nts MAGNESIUM (test code = MAG) 1.45 mg/dL 1.80-2.40 L TROP-I HIGH [id number] 22:47:00* Test Item Value Reference Range Interpretation [...] URL. These results were obtained using [employer] IM TnIHreagent. Results from different methodologies should not becompared to one another as quantitative results and URLs mayvary by method. TROP-I HIGH [id number] 20:44:00* Test Item Value Reference Range Interpretation [...] URL. These results were obtained using Siemens AtellFundgrazing IM TnIHreagent. Results from different methodologies should not becompared to one another as quantitative results and URLs mayvary by method. LACTIC [id number] 18:40:00* Test Item Value Reference Range Interpretation Comme nts LACTIC ACID (test code = LACT) 0.5 mmol/L 0.4-1.9 N POC ARTERIAL BLOOD [id number] 18:29:00* Test Item Value Reference Range Interpretation Comme nts POC ARTERIAL BLOOD GAS PH (t est code = POCPHA) 7.406 7.35-7.45 N POC ARTERIAL BLOOD GAS PCO2 (test code = QAFHPJ1A) 33.8 mmHg 35.0-45 L POC TCO2 ARTERIAL (test code = POCTCO2) 22.3 POC ARTERIAL BLOOD GAS PO2 ( test code = MQSGM6Y) 201.2 mmHg 80-100.0 HH POC HCO3 ARTERIAL (test code = EKXZHG3T) 21.2 MMOL/L 22.0-26.0 L POC BASE EXCESS (test code = POCBEA) -3.5 MMOL/L -4.0-4.0 N POC O2 SATURATION (test code = POCO2S) 99.7 % 90-100 N FIO2 (test code = FIO2A) 100 % PaO2/FiO2 (test code = TRD7LLT5) 201.20 mm/Hg ABG DELIVERY (test code = HERMELINDO) NRBMASK ABG SITE (test code = SITEA) R Radial CHRYSTAL'S TEST (test code = ALLENS) Positive COVID 19 Asymptomatic IH [id number] 17:58:00* Test Item Value Reference Range Interpretation [...] moderate, high or waivedcomplexity tests. COMPREHENSIVE METABOLIC [id number] 17:50:00* Test Item Value Reference Range Interpretation [...] code = ALKP) 113 IUnit/L 20-125 N [id number] 17:50:00* Test Item Value Reference Range Interpretation Comme nts LIPASE (test code = LIP) 21 U/L 13-57 N TROP-I HIGH [id number] 17:50:00* Test Item Value Reference Range Interpretation [...] URL. These results were obtained using [employer] IM TnIHreagent. Results from different methodologies should not becompared to one another as quantitative results and URLs mayvary by method. PROTHROMBIN [id number] 17:41:00* Test Item Value Reference Range Interpretation [...] Infarction (to prevent recurrent infarct). THROMBOPLASTIN TIME [id number] 17:41:00* Test Item Value Reference Range Interpretation Comme nts THROMBOPLASTIN TIME PARTIAL (test code = PTT) 27.0 Seconds 25.0-39.5 N Therapeutic Rang e: 50.4 - 88.3 Seconds Effective 09/06/2018 CBC W/AUTO [id number] 17:32:00* Test Item Value Reference Range Interpretation [...] c ode = MDIFF) NO COMPREHENSIVE METABOLIC [id number] 15:30:00* Test Item Value Reference Range Interpretation [...] = ALKP) 119 IUnit/L 20-125 N URIC [id number] 15:30:00* Test Item Value Reference Range Interpretation Comme nts URIC ACID (test code = URIC) 2.9 mg/dL 2.6-7.2 N LACTIC DEHYDROGENASE(LDH)2021-08-26 15:30:00* Test Item Value Reference Range Interpretation Comme nts LACTIC DEHYDROGENASE(LDH) (t est code = LDH) 163 IUnits/L 84-246 N [id number] 15:30:00* Test Item Value Reference Range Interpretation Comme nts FIBRONECTIN (test code = FFN) NEGATIVE NEGATIVE URINALYSIS [id number] 15:11:00* Test Item Value Reference Range Interpretation [...] MUCU) TRACE /LPF NONE SEEN UR PROTEIN/CREATININE [id number] 15:11:00* Test Item Value Reference Range Interpretation Comme nts UR PROTEIN RANDOM (test code = PROTU) 30 mg/dL UR CREATININE RANDOM (test code = CREATU) 97.1 mg/dL The Reference Ra nge and Method Performance specificationshave not been established for this fluid. The test resultshould be correlated into the clinical context forinterpretation. PROTEIN/CREATININE RATIO (test code = P/CRATIO) 0.31 CBC W/AUTO [id number] 15:09:00* Test Item Value Reference Range Interpretation [...] = MDIFF) NO - CTA CHEST FOR [id number] 00:00:00 [facility] DESEAN JOHNSONName: YENY TEMPLETON : 1995 Sex: F Name: YENY TEMPLETON [facility] Desean Johnson : 1995 Age/S: 26 / F [address] [place] [address] Blvd Unit #: [id number] Loc: [place] [address] Phys: Kristie Boston MD Acct: [id number] Dis Date: Status: REG ER PHONE #: [phone] Exam Date: 08/26/2021 173 FAX #: [phone] Reason: SOB fever EXAMS: CPT CODE: [id number] [place] [address] PROCEDURE INFORMATION: Exam: CTA Chest With Contrast [...] Contrast route: INTRAVENOUS (IV) COMPARISON: CR XR [id number] 08/26/2021 4:36 PM FINDINGS: PULMONARY ARTERIES: The pulmonary arteries appear to enhance normally. No pulmonary artery filling defects are detected to suggest acute pulmonary embolism. MEDIASTINUM:The thoracic aorta enhances normally without evidence of [...] detected. It is noted that the posterior c ostophrenic angles are excluded. LUNGS: Tree in bud opacities are identified in the left lower lobe. The right lung appears clear. Noncalcified nodules with diameters of 6 mm (series 9, image 72) and3-4 mm (series 9, image 63) are identified [...] 1 Signed Report (CONTINUED) Name: YENY TEMPLETON HCA[facility]lear Johnson : 1995 Age/S: 26 / F [address] [place] [address] Unit #: [id number] Loc: [place] [address] Phys: Kristie Boston MD Acct: [id number] Dis Date: Status: REG ER PHONE #: [phone] Exam Date: 08/26/2021 1737 FAX #: [phone] Reason: SOB fever EXAMS: CPT CODE: [id number] [place] [address] (Continued) 4. Two small noncalcified nodules are incidentally detected in theleft lower lobe. If the patient does not [...] RT(R)(CT) CTDI: DLP: Trnscb Date/Time: 08/26/2021 (1830) t.IFEOMAM Orig Print D/T: S: 08/26/2021 (7704) PAGE 2 Signed Report- XR CHEST 1 [id number] 00:00:00 [facility] 1995 Sex: F [place]: St: REG -- Name: YENY TEMPLETON [facility] : 1995 Age/S: 26/F [address] [place] [address] Unit #: [id number] Loc: [place] [address] Phys: Kristie Boston MD Acct: [id number] DisDate: Status: REG ER PHONE #: [phone] Exam Date: 08/26/2021 1700 FAX #: [phone] Reason: SOB, cough EXAMS: CPT CODE: [id number] XR CHEST 1 V 08800 PROCEDURE INFORMATION: Exam: XR Chest Exam date and time: 08/26/2021 4:36 PM Age: 26 years old Clinical indication: Other: SOB, cough TECHNIQUE:Imaging protocol: XR of the chest. Views: 1 view. COMPARISON: RF XR ERCP 03/14/2018 7:41 AM FINDINGS: Lungs: Moderate decreased lung volumes. No consolidation. Pleural spaces: Unremarkable. No pleural effusion. No pneumothorax. Heart/Mediastinum: Cardiac silhouette size shows enlargement. Vasculature is unremarkable. Bones/joints: Unremarkable. IMPRESSION: No acute cardiopulmonary findings. at 1757 Reported and signed by: Ever Nielson M.D. CC: Technologist: RT Jessie(R) Trnscrd Date/Time/By: 08/26/2021 (1756) : By: CornelioWH3 Orig Print D/T: S: 08/26/2021 (6268) PAGE 1 Signed ReportCBC W/AUTO [id number] 21:24:00* Test Item Value Reference Range Interpretation [...] (test c ode = MDIFF) NO PLT [id number] 21:24:00* Test Item Value Reference Range Interpretation Comme nts PLATELET ESTIMATE (test code = PLTEST) 116-145 THOUSAND ADEQUATE PLATELET MORPHOLOGY (test code = PLTMORPH) LARGE PLATELETS SOME LARGE AND FEW GIANT PLTS SEEN [id number] 21:23:00* Test Item Value Reference Range Interpretation Comme nts FIBRONECTIN (test code = FFN) NEGATIVE NEGATIVE URINALYSIS [id number] 21:17:00* Test Item Value Reference Range Interpretation [...] 2+ /LPF NONE SEEN A COMPREHENSIVE METABOLIC [id number] 21:14:00* Test Item Value Reference Range Interpretation [...] code = ALKP) 105 IUnit/L 20-125 N [id number] 22:35:00* Test Item Value Reference Range Interpretation Comme nts FIBRONECTIN (test code = FFN) NEGATIVE NEGATIVE AMNISURE (ROM) [id number] 22:35:00* Test Item Value Reference Range Interpretation Comme nts AMNISURE (ROM) TEST (test co de = AMNI) NEGATIVE NEGATIVE URINALYSIS [id number] 22:27:00* Test Item Value Reference Range Interpretation [...] 4+ /LPF NONE SEEN A SURGICAL PATH [id number] 08:43:00* Test Item Value Reference Range Interpretation Comme nts SURGICAL PATH SPECIMENS (test code = SURG) RUN DATE: 06/17/20 [facility] *LIVE* PAGE 1 RUN TIME: 0843 Specimen Inquiry RUN USER: INTERFACE PATIENT: YENY TEMPLETON LOC: [place] U #: [id number] AGE/SX: / ROOM: [facility] RE06/12/20REG DR: Yosi Marroquin MD : [birth year] BED: 1 DIS: 06/15/20 STATUS: DIS IN TLOC: SPEC #: [id number] RECD: 06/13/20 STATUS: BRIAN REQ #: [id number] MARIELLA: 06/13/[address]: Yosi Marroquin MD ENTERED: 06/14/20 SP TYPE: SURG SPEC OTHR DR: Kristie Boston MD ORDERED: GROSS AND MICRO CODES: [id number] - PLACENTA, NOS COPIES TO: Yosi Marroquin MD [address] [facility], [address] [place] [address] Kristie Boston MD [address] [facility] [address] [place] [address] PROCEDURES: GROSS AND MICRO (Incomplete) TISSUES: 1. [...] CONTINUED ON NEXT PAGE RUN DATE: 06/17/20 [facility] *LIVE* PAGE 2 RUN TIME: 842 Specimen Inquiry RUN USER: INTERFACE SPEC #: [id number] PATIENT: YENY TEMPLETON KEVIN #[id number] (Continued) --- POST-OP DIAGNOSIS G3, P3, 37.1, delivered PRE-OP DIAGNOSIS G3, P3, 37.1 REVIEWED BY: JOSHUA Signed SIGNATURE ON FILE Johnny Timmons DO 06/17/20 0843 END OF REPORT RAPID PLASMA [id number] 11:05:00* Test Item Value Reference Range Interpretation Comme nts RAPID PLASMA REAGIN (test co de = RPR) NONREACTIVE NONREACTIVE AG HEPATITIS B [id number] 11:05:00* Test Item Value Reference Range Interpretation Comme nts AG HEPATITIS B SURFACE (test code = HBSAG) NON REACTIVE INDEX NonReactive AB HIV 1 11:05:00* Test Item Value Reference Range Interpretation Comme nts AB HIV 1 2 (test code = RNS67JF) NONREACTIVE INDEX NONREACTIVE CBC W/AUTO [id number] 08:18:00* Test Item Value Reference Range Interpretation [...] ode = MDIFF) NO CORD ARTERIAL BLOOD [id number] 00:22:00* Test Item Value Reference Range Interpretation [...] 51 % 72-77 L CORD ARTERIAL BLOOD [id number] 21:53:00* Test Item Value Reference Range Interpretation [...] 13 % 72-77 L CORD VENOUS BLOOD [id number] 21:50:00* Test Item Value Reference Range Interpretation [...] = O2SCV) 51 % CORD ARTERIAL BLOOD [id number] 21:49:00* Test Item Value Reference Range Interpretation [...] O2S/C) 13 % 72-77 L CBC W/AUTO [id number] 15:34:00* Test Item Value Reference Range Interpretation [...] (test c ode = MDIFF) NO PLT [id number] 15:34:00* Test Item Value Reference Range Interpretation Comme nts PLATELET ESTIMATE (test code = PLTEST) 120-150 THOUSAND ADEQUATE PLATELET MORPHOLOGY (test code = PLTMORPH) LARGE PLATELETS CBC W/AUTO [id number] 14:51:00* Test Item Value Reference Range Interpretation [...] (test c ode = MDIFF) NO PLT [id number] 14:51:00* Test Item Value Reference Range Interpretation Comme nts PLATELET ESTIMATE (test code = PLTEST) THOUSAND ADEQUATE CBC W/AUTO [id number] 14:51:00* Test Item Value Reference Range Interpretation [...] (test c ode = MDIFF) NO PLT [id number] 14:51:00* Test Item Value Reference Range Interpretation Comme nts PLATELET ESTIMATE (test code = PLTEST) THOUSAND ADEQUATE RAPID PLASMA [id number] 14:39:00* Test Item Value Reference Range Interpretation Comme nts RAPID PLASMA REAGIN (test code = RPR) NONREACTI VE AG HEPATITIS B [id number] 14:39:00* Test Item Value Reference Range Interpretation Comme nts AG HEPATITIS B SURFACE (test code = HBSAG) NON REACTIVE INDEX NonReactive AB HIV 1 14:39:00* Test Item Value Reference Range Interpretation Comme nts AB HIV 1 2 (test code = OKU12GE) NONREACTIVE INDEX NONREACTIVE COVID 19 Asymptomatic IH [id number] 14:15:00* Test Item Value Reference Range Interpretation [...] COMMENTS: If not done this admissionAMNISURE (ROM) [id number] 10:25:00* Test Item Value Reference Range Interpretation Comme nts AMNISURE (ROM) TEST (test code = AMNI) NEGATIVE NEGATIVE OPENED:06-08-2020 CBC W/AUTO [id number] 07:12:00* Test Item Value Reference Range Interpretation [...] ode = MDIFF) NO CORD VENOUS BLOOD [id number] 10:52:00* Test Item Value Reference Range Interpretation [...] = O2SCV) 50 % CORD ARTERIAL BLOOD [id number] 10:52:00* Test Item Value Reference Range Interpretation [...] O2S/C) 26 % 72-77 L RAPID PLASMA [id number] 10:37:00* Test Item Value Reference Range Interpretation Comme nts RAPID PLASMA REAGIN (test co de = RPR) NONREACTIVE NONREACTIVE AG HEPATITIS B [id number] 04:44:00* Test Item Value Reference Range Interpretation Comme nts AG HEPATITIS B SURFACE (test code = HBSAG) NON REACTIVE INDEX NonReactive AB HIV 1 04:44:00* Test Item Value Reference Range Interpretation Comme nts AB HIV 1 2 (test code = BHL90DE) NONREACTIVE INDEX NONREACTIVE AG HEPATITIS B [id number] 03:54:00* Test Item Value Reference Range Interpretation Comme nts AG HEPATITIS B SURFACE (test code = HBSAG) NON REACTIVE INDEX NonReactive AB HIV 1 03:54:00* Test Item Value Reference Range Interpretation Comme nts AB HIV 1 2 (test code = YQK69SA) INDEX NONREACTIVE CBC W/AUTO [id number] 02:55:00* Test Item Value Reference Range Interpretation [...] c ode = MDIFF) NO - US [id number] 23:32:00Name: YENY TEMPLETON [facility] : 1995 Age/S: 23 / F [address] [place] [address] Unit #: [id number] Loc: [place] [address] Phys: Princess Trivedi MD Acct: [id number] Dis Date: Status: REG ER PHONE #: [phone] Exam Date: 02/15/2019 2325 FAX #: [phone] Reason: CARMENCITA EXAMS: CPT CODE: [id number] [place] [address] LIMITED OB ULTRASOUND FOR AMNIOTIC FLUID INDEX [...] Technologist: Connie Hall RDMS(A)(OB) Trnscb Date/Time: 02/15/2019 (2332) Aris.RTB Orig Print D/T: S: 02/15/2019 (1886) Probe: PAGE 1 Signed ReportAMNISURE (ROM) [id number] 22:57:00* Test Item Value Reference Range Interpretation Comme nts AMNISURE (ROM) TEST (test co de = AMNI) NEGATIVE NEGATIVE URINALYSIS [id number] 18:07:00* Test Item Value Reference Range Interpretation [...] MUCU) 3+ /LPF NONE SEEN A SURGICAL [id number] 08:47:00 RUN DATE: 03/23/18 [facility] *LIVE* PAGE 1 RUN TIME: 846 Specimen Inquiry RUN USER: INTERFACE -------- ----PATIENT: YENY TEMPLETON LOC: [place] U #: [id number] AGE/SX: ROOM: RE10/19/17REG DR: Laureano Chandra MD : [birth year] BED: DIS: STATUS: ASIM STAPLETON TLOC: SPEC #: [id number] RECD: 03/15/18 STATUS: BRIAN ALYSSA #: [id number] MARIELLA: 03/15/[address]: Laureano Chandra MD ENTERED: 03/22/18 SP TYPE: SURG SPEC OTHR DR: No Primary or Family Physician Self ReferredORDERED: LEVEL 4 CODES: [id number] - GALLBLADDER FOS COPIES TO: No Primary or Family Physician Self Referred Laureano Chandra MD [address] [id number] PROCEDURES: GM LEVEL 4 (Incomplete) TISSUES: 1.GALLBLADDER [...] measuring up to 0.9 cm in diameter. 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 MICROSCOPIC EXAMINATION: The gallbladder mucosa focally herniates into the muscle layer forming Rokitansky- Aschoff sinuses. The submucosa contains a chronic inflammatory cell infiltrate. POST-OP DIAGNOSIS Choledocholithiasis CONTINUED ON NEXT PAGE RUN DATE: 03/23/18 [facility] *LIVE* PAGE 2 RUN TIME: 846 Specimen Inquiry RUN USER: INTERFACE SPEC #: [id number] PATIENT: YOKASTAYENY #[id number] (Continued) -- PRE-OP DIAGNOSIS Choledocholithiasis Signed SIGNATURE ON FILE Mireille Garcia MD 03/23/18 0847 END OF REPORT Notes Date/Time Note Provider Source 2025-03-06 13:50:25 [facility] * Pulse Answer Date of Assessment Author 84 02/28/2025 2:09 PM CDT Jordana Andrea MA * Resp Answer Date of Assessment Author 16 02/28/2025 2:09 PM CDT Jordana Andrea MA * SpO2 Answer Date of Assessment Author 99 02/28/2025 2:09 PM CDT Jordana Andrea MA * Height Answer Date of Assessment Author 60 02/28/2025 2:09 PM CDT Jordana Andrea MA * Weight Answer Date of Assessment Author 3024 02/28/2025 2:09 PM CDT Jordana Andrea MA * BSA (Calculated - sq m) Answer Date of Assessment Author 1.9 02/28/2025 2:09 PM CDT Jordana Andrea MA * BMI (Calculated) Answer Date of Assessment Author 36.9 02/28/2025 2:09 PM CDT Jordana Andrea MA * GENERAL Question Answer Date of Assessment Author Preferred learning method? Explanation 02/28/2025 2:0 8 PM CDT Jordana Andrea MA Preferred language? Arabic 02/28/2025 2:08 PM CD T Jordana Andrea MA Needs Window Display Designer? No 02/28/2025 2:08 PM CDT Jordana Andrea MA Ability to read? Yes 02/28/2025 2:08 PM CDT Jordana Reddy MA * BMI (Calculated) Answer Date of Assessment Author 36.9 02/28/2025 2:09 PM CDT Jordana Andrea MA * BSA (Calculated - sq m) Answer Date of Assessment Author 1.9 02/28/2025 2:09 PM CDT Jordana Andrea MA [facility]2025-10-14 13:50:25* Katarina Fitch MD - 02/28/2025 2:29 PM CDT Patient Name: Yeny Templeton Visit Date: 02/28/2025 : 1995 Assessment and Plan: Yeny Templeton is a 29 year old female with known R kidney stone w/ recent visit to ER for concerns for R kidney stone - appears to be stable R kidney, non obstructing stone. Having nausea - suspect from GI source. OK to stop floamx and abx Upload imaging and reivew - update pt if anyhting other than stable R lower pole stone Discussed ESWL vs U[facility]; [facility]; RTC 6mo w/ KUB Katarina Fitch MD Chief Complaint: Kidney stones History of Present Illness: Yeny Templeton is a 29 year old female returns today for evaluation of kidney stones. She was last seen on when R kidney stone On 02/18/2025 she had R flank pain and went to [facility]. Had CT which did not report any obstructing stones. Given abx and flomax and sent home. Since then pain has been manageable. Does have nausea. HPI from 02/2024 Yeny Templeton is a 28 year old female who presents for evaluation of kidney stones. She has hx of gastroparesis and had symptoms of vomiting/nausea which are typical symptoms for her. She went to ER and was told she had a UTI (no symptoms) and a 7mm stone, not sure which side. She often has issues w/ gastroparesis. Denies hx of UTI or stones. Maci did have CT at [facility] in 08/2023 which says she had b/l non-obstructing stones. No flank pain, no GH. Never passed stone or had surgery for kidney stones. Other relevant urologic history: Recent hematuria: No Recent urinary infection: No Dysuria: No Urinary stones: No Urologic Cancer: No Abdominal/urologic surgeries: CCY Physical Exam: Vital Signs: BP 112/72 | Pulse 84 | Resp 16 | Ht 5' (1.524 m) | Wt 189 lb (85.7 kg) | SpO2 99% | BMI 36.91 kg/m? General: Well developed, well nourished, no acute distress. Alert and oriented x 3. Body habitus: Normal Abdomen: Soft, NT, ND, no masses. Incisions: n/a : deferred [facility]2025-10-14 13:50:25Upcoming Encounters Scheduled Orders Name Type Priority Associated Diagnoses Orde r Schedule KIDNEYS, URETERS,BLADDER (KUB) Imaging Routine Kidney stone Expected: 06/01/2025, Expires: 03/01/2026 Health Maintenance Due Date Last Done Comments Physical Exam 2011 Tdap Vaccines 2012 Lipid Panel 2013 PAP SMEAR WITH HPV 2023 Influenza Vaccines (#1) 2025 RSV Vaccines (1 - 1-dose 75+ series) 2068 Pneumococcal Vaccine: Pediat rics (0 to 5 Years) and At-Risk Patients (6 to 64 Years) Aged Out No longer eligible b ased on patient's age to complete this topic [facility]2025-10-14 13:50:25 Diagnosis Kidney stone - Primary Calculus of kidney [facility]2025-10-14 13:50:[address] [facility]2025-10-08 14:12:59 Chief Complaint Patient presents with Follow-Up Visit ER Follow up for Kidney Stones Jordana MORENO [facility]2024-10-28 10:04:27 Chief Complaint Patient presents with Kidney Problem Kidney Stones Mingo Aranda CMA II T [facility] 13:19:00 [facility] ([facility] EMERGENCY PROVIDER REPORT REPORT#:[id number] REPORT STATUS: Signed DATE:01/24/24 TIME: 1319 PATIENT: YENY TEMPLETON UNIT #: [id number] ROOM/BED: : [birth year] AGE: 28 SEX:F PCP [...] Has not been able to see a fiberglass product tester because she does not have insurance. Denies [...] Documented: Result Date Time Pulse Ox 100 / 1320 B/P 150/92 / 1320 B/P Mean 111 / 1320 O2 Delivery Room air 01/23 1320 Temp 37.0 09/ 1320 Pulse 59 09/ 1320 Resp 16 01/23 1320 Last Documented: Result Date Time Pulse Ox 100 01/23 1330 Pulse 42 09/ 1330 B/P 150/92 / 1320 B/P Mean 111 / 1320 O2 Delivery Room air 01/23 1320 Temp 37.0 09/ 1320 Resp 16 [...] % (Auto) (14.0 - 32.0 %) 18.0 [place] % (Auto) (4.8 - 9.0 %) 6.2 Eos % (Auto) (0.3 - 3.7 %) 0.2 L Baso % (Auto) (0.0 - 2.0 %) 0.7 Neut # (Auto) (2.0 - 7.6 x10 3/uL) 7.09 Lymph # (Auto) (1.0 - 3.8 x10 3/uL) 1.71 [place] # (Auto) (0.1 - 0.8 x10 3/uL) [...] pH (5.0 - 7.0) 5.0 Ur Specific [place] (1.005 - 1.030) 1.033 H Urine Protein [...] Gallbladder removed without biliary obstruction. Impression By: CornelioPXLanie Salazar M.D. CAT SCAN - CT ABD [...] Pulse Ox 100 01/23 1320 B/P 150/92 / 1320 B/P Mean 111 /02 1320 O2 Delivery Room air 01/23 1320 Temp 37.0 09/ 1320 Pulse 59 / 1320 Resp 16 [...] Referrals Provider Referral: Alicia Tran MD Address: [address] [place] [address] Provider Referral: Mike Nolasco MD Address: [facility] [facility] [address] [place] [address] Supervising Physician Note MidLv Saw Pt Alone I have reviewed the PA/SEARCH ENGINEER's note and plan of care. I was available for consultation as needed at all times during the patient's visit in the emergency department. I agree with the clinical impression, plan and disposition. at 1709 at [address] [facility] #:[id number] END OF [id number] 18:42:08 Pt given printed and verbal discharge [...] wheelchair, in no apparent distress. Guerda Kelly [place] 156024-04-25 16:55:21 Okay for patient to have ice per provider. Lucy George [place] 156024-04-25 14:45:01 Patient arrived c/o of vomiting and abdominal pain since last night. Rand Schneider [place] 156024-04-25 14:39:00 [facility] Emergency Department Note Patient Name: Yeny Templeton Date of : 1995 28 year old female Treatment Room: Room/bed info not found Primary Care Physician: PATIENT DOES NOT HAVE A PCP Patient Escorted by: Family [5] Mode of Arrival: Personal means [1] EMS Treatment Prior to ED Arrival: CABLE TESTERS HELPER treatment: None Travel and Exposure Screening: Symptoms [...] injury. Recent encounters: 1. Today, Just before [facility] ED Encounter. Similar symptoms. PLUS sounds like [...] 0.0 0.0 - 10.0 /100 WBCs NRBC x103<0.01 10*3/?L GRAN MAT (NEUT) % 86.8 % IMM GRAN % 0.30 % LYMPH % 10.2 % MONO % 2.4 % EOS % 0.0 % BASO % 0.3 % GRAN MAT x103(ANC) 6.07 1.88 - 7.09 10*3/uL IMM GRAN x103<0.03 0.00 - 0.06 10*3/uL LYMPH x1030.71 (*) 1.32 - 3.29 10*3/uL MONO x1030.17 (*) 0.33 - 0.92 10*3/uL EOS x103<0.03 (*) 0.03 - 0.39 10*3/uL BASO x103<0.03 0.01 - 0.07 10*3/uL COMP. METABOLIC PANEL (02864) - Abnormal NA 138 135 - 145 [...] CONTRAST CBC WITH DIFF COMP. METABOLIC PANEL (89750) LIPASE URINALYSIS TEST, SERUM Orders Placed This [...] ED Events Date/Time Event User Comments 09/16/23 1444 Medical Screening Begins MARLI BARBOSA MD -- 09/16/23 144 First Provider Evaluation MARLI BARBOSA MD -- ED COURSE Diagnosis/Impression as of 09/16/23 1827 Nausea and vomiting, unspecified vomiting type Abdominal [...] [place] for A-Fib RVR at [facility] just prior to [facility] ED encounter. Gastritis without bleeding, unspecified chronicity, [...] Electronically signed by: Marli Barbosa MD 09/16/231826 [facility] - Qaylsa4159-62-72 12:02:00 [facility] OB Disch REPORT#:[id number] REPORT STATUS: Signed DATE:09/21/21 TIME: 1202 PATIENT: YENY TEMPLETON UNIT #: [id number] ROOM/BED: [place] [address] : [birth year] AGE: 26 SEX: F ATTEND: [...] noted below under Provider comments. Delivery date infant A: 09/18/21 Delivery time infant A: 1831 Birthweight (gm) A: 2420 Feeding preference: Gender infant A: Female 1 minute infant A: 8 5 minutes A: 9 10 minutes A: Provider comments on imported nursing data: [] Plan: routine care, discharge today Discharge Instructions Instructions: routine instr sheet given Diet: Resume Home Diet/Feeds Activity: Resume Normal Activity Additional discharge routines: None Discharge meds: Continue taking these medications: PNV WITH FE FUMARATE/FA () 1 EACH TAB 1 TABLET ORAL DAILY. FERROUS SULFATE (FEOSOL) 325 MG TAB 325 MILLIGRAM ORAL DAILY. at 1203 RPT #:[id number] END OF [id number] 12:01:00 [facility] ([facility]) OB Postpart Progr Note REPORT#:[id number] REPORT STATUS: Signed DATE:09/21/21 TIME: 1201 PATIENT: YOKASTATIMOTHYASHWINI BROWN UNIT #: [id number] ROOM/BED: [place] [address] : [birth year] AGE: 26 SEX: F ATTEND: [...] O2 Flow FiO2 Mean Ox Delivery Rate 09/205 36.7 64 16 130/82 99 PATIENT WEIGHT: [...] routine care, discharge today at 1202 RPT #:[id number] END OF [id number] 14:27:00 [facility] ([facility]) OB Postpart Progr Note REPORT#:[id number] REPORT STATUS: Signed DATE:09/20/21 TIME: 1427 PATIENT: YENY TEMPLETON UNIT #: [id number] ROOM/BED: [place] [address] : [birth year] AGE: 26 SEX: F ATTEND: [...] nml progress Plan: routine care at 1428 [facility] #:[id number] END OF [id number] 08:36:00 [facility] ([facility]) OB Postpart Progr Note REPORT#:[id number] REPORT STATUS: Signed DATE:09/19/21 TIME: 0836 PATIENT: YENY TEMPLETON UNIT #: [id number] ROOM/BED: [place] [address] : [birth year] AGE: 26 SEX: F ATTEND: [...] 2006 76.0 09/18 2006 67 109/53 09/18 195 82.0 09/18 195 61 119/59 09/18 1936 [...] (Auto) (14.0 - 32.0 %) 18.6 16.7 [place] % (Auto) (4.8 - 9.0 %) 7.5 5.5 Eos % (Auto) (0.3 - 3.7 %) 1.4 1.2 Baso % (Auto) (0.0 - 2.0 %) 0.5 0.4 Neut # (Auto) (2.0 - 7.6 x10 3/uL) 4.50 5.63 Lymph # (Auto) (1.0 - 3.8 x10 3/uL) 1.17 1.24 [place] # (Auto) (0.1 - 0.8 x10 3/uL) [...] nml progress Plan: routine care at 0838 [facility] #:[id number] END OF [id number] 20:32:00 [facility] ([facility]) DT History Physical REPORT#:[id number] REPORT STATUS: Signed DATE:09/18/21 TIME: 2031 PATIENT: YENY TEMPLETON UNIT #: [id number] ROOM/BED: [place] [address] : [birth year] AGE: 26 SEX: F ATTEND: Yosi Marroquin MD ADM AUTHOR: Yosi Marroquin MD * ALL edits or amendments must be made on the electronic/computer document * History Physical History Physical She is seen and examined and care records reviewed with the following updates; Laboratory Tests 09/18/211624: [Embedded Image Not Available] 09/17/212034: [Embedded Image [...] O2 Sat (%) 71 Laboratory Tests 09/18 Hematology WBC (4.5 - 11.0 x10 3/uL) [...] (Auto) (14.0 - 32.0 %) 16.7 20.9 [place] % (Auto) (4.8 - 9.0 %) 5.5 5.9 Eos % (Auto) (0.3 - 3.7 %) 1.2 2.1 Baso % (Auto) (0.0 - 2.0 %) 0.4 0.5 Neut # (Auto) (2.0 - 7.6 x10 3/uL) 5.63 4.69 Lymph # (Auto) (1.0 - 3.8 x10 3/uL) 1.24 1.39 [place] # (Auto) (0.1 - 0.8 x10 3/uL) [...] (3.54 - 5.02 x10 6/uL) 3.60 09/18 1625 Hgb (11.0 - 15.0 g/dL) 9.9 L 09/18 1625 Hct (33.0 - 45.0 %) 32.1 L 09/18 1625 MCV (81.0 - 99.0 fL) 89.2 09/18 1625 MCH (27.0 - 33.0 pg) 27.5 09/18 1625 MCHC (33.0 - 37.0 g/dL) 30.8 L 09/18 1625 RDW (11.5 - 14.5 %) 15.5 H 09/18 1625 Plt Count (150 - 400 x10 3/uL) 91 L 09/18 1625 MPV (7.0 - 9.0 fL) 11.5 H 09/18 1625 Neut % (Auto) (56.0 - 77.0 %) 75.8 09/18 1625 Lymph % (Auto) (14.0 - 32.0 %) 16.7 09/18 1625 [place] % (Auto) (4.8 - 9.0 %) 5.5 09/18 1625 Eos % (Auto) (0.3 - 3.7 %) 1.2 09/18 1625 Baso % (Auto) (0.0 - 2.0 %) 0.4 09/18 1625 Neut # (Auto) (2.0 - 7.6 x10 3/uL) 5.63 09/185 Lymph # (Auto) (1.0 - 3.8 x10 3/uL) 1.24 09/18 1625 [place] # (Auto) (0.1 - 0.8 x10 3/uL) 0.41 09/18 162 Eos # (Auto) (0.0 - 0.2 x10 [...] MG Q6H PRN PRN 09/18 2029 AC (BENADRYL) PO 10/18 2028 Diphenhydramine HCl 25 MG Q6H PRN PRN 09/18 2029 AC (BENADRYL) PO 10/18 2028 Diphenhydramine HCl [...] 09/17 529 DC (ePHEDrine sulfate) IV 10/10 1458 Ephedrine Sulfate 25 MG ASDIR PRN 09/17 0430 DC (ePHEDrine sulfate) IM 10/10 145 Blood Formation,Coagulation Sig/Shaun Start time Last Medication Dose Route Stop Time Status Admin Ferrous Sulfate 325 MG DAILY 09/19 09 AC (FERROUS SULFATE) PO 10/19 0859 Ferrous Sulfate 325 MG DAILY 09/19 09 AC (FERROUS SULFATE) PO 10/19 0859 Cardiovascular Drugs Sig/Shaun Start time Last Medication Dose Route Stop Time Status Admin Hydralazine HCl 10 MG ASDIR PRN 09/18 2030 AC (APRESOLINE) IV 10/18 2028 Hydralazine HCl [...] 09/17 0530 DC (LIDOCAINE HCL/PF) LOCAL 10/10 1459 Central Nervous System Agents Sig/Shaun Start time [...] IV 10/18 2143 Ropivacaine/Fentanyl/ 0 ASDIR 09/17 214 DC 09/18 NS EPIDURAL 10/18 2143 1730 (fentaNYL/ROP 200 MCG/0.125% 100ML CASSETTE) Butorphanol Tartrate 1 MG Q3H PRN PRN 09/17 213 DC 09/18 (STADOL) IV 10/17 2128 1413 Ropivacaine/Fentanyl/ 0 ASDIR PRN 09/17 0530 DC NS EPIDURAL 10/10 1459 (fentaNYL/ROP 200 MCG/0.125% 100ML CASSETTE) Electrolytic, Caloric, [...] Citric Acid/Sodium 30 ML ONCE PRN 09/17 529 DC 09/18 Citrate PO 10/10 1459 1631 [...] Admin Docusate Sodium 100 MG BID 09/18 2100 AC (COLACE) PO 10/18 2058 Docusate Sodium 100 MG BID 09/18 2100 AC (COLACE) PO 10/18 2058 Al Hydrox/Mg Hydrox/ 30 ML Q4H PRN PRN 09/18 2029 AC Simethicone PO 10/18 2028 (MYLANTA) Al Hydrox/Mg Hydrox/ 30 ML Q4H PRN PRN 09/18 2029 AC Simethicone PO 10/18 2028 (MYLANTA) Ondansetron HCl 4 MG Q4H PRN PRN 09/18 2029 UNV (ZOFRAN) IV 10/18 2028 Ondansetron HCl 4 MG Q8H PRN PRN 09/18 2029 UNV (ZOFRAN ODT) PO 10/18 2028 Ondansetron HCl 4 MG Q4H PRN PRN 09/18 2029 UNV (ZOFRAN) IV 10/18 2028 Ondansetron HCl 4 MG Q8H PRN PRN 09/18 2029 UNV (ZOFRAN ODT) PO 10/18 2028 Simethicone 80 MG Q2H PRN PRN 09/18 2029 AC (MYLANTA GAS) PO 10/18 2028 Simethicone 80 MG Q2H PRN PRN 09/18 2029 AC (MYLANTA GAS) PO 10/18 2028 Famotidine 20 MG ONCE PRN 09/17 0530 DC 09/18 (PEPCID) IV 10/10 145 1630 Metoclopramide HCl 10 MG ONCE PRN 09/17 0530 DC 09/18 (REGLAN) IV 10/10 1459 1630 Mineral Oil 30 ML ASDIR PRN 09/17 05 DC (MINERAL OIL) TOPICAL 10/10 145 Misoprostol 800 MCG ONCE PRN 09/17 05 DC (miSOPROStoL) RECTAL 10/10 145 Ondansetron HCl 4 MG Q4H PRN PRN 09/17 0530 DC 09/18 (ZOFRAN) IV 10/10 1459 1556 Local Anesthetics (Parenteral) Sig/Shaun Start time Last Medication Dose Route Stop Time Status Admin Bupivacaine HCl 10 ML ONCE PRN 09/17 214 DC (MARCAINE) EPIDURAL 10/18 2143 Bupivacaine HCl 10 ML ASDIR PRN 09/17 214 DC (MARCAINE) EPIDURAL 10/18 2143 Bupivacaine HCl 30 ML ASDIR PRN 09/17 2145 DC (MARCAINE 0.5%) EPIDURAL 10/18 2143 Lidocaine/Epinephrine 5 ML ASDIR PRN 09/17 214 DC (LIDOCAINE 1.5% W/ LOCAL 10/17 214 EPINEPHrine) Bupivacaine HCl 0 ASDIR PRN 09/17 05 DC (MARCAINE) EPIDURAL 10/10 1459 Oxytocics Sig/Shaun Start time Last Medication Dose Route Stop Time Status Admin Oxytocin 168 ML .Q4H 09/18 2029 AC (OXYTOCIN 30 UNITS/ IV 09/19 0019 NS 500ML) Oxytocin 168 ML .Q4H 09/18 2029 AC (OXYTOCIN 30 UNITS/ IV 09/19 0025 NS 500ML) Oxytocin 500 ML ASDIR 09/18 1015 DC 09/18 (OXYTOCIN 30 UNITS/ IV 10/18 1014 1024 NS 500ML) Dinoprostone 10 MG ONCE ONE 09/17 2129 DC 09/17 (CERVIDIL) VAGINAL 09/17 Carboprost 250 MCG ONCE PRN 09/17 529 DC Tromethamine IM 10/10 1458 (HEMABATE) Methylergonovine 0.2 MG ONCE PRN 09/17 529 DC Maleate IM 10/10 145 (METHERGINE) Oxytocin 333.33 ML BOLUS PRN 09/17 529 DC (OXYTOCIN 30 UNITS/ IV 10/10 1458 NS 500ML) Pharmaceutical Aids Sig/Shaun Start time [...] Folic Ac/DSS/DHA PO 10/19 0859 (/FE/FA/OM3/ DHA/EPA) Vit/Iron/ 1 CAP DAILY 09/19 0900 AC Folic Ac/DSS/DHA PO 10/19 0859 (/FE/FA/OM3/ DHA/EPA) Vital Signs: Date Time Temp Pulse Resp B/P B/P Pulse O2 O2 Flow FiO2 Mean Ox Delivery Rate 09/18 1950 82.0 09/18 1950 61 119/59 09/19 1935 87.0 09/19 1935 71 125/63 09/18 1921 81.0 09/18 1921 68 113/61 09/18 1906 96.0 09/18 1906 72 17 127/83 100 09/19 1851 75.0 04/28 1852 76 111/52 09/18 1835 37.2 16 [...] % (Auto) (14.0 - 32.0 %) 20.9 [place] % (Auto) (4.8 - 9.0 %) 5.9 Eos % (Auto) (0.3 - 3.7 %) 2.1 Baso % (Auto) (0.0 - 2.0 %) 0.5 Neut # (Auto) (2.0 - 7.6 x10 3/uL) 4.69 Lymph # (Auto) (1.0 - 3.8 x10 3/uL) 1.39 [place] # (Auto) (0.1 - 0.8 x10 3/uL) [...] Ag (Rapid) (Negative) Negative 09/18 09/18 UNK 4643 Blood Gas Cord VBG pH (7.25 - [...] % (Auto) (14.0 - 32.0 %) 16.7 [place] % (Auto) (4.8 - 9.0 %) 5.5 Eos % (Auto) (0.3 - 3.7 %) 1.2 Baso % (Auto) (0.0 - 2.0 %) 0.4 Neut # (Auto) (2.0 - 7.6 x10 3/uL) 5.63 Lymph # (Auto) (1.0 - 3.8 x10 3/uL) 1.24 [place] # (Auto) (0.1 - 0.8 x10 3/uL) [...] Admin Ferrous Sulfate 325 MG DAILY 09/19 0900 AC PO 10/19 0859 Ferrous Sulfate 325 MG DAILY 09/19 0900 AC PO 10/19 0859 Vit/Iron/ 1 CAP DAILY 09/19 09 AC Folic Ac/DSS/DHA PO 10/19 0859 Vit/Iron/ 1 CAP DAILY 09/19 0900 AC Folic Ac/DSS/DHA PO 10/19 0859 Docusate Sodium 100 MG BID 09/18 2100 AC PO 10/18 2058 Docusate Sodium 100 [...] ML ONCE PRN 09/17 2145 DC EPIDURAL 10/17 214 Bupivacaine HCl 10 ML ASDIR PRN 09/17 2145 DC EPIDURAL 10/17 214 Bupivacaine HCl 30 ML ASDIR PRN 09/17 2145 DC EPIDURAL 10/17 214 Diphenhydramine HCl 12.5 MG Q6H PRN PRN 09/17 2145 DC IV 10/17 2144 Ephedrine Sulfate 10 MG ONCE PRN 09/17 2145 DC IV 10/17 2144 Ephedrine Sulfate 25 MG ONCE PRN 09/17 2145 DC IM 10/17 2144 Lidocaine/Epinephrine 5 ML ASDIR PRN 09/17 2145 DC LOCAL 10/17 2144 Naloxone HCl 0.1 MG ASDIR PRN 09/17 2145 DC IV 10/17 2144 Ropivacaine/Fentanyl/ 0 ASDIR 09/17 2145 DC 09/18 NS EPIDURAL 10/17 2144 1730 Sterile Water 10 ML ASDIR PRN 09/17 2145 DC EPIDURAL 10/17 2144 Butorphanol Tartrate 1 MG Q3H PRN PRN 09/17 2130 DC 09/18 IV 10/17 2129 1413 Dinoprostone 10 MG ONCE ONE 09/17 213 DC 09/17 VAGINAL 09/17 2131 2205 Bupivacaine HCl 0 ASDIR PRN 09/17 05 DC EPIDURAL 10/10 1459 Carboprost 250 MCG ONCE PRN 09/17 05 DC Tromethamine IM 10/10 1459 Citric Acid/Sodium 30 ML ONCE PRN 09/17 05 DC 09/18 Citrate PO 10/10 1459 1631 Ephedrine Sulfate 10 MG ASDIR PRN 09/17 05 DC IV 10/10 1459 Ephedrine Sulfate 25 MG ASDIR PRN 09/17 529 DC IM 10/10 1459 Famotidine 20 MG ONCE PRN 09/17 529 DC 09/18 IV 10/10 1459 1630 Lactated Ringer's 1,000 ML BOLUS PRN 09/17 529 DC IV 10/10 1459 Lactated Ringer's 1,000 ML .Q8H 09/17 529 DC 09/18 IV 10/10 1459 1420 Lidocaine HCl 30 ML ASDIR PRN 09/17 529 DC LOCAL 10/10 1459 Methylergonovine 0.2 MG ONCE PRN 09/17 529 DC Maleate IM 10/10 1459 Metoclopramide HCl 10 MG ONCE PRN 09/17 529 DC 09/18 IV 10/10 1459 1630 Mineral Oil 30 ML ASDIR PRN 09/17 529 DC TOPICAL 10/10 1459 Misoprostol 800 MCG ONCE PRN 09/17 529 DC RECTAL 10/10 1459 Ondansetron HCl 4 MG Q4H PRN PRN 09/17 529 DC 09/18 IV 10/10 1459 1556 Oxytocin 333.33 ML BOLUS PRN 09/17 529 DC IV 10/10 1459 Ropivacaine/Fentanyl/ 0 ASDIR PRN 09/17 529 DC NS EPIDURAL 10/10 145 at 203 RPT #:[id number] END OF [id number] 20:27:00 [facility] ([facility]) OB Delivery Note REPORT#:[id number] REPORT STATUS: Signed DATE:09/18/21 TIME: 2026 PATIENT: YENY TEMPLETON UNIT #: [id number] ROOM/BED: [place] [address] : 93 AGE: 26 SEX: F ATTEND: [...] given: Post hemorrhage risk score: Delivery date infant A: 09/18/21 Delivery time infant A: 1831 Birthweight (gm) A: 2420 Weight (lb) infant A: Weight (oz) infant A: Gender infant A: Female 1 minute A: 5 minutes A: 10 minutes A: Cord pH obtained infant A: Vacuum time A: Vacuum # pulls infant A: Vacuum # popoffs infant A: QBL at delivery: 67 __ Provider [...] oxytocin Count: correct Mother's condition: mother stable 's condition: infant stable in room Lacerations: Perineal laceration(s): None Blood Loss/Details Blood loss at delivery: 67 at 2032 RPT #:[id number] END OF [id number] 22:33:00 [facility] ([facility]) SHADI Evaluation Note REPORT#:[id number] REPORT STATUS: Signed DATE:09/10/21 TIME: 2232 PATIENT: YENY TEMPLETON UNIT #: [id number] ROOM/BED: [place] [address] : 93 AGE: 26 SEX: F ATTEND: [...] History: Unremarkable Medications: Home Medications: Denies on [place]. s/p BMZ. Medication Dose/Rte/Freq Days Qty Entered [...] % (Auto) (14.0 - 32.0 %) 21.5 [place] % (Auto) (4.8 - 9.0 %) 6.5 Eos % (Auto) (0.3 - 3.7 %) 2.0 Baso % (Auto) (0.0 - 2.0 %) 0.5 Neut # (Auto) (2.0 - 7.6 x10 3/uL) 3.84 Lymph # (Auto) (1.0 - 3.8 x10 3/uL) 1.20 [place] # (Auto) (0.1 - 0.8 x10 3/uL) [...] pH (5.0 - 7.0) 5.0 Ur Specific [place] (1.005 - 1.030) 1.027 Urine Protein (NEGATIVE) [...] Microbiology: Date/Time Procedure - Status Source Growth 09/103 Urine Culture - ORD URINE Diagnosis, Assessment Plan Diagnosis, Assessment Plan Free Text A P: 26 y/o P1203 at 36 week c/o contractions, not in labor hematuria h/o thrombocytopenia h/o anemia poly , will f/u w Dr. Darby Wednesday IOL for Wednesday smoker VE same Precautions given u cxl ordered at 2240 RPT #:[id number] END OF [id number] 20:50:00 [facility] ([facility]) OB Medical Screening Exam REPORT#:[id number] REPORT STATUS: Signed DATE:09/10/21 TIME: 2049 PATIENT: YENY TEMPLETON UNIT #: [id number] ROOM/BED: : 93 AGE: 26 SEX: F [...] C score: Medical screening part C recommendation: KYLER RAINES signature: Provider comments on imported nursing data: [] Provider Attestation Attestation: The QMP MSE reviewed. Comments: Notified at 2043. Orders placed. OE with pt long chart review from prior visit. Provider at bedside at 2051. at 2051 RPT #:[id number] END OF [id number] 11:34:00 [facility] Hospitalist Progress Note REPORT#:[id number] REPORT STATUS: Signed DATE:08/27/21 TIME: 1134 PATIENT: YENY TEMPLETON UNIT #: [id number] ROOM/BED: [place] [address] : 93 AGE: 26 SEX: F ATTEND: [...] O2 Flow FiO2 Mean Ox Delivery Rate 08/27 1035 103 97 08/27 1030 118 96 08/27 1025 117 96 08/27 1014 112 96 08/27 1009 109 95 08/27 1004 115 95 08/27 0959 112 95 08/27 0954 117 96 08/27 0949 118 96 04/06 0944 102 93 [...] 104 97 04/05 2211 105 99 04/05 6 110 96 04/05 2153 108 98 04/05 2148 113 99 04/05 [...] 90 100 04/05 2038 98 100 04/05 2033 98 100 04/05 2028 95 94 04/05 2027 83 94 04/05 2022 77 100 04/05 2017 82 100 04/05 2012 79 100 04/05 2007 89 100 04/05 2002 89 100 04/05 1957 90 100 04/05 195 85 100 04/05 1948 90 100 04/05 1943 83 100 04/05 1938 85 99 04/05 1933 91 100 04/05 1930 99 Non 15 rebreather mask 04/05 1928 87 100 04/05 1925 97.7 18 04/05 [...] 04/05 1502 106.0 04/05 1502 113 140/83 04/ 1447 94.0 / 1447 112 137/65 04/ 1431 101.0 / 1431 113 148/76 04/ 1420 119 94 04/ 1416 102.0 04/ 1416 97.9 115 16 141/77 99 04/ 1415 118 92 PATIENT WEIGHT: Weight (lb): [...] (DCD) Lactated Ringer's (LACTATED RINGERS) 1,000 ML .[id number] IV (DCD) Nifedipine (Procardia) 10 MG ONCE [...] Musculoskeletal: normal inspection, painless range of motion Neuro/BEDSPREAD FOLDER: alert, oriented X 3, normal speech, no [...] Tests 08/27 08/26 08/26 08/26 08/26 0508 0 1999 180 1714 Chemistry Sodium (134 - 147 mEq/L) [...] - 57 U/L) 21 Laboratory Tests 08/26 1713 Coagulation INR (0.8 - 1.2) 1.1 PTT [...] %) 6.5 L 4.3 L 4.7 L [place] % (Auto) (4.8 - 9.0 %) 8.2 5.8 5.4 Eos % (Auto) (0.3 - 3.7 %) 0.4 0.5 0.7 Baso % (Auto) (0.0 - 2.0 %) 0.4 0.3 0.4 Neut # (Auto) (2.0 - 7.6 x10 3/uL) 3.94 7.07 6.71 Lymph # (Auto) (1.0 - 3.8 x10 3/uL) 0.31 L 0.34 L 0.36 L [place] # (Auto) (0.1 - 0.8 x10 3/uL) [...] 11.2 %) 10.3 10.3 Laboratory Tests 08/26 1410 Miscellaneous Fibronectin (NEGATIVE) NEGATIVE Laboratory Tests 08/26 1650 Serology SARS-CoV-2 Ag (Rapid) (Negative) Negative Laboratory Tests 08/26 1410 Urines Urine Color (YEL/STRAW) YELLOW Urine Appearance (CLEAR) CLEAR Urine pH (5.0 - 7.0) 7.0 Ur Specific [place] (1.005 - 1.030) 1.021 Urine Protein (NEGATIVE) [...] NASAL 08/26 1739 Legionella Urinary Antigen - COMP URINE 08/26 1739 Streptococcus pneumoniae Ag Screen - COMP URINE [...] this age group. (Reference: Ron) References: Ron Morel et al. Guidelines for Management of Incidental [...] no active bleeding noted Intrauterine * Per PHARMACEUTICAL PROCESS ENGINEER DVT prophylaxis: SCDs, monitor platelets Disposition: Patient [...] follow up with her outpatient PCP/OBGYN. Quality: Gen Med Crit Care VTE Prophylaxis VTE prophylaxis initiated: yes (mechanical comp device) at 1242 RPT #:[id number] END OF [id number] 07:57:00 [facility] ([facility]) DT History Physical REPORT#:[id number] REPORT STATUS: Signed DATE:08/27/21 TIME: 756 PATIENT: YENY TEMPLETON UNIT #: [id number] ROOM/BED: [place] [address] : [birth year] AGE: 26 SEX: F ATTEND: Yosi Marroqiun MD ADM AUTHOR: Yosi Marroquin MD * [...] Ox 99 08/26 1657 Pulse 102 08/26 165 Temp 101.2 08/26 1615 B/P Mean 93.0 [...] Musculoskeletal: normal inspection, painless range of motion Neuro/BEDSPREAD FOLDER: alert, oriented X 3, normal speech, no [...] - 32.0 %) 4.3 L 4.7 L [place] % (Auto) (4.8 - 9.0 %) 5.8 5.4 Eos % (Auto) (0.3 - 3.7 %) 0.5 0.7 Baso % (Auto) (0.0 - 2.0 %) 0.3 0.4 Neut # (Auto) (2.0 - 7.6 x10 3/uL) 7.07 6.71 Lymph # (Auto) (1.0 - 3.8 x10 3/uL) 0.34 L 0.36 L [place] # (Auto) (0.1 - 0.8 x10 3/uL) [...] pH (5.0 - 7.0) 7.0 Ur Specific [place] (1.005 - 1.030) 1.021 Urine Protein (NEGATIVE) [...] Internal medicine consult appreciated at 0806 RPT #:[id number] END OF [id number] 17:40:00 [facility] ([facility]) Hospitalist Consultation REPORT#:[id number] REPORT STATUS: Signed DATE:08/26/21 TIME: 1740 PATIENT: YENY TEMPLETON KEVIN UNIT #: [id number] ROOM/BED: : 93 AGE: 26 SEX: F [...] Musculoskeletal: normal inspection, painless range of motion Neuro/BEDSPREAD FOLDER: alert, oriented X 3, normal speech, no [...] - 32.0 %) 4.3 L 4.7 L [place] % (Auto) (4.8 - 9.0 %) 5.8 5.4 Eos % (Auto) (0.3 - 3.7 %) 0.5 0.7 Baso % (Auto) (0.0 - 2.0 %) 0.3 0.4 Neut # (Auto) (2.0 - 7.6 x10 3/uL) 7.07 6.71 Lymph # (Auto) (1.0 - 3.8 x10 3/uL) 0.34 L 0.36 L [place] # (Auto) (0.1 - 0.8 x10 3/uL) [...] pH (5.0 - 7.0) 7.0 Ur Specific [place] (1.005 - 1.030) 1.021 Urine Protein (NEGATIVE) [...] no active bleeding noted Intrauterine * Per PHARMACEUTICAL PROCESS ENGINEER DVT prophylaxis: SCDs, monitor platelets, may need full dose anticoagulation pending CT angiogram of the chest Quality: Gen [facility] Crit Care VTE Prophylaxis VTE prophylaxis initiated: yes (mechanical comp device) at 1904 RPT #:[id number] END OF [id number] 17:00:[id number] [address] PATIENT NAME: YENY TEMPLETON ADMIT DATE: 08/26/21 ACCOUNT NO: [id number] ROOM NO: [facility] AGE: 26 REPORT TYPE: eELECTROCARDIOGRAM REPORT SEX: F ADMITTING PHYSICIAN:Yosi Marroquin MD ATTENDING PHYSICIAN:Yosi Marroquin MD Order: [id number] Test Reason : Sepsis Test Date/Time Stamp: [...] 18:57, Significant changes have occurred Confirmed by XAVIER JAEGER MD ([id number]) on 09/03/2021 6:59:45 PM Referred By: No Physician Confirmed by:LUIS JAEGER MD at 2839 PATIENT NAME: YENY TEMPLETON 14:23:00 [facility] ([facility]) OB Medical Screening Exam REPORT#:[id number] REPORT STATUS: Signed DATE:08/26/21 TIME: 1423 PATIENT: YENY TEMPLETON UNIT #: [id number] ROOM/BED: : 93 AGE: 26 SEX: F ATTEND: Kristie Boston MD ADM DT: AUTHOR: Kristie Boston MD * ALL edits or amendments must be made on the electronic/computer document * Medical Screening Exam Provider Attestation Attestation: The QMP MSE reviewed. Provider at bedside at 1355 Comments: 26 y/o IUP 33 6/7 presents due to nausea, vomiting, diarrhea and contractions. at 0633 RPT #:[id number] END OF [id number] 14:23:00 [facility] ([facility]) SHADI Evaluation Note REPORT#:[id number] REPORT STATUS: Signed DATE:08/26/21 TIME: 1423 PATIENT: YENY TEMPLETON UNIT #: [id number] ROOM/BED: : 93 AGE: 26 SEX: F [...] 135/73 08/26 1547 Resp 16 08/26 1416 Vital Signs Date Temp Pulse Resp B/P B/P Mean Pulse Ox FiO2 08/26 97.9-101.2 60-205 16 135-148/65-86 93.0-106.0 89-100 PATIENT WEIGHT: Weight (lb): Weight (oz): Weight (kg): Physical Exam Additional comments: Gen: AAOx3 Lungs: normal respiratory effort Neuro: Exam: alert, oriented x3 Abdomen: gravid, soft Uterine activity: Monitor: toco Frequency (description): regular Frequency (minutes): 5 SEISMOLOGY TEACHER: Normal exteral genitalia Cervical/ exam: Speculum exam: [...] Coagulation INR (0.8 - 1.2) 1.1 PTT ([place]) (25.0 - 39.5 Seconds) 27.0 PT Patient/Control [...] (Auto) (14.0 - 32.0 %) 4.3 L [place] % (Auto) (4.8 - 9.0 %) 5.8 Eos % (Auto) (0.3 - 3.7 %) 0.5 Baso % (Auto) (0.0 - 2.0 %) 0.3 Neut # (Auto) (2.0 - 7.6 x10 3/uL) 7.07 Lymph # (Auto) (1.0 - 3.8 x10 3/uL) 0.34 L [place] # (Auto) (0.1 - 0.8 x10 3/uL) [...] (Auto) (14.0 - 32.0 %) 4.7 L [place] % (Auto) (4.8 - 9.0 %) 5.4 Eos % (Auto) (0.3 - 3.7 %) 0.7 Baso % (Auto) (0.0 - 2.0 %) 0.4 Neut # (Auto) (2.0 - 7.6 x10 3/uL) 6.71 Lymph # (Auto) (1.0 - 3.8 x10 3/uL) 0.36 L [place] # (Auto) (0.1 - 0.8 x10 3/uL) [...] pH (5.0 - 7.0) 7.0 Ur Specific [place] (1.005 - 1.030) 1.021 Urine Protein (NEGATIVE) [...] Type B Antigen - COMP NASAL 08/26 1802 Influenza Virus Type A Antigen - COMP NASAL 08/26 173 Legionella Urinary Antigen - RECD URINE 08/26 173 Streptococcus pneumoniae Ag Screen - RECD URINE 08/26 171 Blood Culture - RECD BLOOD 08/26 171 Blood Culture - RECD BLOOD 08/26 1631 Urine Culture - RECD URINE Recent Impressions: RADIOLOGY - XR CHEST 1 V 08/26 1700 Report Impression - Status: SIGNED Entered: 08/26/2021 1758 IMPRESSION: No acute cardiopulmonary findings. Impression By: Charla Nielson M.D. CAT SCAN - CTA CHEST FOR PE 08/267 Report Impression - Status: SIGNED Entered: 08/26/2021 [...] in this age group. (Reference: Ron) References: DonyMahochristopher H, et al. Guidelines for Management of [...] up and O2. 26 y/o IUP 33 6/ presented due to nausea, vomiting, diarrhea and [...] nurse, DR Lopez Garcia at 1853 RPT #:[id number] END OF [id number] 19:43:00 [facility] ([facility]) SHADI Evaluation Note REPORT#:[id number] REPORT STATUS: Signed DATE:08/20/21 TIME: 1942 PATIENT: YENY TEMPLETON UNIT #: [id number] ROOM/BED: [place] [address] : 93 AGE: 26 SEX: F ATTEND: [...] 1 TAB PO DAILY 10/30/18 08/20/21 FUMARATE/FA [id number] () Strength: 1 EACH TAB Current Hospital [...] or N/v. Additionally I presume she declined Ayesha during the . Dr. Marroquin would like to administer celestone today. at 1952 Addendum 1: 08/20/212125 by Stephanie Bazzi DO FFN negative UA 1+ blood and 2+ calcium oxylate 7>9.8/30.8<88 K = 3.3 rest CMP ok Pt did get first BMZ shot Pt apparently aware of the thrombocytopenia [place] Cxn have settled and spaced out quite [...] of lab results too. at 2200 RPT #:[id number] END OF [id number] 19:21:00 [facility] ([facility]) OB Medical Screening Exam REPORT#:[id number] REPORT STATUS: Signed DATE:08/20/21 TIME: 1920 PATIENT: YENY TEMPLETON UNIT #: [id number] ROOM/BED: : 93 AGE: 26 SEX: F [...] score: Medical screening part C recommendation: RN MSE signature: Provider comments on imported nursing data: [] Provider Attestation Attestation: The QMP MSE reviewed. Comments: Pt triaged at 1921. at 1921 RPT #:[id number] END OF [id number] 21:46:00 [facility] ([facility] OB Medical Screening Exam REPORT#:[id number] REPORT STATUS: Signed DATE:08/14/21 TIME: 2145 PATIENT: YENY TEMPLETON UNIT #: [id number] ROOM/BED: : 93 AGE: 26 SEX: F ATTEND: Kristie Boston MD ADM DT: AUTHOR: Kristie Boston MD * ALL edits or amendments must be made on the electronic/computer document * Medical Screening Exam Provider Attestation Attestation: The QMP MSE reviewed. Provider at bedside at 2131 Comments: 26 y/o IUP 32 1/7 presents due to contractions and possible leaking of fluids. at 2147 RPT #:[id number] END OF [id number] 21:46:00 [facility] ([facility]) SHADI Evaluation Note REPORT#:[id number] REPORT STATUS: Signed DATE:08/14/21 TIME: 2145 PATIENT: YENY TEMPLETON UNIT #: [id number] ROOM/BED: : 93 AGE: 26 SEX: F ATTEND: Kristie Boston MD ADM DT: AUTHOR: Kristie Boston MD * ALL edits or amendments must be made on the electronic/computer document * SHADI History Chief complaint: uterine contractions, suspected ruptured memb HPI: 26 y/o IUP 32 1/7 presents due [...] 0909 Allergies Coded Allergies: No Known Allergies (01/20/21) Review of Systems Additional notes: Constitutional: Denies: [...] Monitor: toco Frequency (description): none Frequency (minutes): SEISMOLOGY TEACHER: Normal external genitalia Cervical/ exam: Speculum exam:No [...] pH (5.0 - 7.0) 5.0 Ur Specific [place] (1.005 - 1.030) 1.027 Urine Protein (NEGATIVE) [...] send UA , FFN and amnisure. Re-evaluation 2240 FFN, amnisure negative. UA 1+pro 26 y/o IUP 32 05/30 presented due to contractions and possible leaking of fluids. FFN and amnisure negative. Patent found to be hemodynamically stable with normal vital signs, category I strip and found not to be in labor. Oriented on discharge and labor precautions as well as kick counts and she voiced understanding will have her follow-up with her PHARMACEUTICAL PROCESS ENGINEER. Assessment: no evidence labor Impression: reactive NST Plan: discharge home Plan discussed with: patient, nurse at 2253 RPT #:[id number] END OF [id number] 10:34:00 [facility] ([facility]) OB Disch REPORT#:[id number] REPORT STATUS: Signed DATE:06/15/20 TIME: 1034 PATIENT: YENY TEMPLETON UNIT #: [id number] ROOM/BED: [place] [id number] : 93 AGE: 24 SEX: F ATTEND: [...] comments. Delivery date A: 06/12/20 Delivery time infant A: 2059 Birthweight (gm) infant A: 2820 Feeding preference: Gender A: Male 1 minute infant A: 8 5 minutes infant A: 9 10 minutes infant A: Provider comments on imported nursing data: [] Plan: routine care, discharge today Vaginal packing at delivery: No Discharge Instructions Instructions: routine instr sheet given Diet: Resume Home Diet/Feeds Activity: Resume Normal Activity Additional discharge routines: None at 1036 RPT #:[id number] END OF [id number] 10:32:00 [facility] ([facility]) OB Postpart Progr Note REPORT#:[id number] REPORT STATUS: Signed DATE:06/15/20 TIME: 1032 PATIENT: YENY TEMPLETON KEVIN UNIT #: [id number] ROOM/BED: [place] [id number] : 93 AGE: 24 SEX: F ATTEND: [...] routine care, discharge today at 1034 RPT #:[id number] END OF [id number] 13:08:00 [facility] ([facility]) OB Postpart Progr Note REPORT#:[id number] REPORT STATUS: Signed DATE:06/14/20 TIME: 1308 PATIENT: YENY TEMPLETON UNIT #: [id number] ROOM/BED: [place] [id number] : 93 AGE: 24 SEX: F ATTEND: [...] progress Plan: routine care at 1310 RPT #:[id number] END OF [id number] 20:57:00 [facility] ([facility]) OB Postpart Progr Note REPORT#:[id number] REPORT STATUS: Signed DATE:06/13/20 TIME: 2056 PATIENT: YENY TEMPLETON UNIT #: [id number] ROOM/BED: [place] [id number] : 93 AGE: 24 SEX: F ATTEND: [...] 2336 111 119/61 06/12 2321 88.0 06/12 2321 103 123/67 06/12 2314 103 96 06/12 2306 83.0 06/12 2306 90 122/58 93 06/12 2251 37.5 15 06/12 2251 84.0 06/12 2251 111 126/58 06/12 2244 116 97 06/12 2236 86.0 06/12 2236 110 125/60 06/12 2221 88.0 06/12 2221 109 131/62 06/12 2207 83.0 06/12 2207 103 127/60 06/12 2151 91.0 06/12 2151 105 127/70 06/12 2136 87.0 06/12 2136 107 120/67 06/12 2124 93 98 06/122 83.0 06/12 2121 106 110/70 PATIENT WEIGHT: Weight (lb): 199 Weight (oz): Weight (kg): 90.265 Physical Exam Abdomen: soft, no abnormal tenderness, no guarding Uterus: involution appropriate, non-tender Fundus: firm, below the umbilicus Lochia: normal Lacerations: Perineal laceration(s): None Lower extremities: Edema: none Matthew's sign: negative Calf tenderness: negative Result Findings/Data: Laboratory Tests: 06/13 06/13 06/12 06/12 UNK 0400 2134 2133 Blood Gas Cord Blood pH (7.18 - [...] (Auto) (14.0 - 32.0 %) 10.6 L [place] % (Auto) (4.8 - 9.0 %) 6.4 Eos % (Auto) (0.3 - 3.7 %) 0.1 L Baso % (Auto) (0.0 - 2.0 %) 0.2 Neut # (Auto) (2.0 - 7.6 x10 3/uL) 9.95 H Lymph # (Auto) (1.0 - 3.8 x10 3/uL) 1.28 [place] # (Auto) (0.1 - 0.8 x10 3/uL) [...] 4. Polyhydramnios, third trimester, fetus 1 Assessment: [facility] progress Plan: routine care at 2057 RPT #:[id number] END OF [id number] 21:13:00 [facility] ([facility]) OB Delivery Note REPORT#:[id number] REPORT STATUS: Signed DATE:06/12/20 TIME: 2112 PATIENT: YENY TEMPLETON UNIT #: [id number] ROOM/BED: [place] [id number] : 93 AGE: 24 SEX: F ATTEND: [...] delivery: Delivery date infant A: Delivery time A: Birthweight (gm) infant A: Weight (lb) A: Weight (oz) A: Gender A: 1 minute infant A: 5 minutes A: 10 minutes infant A: Cord pH obtained infant A: Vacuum time A: Vacuum # pulls [...] No Mother's condition: mother stable Infant's condition: stable in room Lacerations: Perineal laceration(s): None Blood Loss/Details Blood loss at delivery: 52 at 6485 RPT #:[id number] END OF [id number] 15:40:00 [facility] ([facility]) DT History Physical REPORT#:[id number] REPORT STATUS: Signed DATE:06/12/20 TIME: 1540 PATIENT: YENY TEMPLETON UNIT #: [id number] ROOM/BED: [place] [id number] : 93 AGE: 24 SEX: F ATTEND: [...] No Denies any alcohol or drug use. Consignee History Periods : . Sexual activity currently [...] 145/70 99 06/12 0939 85 98 06/12 0934 88 99 06/12 928 88 99 06/12 924 100.0 06/12 924 36.8 82 18 130/82 99 06/12 0924 100.0 06/12 923 86 130/82 97 Temp [...] (Auto) (14.0 - 32.0 %) 8.1 L [place] % (Auto) (4.8 - 9.0 %) 2.2 L Eos % (Auto) (0.3 - 3.7 %) 0.1 L Baso % (Auto) (0.0 - 2.0 %) 0.2 Neut # (Auto) (2.0 - 7.6 x10 3/uL) 9.89 H Lymph # (Auto) (1.0 - 3.8 x10 3/uL) 0.91 L [place] # (Auto) (0.1 - 0.8 x10 3/uL) [...] followed by Dr Darby. at 1551 RPT #:[id number] END OF [id number] 09:43:00 [facility] ([facility]) OB Medical Screening Exam REPORT#:[id number] REPORT STATUS: Signed DATE:06/12/20 TIME: 0943 PATIENT: YENY TEMPLETON UNIT #: [id number] ROOM/BED: [place] [id number] : 93 AGE: 24 SEX: F ATTEND: Yosi Marroquin MD ADM AUTHOR: Kristie Boston MD * ALL edits or amendments must be made on the electronic/computer document * Medical Screening Exam Provider Attestation Attestation: The QMP MSE reviewed. Provider at bedside at 0938 Comments: 24 y/o IUP 37 1/7 presents due to regular uterine contractions and possible leaking of fluid. at 1343 RPT #:[id number] END OF [id number] 09:43:00 [facility] ([facility]) SHADI Evaluation Note REPORT#:[id number] REPORT STATUS: Signed DATE:06/12/20 TIME: 09 PATIENT: YENY TEMPLETON UNIT #: [id number] ROOM/BED: [place] [id number] : 93 AGE: 24 SEX: F ATTEND: Yosi Marroquin MD ADM AUTHOR: Kristie Boston MD * ALL edits or amendments must be made on the electronic/computer document * SHADI History Chief complaint: uterine contractions, suspected ruptured memb HPI: 24 y/o IUP 37 1/7 presents due [...] Resp B/P B/P Mean Pulse Ox FiO2 06/12 98.3 82-94 18 130-145/70-82 98.0-100.0 97-99 PATIENT WEIGHT: Weight (lb): 199 Weight (oz): Weight (kg): 90.265 Physical Exam Additional comments: Gen: AAOx3 Lungs: normal respiratory effort Neuro: Exam: alert, oriented x3 Abdomen: gravid, soft Uterine activity: Monitor: toco Frequency (description): regular Frequency (minutes): 3 SEISMOLOGY TEACHER: Normal exteral genitalia Cervical/ exam: Speculum exam: [...] patient, nurse, Dr. Marroquin at 1353 RPT #:[id number] END OF [id number] 09:17:00 [facility] ([facility]) OB Postpart Progr Note REPORT#:[id number] REPORT STATUS: Signed DATE:03/17/19 TIME: 916 PATIENT: YENY TEMPLETON UNIT #: [id number] ROOM/BED: [place] [address] : 93 AGE: 23 SEX: F ATTEND: [...] % (Auto) (14.0 - 32.0 %) 24.3 [place] % (Auto) (4.8 - 9.0 %) 7.2 Eos % (Auto) (0.3 - 3.7 %) 2.9 Baso % (Auto) (0.0 - 2.0 %) 0.3 Neut # (Auto) (2.0 - 7.6 x10 3/uL) 4.21 Lymph # (Auto) (1.0 - 3.8 x10 3/uL) 1.58 [place] # (Auto) (0.1 - 0.8 x10 3/uL) [...] progress Plan: routine care at 0917 RPT #:[id number] END OF [id number] 09:17:00 [facility] ([facility]) OB Disch REPORT#:[id number] REPORT STATUS: Signed DATE:03/17/19 TIME: 916 PATIENT: YENY TEMPLETON UNIT #: [id number] ROOM/BED: [place] [address] : 93 AGE: 23 SEX: F ATTEND: [...] less than 30 mins at 0918 RPT #:[id number] END OF [id number] 12:29:00 [facility] ([facility]) Post Anesthesia Evaluation REPORT#:[id number] REPORT STATUS: Signed DATE:03/16/19 TIME: 1229 PATIENT: YENY TEMPLETON UNIT #: [id number] ROOM/BED: [place] [id number] : 93 AGE: 23 SEX: F ATTEND: [...] no Anesthesia complications: no at 1231 RPT #:[id number] END OF [id number] 10:45:00 [facility] ([facility]) OB Delivery Note REPORT#:[id number] REPORT STATUS: Signed DATE:03/16/19 TIME: 1045 PATIENT: YENY TEMPLETON UNIT #: [id number] ROOM/BED: [place] [id number] : 93 AGE: 23 SEX: F ATTEND: [...] Steroids prior to arrival: Antibiotic prophylaxis given: [place] evaluation at delivery: Delivery date A: Delivery time infant A: Birthweight (gm) A: Weight (lb) infant A: Weight (oz) infant A: Gender infant A: 1 minute infant A: 5 minutes A: 10 minutes A: Cord pH obtained A: Vacuum time A: Vacuum # pulls A: Vacuum # popoffs infant A: __ Provider comments on imported nursing data: [] Pre-delivery evaluation at delivery: NRP certified personnel Admission EGA (wks/days): 39 weeks EGA at delivery (wks/days): 39 weeks General VS: Last Documented: Result Date Time B/P Mean 88.0 03/16 956 Pulse Ox 99 03/16 956 B/P 129/64 03/16 956 Pulse 77 03/16 956 Temp 36.7 03/16 854 Membranes: AROM ROM date: 03/16/19 Amniotic fluid: [...] Loss/Details EBL (ml's): 250 at 1047 RPT #:[id number] END OF [id number] 06:01:00 [facility]) OB-SEISMOLOGY TEACHER Progress Note REPORT#:[id number] REPORT STATUS: Signed DATE:03/16/19 TIME: 600 PATIENT: YENY TEMPLETON UNIT #: [id number] ROOM/BED: [place] [id number] : 93 AGE: 23 SEX: F ATTEND: [...] ACCELERATIONS. WILL CONTINUE OBSERVATION. at 0604 RPT #:[id number] END OF [id number] 01:59:00 [facility] ([facility]) OB Admission / H P REPORT#:[id number] REPORT STATUS: Signed DATE:03/16/19 TIME: 015 PATIENT: YENY TEMPLETON UNIT #: [id number] ROOM/BED: [place] [id number] : 93 AGE: 23 SEX: F ATTEND: [...] COVERING FOR DR MARROQUIN at 0212 RPT #:[id number] END OF [id number] 22:28:00 [facility] ([facility]) OB Triage Visit REPORT#:[id number] REPORT STATUS: Signed DATE:02/15/19 TIME: 2227 PATIENT: YENY TEMPLETON UNIT #: [id number] ROOM/BED: [place] [address] : 93 AGE: 23 SEX: F ATTEND: [...] Will send home with labor precautions at 2357 RPT #:[id number] END OF [id number] 17:52:00 [facility] ([facility]) OB Triage Visit REPORT#:[id number] REPORT STATUS: Signed DATE:10/30/18 TIME: 1752 PATIENT: YENY TEMPLETON UNIT #: [id number] ROOM/BED: [place] [address] : 93 AGE: 23 SEX: F ATTEND: Yosi Marroquin MD ADM DT: AUTHOR: Marcial Escobdeo MD * ALL edits or amendments must [...] TO F/U DR MARROQUIN. at 1802 RPT #:[id number] END OF REPORTHCACL
[2025-03-10 17:35] LABS: ALT/SGPT 203.0 U/L (13-56); AST/SGOT 72.0 U/L (15-37); Albumin 4.4 g/dL (3.4-5.0); Albumin/Globulin Ratio 0.9 (1.1-1.8); Alkaline Phosphatase 124.0 U/L (45-117); Anion Gap 13.7 mEq/L (5.0-15.0); BUN Blood Urea Nitrogen 36.0 mg/dL (7-18); Globulin 4.7 g/dL (2.3-3.5); Glucose Level 136.0 mg/dL (74-106); Lipase 20.0 U/L (13-75); Potassium 2.7 mEq/L (3.5-5.1)
[2025-03-10] MEDS ORDERED: ONDANSETRON 4 MG/2 ML VIAL ONE ×3 (17:49→22:39)
[2025-03-10] MEDS ORDERED: MORPHINE 4 MG/ML SYR ONE (17:50)
[2025-03-10] MEDS ORDERED: NA CHLORIDE 0.9% 1,000 ML ONE ×2 (17:50→18:24)
[2025-03-10 18:02] LABS: Absolute Lymphocytes (CBC) 1.0 K/uL (0.7-4.9); Hematocrit 51.9 % (36.0-45.0); Hemoglobin 18.2 g/dL (12.0-15.0); MCH 29.9 pg (27.0-35.0); MCHC 35.0 g/dL (32.0-36.0); MCV 85.5 fL (80-100); MPV 11.8 fL (7.6-11.3); Nucleated RBC Absolute Count 0.2 (0-0); Nucleated Red Blood Cells % 1.3 % (0-0); RBC Red Blood Cell Count 6.07 M/uL (3.86-4.86); White Blood Count 12.10 thou/uL (4.3-10.9)
[2025-03-10] MEDS ORDERED: POTASSIUM CL SA 10 MEQ TAB PO ONE (18:24)
[2025-03-10] MEDS ORDERED: KCL 20 MEQ/100 mL IVPB 100 ML IV ONE (18:25)
--- NOTE | 2025-03-10 19:27 | RAD REPORT ---
EXAMINATION: CT ABDOMEN AND PELVIS WITHOUT CONTRAST CLINICAL INDICATION: ABD PAIN TECHNIQUE: CT abdomen and pelvis was performed, without IV contrast, as per department protocol. Axia l, sagittal and coronal reconstructions were obtained. One or more of the following dose reduction techniques were used: Automated exposure control, adjustment of the mA and kV according to the patien t size, and iterative reconstruction. Unless otherwise specified, incidental findings do not require dedicated imaging follow-up. COMPARISON: 01/18/2025 FINDINGS: The lack of intravenous contrast limits the sensitivity of this exam for evaluation of solid visceral organs, vascular structures, and retroperitoneum. LOWER CHEST: The visualized lung bases are clear. Small hiatal hernia. LIVER:Normal in size and contour. No focal lesion. Cholecystectomy clips. SPLEEN: The spleen is enlarged, unchanged. PANCREAS: No mass, ductal dilation, or kortney-pancreatic fluid. ADRENALS: Normal; no mass. KIDNEYS AND URETERS: 8 mm oblong calculus is present in the right renal pelvis. No hydronephrosis. URINARY BLADDER: Normal contour. GASTROINTESTINAL TRACT: No evidence of bowel obstruction, significant free fluid, free air or abscess . APPENDIX: Normal appendix. LYMPH NODES: No lymphadenopathy. MUSCULOSKELETAL: No acute or suspicious osseous abnormality. ADDITIONAL FINDINGS: IUD is present in the uterus. IMPRESSION: 8 mm oblong stone in the right renal pelvis. No hydronephrosis. Mild splenomegaly.
[2025-03-10] MEDS ORDERED: KETOROLAC 30 MG/ML INJ ONE (19:42)
[2025-03-10] MEDS ORDERED: FAMOTIDINE 20 MG/2 ML VIAL IV ONE (19:42)
[2025-03-10 20:25] LABS: Urine Crystals Unidentified Few /HPF (None Seen); Urine Culture Reflex Order NOT NEEDED; Urine Microscopic Reflex YN ORDER UMIC
[2025-03-10 20:51] LABS: Blood Morphology Comment NOT SEEN (NOT SEEN); White Blood Cell Scan OK (OK)
--- NOTE | 2025-03-10 21:08 | ER ---
Nurse's Notes [facility] Ariela Name: Yeny Kc Age: 29 yrs Sex: Female : 1995 Arrival Date: 03/10/2025 Time: 16:15 Bed 6 Private MD: Diagnosis: Acute kidney failure, unspecified;Calculus of kidney-8 mm;Hypokalemia;Transaminitis Presentation: 03/10 16:23 Chief complaint: Patient states: since last Wednesday pt has had n/v, sob, palpitations me1 and diffuse mid abdominal pain. Pain 11/30. Coronavirus screen: Vaccine status: Patient reports being unvaccinated. Ebola Screen: No symptoms or risks identified at this time. Initial Sepsis Screen: Does the patient meet any 2 criteria? HR > 90 bpm. Does the patient have a suspected source of infection? No. Patient's initial sepsis screen is negative. Risk Assessment: Do you want to hurt yourself or someone else? Patient reports no desire to harm self or others. Onset of symptoms was March 05, 2025. 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 - Infectious Disease History:: Denies. - Social history:: Smoking status: Patient/guardian denies using tobacco, but has a distant history of tobacco abuse. Screenin:20 [facility] ED Fall Risk Assessment (Adult) History of falling in the last 3 months, ap3 including since admission No falls in past 3 months (0 pts) Confusion or Disorientation No (0 pts) Intoxicated or Sedated No (0 pts) Impaired Gait No (0 pts) Mobility Assist Device Used No (0 pt) Altered Elimination No (0 pt) Score/Fall Risk Level 0 - 2 = Low Risk. Abuse screen: Denies threats or abuse. Nutritional screening: No deficits noted. Tuberculosis screening: No symptoms or risk factors identified. Assessment: 18:19 General: Appears uncomfortable, Behavior is calm, cooperative, appropriate for age. ap3 Pain: Complains of pain in abdomen. Neuro: Level of Consciousness is awake, alert, obeys commands, Oriented to person, place, time, situation. Cardiovascular: Patient's skin is warm and dry. Respiratory: Reports shortness of breath Airway is patent Respiratory effort is even, unlabored, Respiratory pattern is regular, symmetrical, Breath sounds are clear bilaterally. GI: Abdomen is non-distended, Reports nausea, vomiting. 18:20 GI: Reports diarrhea. ap3 22:03 Reassessment: Attempted to call report. Put on hold for over 10 minutes with no answer. cp4 22:11 Reassessment: Attempted to call report again. Put on hold for over 10 minutes with no cp4 answer. 22:35 Reassessment: Attempted to call report again. Put on hold with no answer. cp4 Vital Signs: 16:23 BP 138 / 104; Pulse 125; Resp 17; Temp 98.4; Pulse Ox 98% ; Weight 83.91 kg; Height 5 me1 ft. 0 in. ; Pain 7/10; 18:19 BP 147 / 89; Pulse 86; Resp 18; Pulse Ox 98% ; ap3 21:43 BP 172 / 104; Pulse 79; Resp 18; Pulse Ox 99% ; cp4 16:23 Body Mass Index 36.13 (83.91 kg, 152.4 cm) me1 16:23 Pain Scale: Adult me1 ED Course: 16:17 Patient arrived in ED. im 16:18 [facility] Beckford [facility]C [facility] sb[facility] 16:18 Man Durant MD is Attending Physician. sb4 16:24 Triage completed. me1 16:24 Arm band placed on Patient placed in waiting room. me1 16:52 Inserted saline lock: 20 gauge in right antecubital area, using aseptic technique. pm7 Blood collected. Flushed with 10 mL NS. 18:04 Test, Serum Sent. ap3 18:05 Fawn Mora, KYLER is Primary Nurse. ap3 18:19 Patient has correct armband on for positive identification. Placed in gown. Bed in low ap3 position. Call light in reach. Side rails up X2. Client placed on continuous cardiac and pulse oximetry monitoring. NIBP monitoring applied. night monitor on. Pulse ox on. NIBP on. 18:19 EKG done, by ED staff, reviewed by Leigh Beckford PA-C. ap3 18:51 Radiology exam delayed due to test not completed at this time. mw3 19:14 Abdomen In Process Unspecified. EDMS 21:27 initiated transfer with [facility]. Pt was auto accepted. accepting Dr. Kiara Pastrana. [facility] 22:51 Provided Education on: transfer. cp4 22:51 No provider procedures requiring assistance completed. Patient transferred, IV remains cp4 in place. Administered Medications: 18:03 Drug: NS 0.9% IV 1000 ml IV at 1 bolus Per protocol; to be given as a bolus over 60 ap3 minutes Route: IV; Rate: 1 bolus; Site: right antecubital; 21:42 Follow up: IV Status: Completed infusion cp4 18:04 Drug: Ondansetron IVP 4 mg IVP once; over 2 minutes Route: IVP; Site: right antecubital;ap3 21:41 Follow up: Response: No adverse reaction cp4 18:04 Drug: morphine IVP or IV 4 mg IVP once over 4 mins Route: IVP; Infused Over: 4 mins; ap3 Site: right antecubital; 21:41 Follow up: Response: No adverse reaction cp4 18:31 Drug: Potassium Chloride IV 20 mEq IV at calculated rate once; administer over 1-2 ap3 hours Route: IV; Rate: calculated rate; Site: right antecubital; 21:41 Follow up: IV Status: Completed infusion cp4 18:31 Drug: NS 0.9% IV 1000 ml IV at 1 bolus Per protocol; to be given as a bolus over 60 ap3 minutes Route: IV; Rate: 1 bolus; Site: right antecubital; 21:41 Follow up: Response: No adverse reaction cp4 21:42 Follow up: IV Status: Completed infusion cp4 19:54 Drug: Droperidol IVP 2.5 mg IVP once Route: IVP; Site: right antecubital; af3 21:31 Follow up: Response: No adverse reaction cp4 19:54 Drug: Famotidine IVP 20 mg IVP once; dilute with 10 mL 0.9% NaCl; give over 2 minutes af3 Route: IVP; Site: right antecubital; 21:31 Follow up: Response: No adverse reaction cp4 19:54 Drug: Ketorolac IVP 15 mg IVP once Route: IVP; Site: right antecubital; af3 21:32 Follow up: Response: No adverse reaction; Pain is decreased cp4 21:31 Drug: fentaNYL (PF) IVP 50 mcg IVP once Route: IVP; Site: right antecubital; cp4 22:03 Follow up: Response: No adverse reaction; Pain is decreased cp4 21:43 Drug: Potassium Chloride PO 40 mEq PO once Route: PO; cp4 21:43 Follow up: Response: No adverse reaction cp4 22:04 Drug: NS 0.9% IV 1000 ml IV at 1000 ml once; to be given as a bolus over 60 minutes cp4 Route: IV; Rate: 1000 ml; Site: right antecubital; 22:36 Follow up: IV Status: Completed infusion cp4 22:42 Drug: Ondansetron IVP 4 mg IVP once; over 2 minutes Route: IVP; Site: right antecubital;cp4 22:52 Follow up: Response: No adverse reaction; Nausea is decreased cp4 Medication: 18:21 VIS not applicable for this client. ap3 Outcome: 21:07 ER care complete, transfer ordered by . sb4 22:51 Transferred by ground EMS to other acute care facility: [facility]. Transfer form cp4 completed. X-rays sent w/ patient. 22:51 Condition: stable 22:51 Instructed on the need for transfer, 22:52 Patient left the ED. cp4 Signatures: Dispatcher [employer] Fawn Waddell RN RN ap3 Erika Mosley mw3 Leigh Beckford, PAAlejandro PA-C sb4 Ashly Huston Michelle, RN RN 1 Sinai Ge cp4 Radha Farley [facility] Kim Mares RN RN af3 Alida Lang pm7
--- NOTE | 2025-03-10 21:08 | EDPHYS ---
Physician Documentation [facility] Name: Yeny Kc Age: 29 yrs Sex: Female : 1995 Arrival Date: 03/10/2025 Time: 16:15 Bed 6 Private MD: ED Physician Man Durant HPI: 03/10 16:33 This 29 yrs old Female presents to ER via Ambulatory with complaints of Nausea, sb4 Vomiting, Shortness Of Breath. 16:33 Patient reports nausea, vomiting, diarrhea, abdominal pain, flank pain, dizziness, sb4 shortness of breath for 5 days now. States that she is unable to hold anything down. Is unsure if this is secondary to the right side or not. Denies any issues urinating. Is seeing a urologist with [facility] in [place], had imaging done last week to determine plan of care but has yet to receive the results. 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 - Infectious Disease History:: Denies. - Social history:: Smoking status: Patient/guardian denies using tobacco, but has a distant history of tobacco abuse. ROS: 16:33 Constitutional: Negative for fever, chills, and weight loss, sb4 16:33 Abdomen/GI: Positive for abdominal pain, nausea, vomiting, and diarrhea, 16:33 Back: Positive for flank pain, on the right, 16:33 All other systems are negative, Exam: 16:33 Head/Face: Normocephalic, atraumatic. Eyes: Extra-ocular motions intact. Periorbital sb4 areas with no swelling, redness, or edema. ENT: Mucous membranes moist. Respiratory: No increased work of breathing, no retractions or nasal flaring. Abdomen/GI: Soft, non-tender, no distension. Skin: Warm, dry with normal turgor. Normal color with no rashes, no lesions, and no evidence of cellulitis. 16:33 Constitutional: The patient appears alert, awake, uncomfortable, 16:33 Cardiovascular: Rate: tachycardic, Rhythm: regular, Vital Signs: 16:23 BP 138 / 104; Pulse 125; Resp 17; Temp 98.4; Pulse Ox 98% ; Weight 83.91 kg; Height 5 me1 ft. 0 in. ; Pain 7/10; 18:19 BP 147 / 89; Pulse 86; Resp 18; Pulse Ox 98% ; ap3 21:43 BP 172 / 104; Pulse 79; Resp 18; Pulse Ox 99% ; cp4 16:23 Body Mass Index 36.13 (83.91 kg, 152.4 cm) me1 16:23 Pain Scale: Adult me1 MDM: 16:19 Medical Screening Exam initiated sb4 21:12 Differential diagnosis: Nonspecific abd pain, gastritis, pancreatitis, diverticulitis, sb4 viral gastroenteritis. Data reviewed: vital signs, nurses notes, lab test result(s), EKG, radiologic studies, I have discussed the patient's presentation/case with the attending Emergency Department Physician;. Consideration of Admission/Observation Patient was admitted/placed on observation. Management of patient was discussed with the following: Hospitalist: Dr. Segundo, recommends transfer for urologic eval. Counseling: I had a detailed discussion with the patient and/or guardian regarding the historical points, exam findings, and any diagnostic results supporting the discharge/admit diagnosis, the presence of at least one elevated blood pressure reading (>120/80) during this emergency department visit, lab results, radiology results, the need to transfer to another facility, for higher level of care, [facility] does not immediately have the required specialist. ED course: Patient continues to have abdominal pain, nausea, and vomiting. She does have an 8 mm stone that does not appear to be obstructed and is negative for UTI but does have an CORTEZ with associated transaminitis and hypokalemia. Will attempt transfer for urology, GI, general higher level of care. Her urologist is at [facility] in [place] and is affiliated with [facility] [place], will attempt transfer there. 03/10 16:24 Order name: CBC with Diff; Complete Time: 20:51 sb4 03/10 16:24 Order name: CMP; Complete Time: 17:36 sb4 03/10 16:24 Order name: Lipase; Complete Time: 17:36 sb4 03/10 16:24 Order name: UA Rfx Avi Cult if indicated; Complete Time: 20:26 sb4 03/10 17:54 Order name: Test, Serum; Complete Time: 19:00 sb4 03/10 18:06 Order name: CBC Smear Scan; Complete Time: 20:51 EDMS 03/10 17:55 Order name: Abdomen ; Complete Time: 19:27 EDMS 03/10 16:24 Order name: IV Saline Lock; Complete Time: 16:52 sb4 03/10 16:24 Order name: Labs collected and sent; Complete Time: 16:52 sb4 03/10 18:18 Order name: EKG - Nurse/Tech; Complete Time: 18:18 sb4 EC:18 Rate is 82 beats/min. Rhythm is regular, Sinus Rhythm with Occasional PVCs. MO interval sb4 is normal at 135 msec. QRS interval is normal at 106 msec. QT interval is normal at 411 msec. No Q waves. T waves are Normal. No ST changes noted. Clinical impression: No evidence of ischemia. Interpreted by me. Reviewed by me. Administered Medications: 18:03 Drug: NS 0.9% IV 1000 ml IV at 1 bolus Per protocol; to be given as a bolus over 60 ap3 minutes Route: IV; Rate: 1 bolus; Site: right antecubital; 21:42 Follow up: IV Status: Completed infusion cp4 18:04 Drug: Ondansetron IVP 4 mg IVP once; over 2 minutes Route: IVP; Site: right antecubital;ap3 21:41 Follow up: Response: No adverse reaction cp4 18:04 Drug: morphine IVP or IV 4 mg IVP once over 4 mins Route: IVP; Infused Over: 4 mins; ap3 Site: right antecubital; 21:41 Follow up: Response: No adverse reaction cp4 18:31 Drug: Potassium Chloride IV 20 mEq IV at calculated rate once; administer over 1-2 ap3 hours Route: IV; Rate: calculated rate; Site: right antecubital; 21:41 Follow up: IV Status: Completed infusion cp4 18:31 Drug: NS 0.9% IV 1000 ml IV at 1 bolus Per protocol; to be given as a bolus over 60 ap3 minutes Route: IV; Rate: 1 bolus; Site: right antecubital; 21:41 Follow up: Response: No adverse reaction cp4 21:42 Follow up: IV Status: Completed infusion cp4 19:54 Drug: Droperidol IVP 2.5 mg IVP once Route: IVP; Site: right antecubital; af3 21:31 Follow up: Response: No adverse reaction cp4 19:54 Drug: Famotidine IVP 20 mg IVP once; dilute with 10 mL 0.9% NaCl; give over 2 minutes af3 Route: IVP; Site: right antecubital; 21:31 Follow up: Response: No adverse reaction cp4 19:54 Drug: Ketorolac IVP 15 mg IVP once Route: IVP; Site: right antecubital; af3 21:32 Follow up: Response: No adverse reaction; Pain is decreased cp4 21:31 Drug: fentaNYL (PF) IVP 50 mcg IVP once Route: IVP; Site: right antecubital; cp4 22:03 Follow up: Response: No adverse reaction; Pain is decreased cp4 21:43 Drug: Potassium Chloride PO 40 mEq PO once Route: PO; cp4 21:43 Follow up: Response: No adverse reaction cp4 22:04 Drug: NS 0.9% IV 1000 ml IV at 1000 ml once; to be given as a bolus over 60 minutes cp4 Route: IV; Rate: 1000 ml; Site: right antecubital; 22:36 Follow up: IV Status: Completed infusion cp4 22:42 Drug: Ondansetron IVP 4 mg IVP once; over 2 minutes Route: IVP; Site: right antecubital;cp4 22:52 Follow up: Response: No adverse reaction; Nausea is decreased cp4 Disposition Summary: 03/10/25 21:07 Transfer Ordered Notes: Transfer Location: [facility] System sb4 Reason: Higher level of care sb4 Condition: Fair sb4 Problem: new sb4 Symptoms: are unchanged sb4 Accepting Physician: urology(03/10/25 22:52) cp4 Diagnosis - Acute kidney failure, unspecified sb4 - Calculus of kidney - 8 mm sb4 - Hypokalemia sb4 - Transaminitis sb4 Forms: - Medication Reconciliation Form sb4 - SBAR form sb4 Critical care time excluding procedures: 21:46 Critical care time: Bedside Care: 20 minutes, Consultation: 10 minutes, Family sb4 Intervention: 5 minutes. Total time: 35 minutes Signatures: Dispatcher [employer] EDMS Fawn Mora RN RN ap3 Leigh Beckford, PALeannaC PA-C sb4 Erika Rangel RN RN me1 Sinai Ge cp4 Kim Mares RN RN af3 Corrections: (The following items were deleted from the chart) 17:55 16:24 Abdomen Pelvis W Con+CT.RAD.BRZ ordered. EDMS EDMS 22:40 16:24 Test, Urine+UC.LAB.BRZ ordered. EDMS EDMS 22:52 21:07 urology sb4 cp4
[2025-03-10] MEDS ORDERED: FENTANYL CITR 100 MCG/2 ML ONE (21:28)
[2025-03-11 03:50] VITALS: TEMP 98.4
[2025-03-11 03:56] VITALS: BP 172/104; O2SAT 99
== END 2025-03-10 22:52 | disposition short-term general hospital (02) ==
LOC: ER 16:15
DX: N17.9 Acute kidney failure, unspecified (principal); N20.0 Calculus of kidney; E87.6 Hypokalemia; R74.01 Elevation of levels of liver transaminase levels; Z87.442 Personal history of urinary calculi
CPT/HCPCS: 96365; 96361; 93005; 85025; 81001; 36415; 84703; 83690; 80053; 74176; 96375; 99285; 96366; J1885; J3480; J3010; J2405 ×2; J1790; J7030 ×2